=== PATIENT | female | born 1950 | race Caucasian/White ===

== ENCOUNTER → 2016-11-09 | Outpatient (CLI) | payer MEDICARE, BC | LOC: RAD 12:51 | PROVIDERS: ATTEND Internal Medicine | DX: J44.9 Chronic obstructive pulmonary disease, unspecified (principal); R05 Cough | CPT/HCPCS: 71250 ==

== ENCOUNTER 2017-02-01 20:17 | Inpatient (IN) | payer MEDICARE, BC ==
[2017-02-01] MEDS ORDERED: METHYLPREDNISOLONE INJ 125 MG/2 ML SDV IV ONE (20:57)
[2017-02-01] MEDS ORDERED: IPRATROPIUM/ALBUTEROL 0.5-2.5 MG/3 ML AMPUL NEB ONE (20:57)
--- NOTE | 2017-02-01 20:57 | ER Document Report ---
ED General - General Chief Complaint: Breathing Difficulty Stated Complaint: DIFFICULTY BREATHING Time Seen by Provider: 02/01/17 20:42 Notes: Patient is a 66-year-old female with past medical history of COPD with 2 L of nasal cannula oxygen dependence at baseline, hypertension, hyperlipidemia, chronic pain who presents with 2 days of progressively worsening severe Shortness of breath and cough. She was started on levofloxacin yesterday by her primary provider without any improvement in her symptoms. She has also been taking her normal home nebulizers again without any improvement. States she had similar symptoms in the past with prior COPD exacerbations. She denies any associated chest pain, vomiting, fever or altered mental status. She has not noted that anything seems to worsen her symptoms. TRAVEL OUTSIDE OF THE [place] IN LAST 30 DAYS: No - Related Data Allergies/Adverse Reactions: ibuprofen [From Motrin] Allergy (Severe, Verified 05/15/12 11:11) Azotemia, acute renal failure pentazocine lactate [From Talwin] Adverse Reaction (Unknown, Unverified 11:23) Home Medications: Current Home Medications Pregabalin [Lyrica] 50 mg PO BID 02/02/17 [History] Past Medical History - General Information source: Patient - Social History Smoking Status: Former Smoker Frequency of alcohol use: None Drug Abuse: None Lives with: Spouse/Significant other Family History: Reviewed & Not Pertinent Patient has suicidal ideation: No Patient has homicidal ideation: No - Past Medical History Cardiac Medical History: Reports: Hx Hypercholesterolemia, Hx Hypertension Pulmonary Medical History: Reports: Hx COPD, Hx Pneumonia - 11/2009, Hx Sleep Apnea Denies: Hx Tuberculosis Renal/ Medical History: Denies: Hx Peritoneal Dialysis Musculoskeltal Medical History: Reports Hx Fibromyalgia Psychiatric Medical History: Reports: Hx Depression Past Surgical History: Reports: Hx Section, Hx Hysterectomy. Denies: Hx Pacemaker - Immunizations Hx Diphtheria, Pertussis, Tetanus Vaccination: No Hx Pneumococcal Vaccination: 05/17/12 Review of Systems - Review of Systems Notes: Constitutional: Negative for fever. HENT: Negative for sore throat. Eyes: Negative for visual changes. Cardiovascular: Negative for chest pain. Respiratory: Positive for shortness of breath. Gastrointestinal: Negative for abdominal pain, vomiting or diarrhea. Genitourinary: Negative for dysuria. Musculoskeletal: Negative for back pain. Skin: Negative for rash. Neurological: Negative for headaches, weakness or numbness. 10 point ROS negative except as marked above and in HPI. Physical Exam - Vital signs Vitals: Temp Pulse Resp BP Pulse Ox 98.6 F 95 26 H 176/112 H 90 L 02/01/17 20:17 02/01/17 20:17 02/01/17 20:17 02/01/17 20:17 02/01/17 20:17 Interpretation: Hypoxic, Tachypneic Notes: PHYSICAL EXAMINATION: GENERAL: Cachectic, appears to be in moderate respiratory distress. HEAD: Atraumatic, normocephalic. EYES: Pupils equal round and reactive to light, extraocular movements intact, sclera anicteric, conjunctiva are normal. ENT: nares patent, oropharynx clear without exudates. Moderately dry mucous membranes. NECK: Normal range of motion, supple without lymphadenopathy LUNGS: Diffuse rhonchi in all lung [place] with associated respiratory distress with initial respiratory rate at time of my assessment at 32 breaths per minute. HEART: Regular tachycardia without murmurs ABDOMEN: Soft, nontender, normoactive bowel sounds. No guarding, no rebound. No masses appreciated. EXTREMITIES: Normal range of motion, no pitting or edema. No cyanosis. NEUROLOGICAL: No focal neurological deficits. Moves all extremities spontaneously and on command. PSYCH: Normal mood, normal affect. SKIN: Warm, Dry, normal turgor, no rashes or lesions noted. Course - Re-evaluation Re-evalutation: 02/01/17 20:57 Patient presents in moderate respiratory distress with tachypnea into the upper 20s, mild hypoxemia with an initial pulse oximetry of 91%. Patient sounded to have mostly rales on exam with minimal wheezing. Complete sentences. She denies a history of CHF. No chest pain by complaint. At this point she is a somewhat Endo differentiated picture although her clinical presentation appears more consistent with a new onset CHF exacerbation versus possible severe bronchitis in the setting of a COPD exacerbation. Will trial continuous nebulizers, steroids and reassess. The patient is significantly ill at this time and will require reassessment. 2206-chest x-ray demonstrates increased vascular markings markings but no overt pulmonary edema. ProBNP is markedly elevated at 13,000 as well as the troponin which is in an indeterminate range at 0.049. Patient does deny any chest pain. At this point I believe the clinical picture is again more consistent with a CHF picture. This is supported by lack of any improvement on continuous nebulizers. Will proceed with placement of BiPAP and initiate a nitroglycerin drip. Patient will be admitted to the hospital at this time. Will also continue to reassess frequently while she remains here in the emergency department. She remains mildly tachypneic and requires 3L by NC to maintain o2 sat at 92%. 02/01/17 23:02 Patient's work of breathing is now substantially improved on BiPAP. Respiratory rate is now 22 even and unlabored with much improved aeration on lung auscultation. Her blood pressure is trending in the appropriate direction with the systolic not 162. I have discussed this case with the patient's primary care physician Dr. Joiner who will admit her to the hospital. - Vital Signs Vital signs: Temp Pulse Resp BP Pulse Ox 98.6 F 95 24 H 137/81 H 94 02/01/17 20:17 02/01/17 20:17 02/02/17 01:11 02/02/17 01:11 02/02/17 01:11 - Laboratory Result Diagrams: 02/01/17 20:55 02/01/17 20:55 Laboratory results interpreted by me: 02/01/17 02/01/17 02/01/17 20:55 20:55 20:55 WBC 13.5 H RDW 14.2 H Seg Neutrophils % 83.8 H Lymphocytes % 7.2 L Absolute Neutrophils 11.3 H Potassium 3.3 L NT-Pro-B Natriuret Pep 55250 H - Diagnostic Test Radiology reviewed: Image reviewed, Reports reviewed Radiology results interpreted by me: 02/01/17 22:04 Chest x-ray: Increased vascular markings without overt pulmonary edema - EKG Interpretation by Me Additional EKG results interpreted by me: 02/02/17 02:12 Normal sinus rhythm. Rate 89. LVH. No ST elevations or depressions. QTC is 453. Critical Care Note - Critical Care Note Total time excluding time spent on procedures (mins): 40 Comments: Critical care time spent obtaining history from patient or surrogate, discussions with consultants, development of treatment plan with patient or surrogate, evaluation of patient's response to treatment, examination of patient , ordering and performing treatments and interventions, ordering and review of laboratory studies, re-evaluation of patient's condition, ordering and review of radiographic studies and review of old charts Discharge - Discharge Clinical Impression: Respiratory distress, Elevated brain natriuretic peptide (BNP) level, Elevated troponin Condition: Fair Disposition: ADMITTED INPATIENT Admitting Provider: Marisel Unit Admitted: [facility]
[2017-02-01] MEDS ORDERED: NORMAL SALINE 1000 ML 1,000 ML IV ONE (20:58)
[2017-02-01 21:06] LABS: ABSOLUTE BASOPHILS # (AUTO) 0.1 10^3/uL (0.0-0.2); ABSOLUTE EOSINOPHILS # (AUTO) 0.1 10^3/uL (0.0-0.6); ABSOLUTE MONOCYTES (AUTO) 1.1 10^3/uL (0.1-1.4); ABSOLUTE NEUT (AUTO) 11.3 10^3/uL (1.7-8.2); BASOPHILS % (AUTO) 0.4 % (0-2); EOSINOPHILS % (AUTO) 0.4 % (0-6); HEMATOCRIT 40.8 % (36.0-47.0); HEMOGLOBIN 13.7 g/dL (12.0-15.5); HGB HCT DIFFERENCE 0.3; LYMPHOCYTES % (AUTO) 7.2 % (13-45); MEAN CORPUSCULAR HEMOGLOBIN 28.8 pg (27.0-33.4); MEAN CORPUSCULAR HGB CONC 33.7 g/dL (32.0-36.0); MEAN CORPUSCULAR VOLUME 86 fl (80-97); MONOCYTES % (AUTO) 8.2 % (3-13); RED BLOOD COUNT 4.77 10^6/uL (3.72-5.28); RED CELL DISTRIBUTION WIDTH 14.2 % (11.5-14.0); SEGMENTED NEUTROPHILS % (AUTO) 83.8 % (42-78); WHITE BLOOD COUNT 13.5 10^3/uL (4.0-10.5)
[2017-02-01] MEDS: MAGNESIUM SULFATE/D5W 100 ML IV SCH ×2 (21:09→21:44)
--- NOTE | 2017-02-01 21:12 | RADIOLOGY REPORT (SQ) ---
EXAM DESCRIPTION: CHEST SINGLE VIEW COMPLETED DATE/TIME: 02/01/2017 9:01 pm REASON FOR STUDY: sob COMPARISON: Chest x-ray dated 05/15/2012, CT chest dated 11/09/2016 EXAM PARAMETERS: NUMBER OF VIEWS: One view. TECHNIQUE: Single frontal radiographic view of the chest acquired. RADIATION DOSE: NA LIMITATIONS: None. FINDINGS: LUNGS AND PLEURA: Interstitial markings are prominent but unchanged. No consolidation or effusions. MEDIASTINUM AND HILAR STRUCTURES: No masses. Contour normal. HEART AND VASCULAR STRUCTURES: Heart normal in size. Normal vasculature. BONES: No acute findings. HARDWARE: None in the chest. OTHER: No other significant finding. IMPRESSION: Stable chest. No acute findings. TECHNICAL DOCUMENTATION: JOB ID: [id number]
[2017-02-01 21:18] LABS: ANION GAP 17 (5-19); BLOOD UREA NITROGEN 13 mg/dL (7-20); CALCIUM 10.2 mg/dL (8.4-10.2); CARBON DIOXIDE 26 mmol/L (22-30); CHLORIDE 98 mmol/L (98-107); CREATININE RESULT 0.57 mg/dL (0.52-1.25); GLUCOSE 101 mg/dL (75-110); POTASSIUM 3.3 mmol/L (3.6-5.0); SODIUM 141.3 mmol/L (137-145)
[2017-02-01 21:56] LABS: TROPONIN I 0.049 ng/mL
[2017-02-01] MEDS ORDERED: NITROGLYCERIN/D5W 250 ML IV PRN (22:01)
[2017-02-02] MEDS ORDERED: DEXTROSE 50%-WATER 25 GM/50 ML DISP.SYRIN IV PRN ×2 (02:21)
[2017-02-02] MEDS ORDERED: GLUCAGON,HUMAN RECOMB 1 MG INJ SUBCUT PRN (02:21)
[2017-02-02] MEDS ORDERED: DEXTROSE 5%-WATER 1000 ML 1,000 ML IV PRN (02:21)
[2017-02-02] MEDS ORDERED: DEXTROSE 40% GEL 15 GM TUBE PO PRN ×2 (02:21)
[2017-02-02] MEDS ORDERED: HYDROCODONE BIT PO SCH (02:30)
[2017-02-02] MEDS ORDERED: HYDROCHLOROTHIAZIDE PO SCH (02:30)
[2017-02-02] MEDS ORDERED: ACETAMINOPHEN PO SCH (02:30)
[2017-02-02] MEDS ORDERED: OLMESARTAN PO SCH (02:30)
[2017-02-02] MEDS ORDERED: [UNRECOGNIZED DRUG - OTHER] PO SCH (02:30)
[2017-02-02] MEDS ORDERED: [UNRECOGNIZED DRUG - OTHER] PO SCH (02:30)
[2017-02-02 02:52] LABS: MAGNESIUM 1.6 mg/dL (1.6-2.3); PHOSPHORUS 2.7 mg/dL (2.5-4.5)
[2017-02-02] MEDS ORDERED: METHOCARBAMOL 500 MG TABLET PO ONE (03:00)
[2017-02-02] MEDS ORDERED: LEVOFLOXACIN 750 MG TABLET PO ONE (03:00)
[2017-02-02] MEDS ORDERED: PREGABALIN 50 MG CAPSULE PO ONE (03:00)
[2017-02-02 03:05] LABS: PROTHROMBIN TIME 14.3 SEC (11.4-15.4)
[2017-02-02 03:06] LABS: PARTIAL THROMBOPLASTIN TIME 30.4 SEC (23.5-35.8)
[2017-02-02 03:08] LABS: D-DIMER 0.64 ug/mL (0.00-0.50)
[2017-02-02 03:14] LABS: CHOLESTEROL 236.55 mg/dL (0-200); CREATINE KINASE 137 U/L (30-135); Direct HDL 59 mg/dL (>40); TRIGLYCERIDES 98 mg/dL (<150)
[2017-02-02] MEDS ORDERED: LOSARTAN POTASSIUM 50 MG TABLET PO ONE (03:15)
[2017-02-02] MEDS ORDERED: FLUTICASONE/SALMETEROL DISKUS 250-50 MCG/DOSE IH ONE ×3 (03:15→08:57)
[2017-02-02] MEDS ORDERED: HYDROCHLOROTHIAZIDE 25 MG TABLET PO ONE (03:15)
[2017-02-02 03:25] LABS: DIRECT LDL 143 mg/dL (<100)
[2017-02-02 03:27] LABS: CREATINE KINASE MB 7.42 ng/mL (<4.55); TROPONIN I 0.049 ng/mL
[2017-02-02] MEDS: LEVALBUTEROL HCL NEB 1.25 MG/3 ML AMPUL NEB SCH ×8 (03:44→18:17)
[2017-02-02 03:56] LABS: ARTERIAL BLOOD BASE EXCESS 2.5 mmol/L; ARTERIAL BLOOD O2 SATURATION 95.8 % (94-98)
[2017-02-02] MEDS: HYDROCODONE/ACETAMINOPHEN 5-325 MG TABLET PO SCH ×2 (05:20→08:46)
[2017-02-02] MEDS: DEXAMETHASONE SOD PHOSPHATE INJ 4 MG/1 ML VIAL IV SCH ×3 (06:33→22:16)
--- NOTE | 2017-02-02 07:49 | EKG REPORT ---
SEVERITY:- ABNORMAL ECG - SINUS RHYTHM LEFT ATRIAL ABNORMALITY PROLONGED QT INTERVAL DIFFUSE NONSPECIFIC ST-T CHANGES : Confirmed by: Tyosn Ann MD 02-Feb-2017 07:49:30
--- NOTE | 2017-02-02 07:50 | EKG REPORT ---
SEVERITY:- ABNORMAL ECG - SINUS RHYTHM PROBABLE LEFT VENTRICULAR HYPERTROPHY ABNORMAL T, CONSIDER ISCHEMIA, ANTERIOR LEADS : Confirmed by: Tyson Ann MD 02-Feb-2017 07:49:43
[2017-02-02] MEDS ORDERED: METHADONE HCL 10 MG TABLET PO SCH ×2 (08:00→14:00)
[2017-02-02] MEDS: ENOXAPARIN SODIUM INJ 40 MG/0.4 ML DISP.SYRIN SUBCUT SCH (08:47)
[2017-02-02 09:33] LABS: ALANINE AMINOTRANSFERASE 29 U/L (9-52); ALBUMIN 3.6 g/dL (3.5-5.0); ALKALINE PHOSPHATASE 107 U/L (38-126); ANION GAP 11 (5-19); ASPARTATE AMINO TRANSFERASE 22 U/L (14-36); BILIRUBIN,DIRECT 0.5 mg/dL (0.0-0.4); BILIRUBIN,TOTAL 0.9 mg/dL (0.2-1.3); BLOOD UREA NITROGEN 14 mg/dL (7-20); CALCIUM 9.7 mg/dL (8.4-10.2); CARBON DIOXIDE 25 mmol/L (22-30); CHLORIDE 100 mmol/L (98-107); CREATININE RESULT 0.51 mg/dL (0.52-1.25); GLUCOSE 181 mg/dL (75-110); SODIUM 136.4 mmol/L (137-145); TOTAL PROTEIN 6.7 g/dL (6.3-8.2)
[2017-02-02 09:44] LABS: CREATINE KINASE MB 6.63 ng/mL (<4.55); TROPONIN I 0.037 ng/mL
[2017-02-02 09:58] LABS: POTASSIUM 2.7 mmol/L (3.6-5.0)
[2017-02-02] MEDS ORDERED: PREGABALIN 50 MG CAPSULE PO SCH (10:00)
[2017-02-02] MEDS ORDERED: LOSARTAN POTASSIUM 50 MG TABLET PO SCH (10:00)
[2017-02-02] MEDS ORDERED: HYDROCHLOROTHIAZIDE 25 MG TABLET PO SCH (10:00)
[2017-02-02] MEDS ORDERED: METHOCARBAMOL 500 MG TABLET PO SCH (10:00)
[2017-02-02] MEDS: FLUTICASONE/SALMETEROL DISKUS 250-50 MCG/DOSE IH SCH ×2 (11:31→22:15)
[2017-02-02] MEDS ORDERED: ALBUTEROL SULFATE HFA (90 MCG/PUFF) 200 PUFF/8.5 GM MDI IH PRN (12:20)
[2017-02-02] MEDS ORDERED: METHOCARBAMOL 500 MG TABLET PO PRN (12:20)
[2017-02-02] MEDS: NYSTATIN 500000 UNIT/5 ML UDCUP PO SCH ×3 (13:59→22:16)
[2017-02-02] MEDS: POTASSIUM CHLORIDE 10 MEQ TABLET.SA PO SCH ×3 (14:02→22:15)
[2017-02-02] MEDS: HYDROCODONE/ACETAMINOPHEN 5-325 MG TABLET PO PRN (14:03)
[2017-02-02] MEDS: GABAPENTIN 300 MG CAPSULE PO SCH ×2 (14:03→22:14)
[2017-02-02 15:01] LABS: CREATINE KINASE MB 6.82 ng/mL (<4.55); TROPONIN I 0.022 ng/mL
[2017-02-02] MEDS: METHADONE HCL 10 MG TABLET PO SCH ×2 (17:53→23:44)
--- NOTE | 2017-02-02 18:30 | XCELERA REPORT ---
[address] [address] Transthoracic Echocardiogram Report Name: REHAN DANIEL Age: 66 yrs Gender: Female : 1950 Patient Status: Inpatient Patient Location: [id number]\319\[id number]\A Study Date: 02/02/2017 09:31 AM Height: 65 in Weight: 134 lb BSA: 1.7 m2 Procedure: A complete two-dimensional transthoracic echocardiogram was performed (2D, M-mode, spectral and color flow Doppler). The study was technically adequate with some images being suboptimal in quality. Reason For Study: CHF Ordering Physician: OBEY ROYAL Performed By: Nela Go Interpretation Summary The left ventricular ejection fraction is normal. Doppler measurements suggest pseudonormalized left ventricular relaxation, which is associated with grade II/IV or mild to moderate diastolic dysfunction There is borderline concentric left ventricular hypertrophy. The left ventricle is grossly normal size. Wall motion cannot be accurately commented on, but no definite regional wall motion abnormalities noted. The right ventricular systolic function is normal. The left atrial size is normal. The right atrium is normal in size There is no mitral valve stenosis. No aortic regurgitation is present. There is no aortic valve stenosis There is a trace or physiologic amount of tricuspid regurgitation Tricuspid regurgitation jet envelope not well defined to measure RV systolic pressure accurately. The aortic root is not well visualized but is probably normal size. The inferior vena cava appeared normal and decreased > 50% with respiration (RAP 5-10 mmHg) There is no pericardial effusion. MMode/2D Measurements \T\ Calculations RVDd: 2.6 cm LVIDd: 4.5 cm FS: 37.5 % Ao root diam: 2.3 cm IVSd: 0.93 cm LVIDs: 2.8 cm EDV(Teich): 94.3 ml LVPWd: 0.85 cm ESV(Teich): 30.4 ml Ao root area: 4.2 cm2 EF(Teich): 67.7 % ACS: 1.9 cm LA dimension: 3.3 cm Doppler Measurements \T\ Calculations MV E max ag: MV P1/2t max ag: Ao V2 max: LV V1 max P.3 cm/sec 73.2 cm/sec 194.7 cm/sec 8.1 mmHg MV A max ag: MV P1/2t: 41.7 msec Ao max PG: LV V1 max: 94.0 cm/sec MVA(P1/2t): 5.3 cm2 15.2 mmHg 142.0 cm/sec MV E/A: 0.77 MV dec slope: 513.4 cm/sec2 MV dec time: 0.14 sec PA V2 max: PI end-d ag: TR max ag: 95.3 cm/sec 160.2 cm/sec 240.3 cm/sec PA max PG: TR max P.6 mmHg 23.1 mmHg Left Ventricle The left ventricle is grossly normal size. There is borderline concentric left ventricular hypertrophy. The left ventricular ejection fraction is normal. Doppler measurements suggest pseudonormalized left ventricular relaxation, which is associated with grade II/IV or mild to moderate diastolic dysfunction. Wall motion cannot be accurately commented on, but no definite regional wall motion abnormalities noted. Right Ventricle The right ventricle is grossly normal size. There is normal right ventricular wall thickness. The right ventricular systolic function is normal. Atria The right atrium is normal in size. The left atrial size is normal. Interarterial septum not well visualized and not well dopplered. Cannot comment on ASD/PFO presence. Mitral Valve The mitral valve is grossly normal. There is no mitral valve stenosis. There is a trace to mild amount of mitral regurgitation. Aortic Valve The aortic valve is grossly normal. There is no aortic valve stenosis. No aortic regurgitation is present. Tricuspid Valve The tricuspid valve is not well visualized, but is grossly normal. There is no tricuspid stenosis. There is a trace or physiologic amount of tricuspid regurgitation. Tricuspid regurgitation jet envelope not well defined to measure RV systolic pressure accurately. Pulmonic Valve The pulmonic valve is not well visualized. Great Vessels The aortic root is not well visualized but is probably normal size. The inferior vena cava appeared normal and decreased > 50% with respiration (RAP 5-10 mmHg). Effusions There is no pericardial effusion. : OBEY ROYAL > Julianna Barroso
--- NOTE | 2017-02-02 19:37 | PDOC H&P ---
History of Present Illness Admission Date/PCP: 02/02/17 02:21 OBEY ROYAL MD History of Present Illness: REHAN DANIEL is a 66 year old female, she came to the emergency room last night because of respiratory distress, she has a history of chronic obstructive lung disease, she continued to smoke cigarettes despite severe COPD. In the emergency room, she was found to have hypertensive emergency and she was treated with intravenous nitroglycerin drip. There is a concern she may have CHF, the respiratory was supported with noninvasive positive pressure ventilation with BiPAP machine breathing. ABG on FiO2 4 L, pH is 7.48, PCO2 35.3 , PO2 73.4, bicarbonate 25.8 ,chest x-ray did not show any acute pneumonia, 2D echo was done the ejection fraction of the left ventricle is normal Past Medical History Cardiac Medical History: Reports: Hyperlipidema, Hypertension Pulmonary Medical History: Reports: Chronic Obstructive Pulmonary Disease (COPD) , Pneumonia - 11/2009, Sleep Apnea Musculoskeltal Medical History: Reports: Fibromyalgia Psychiatric Medical History: Reports: Depression Past Surgical History Past Surgical History: Reports: Section, Hysterectomy Social History Lives with: Spouse/Significant other Smoking Status: Former Smoker Cigarettes Packs Per Day: 1 Number of Years Smokin Last Time Smoked: 2009 Frequency of Alcohol Use: None Hx Recreational Drug Use: No Drugs: None Hx Prescription Drug Abuse: No Family History Family History: Reviewed & Not Pertinent Parental Family History Reviewed: Yes Children Family History Reviewed: Yes Sibling(s) Family History Reviewed.: Yes Medication/Allergy Home Medications: Albuterol Sulfate [Proair HFA Inhalation Aerosol 8.5 gm MDI] 2 puff IN QID PRN 02/02/17 Atorvastatin Calcium [Lipitor 20 mg Tablet] 20 mg PO QHS 02/02/17 Gabapentin [Neurontin 300 mg Capsule] 300 mg PO Q8 02/02/17 Hydrocodone Bit/Acetaminophen [Hydrocodon-Acetaminophen 5-325] 1 tab PO Q6HP PRN 02/02/17 Methadone HCl [Dolophine 10 mg Tablet] 10 mg PO Q8 02/02/17 Methocarbamol [Robaxin 500 mg Tablet] 500 mg PO Q8HP PRN 02/02/17 Olmesartan Medoxomil [Benicar] 20 mg PO DAILY 02/02/17 Pregabalin [Lyrica 50 mg Capsule] 50 mg PO Q12 02/02/17 Roflumilast [Daliresp 500 mcg Tablet] 500 mcg PO DAILY 02/02/17 Trazodone HCl [Desyrel] 150 mg PO QHS 02/02/17 Allergies/Adverse Reactions: ibuprofen [From Motrin] Allergy (Severe, Verified 05/15/12 11:11) Azotemia, acute renal failure Iodinated Contrast Media - Oral and Allergy (Verified 02/02/17 04:20) Generalized Itching pentazocine lactate [From Talwin] Adverse Reaction (Mild, Verified 02/02/17 04: 20) Nausea Review of Systems Constitutional: ABSENT: chills, fever(s), headache(s), weight gain, weight loss Eyes: ABSENT: visual disturbances Ears: ABSENT: hearing changes Cardiovascular: ABSENT: chest pain, dyspnea on exertion, edema, orthropnea, palpitations Respiratory: PRESENT: cough, dyspnea Gastrointestinal: ABSENT: abdominal pain, constipation, diarrhea, hematemesis, hematochezia, nausea, vomiting Genitourinary: ABSENT: dysuria, hematuria Musculoskeletal: ABSENT: joint swelling Integumentary: ABSENT: rash, wounds Neurological: ABSENT: abnormal gait, abnormal speech, confusion, dizziness, focal weakness, syncope Psychiatric: ABSENT: anxiety, depression, homidical ideation, suicidal ideation Endocrine: ABSENT: cold intolerance, heat intolerance, menstrual abnormalities, polydipsia, polyuria Hematologic/Lymphatic: ABSENT: easy bleeding, easy bruising, lymphadenopathy Physical Exam Vital Signs: Temp Pulse Resp BP Pulse Ox 98.5 F 92 24 H 133/69 H 93 02/02/17 15:50 02/02/17 18:17 02/02/17 18:17 02/02/17 15:50 02/02/17 18:17 Intake & Output 02/01/17 02/02/17 02/03/17 06:59 06:59 06:59 Intake Total 55 496 Output Total 0 Balance 55 496 Weight 61.3 kg General appearance: PRESENT: severe distress Head exam: PRESENT: atraumatic, normocephalic Eye exam: PRESENT: conjunctiva pink, EOMI, PERRLA Ear exam: PRESENT: normal external ear exam Mouth exam: PRESENT: moist, tongue midline Neck exam: PRESENT: full ROM Respiratory exam: PRESENT: wheezes Cardiovascular exam: PRESENT: RRR, +S1, +S2 Pulses: PRESENT: normal dorsalis pedis pul, +2 pedal pulses bilateral Vascular exam: PRESENT: normal capillary refill GI/Abdominal exam: PRESENT: normal bowel sounds, soft Rectal exam: PRESENT: deferred Neurological exam: PRESENT: alert, awake, oriented to person, oriented to place , oriented to time, oriented to situation, CN II-XII grossly intact Psychiatric exam: PRESENT: appropriate affect, normal mood Skin exam: PRESENT: dry, intact, warm Results Laboratory Results: 02/02/17 08:55 02/02/17 02/02/17 02/02/17 02:50 03:40 08:55 Carbonic Acid 1.06 HCO3/H2CO3 Ratio 24:1 ABG pH 7.48 H ABG pCO2 35.3 ABG pO2 73.4 L ABG HCO3 25.8 ABG O2 Saturation 95.8 ABG Base Excess 2.5 FiO2 4L Sodium 136.4 L Potassium 2.7 L* Chloride 100 Carbon Dioxide 25 Anion Gap 11 BUN 14 Creatinine 0.51 L Est GFR ( Amer) > 60 Est GFR (Non-Af Amer) > 60 Glucose 181 H Calcium 9.7 Total Bilirubin 0.9 AST 22 ALT 29 Alkaline Phosphatase 107 Total Protein 6.7 Albumin 3.6 Triglycerides 98 Cholesterol 236.55 H LDL Cholesterol Direct 143 H VLDL Cholesterol 20.0 HDL Cholesterol 59 02/02/17 02/02/17 02/02/17 02:50 02:50 08:55 Creatine Kinase 137 H 115 CK-MB (CK-2) 7.42 H Troponin I 0.049 02/02/17 02/02/17 02/02/17 08:55 13:59 13:59 Creatine Kinase 112 CK-MB (CK-2) 6.63 H 6.82 H Troponin I 0.037 0.022 Impressions: Chest X-Ray 02/01/17 20:42 IMPRESSION: Stable chest. No acute findings. Assessment & Plan - Diagnosis (1) Acute hypoxemic respiratory failure Is this a current diagnosis for this admission?: YesPlan: She will continue BiPAP machine to support respiration (2) Chronic obstructive pulmonary disease with (acute) exacerbation Is this a current diagnosis for this admission?: YesPlan: She will be treated with intravenous Decadron, she cannot tolerate intravenous Solu-Medrol, the last time she had the she was psychotic on it. She also will be treated with bronchodilators on p.o. antibiotic. (3) Hypertensive emergency Is this a current diagnosis for this admission?: YesPlan: The blood pressure is better controlled now compared to when she was admitted
[2017-02-02] MEDS ORDERED: (PENDING PHARMACY ID) (Trazodone Hcl [Desyrel] 150 MG) PO SCH (22:00)
[2017-02-02] MEDS: ATORVASTATIN CALCIUM 20 MG TABLET PO SCH (22:14)
[2017-02-02] MEDS: TRAZODONE HCL 50 MG TABLET PO SCH (22:15)
[2017-02-02] MEDS: PREGABALIN 50 MG CAPSULE PO SCH (22:15)
[2017-02-02] MEDS: LEVOFLOXACIN 750 MG TABLET PO SCH (22:16)
[2017-02-03 05:00] LABS: HEMATOCRIT 37.4 % (36.0-47.0); HEMOGLOBIN 12.2 g/dL (12.0-15.5); HGB HCT DIFFERENCE -0.8; MEAN CORPUSCULAR HEMOGLOBIN 28.4 pg (27.0-33.4); MEAN CORPUSCULAR HGB CONC 32.7 g/dL (32.0-36.0); MEAN CORPUSCULAR VOLUME 87 fl (80-97); RED CELL DISTRIBUTION WIDTH 14.7 % (11.5-14.0); WHITE BLOOD COUNT 19.2 10^3/uL (4.0-10.5)
[2017-02-03 05:31] LABS: ANION GAP 6 (5-19); BLOOD UREA NITROGEN 24 mg/dL (7-20); CALCIUM 10.1 mg/dL (8.4-10.2); CARBON DIOXIDE 30 mmol/L (22-30); CHLORIDE 104 mmol/L (98-107); CREATININE RESULT 0.78 mg/dL (0.52-1.25); GLUCOSE 117 mg/dL (75-110); SODIUM 140.4 mmol/L (137-145)
[2017-02-03] MEDS: GABAPENTIN 300 MG CAPSULE PO SCH ×3 (05:50→21:21)
[2017-02-03] MEDS: DEXAMETHASONE SOD PHOSPHATE INJ 4 MG/1 ML VIAL IV SCH ×3 (05:50→21:20)
[2017-02-03] MEDS: METHADONE HCL 10 MG TABLET PO SCH ×3 (07:58→23:17)
[2017-02-03] MEDS: ENOXAPARIN SODIUM INJ 40 MG/0.4 ML DISP.SYRIN SUBCUT SCH (07:59)
--- NOTE | 2017-02-03 08:20 | EKG REPORT ---
SEVERITY:- ABNORMAL ECG - SINUS RHYTHM WITH PAC PROBABLE LEFT VENTRICULAR HYPERTROPHY NONSPECIFIC ST-T CHANGES ANTERIOR LEADS : Confirmed by: Tyson Ann MD 03-Feb-2017 08:20:13
[2017-02-03] MEDS: NYSTATIN 500000 UNIT/5 ML UDCUP PO SCH ×4 (09:17→21:22)
[2017-02-03] MEDS: LOSARTAN POTASSIUM 50 MG TABLET PO SCH (09:17)
[2017-02-03] MEDS: FLUTICASONE/SALMETEROL DISKUS 250-50 MCG/DOSE IH SCH ×2 (09:17→21:21)
[2017-02-03] MEDS: ROFLUMILAST 500 MCG TABLET PO SCH (09:18)
[2017-02-03] MEDS: PREGABALIN 50 MG CAPSULE PO SCH ×2 (09:18→21:21)
[2017-02-03] MEDS ORDERED: ROFLUMILAST PO SCH (10:00)
[2017-02-03] MEDS ORDERED: (PENDING PHARMACY ID) (Olmesartan Medoxomil [Benicar] 20 MG) PO SCH (10:00)
[2017-02-03 12:10] LABS: AMORPHOUS SEDIMENT,URINE TRACE /HPF; APPEARANCE,URINE TURBID; BILIRUBIN,URINE NEGATIVE (NEGATIVE); GLUCOSE, URINE NEGATIVE (NEGATIVE); KETONES,URINE NEGATIVE (NEGATIVE); LEUKOCYTE ESTERASE,URINE NEGATIVE (NEGATIVE); NITRITE,URINE NEGATIVE (NEGATIVE); PROTEIN,URINE 30 mg/dL (NEGATIVE); URINE SPECIFIC GRAVITY 1.026; UROBILINOGEN,URINE NEGATIVE mg/dL (<2.0)
[2017-02-03] MEDS: HYDROCODONE/ACETAMINOPHEN 5-325 MG TABLET PO PRN ×2 (12:13→19:56)
[2017-02-03] MEDS: LEVALBUTEROL HCL NEB 1.25 MG/3 ML AMPUL NEB PRN ×2 (12:35→20:40)
--- NOTE | 2017-02-03 12:43 | PDOC PROGRESS REPORT ---
Subjective Progress Note for:: 02/03/17 Subjective:: Patient was seen by the bedside, she was admitted yesterday due to acute hypoxemic respiratory failure from COPD exacerbation. She on intravenous Decadron, bronchodilators and also antibiotic. She has not required BiPAP machine the last couple of hours, she is on oxygen nasal cannula. Physical Exam Vital Signs: Temp Pulse Resp BP Pulse Ox 98.3 F 82 19 130/53 H 92 02/03/17 11:43 02/03/17 11:43 02/03/17 11:43 02/03/17 11:43 02/03/17 11:43 Intake & Output 02/02/17 02/03/17 02/04/17 06:59 06:59 06:59 Intake Total 55 1180 Output Total 0 700 Balance 55 480 Weight 61.3 kg 61.1 kg General appearance: PRESENT: no acute distress Eye exam: PRESENT: PERRLA Respiratory exam: PRESENT: wheezes Cardiovascular exam: PRESENT: +S1, +S2 GI/Abdominal exam: PRESENT: soft Neurological exam: PRESENT: alert, CN II-XII grossly intact Results Laboratory Results: 02/03/17 04:26 02/03/17 04:26 02/03/17 02/03/17 02/03/17 04:26 04:26 04:26 WBC 19.2 H RBC 4.30 Hgb 12.2 Hct 37.4 MCV 87 MCH 28.4 MCHC 32.7 RDW 14.7 H Plt Count 258 Sodium 140.4 Potassium 5.0 D Chloride 104 Carbon Dioxide 30 Anion Gap 6 BUN 24 H Creatinine 0.78 Est GFR ( Amer) > 60 Est GFR (Non-Af Amer) > 60 Glucose 117 H Calcium 10.1 TSH 0.45 L Urine Color Urine Appearance Urine pH Ur Specific [place] Urine Protein Urine Glucose (UA) Urine Ketones Urine Blood Urine Nitrite Ur Leukocyte Esterase Urine WBC (Auto) Urine RBC (Auto) 02/03/17 09:20 WBC RBC Hgb Hct MCV MCH MCHC RDW Plt Count Sodium Potassium Chloride Carbon Dioxide Anion Gap BUN Creatinine Est GFR ( Amer) Est GFR (Non-Af Amer) Glucose Calcium TSH Urine Color YELLOW Urine Appearance TURBID Urine pH 5.0 Ur Specific [place] 1.026 Urine Protein 30 H Urine Glucose (UA) NEGATIVE Urine Ketones NEGATIVE Urine Blood SMALL H Urine Nitrite NEGATIVE Ur Leukocyte Esterase NEGATIVE Urine WBC (Auto) 1 Urine RBC (Auto) 1 02/02/17 02/02/17 02/02/17 02:50 02:50 08:55 Creatine Kinase 137 H 115 CK-MB (CK-2) 7.42 H Troponin I 0.049 02/02/17 02/02/17 02/02/17 08:55 13:59 13:59 Creatine Kinase 112 CK-MB (CK-2) 6.63 H 6.82 H Troponin I 0.037 0.022 Impressions: Chest X-Ray 02/01/17 20:42 IMPRESSION: Stable chest. No acute findings. Assessment & Plan - Diagnosis (1) Acute hypoxemic respiratory failure Is this a current diagnosis for this admission?: Yes (2) Chronic obstructive pulmonary disease with (acute) exacerbation Is this a current diagnosis for this admission?: YesPlan: Continue IV Decadron, bronchodilators and p.o. antibiotic. (3) Hypertensive emergency Is this a current diagnosis for this admission?: Yes (4) Hypokalemia Is this a current diagnosis for this admission?: YesPlan: Potassium replaced
[2017-02-03] MEDS: ATORVASTATIN CALCIUM 20 MG TABLET PO SCH (21:21)
[2017-02-03] MEDS: TRAZODONE HCL 50 MG TABLET PO SCH (21:21)
[2017-02-03] MEDS: LEVOFLOXACIN 750 MG TABLET PO SCH (21:29)
[2017-02-04] MEDS: DEXAMETHASONE SOD PHOSPHATE INJ 4 MG/1 ML VIAL IV SCH ×3 (06:29→22:24)
[2017-02-04] MEDS: GABAPENTIN 300 MG CAPSULE PO SCH ×3 (06:29→22:26)
[2017-02-04] MEDS: METHADONE HCL 10 MG TABLET PO SCH ×3 (07:49→23:55)
[2017-02-04] MEDS: ENOXAPARIN SODIUM INJ 40 MG/0.4 ML DISP.SYRIN SUBCUT SCH (07:49)
[2017-02-04] MEDS: LEVALBUTEROL HCL NEB 1.25 MG/3 ML AMPUL NEB PRN (08:14)
[2017-02-04] MEDS: FLUTICASONE/SALMETEROL DISKUS 250-50 MCG/DOSE IH SCH ×2 (08:56→22:37)
[2017-02-04] MEDS: LOSARTAN POTASSIUM 50 MG TABLET PO SCH (08:57)
[2017-02-04] MEDS: NYSTATIN 500000 UNIT/5 ML UDCUP PO SCH ×4 (08:57→22:26)
[2017-02-04] MEDS: PREGABALIN 50 MG CAPSULE PO SCH ×2 (08:57→22:24)
[2017-02-04] MEDS: ROFLUMILAST 500 MCG TABLET PO SCH (08:57)
--- NOTE | 2017-02-04 12:13 | RADIOLOGY REPORT (SQ) ---
EXAM DESCRIPTION: CT CHEST WITHOUT COMPLETED DATE/TIME: 02/04/2017 11:55 am REASON FOR STUDY: copd COMPARISON: 11/09/2016 TECHNIQUE: CT scan performed of the chest without intravenous contrast. Images reviewed with lung, soft tissue and bone windows. Reconstructed coronal and sagittal MPR images reviewed. All images st ored on PACS. All CT scanners at this facility use dose modulation, iterative reconstruction, and/or weight based d osing when appropriate to reduce radiation dose to as low as reasonably achievable (ALARA). [facility]: Dose Right [facility]: CareDose [facility]: Dose Right [facility]: Teradose 4D [facility]: Mirego RADIATION DOSE: 5.23 mGy. LIMITATIONS: No technical limitations. FINDINGS: LUNGS AND PLEURA: Diffuse ground-glass attenuation with upper lobe predominance. Interlob ular septal thickening. No effusions. HILAR AND MEDIASTINAL STRUCTURES: Small mediastinal nodes less than 1 cm short axis which are stable. HEART AND VASCULAR STRUCTURES: No aneurysm. No pericardial effusion. UPPER ABDOMEN: No significant findings. Limited exam. THYROID AND OTHER SOFT TISSUES: No masses. No adenopathy. BONES: No significant finding. HARDWARE: None in the chest. OTHER: No other significant findings. IMPRESSION: Diffuse ground-glass attenuation which is nonspecific but most likely due to edema or at ypical pneumonia TECHNICAL DOCUMENTATION: JOB ID: [id number] Quality ID # [id number]: Final reports with documentation of one or more dose reduction techniques (e.g., Au tomated exposure control, adjustment of the mA and/or kV according to patient size, use of iterative reconstruction technique) 2010 [employer]- All Rights Reserved
[2017-02-04] MEDS ORDERED: FUROSEMIDE INJ/PF 40 MG/4 ML SDV IV ONE (12:37)
[2017-02-04] MEDS: HYDROCODONE/ACETAMINOPHEN 5-325 MG TABLET PO PRN ×2 (13:11→22:24)
[2017-02-04 13:58] LABS: ABSOLUTE MONOCYTES (AUTO) 0.8 10^3/uL (0.1-1.4); ABSOLUTE NEUT (AUTO) 14.3 10^3/uL (1.7-8.2); BASOPHILS % (AUTO) 0.3 % (0-2); EOSINOPHILS % (AUTO) 0.1 % (0-6); HEMATOCRIT 38.9 % (36.0-47.0); HEMOGLOBIN 12.7 g/dL (12.0-15.5); HGB HCT DIFFERENCE -0.8; LYMPHOCYTES % (AUTO) 6.5 % (13-45); MEAN CORPUSCULAR HEMOGLOBIN 28.7 pg (27.0-33.4); MEAN CORPUSCULAR HGB CONC 32.8 g/dL (32.0-36.0); MEAN CORPUSCULAR VOLUME 88 fl (80-97); MONOCYTES % (AUTO) 5.2 % (3-13); RED BLOOD COUNT 4.44 10^6/uL (3.72-5.28); SEGMENTED NEUTROPHILS % (AUTO) 87.9 % (42-78); WHITE BLOOD COUNT 16.3 10^3/uL (4.0-10.5)
[2017-02-04 14:15] LABS: ALANINE AMINOTRANSFERASE 30 U/L (9-52); ALBUMIN 3.6 g/dL (3.5-5.0); ALKALINE PHOSPHATASE 100 U/L (38-126); ANION GAP 11 (5-19); ASPARTATE AMINO TRANSFERASE 20 U/L (14-36); BILIRUBIN,DIRECT 0.5 mg/dL (0.0-0.4); BILIRUBIN,TOTAL 0.7 mg/dL (0.2-1.3); BLOOD UREA NITROGEN 25 mg/dL (7-20); CALCIUM 10.2 mg/dL (8.4-10.2); CARBON DIOXIDE 28 mmol/L (22-30); CHLORIDE 102 mmol/L (98-107); CREATININE RESULT 0.68 mg/dL (0.52-1.25); GLUCOSE 129 mg/dL (75-110); POTASSIUM 4.2 mmol/L (3.6-5.0); SODIUM 140.6 mmol/L (137-145); TOTAL PROTEIN 6.6 g/dL (6.3-8.2)
--- NOTE | 2017-02-04 14:17 | PDOC PROGRESS REPORT ---
Subjective Progress Note for:: 02/04/17 Subjective:: Patient was seen by the bedside, CT chest was done, it shows some fluid in the lung Physical Exam Vital Signs: Temp Pulse Resp BP Pulse Ox 98.2 F 83 19 131/46 H 94 02/04/17 11:41 02/04/17 11:41 02/04/17 11:41 02/04/17 11:41 02/04/17 11:41 Intake & Output 02/03/17 02/04/17 02/05/17 06:59 06:59 06:59 Intake Total 1180 911 237 Output Total 700 150 200 Balance 480 761 37 Weight 61.1 kg 62.1 kg General appearance: PRESENT: no acute distress Eye exam: PRESENT: PERRLA Respiratory exam: PRESENT: rhonchi Cardiovascular exam: PRESENT: +S1, +S2 GI/Abdominal exam: PRESENT: soft Neurological exam: PRESENT: alert Results Laboratory Results: 02/04/17 13:44 02/04/17 13:44 WBC 16.3 H RBC 4.44 Hgb 12.7 Hct 38.9 MCV 88 MCH 28.7 MCHC 32.8 RDW 15.0 H Plt Count 256 Seg Neutrophils % 87.9 H Lymphocytes % 6.5 L Monocytes % 5.2 Eosinophils % 0.1 Basophils % 0.3 Absolute Neutrophils 14.3 H Absolute Lymphocytes 1.0 Absolute Monocytes 0.8 Absolute Eosinophils 0.0 Absolute Basophils 0.0 02/02/17 02/02/17 02/02/17 02:50 02:50 08:55 Creatine Kinase 137 H 115 CK-MB (CK-2) 7.42 H Troponin I 0.049 02/02/17 02/02/17 02/02/17 08:55 13:59 13:59 Creatine Kinase 112 CK-MB (CK-2) 6.63 H 6.82 H Troponin I 0.037 0.022 Impressions: Chest X-Ray 02/01/17 20:42 IMPRESSION: Stable chest. No acute findings. Chest CT 02/04/17 00:00 IMPRESSION: Diffuse ground-glass attenuation which is nonspecific but most likely due to edema or atypical pneumonia Assessment & Plan - Diagnosis (1) Acute hypoxemic respiratory failure Is this a current diagnosis for this admission?: Yes (2) Chronic obstructive pulmonary disease with (acute) exacerbation Is this a current diagnosis for this admission?: Yes (3) Hypertensive emergency Is this a current diagnosis for this admission?: Yes (4) Hypokalemia Is this a current diagnosis for this admission?: Yes
[2017-02-04] MEDS: TRAZODONE HCL 50 MG TABLET PO SCH (22:25)
[2017-02-04] MEDS: LEVOFLOXACIN 750 MG TABLET PO SCH (22:26)
[2017-02-04] MEDS: ATORVASTATIN CALCIUM 20 MG TABLET PO SCH (22:26)
[2017-02-05] MEDS: DEXAMETHASONE SOD PHOSPHATE INJ 4 MG/1 ML VIAL IV SCH ×3 (06:15→21:46)
[2017-02-05] MEDS: GABAPENTIN 300 MG CAPSULE PO SCH ×3 (06:15→21:45)
[2017-02-05] MEDS: METHADONE HCL 10 MG TABLET PO SCH ×2 (08:49→16:29)
[2017-02-05] MEDS: ENOXAPARIN SODIUM INJ 40 MG/0.4 ML DISP.SYRIN SUBCUT SCH (08:49)
[2017-02-05] MEDS: NYSTATIN 500000 UNIT/5 ML UDCUP PO SCH ×4 (09:18→21:46)
[2017-02-05] MEDS: PREGABALIN 50 MG CAPSULE PO SCH ×2 (09:18→21:45)
[2017-02-05] MEDS: ROFLUMILAST 500 MCG TABLET PO SCH (09:18)
[2017-02-05] MEDS: LOSARTAN POTASSIUM 50 MG TABLET PO SCH (09:18)
[2017-02-05] MEDS: FLUTICASONE/SALMETEROL DISKUS 250-50 MCG/DOSE IH SCH ×2 (09:18→21:46)
[2017-02-05] MEDS: LEVALBUTEROL HCL NEB 1.25 MG/3 ML AMPUL NEB PRN ×2 (10:15→15:50)
--- NOTE | 2017-02-05 12:43 | RADIOLOGY REPORT (SQ) ---
EXAM DESCRIPTION: CHEST PA/LAT COMPLETED DATE/TIME: 02/05/2017 12:29 pm REASON FOR STUDY: pneumonia COMPARISON: CT dated 02/04/2017. Chest x-ray dated 02/01/2017. EXAM PARAMETERS: NUMBER OF VIEWS: two views TECHNIQUE: Digital Frontal and Lateral radiographic views of the chest acquired. RADIATION DOSE: NA LIMITATIONS: none FINDINGS: LUNGS AND PLEURA: Prominence ischial densities and faint airspace disease, similar to the previous study. MEDIASTINUM AND HILAR STRUCTURES: No masses or contour abnormalities. HEART AND VASCULAR STRUCTURES: Heart normal size. No evidence for failure. BONES: No acute findings. HARDWARE: Cardiac recorder. OTHER: No other significant finding. IMPRESSION: STABLE APPEARANCE OF THE CHEST. TECHNICAL DOCUMENTATION: JOB ID: [id number] [employer]- All Rights Reserved
[2017-02-05 13:09] LABS: ABSOLUTE BASOPHILS # (AUTO) 0.1 10^3/uL (0.0-0.2); ABSOLUTE LYMPHOCYTES (AUTO) 1.3 10^3/uL (0.5-4.7); ABSOLUTE MONOCYTES (AUTO) 1.3 10^3/uL (0.1-1.4); ABSOLUTE NEUT (AUTO) 15.8 10^3/uL (1.7-8.2); BASOPHILS % (AUTO) 0.3 % (0-2); EOSINOPHILS % (AUTO) 0.1 % (0-6); HEMATOCRIT 40.5 % (36.0-47.0); HEMOGLOBIN 13.4 g/dL (12.0-15.5); HGB HCT DIFFERENCE -0.3; LYMPHOCYTES % (AUTO) 7.2 % (13-45); MEAN CORPUSCULAR HEMOGLOBIN 28.9 pg (27.0-33.4); MEAN CORPUSCULAR HGB CONC 33.2 g/dL (32.0-36.0); MEAN CORPUSCULAR VOLUME 87 fl (80-97); MONOCYTES % (AUTO) 6.9 % (3-13); RED BLOOD COUNT 4.65 10^6/uL (3.72-5.28); RED CELL DISTRIBUTION WIDTH 14.2 % (11.5-14.0); SEGMENTED NEUTROPHILS % (AUTO) 85.5 % (42-78); WHITE BLOOD COUNT 18.5 10^3/uL (4.0-10.5)
--- NOTE | 2017-02-05 13:20 | PDOC PROGRESS REPORT ---
Subjective Progress Note for:: 02/05/17 Subjective:: She was seen by the bedside, she is very upset today, she is expected to be discharged home today, she complains of cough with sputum production. She had a CT chest done November 09, 2016, it showed scattered ground glass densities throughout both lungs more prominent on the right than on the left. The CT chest that was done on February 04, 2017 showed diffuse groundglass attenuation with upper lobe predominant. This is similar to the previous scan that was done from November 09, 2016. Yesterday because of concern that she may have edema in the long she was given a dose of furosemide 80 mg IV and she diuresed quite well. Physical Exam Vital Signs: Temp Pulse Resp BP Pulse Ox 98.1 F 89 19 144/76 H 91 L 02/05/17 12:06 02/05/17 12:06 02/05/17 12:06 02/05/17 12:06 02/05/17 12:06 Intake & Output 02/04/17 02/05/17 02/06/17 06:59 06:59 06:59 Intake Total 911 941 355 Output Total 150 1200 600 Balance 761 259 -245 Weight 62.1 kg 61.3 kg General appearance: PRESENT: no acute distress Eye exam: PRESENT: PERRLA Respiratory exam: PRESENT: crackles Cardiovascular exam: PRESENT: +S1, +S2 GI/Abdominal exam: PRESENT: soft Neurological exam: PRESENT: alert, CN II-XII grossly intact Results Laboratory Results: 02/05/17 13:02 02/04/17 02/04/17 02/05/17 13:44 13:44 13:02 WBC 16.3 H 18.5 H RBC 4.44 4.65 Hgb 12.7 13.4 Hct 38.9 40.5 MCV 88 87 MCH 28.7 28.9 MCHC 32.8 33.2 RDW 15.0 H 14.2 H Plt Count 256 280 Seg Neutrophils % 87.9 H 85.5 H Lymphocytes % 6.5 L 7.2 L Monocytes % 5.2 6.9 Eosinophils % 0.1 0.1 Basophils % 0.3 0.3 Absolute Neutrophils 14.3 H 15.8 H Absolute Lymphocytes 1.0 1.3 Absolute Monocytes 0.8 1.3 Absolute Eosinophils 0.0 0.0 Absolute Basophils 0.0 0.1 Sodium 140.6 Potassium 4.2 Chloride 102 Carbon Dioxide 28 Anion Gap 11 BUN 25 H Creatinine 0.68 Est GFR ( Amer) > 60 Est GFR (Non-Af Amer) > 60 Glucose 129 H Calcium 10.2 Total Bilirubin 0.7 AST 20 ALT 30 Alkaline Phosphatase 100 Total Protein 6.6 Albumin 3.6 02/02/17 02/02/17 02/02/17 02:50 02:50 08:55 Creatine Kinase 137 H 115 CK-MB (CK-2) 7.42 H Troponin I 0.049 02/02/17 02/02/17 02/02/17 08:55 13:59 13:59 Creatine Kinase 112 CK-MB (CK-2) 6.63 H 6.82 H Troponin I 0.037 0.022 Impressions: Chest CT 02/04/17 00:00 IMPRESSION: Diffuse ground-glass attenuation which is nonspecific but most likely due to edema or atypical pneumonia Chest X-Ray 02/05/17 00:00 IMPRESSION: STABLE APPEARANCE OF THE CHEST. Assessment & Plan - Diagnosis (1) Acute hypoxemic respiratory failure Is this a current diagnosis for this admission?: Yes (2) Chronic obstructive pulmonary disease with (acute) exacerbation Is this a current diagnosis for this admission?: Yes (3) Hypertensive emergency Is this a current diagnosis for this admission?: Yes (4) Hypokalemia Is this a current diagnosis for this admission?: Yes (5) Chronic interstitial lung disease Is this a current diagnosis for this admission?: YesPlan: She probably have chronic interstitial lung disease
[2017-02-05 13:29] LABS: ALANINE AMINOTRANSFERASE 28 U/L (9-52); ALBUMIN 3.8 g/dL (3.5-5.0); ALKALINE PHOSPHATASE 108 U/L (38-126); ANION GAP 10 (5-19); ASPARTATE AMINO TRANSFERASE 17 U/L (14-36); BILIRUBIN,DIRECT 0.5 mg/dL (0.0-0.4); BILIRUBIN,TOTAL 0.7 mg/dL (0.2-1.3); BLOOD UREA NITROGEN 25 mg/dL (7-20); CALCIUM 10.1 mg/dL (8.4-10.2); CARBON DIOXIDE 33 mmol/L (22-30); CHLORIDE 96 mmol/L (98-107); CREATININE RESULT 0.64 mg/dL (0.52-1.25); GLUCOSE 132 mg/dL (75-110); POTASSIUM 4.1 mmol/L (3.6-5.0); TOTAL PROTEIN 6.8 g/dL (6.3-8.2)
--- NOTE | 2017-02-05 14:09 | PDOC DISCHARGE SUMMARY ---
General - Admit/Disc Date/PCP Admission Date/Primary Care Provider: 02/02/17 02:21 OBEY ROYAL MD Discharge Date: 02/05/17 - Discharge Diagnosis (1) Acute hypoxemic respiratory failure Is this a current diagnosis for this admission?: Yes (2) Chronic obstructive pulmonary disease with (acute) exacerbation Is this a current diagnosis for this admission?: Yes (3) Hypertensive emergency Is this a current diagnosis for this admission?: Yes (4) Hypokalemia Is this a current diagnosis for this admission?: Yes (5) Chronic interstitial lung disease Is this a current diagnosis for this admission?: Yes - Additional Information Discharge Diet: Regular Discharge Activity: Activity As Tolerated Home Medications: Albuterol Sulfate [Proair HFA Inhalation Aerosol 8.5 gm MDI] 2 puff IN QID PRN 02/02/17 Atorvastatin Calcium [Lipitor 20 mg Tablet] 20 mg PO QHS 02/02/17 Gabapentin [Neurontin 300 mg Capsule] 300 mg PO Q8 02/02/17 Hydrocodone Bit/Acetaminophen [Hydrocodon-Acetaminophen 5-325] 1 tab PO Q6HP PRN 02/02/17 Methadone HCl [Dolophine 10 mg Tablet] 10 mg PO Q8 02/02/17 Methocarbamol [Robaxin 500 mg Tablet] 500 mg PO Q8HP PRN 02/02/17 Olmesartan Medoxomil [Benicar] 20 mg PO DAILY 02/02/17 Pregabalin [Lyrica 50 mg Capsule] 50 mg PO Q12 02/02/17 Roflumilast [Daliresp 500 mcg Tablet] 500 mcg PO DAILY 02/02/17 Trazodone HCl [Desyrel] 150 mg PO QHS 02/02/17 Albuterol Sulfate [Ventolin 0.083% Neb 2.5 mg/3 ml Ampul] 1 vial NEB Q4 #120 vial 02/05/17 Dexamethasone [Dexpak] 1.5 mg PO DAILY #13 tab.ds.pk 02/05/17 Fluticasone/Salmeterol [Advair 250-50 Diskus 14 Dose/Diskus] 1 inh IH Q12 #0 inhaler 02/05/17 Levofloxacin [Levaquin 750 mg Tablet] 750 mg PO QHS #10 tablet 02/05/17 History of Present Illness History of Present Illness: REHAN DANIEL is a 66 year old female, she came to the emergency room last night because of respiratory distress, she has a history of chronic obstructive lung disease, she continued to smoke cigarettes despite severe COPD. In the emergency room, she was found to have hypertensive emergency and she was treated with intravenous nitroglycerin drip. There is a concern she may have CHF, the respiratory was supported with noninvasive positive pressure ventilation with BiPAP machine breathing. ABG on FiO2 4 L, pH is 7.48, PCO2 35.3 , PO2 73.4, bicarbonate 25.8 ,chest x-ray did not show any acute pneumonia, 2D echo was done the ejection fraction of the left ventricle is normal Hospital Course Hospital Course: Patient was admitted because of acute hypoxemic respiratory failure due to combination of COPD and interstitial lung disease. She had acute COPD exacerbation, she was treated with IV Decadron, IV antibiotic and bronchodilators. Intravenous Solu-Medrol was not use because she cannot tolerate Solu-Medrol, she developed psychoses on Solu-Medrol. A 2D echo was done he showed a normal ejection fraction of left ventricle. The tricuspid valve was not well visualized, the tricuspid regurgitation jet envelope multiple defiant to measure RV systolic pressure adequately. CT chest was done without contrast on 02/04/2017. It showed diffuse ground glass attenuation with upper lobe predominance, interlobular septal thickening, the finding is similar to the findings from CT chest that was done November 09, 2016 this suggest that she probably have interstitial lung disease. She probably will need a lung biopsy probably open lung biopsy to be preferred. The findings was discussed with the patient and her spouse. She was referred to pulmonary back in November 2016 this year when she has CT chest of the lung does suggest diffuse groundglass opacities despite weeks of p.o. antibiotic. She was advised and encouraged to follow with the lung specialist as soon as possible. She also had hypertensive emergency that was treated and also hypokalemia that was replaced Physical Exam Vital Signs: Temp Pulse Resp BP Pulse Ox 98.1 F 96 19 144/76 H 91 L 02/05/17 12:06 02/05/17 13:47 02/05/17 12:06 02/05/17 12:06 02/05/17 12:06 Intake & Output 02/04/17 02/05/17 02/06/17 06:59 06:59 06:59 Intake Total 911 941 355 Output Total 150 1200 600 Balance 662 -489 -010 Weight 62.1 kg 61.3 kg General appearance: PRESENT: no acute distress Eye exam: PRESENT: PERRLA Respiratory exam: PRESENT: crackles Cardiovascular exam: PRESENT: +S1, +S2 GI/Abdominal exam: PRESENT: soft Neurological exam: PRESENT: alert, CN II-XII grossly intact Results Laboratory Results: 02/05/17 13:02 02/05/17 13:02 02/04/17 02/04/17 02/05/17 13:44 13:44 13:02 WBC 16.3 H 18.5 H RBC 4.44 4.65 Hgb 12.7 13.4 Hct 38.9 40.5 MCV 88 87 MCH 28.7 28.9 MCHC 32.8 33.2 RDW 15.0 H 14.2 H Plt Count 256 280 Seg Neutrophils % 87.9 H 85.5 H Lymphocytes % 6.5 L 7.2 L Monocytes % 5.2 6.9 Eosinophils % 0.1 0.1 Basophils % 0.3 0.3 Absolute Neutrophils 14.3 H 15.8 H Absolute Lymphocytes 1.0 1.3 Absolute Monocytes 0.8 1.3 Absolute Eosinophils 0.0 0.0 Absolute Basophils 0.0 0.1 Sodium 140.6 Potassium 4.2 Chloride 102 Carbon Dioxide 28 Anion Gap 11 BUN 25 H Creatinine 0.68 Est GFR ( Amer) > 60 Est GFR (Non-Af Amer) > 60 Glucose 129 H Calcium 10.2 Total Bilirubin 0.7 AST 20 ALT 30 Alkaline Phosphatase 100 Total Protein 6.6 Albumin 3.6 02/05/17 13:02 WBC RBC Hgb Hct MCV MCH MCHC RDW Plt Count Seg Neutrophils % Lymphocytes % Monocytes % Eosinophils % Basophils % Absolute Neutrophils Absolute Lymphocytes Absolute Monocytes Absolute Eosinophils Absolute Basophils Sodium 139.0 Potassium 4.1 Chloride 96 L Carbon Dioxide 33 H Anion Gap 10 BUN 25 H Creatinine 0.64 Est GFR ( Amer) > 60 Est GFR (Non-Af Amer) > 60 Glucose 132 H Calcium 10.1 Total Bilirubin 0.7 AST 17 ALT 28 Alkaline Phosphatase 108 Total Protein 6.8 Albumin 3.8 02/02/17 02/02/17 02/02/17 02:50 02:50 08:55 Creatine Kinase 137 H 115 CK-MB (CK-2) 7.42 H Troponin I 0.049 02/02/17 02/02/17 02/02/17 08:55 13:59 13:59 Creatine Kinase 112 CK-MB (CK-2) 6.63 H 6.82 H Troponin I 0.037 0.022 Impressions: Chest CT 02/04/17 00:00 IMPRESSION: Diffuse ground-glass attenuation which is nonspecific but most likely due to edema or atypical pneumonia Chest X-Ray 02/05/17 00:00 IMPRESSION: STABLE APPEARANCE OF THE CHEST.
[2017-02-05] MEDS: LEVOFLOXACIN 750 MG TABLET PO SCH (21:45)
[2017-02-05] MEDS: TRAZODONE HCL 50 MG TABLET PO SCH (21:45)
[2017-02-05] MEDS: ATORVASTATIN CALCIUM 20 MG TABLET PO SCH (21:46)
[2017-02-05] MEDS: HYDROCODONE/ACETAMINOPHEN 5-325 MG TABLET PO PRN (21:51)
[2017-02-06] MEDS: METHADONE HCL 10 MG TABLET PO SCH ×2 (00:02→09:43)
[2017-02-06] MEDS: DEXAMETHASONE SOD PHOSPHATE INJ 4 MG/1 ML VIAL IV SCH (05:52)
[2017-02-06] MEDS: GABAPENTIN 300 MG CAPSULE PO SCH (05:52)
[2017-02-06] MEDS: HYDROCODONE/ACETAMINOPHEN 5-325 MG TABLET PO PRN (05:54)
[2017-02-06] MEDS: PREGABALIN 50 MG CAPSULE PO SCH (09:43)
[2017-02-06] MEDS: LOSARTAN POTASSIUM 50 MG TABLET PO SCH (09:43)
[2017-02-06] MEDS: ROFLUMILAST 500 MCG TABLET PO SCH (09:43)
[2017-02-06] MEDS: FLUTICASONE/SALMETEROL DISKUS 250-50 MCG/DOSE IH SCH (09:45)
[2017-02-06] MEDS: NYSTATIN 500000 UNIT/5 ML UDCUP PO SCH (09:45)
[2017-02-06] MEDS: ENOXAPARIN SODIUM INJ 40 MG/0.4 ML DISP.SYRIN SUBCUT SCH (09:49)
[2017-02-06] MEDS: LEVALBUTEROL HCL NEB 1.25 MG/3 ML AMPUL NEB PRN (10:19)
[2017-02-06 12:10] VITALS: BP 138/72
== END 2017-02-06 13:57 | disposition home or self-care (01) | DRG 190 ==
LOC: ER 20:17 → UNDOADMIN 23:12 → EH 23:12 → 3W 02-02 03:17
PROVIDERS: ADMIT Internal Medicine; ATTEND Internal Medicine
PROC: 5A09457 Assistance with Respiratory Ventilation, 24-96 Consecutive Hours, Continuous Positive Airway Pressure (ICD-10-PCS; principal; 2017-02-02)
DX: J44.1 Chronic obstructive pulmonary disease with (acute) exacerbation (principal); J96.21 Acute and chronic respiratory failure with hypoxia; J84.9 Interstitial pulmonary disease, unspecified; I16.1 Hypertensive emergency; E78.5 Hyperlipidemia, unspecified; G89.29 Other chronic pain; E78.00 Pure hypercholesterolemia, unspecified; F32.9 Major depressive disorder, single episode, unspecified; M79.7 Fibromyalgia; Z99.81 Dependence on supplemental oxygen; Z90.710 Acquired absence of both cervix and uterus; Z87.891 Personal history of nicotine dependence; E87.6 Hypokalemia; Z79.899 Other long term (current) drug therapy
CPT/HCPCS: 36415; 36600; 71010; 71020; 71250; 80048; 80053; 80061; 81001; 82550; 82553; 82803; 83036; 83735; 83880; 84100; 84443; 84484; 85025; 85027; 85379; 85610; 85730; 87070; 87205; 93005; 93010; 93306; 94640; 94660; 96365; 96367; 96375; 99291; J1100; J1650; J1940; J2930; J3475; J3490; J7030; J7060; J7620

== ENCOUNTER 2017-03-20 09:26 | Emergency (ER) | payer MEDICARE, BC ==
[2017-03-20] MEDS ORDERED: NORMAL SALINE 1000 ML 1,000 ML IV ONE (09:45)
--- NOTE | 2017-03-20 09:45 | ER Document Report ---
ED Medical Screen (RME) - General Stated Complaint: POSSIBLE ALLERGIC REACTION Time Seen by Provider: 03/20/17 09:39 Mode of Arrival: Medic Notes: 66 yo female immediately developed c/o itching, turned red as a beet, hives, epigastric pain, chest pain, could not see, passed out, stopped breathing, at [facility] within a minute after steroid shot into left knee at 8:15. When woke up vomited up mucous. HR 58, 102/57, 98% ox. HX copd, chronic back problems, fibromyalgia, htn., rheumatoid arthritis. EMS gave benadryl 50mg, 0.25 mg IM epi,, stated hives were present. Lungs clear, oropharynx normal, bright red skin but no hives now. 40mg Kenalog was given left intraarticular, 3ml lidocaine with it. TRAVEL OUTSIDE OF THE [place] IN LAST 30 DAYS: No - Related Data Allergies/Adverse Reactions: ibuprofen [From Motrin] Allergy (Severe, Verified 03/20/17 09:43) Azotemia, acute renal failure Iodinated Contrast- Oral and IV Dye [Iodinated Contrast Media - Oral and] Allergy (Verified 03/20/17 09:43) Generalized Itching triamcinolone [From Kenalog] Allergy (Verified 03/20/17 09:43) pentazocine lactate [From Talwin] Adverse Reaction (Mild, Verified 03/20/17 09: 43) Nausea Past Medical History - Past Medical History Cardiac Medical History: Reports: Hx Hypercholesterolemia, Hx Hypertension Pulmonary Medical History: Reports: Hx COPD, Hx Pneumonia - 11/2009, Hx Sleep Apnea Denies: Hx Tuberculosis Renal/ Medical History: Denies: Hx Peritoneal Dialysis Musculoskeltal Medical History: Reports Hx Fibromyalgia Psychiatric Medical History: Reports: Hx Depression Past Surgical History: Reports: Hx Section, Hx Hysterectomy. Denies: Hx Pacemaker - Immunizations Hx Diphtheria, Pertussis, Tetanus Vaccination: No Physical Exam - Vital signs Vitals: Temp Pulse Resp BP Pulse Ox 97.6 F 56 L 13 102/57 L 98 03/20/17 09:39 03/20/17 09:39 03/20/17 09:39 03/20/17 09:39 03/20/17 09:39 Course - Vital Signs Vital signs: Temp Pulse Resp BP Pulse Ox 97.6 F 56 L 13 102/57 L 98 03/20/17 09:39 03/20/17 09:39 03/20/17 09:39 03/20/17 09:39 03/20/17 09:39
[2017-03-20] MEDS ORDERED: FAMOTIDINE INJ/PF 20 MG/2 ML SDV IV ONE (09:50)
--- NOTE | 2017-03-20 10:48 | ER Document Report ---
ED Allergic Reaction - General Chief Complaint: Allergic Reaction Stated Complaint: POSSIBLE ALLERGIC REACTION Time Seen by Provider: 03/20/17 09:39 Mode of Arrival: Medic Information source: Patient Notes: 66 yo female immediately developed itching, turned red as a beet, hives, epigastric pain, NO chest pain (as previously noted on RME note), could not see , passed out, stopped breathing, at [facility] within a minute after steroid shot injected into left knee at 8:15. When woke up vomited up mucous. HR 58, 102/57, 98% ox. HX copd, chronic back problems, fibromyalgia, htn., rheumatoid arthritis. EMS gave benadryl 50mg, 0.25 mg IM epi,, stated hives were present. 40mg Kenalog with 3 ml lidocainre was given left intraarticular. Pt states that it was a new type of steroid injected. No hx of problems with other types injection or oral prednisone. EPI was given at 9:01 so will monitor her until 1 pm. TRAVEL OUTSIDE OF THE [place] IN LAST 30 DAYS: No - Related Data Allergies/Adverse Reactions: ibuprofen [From Motrin] Allergy (Severe, Verified 03/20/17 09:43) Azotemia, acute renal failure Iodinated Contrast- Oral and IV Dye [Iodinated Contrast Media - Oral and] Allergy (Verified 03/20/17 09:43) Generalized Itching triamcinolone [From Kenalog] Allergy (Verified 03/20/17 09:43) pentazocine lactate [From Talwin] Adverse Reaction (Mild, Verified 03/20/17 09: 43) Nausea Past Medical History - General Information source: Patient - Social History Smoking Status: Former Smoker Frequency of alcohol use: None Drug Abuse: None Lives with: Spouse/Significant other Family History: Reviewed & Not Pertinent - Past Medical History Cardiac Medical History: Reports: Hx Hypercholesterolemia, Hx Hypertension Pulmonary Medical History: Reports: Hx COPD, Hx Pneumonia - 11/2009, Hx Sleep Apnea Denies: Hx Tuberculosis Renal/ Medical History: Denies: Hx Peritoneal Dialysis Musculoskeltal Medical History: Reports Hx Fibromyalgia Psychiatric Medical History: Reports: Hx Depression Past Surgical History: Reports: Hx Appendectomy, Hx Section, Hx Hysterectomy, Hx Orthopedic Surgery - carpel tunnel surgery - Immunizations Hx Diphtheria, Pertussis, Tetanus Vaccination: No Hx Pneumococcal Vaccination: 09/06/12 Review of Systems - Review of Systems Constitutional: No symptoms reported EENT: See HPI Cardiovascular: No symptoms reported Respiratory: No symptoms reported Gastrointestinal: See HPI Genitourinary: No symptoms reported Female Genitourinary: No symptoms reported Musculoskeletal: No symptoms reported Skin: See HPI Hematologic/Lymphatic: No symptoms reported Neurological/Psychological: No symptoms reported Physical Exam - Vital signs Vitals: Temp Pulse Resp BP Pulse Ox 97.6 F 56 L 13 102/57 L 98 03/20/17 09:39 03/20/17 09:39 03/20/17 09:39 03/20/17 09:39 03/20/17 09:39 Interpretation: Bradycardic - General General appearance: Appears well, Other - sleepy from benadryl In distress: None - HEENT Head: Normocephalic, Atraumatic Eyes: Normal Conjunctiva: Normal Pupils: PERRL Nasal: Normal Mouth/Lips: Normal Mucous membranes: Normal Pharynx: Normal Neck: Supple. No: Lymphadenopathy - Respiratory Respiratory status: No respiratory distress Chest status: Nontender Breath sounds: Normal Chest palpation: Normal - Cardiovascular Rhythm: Regular Heart sounds: Normal auscultation Murmur: No - Abdominal Inspection: Normal Distension: No distension Bowel sounds: Normal Tenderness: Nontender. No: Tender Organomegaly: No organomegaly - Back Back: Normal, Nontender - Extremities General upper extremity: Normal inspection, Nontender, Normal color, Normal ROM , Normal temperature General lower extremity: Normal inspection, Nontender, Normal color, Normal ROM , Normal temperature, Normal weight bearing. No: Jocelyn's sign - Neurological Neuro grossly intact: Yes Cognition: Normal Orientation: AAOx4 Sara Coma Scale Eye Opening: Spontaneous Sara Coma Scale Verbal: Oriented Oxford Coma Scale Motor: Obeys Commands Oxford Coma Scale Total: 15 Speech: Normal Motor strength normal: LUE, RUE, LLE, RLE Sensory: Normal - Psychological Associated symptoms: Normal affect, Normal mood - Skin Skin Temperature: Warm Skin Moisture: Dry Skin Color: Normal Skin irregularity: Rash - less red trunk, hands, legs, arms. no more hives. Location of irregularity: Generalized Character of irregularity: Macular - pink not red now Irregularity with: negative: Swelling Course - Re-evaluation Re-evalutation: 03/20/17 11:09 No itching skin less pink. no pain, no shortness of breath. no swelling noted. HR 57, pulse ox 98 % (oxygen dependent 2lpm NC). Consult dr. Peña, pt will need to be monitored for 4 hours after the EPI was given. Also, pt does not have any rash reaction to oral prednisone in past. No hx of lidocaine reaction. Previous right knee steroid injection without reaction by the same orthopedic group, inluding the spray anesthetic. No new foods. Orthopedics told her that it was a NEW kind of steroid used. 03/20/17 13:16 Patient has done well there is no erythema to her skin vital signs are stable. She understands the instructions about EpiPen, Benadryl, Pepcid. She also knows that she can get this type of steroid injection again and she will discuss this with the orthopedic practice that she use. - Vital Signs Vital signs: Temp Pulse Resp BP Pulse Ox 97.6 F 56 L 11 L 108/70 100 03/20/17 09:39 03/20/17 09:39 03/20/17 13:01 03/20/17 13:01 03/20/17 13:01 Discharge - Discharge Clinical Impression: Anaphylactic reaction Qualifiers: Encounter type: initial encounter Qualified Code(s): T78.2XXA - Anaphylactic shock, unspecified, initial encounter Condition: Stable Disposition: HOME, SELF-CARE Instructions: Anaphylaxis Kit ([facility]), Epinephrine, Use of Diphenhydramine, Acid- Suppressing Medication ([facility]) Additional Instructions: continue over the counte benadryl 25-50mg every 4 hours for 3 days continue over the counter pepcid 20mg twice a day for 3 days prednisone for 3 days epi pen kit for use if this occurs again notify the orthopedic group that you can not take the kenalog/lidocaine injection again due to allergy see dr royal tomorrow Please complete the patient satisfaction survey if you get one, and return it.. If you do not receive a survey, then you can go to the [facility] website, [email or web address] and place your comments about your very good care. Thank you very much. It was a pleasure being your medical provider today. Prescriptions: Epinephrine [Epipen 2-Joshua] 0.3 mg IM ONCE PRN #1 ml PRN Reason: Prednisone [Deltasone 20 mg Tablet] 40 mg PO DAILY #6 tablet Referrals: OBEY ROYAL MD [Primary Care Provider] - Follow up tomorrow
[2017-03-20] MEDS ORDERED: PREDNISONE 20 MG TABLET PO ONE (12:12)
[2017-03-20 13:11] VITALS: BP 108/70
[2017-03-20] MEDS ORDERED: DIPHENHYDRAMINE HCL 25 MG CAPSULE PO ONE (13:18)
== END 2017-03-20 13:31 | disposition home or self-care (01) ==
LOC: ER 09:26
DX: T78.2XXA Anaphylactic shock, unspecified, initial encounter (principal); Z79.899 Other long term (current) drug therapy; Z87.891 Personal history of nicotine dependence
CPT/HCPCS: 99283; 96361; 96374; A9270 ×2; J7030; S0028; J7512

== ENCOUNTER 2017-03-22 21:47 | Emergency (ER) | payer MEDICARE, OTHER, BC ==
[2017-03-23 00:30] LABS: ANION GAP 10 (5-19); BLOOD UREA NITROGEN 13 mg/dL (7-20); CALCIUM 9.9 mg/dL (8.4-10.2); CARBON DIOXIDE 31 mmol/L (22-30); CHLORIDE 102 mmol/L (98-107); CREATININE RESULT 0.56 mg/dL (0.52-1.25); GLUCOSE 123 mg/dL (75-110); POTASSIUM 3.8 mmol/L (3.6-5.0); SODIUM 142.5 mmol/L (137-145)
--- NOTE | 2017-03-23 00:54 | ER Document Report ---
ED Blood Pressure Problem - General Information source: Patient TRAVEL OUTSIDE OF THE [place] IN LAST 30 DAYS: No - HPI Patient complains to provider of: High blood pressure Associated symptoms: None <LUIS MELLO - Last Filed: 03/23/17 02:30> <AVELINO ASTORGA - Last Filed: 03/23/17 05:18> - General Chief Complaint: High Blood Pressure Stated Complaint: HIGH BLOOD PRESSURE Time Seen by Provider: 03/22/17 23:42 - Related Data Allergies/Adverse Reactions: ibuprofen [From Motrin] Allergy (Severe, Verified 03/20/17 09:43) Azotemia, acute renal failure Iodinated Contrast- Oral and IV Dye [Iodinated Contrast Media - Oral and] Allergy (Verified 03/20/17 09:43) Generalized Itching triamcinolone [From Kenalog] Allergy (Verified 03/20/17 09:43) pentazocine lactate [From Talwin] Adverse Reaction (Mild, Verified 03/20/17 09: 43) Nausea Past Medical History - General Information source: Patient - Social History Smoking Status: Unknown if Ever Smoked Family History: Reviewed & Not Pertinent Patient has suicidal ideation: No Patient has homicidal ideation: No - Past Medical History Cardiac Medical History: Reports: Hx Hypercholesterolemia, Hx Hypertension Pulmonary Medical History: Reports: Hx COPD, Hx Pneumonia - 11/2009, Hx Sleep Apnea Denies: Hx Tuberculosis Renal/ Medical History: Denies: Hx Peritoneal Dialysis Musculoskeltal Medical History: Reports Hx Fibromyalgia Psychiatric Medical History: Reports: Hx Depression Past Surgical History: Reports: Hx Appendectomy, Hx Section, Hx Hysterectomy, Hx Orthopedic Surgery - carpel tunnel surgery. Denies: Hx Pacemaker - Immunizations Hx Diphtheria, Pertussis, Tetanus Vaccination: No Hx Pneumococcal Vaccination: 05/17/12 <LUIS MELLO - Last Filed: 03/23/17 02:30> Review of Systems - Review of Systems Constitutional: No symptoms reported EENT: No symptoms reported. denies: Blurred vision, Double vision Cardiovascular: No symptoms reported. denies: Chest pain Respiratory: No symptoms reported Gastrointestinal: No symptoms reported Genitourinary: No symptoms reported Female Genitourinary: No symptoms reported Musculoskeletal: No symptoms reported Skin: No symptoms reported Hematologic/Lymphatic: No symptoms reported Neurological/Psychological: No symptoms reported. denies: Headaches, Speech impairment <LUIS MELLO - Last Filed: 03/23/17 02:30> Physical Exam - General General appearance: Appears well, Alert In distress: None - HEENT Head: Normocephalic, Atraumatic Eyes: Normal Extraocular movements intact: Yes Pupils: PERRL - Respiratory Respiratory status: No respiratory distress Chest status: Nontender Breath sounds: Normal Chest palpation: Normal - Cardiovascular Rhythm: Regular Heart sounds: Normal auscultation Murmur: No - Abdominal Inspection: Normal Distension: No distension Tenderness: Nontender - Back Back: Normal, Nontender - Extremities General upper extremity: Normal inspection, Normal ROM General lower extremity: Normal inspection, Normal ROM - Neurological Neuro grossly intact: Yes Cognition: Normal Orientation: AAOx4 Sara Coma Scale Eye Opening: Spontaneous Sara Coma Scale Verbal: Oriented Sara Coma Scale Motor: Obeys Commands Sara Coma Scale Total: 15 Speech: Normal Motor strength normal: LUE, RUE, LLE, RLE Sensory: Normal - Psychological Associated symptoms: Normal affect, Normal mood - Skin Skin Temperature: Warm Skin Moisture: Dry Skin Color: Normal <RIAZLUIS - Last Filed: 03/23/17 02:30> Course - Laboratory Result Diagrams: 03/23/17 00:10 <RIAZLUIS - Last Filed: 03/23/17 02:30> - Laboratory Result Diagrams: 03/23/17 00:10 <AVELINO ASTORGA - Last Filed: 03/23/17 05:18> - Re-evaluation Re-evalutation: 03/23/17 01:25 Patient presents emergency department via EMS from the sleep lab with elevated blood pressure. Physician from the sleep lab called him and spoke with Dr. deni Ngo stating that he cannot do a sleep study on the patient has a blood pressure is elevated. Patient is completely asymptomatic has no headache blurred vision double vision neck pain chest pain shortness of breath nausea vomiting abdominal pain diarrhea neurological symptoms has no history of renal failure or chest pain. On examination blood pressure is elevated she remains asymptomatic with no complaints normal physical examination including normal neurological examination EKG shows sinus with no acute ST segment depressions kidney function is normal. Long discussion with family at the bedside of the emergency treatment of asymptomatic blood pressure. She said she just saw her doctor yesterday and her blood pressure was normal I have significant concerns about treating asymptomatic blood pressures emergently and significant concerns without knowing the history of the blood pressure elevation. Patient has no signs of endorgan damage including renal failure. She has no strokelike symptoms. Therefore it is actually deleterious for A. fib clinical guidelines for the management of asymptomatic blood pressure in the emergency department to provide blood pressure medication here. I recommend she follow-up with her primary care physician yesterday. She mentions she was on 3 blood pressure medications was taken off of them and is on only Benicar. Need to see trends to see whether or not a blood pressure is running high on a regular basis at certain times of the day and whether or not she would need additional blood pressure medication. They verbalized understanding of this and discussed reasons for ED return (AVELINO ASTORGA) - Vital Signs Vital signs: Temp Pulse Resp BP Pulse Ox 98.0 F 70 12 159/87 H 97 03/23/17 01:30 03/22/17 21:57 03/23/17 01:30 03/23/17 01:30 03/23/17 01:30 - Laboratory Laboratory results interpreted by me: 03/23/17 00:10 Carbon Dioxide 31 H Glucose 123 H - EKG Interpretation by Me Additional EKG results interpreted by me: 03/23/17 01:29 EKG interpreted by myself shows sinus rhythm at 56 bpm LVH no acute ST segment elevation or depression (AVELINO ASTORGA) Discharge <LUIS MELLO - Last Filed: 03/23/17 02:30> <AVELINO ASTORGA - Last Filed: 03/23/17 05:18> - Discharge Clinical Impression: Asymptomatic hypertension Condition: Stable Disposition: HOME, SELF-CARE Forms: Elevated Blood Pressure Referrals: OBEY ROYAL MD [Primary Care Provider] - Follow up in 3-5 days (1-2 days into the emergency department sooner for increasing worsening or new symptoms) Scribe Attestation: 03/23/17 01:28 I personally performed the services described in the documentation reviewed the documentation recorded by my scribe in my presence and it accurately and completely records my words and actions (AVELINO ASTORGA) Scribe Documentation - Scribe Written by Pierre:: pierre Alexander, 03/23/2017, [id number] acting as scribe for :: Dawson <LUIS MELLO - Last Filed: 03/23/17 02:30>
[2017-03-23 01:50] VITALS: BP 159/87
--- NOTE | 2017-03-23 08:14 | EKG REPORT ---
SEVERITY:- ABNORMAL ECG - SINUS RHYTHM SHORT ND INTERVAL, ACCELERATED AV CONDUCTION LEFT VENTRICULAR HYPERTROPHY : Confirmed by: Tyson Ann MD 23-Mar-2017 08:13:58
== END 2017-03-23 01:45 | disposition home or self-care (01) ==
LOC: ER 21:47
DX: I10 Essential (primary) hypertension (principal); Z79.899 Other long term (current) drug therapy; J44.9 Chronic obstructive pulmonary disease, unspecified; Z88.6 Allergy status to analgesic agent; Z91.041 Radiographic dye allergy status; Z88.8 Allergy status to other drugs, medicaments and biological substances
CPT/HCPCS: 36415; 80048; 93005; 93010; 99284

== ENCOUNTER → 2018-05-09 | Outpatient (CLI) | payer MEDICARE, BC, OTHER ==
--- NOTE | 2018-05-09 16:33 | XCELERA REPORT ---
[address] [address] Upper Extremity Venous Evaluation Name: REHAN DANIEL Age: 67 yrs Gender: Female : 1950 Patient Status: Outpatient Patient Location: Study Date: 05/09/2018 12:03 PM Procedure: Unilateral duplex scan of the left upper extremity veins was performed, including responses to compression and other maneuvers. Reason For Study: LUE SWELLING Ordering Physician: OBEY ROYAL Performed By: Nela Go Left Sided Venous Evaluation Normal vessel filling wall to wall, compression and augmentation as well as Colour flow from the Jugular down to the forearm veins. Interpretation Summary No duplex evidence of DVT or obstruction in the left upper extremity. : OBEY ROYAL > Delon Vila
== END ==
LOC: SP 11:40
PROVIDERS: ATTEND Internal Medicine
DX: R22.32 Localized swelling, mass and lump, left upper limb (principal)
CPT/HCPCS: 93971

== ENCOUNTER → 2018-08-29 | Outpatient (CLI) | payer MEDICARE, BC, OTHER ==
--- NOTE | 2018-08-29 11:52 | RADIOLOGY REPORT (SQ) ---
EXAM DESCRIPTION: ANKLE RIGHT AP/LATERAL COMPLETED DATE/TIME: 08/29/2018 11:40 am REASON FOR STUDY: PAIN IN KNEE M25.561 PAIN IN RIGHT KNEE M25.571 PAIN IN RIGHT ANKLE AND JOINTS O F RIGHT FOOT COMPARISON: None. NUMBER OF VIEWS: Three views. TECHNIQUE: AP, lateral, and oblique radiographic images acquired of the right ankle. LIMITATIONS: None. FINDINGS: MINERALIZATION: Normal. BONES: No acute fracture or dislocation. Talar dome is intact. Moderate midfoot degenerative change with osteophytosis. JOINTS: No effusions. SOFT TISSUES: No soft tissue swelling. No foreign body. OTHER: No other significant finding. IMPRESSION: No evidence of acute bony abnormality. Moderate midfoot degenerative change. TECHNICAL DOCUMENTATION: JOB ID: [id number] [employer]- All Rights Reserved Reading location - IP/workstation name: [email or web address]
--- NOTE | 2018-08-29 11:54 | RADIOLOGY REPORT (SQ) ---
EXAM DESCRIPTION: KNEE RIGHT 2 VIEWS COMPLETED DATE/TIME: 08/29/2018 11:40 am REASON FOR STUDY: PAIN IN ANKLE AND FOOT M25.561 PAIN IN RIGHT KNEE M25.571 PAIN IN RIGHT ANKLE AN D JOINTS OF RIGHT FOOT COMPARISON: 03/22/2011 NUMBER OF VIEWS: Two views. TECHNIQUE: AP and lateral radiographic images acquired of the right knee. LIMITATIONS: None. FINDINGS: MINERALIZATION: Normal. BONES: No acute fracture or dislocation. There is been progress degenerative change with increased m edial joint space loss, 3 compartment osteophytosis and subchondral sclerosis. JOINT: Small joint effusion. SOFT TISSUES: No soft tissue swelling. No radio-opaque foreign body. OTHER: No other significant finding. IMPRESSION: Small joint effusion without acute bony abnormality. Progressive moderate 3 compartment osteoarthritis, greatest medially. TECHNICAL DOCUMENTATION: JOB ID: [id number] [employer]- All Rights Reserved Reading location - IP/workstation name: [email or web address]
== END ==
LOC: RAD 10:49
PROVIDERS: ATTEND Internal Medicine
DX: M25.561 Pain in right knee (principal); M25.571 Pain in right ankle and joints of right foot

== ENCOUNTER → 2019-01-23 | Outpatient (CLI) | payer MEDICARE, BC, OTHER ==
--- NOTE | 2019-01-23 14:35 | WOMENS IMAGING REPORT ---
EXAM DESCRIPTION: 3D DX MAMMO BILAT; U/S BREAST UNILAT LIMITED COMPLETED DATE/TIME: 01/23/2019 10:39 am; 01/23/2019 12:33 pm REASON FOR STUDY: NONSPECIFIC LYMPHADENITIS,UNSPECIFIED NODULE TOWARD ARM PIT;I88.9; RT AXILLARY LUM PS I88.9; LT AXILLARY LUMPS I8809 I88.9 NONSPECIFIC LYMPHADENITIS, UNSPECIFIED COMPARISON: 2009, 2014. TECHNIQUE: Standard craniocaudal and mediolateral oblique views of each breast recorded using digita l acquisition and breast tomosynthesis. Bilateral true lateral views. Bilateral breast ultrasound targeted to the regions of clinical concern. LIMITATIONS: None. FINDINGS: RIGHT BREAST MASSES: No suspicious masses. CALCIFICATIONS: No new or suspicious calcifications. ARCHITECTURAL DISTORTION: None. DEVELOPING DENSITY: None. ASYMMETRY: None noted. OTHER: No other significant findings. LEFT BREAST MASSES: No suspicious masses. CALCIFICATIONS: No new or suspicious calcifications. ARCHITECTURAL DISTORTION: None. DEVELOPING DENSITY: None. ASYMMETRY: None noted. OTHER: No other significant finding. Read with the assistance of CAD: .[facility] Enhanced Environmental Operator Version 9.2 Ultrasound right breast: Normal axillary nodes noted without suspicious features. Ultrasound left breast: Normal axillary nodes noted without suspicious features. IMPRESSION: No worrisome findings. Clinical followup is still necessary. ASSESSMENT: BIRADS 2: BENIGN FINDINGS BREAST DENSITY: b. There are scattered areas of fibroglandular density. BIRAD: 2 Benign findings. RECOMMENDATION: RECOMMENDED FOLLOW UP: Clinical followup. Continued yearly mammography. SPECIFIC INTERVENTION/IMAGING/CONSULTATION RECOMMENDED:No additional intervention/ imaging/consultati on needed at this time. COMMUNICATION:The negative/benign results were communicated to the patient. COMMENT: The patient has been notified of the results by letter per MQSA requirements. Additional no tification policies are in place for contacting patient with suspicious or incomplete findings. Quality ID #225: The [employer] recommends an annual screening mammogram for women aged 40 years or over. This facility utilizes a reminder system to ensure that all patients receive reminder letters, and/or direct phone calls for appointments. This includes reminders for routine scr eening mammograms, diagnostic mammograms, or other Breast Imaging Interventions when appropriate. Th is patient will be placed in the appropriate reminder system. TECHNICAL DOCUMENTATION: FINDING NUMBER: (1) ASSESSMENT: (1) JOB ID: [id number]- All Rights Reserved Reading location - IP/workstation name: [email or web address]
--- NOTE | 2019-01-23 14:35 | WOMENS IMAGING REPORT ---
EXAM DESCRIPTION: 3D DX MAMMO BILAT; U/S BREAST UNILAT LIMITED COMPLETED DATE/TIME: 01/23/2019 10:39 am; 01/23/2019 12:33 pm REASON FOR STUDY: NONSPECIFIC LYMPHADENITIS,UNSPECIFIED NODULE TOWARD ARM PIT;I88.9; RT AXILLARY LUM PS I88.9; LT AXILLARY LUMPS I8809 I88.9 NONSPECIFIC LYMPHADENITIS, UNSPECIFIED COMPARISON: 2009, 2014. TECHNIQUE: Standard craniocaudal and mediolateral oblique views of each breast recorded using digita l acquisition and breast tomosynthesis. Bilateral true lateral views. Bilateral breast ultrasound targeted to the regions of clinical concern. LIMITATIONS: None. FINDINGS: RIGHT BREAST MASSES: No suspicious masses. CALCIFICATIONS: No new or suspicious calcifications. ARCHITECTURAL DISTORTION: None. DEVELOPING DENSITY: None. ASYMMETRY: None noted. OTHER: No other significant findings. LEFT BREAST MASSES: No suspicious masses. CALCIFICATIONS: No new or suspicious calcifications. ARCHITECTURAL DISTORTION: None. DEVELOPING DENSITY: None. ASYMMETRY: None noted. OTHER: No other significant finding. Read with the assistance of CAD: .[facility] - [employer] Version 9.2 Ultrasound right breast: Normal axillary nodes noted without suspicious features. Ultrasound left breast: Normal axillary nodes noted without suspicious features. IMPRESSION: No worrisome findings. Clinical followup is still necessary. ASSESSMENT: BIRADS 2: BENIGN FINDINGS BREAST DENSITY: b. There are scattered areas of fibroglandular density. BIRAD: 2 Benign findings. RECOMMENDATION: RECOMMENDED FOLLOW UP: Clinical followup. Continued yearly mammography. SPECIFIC INTERVENTION/IMAGING/CONSULTATION RECOMMENDED:No additional intervention/ imaging/consultati on needed at this time. COMMUNICATION:The negative/benign results were communicated to the patient. COMMENT: The patient has been notified of the results by letter per MQSA requirements. Additional no tification policies are in place for contacting patient with suspicious or incomplete findings. Quality ID #225: The [employer] recommends an annual screening mammogram for women aged 40 years or over. This facility utilizes a reminder system to ensure that all patients receive reminder letters, and/or direct phone calls for appointments. This includes reminders for routine scr eening mammograms, diagnostic mammograms, or other Breast Imaging Interventions when appropriate. Th is patient will be placed in the appropriate reminder system. TECHNICAL DOCUMENTATION: FINDING NUMBER: (1) ASSESSMENT: (1) JOB ID: [id number]- All Rights Reserved Reading location - IP/workstation name: [email or web address]
--- NOTE | 2019-01-23 14:35 | WOMENS IMAGING REPORT ---
EXAM DESCRIPTION: 3D DX MAMMO BILAT; U/S BREAST UNILAT LIMITED COMPLETED DATE/TIME: 01/23/2019 10:39 am; 01/23/2019 12:33 pm REASON FOR STUDY: NONSPECIFIC LYMPHADENITIS,UNSPECIFIED NODULE TOWARD ARM PIT;I88.9; RT AXILLARY LUM PS I88.9; LT AXILLARY LUMPS I8809 I88.9 NONSPECIFIC LYMPHADENITIS, UNSPECIFIED COMPARISON: 2009, 2014. TECHNIQUE: Standard craniocaudal and mediolateral oblique views of each breast recorded using digita l acquisition and breast tomosynthesis. Bilateral true lateral views. Bilateral breast ultrasound targeted to the regions of clinical concern. LIMITATIONS: None. FINDINGS: RIGHT BREAST MASSES: No suspicious masses. CALCIFICATIONS: No new or suspicious calcifications. ARCHITECTURAL DISTORTION: None. DEVELOPING DENSITY: None. ASYMMETRY: None noted. OTHER: No other significant findings. LEFT BREAST MASSES: No suspicious masses. CALCIFICATIONS: No new or suspicious calcifications. ARCHITECTURAL DISTORTION: None. DEVELOPING DENSITY: None. ASYMMETRY: None noted. OTHER: No other significant finding. Read with the assistance of CAD: .[facility] - [employer] Radar Technician Version 9.2 Ultrasound right breast: Normal axillary nodes noted without suspicious features. Ultrasound left breast: Normal axillary nodes noted without suspicious features. IMPRESSION: No worrisome findings. Clinical followup is still necessary. ASSESSMENT: BIRADS 2: BENIGN FINDINGS BREAST DENSITY: b. There are scattered areas of fibroglandular density. BIRAD: 2 Benign findings. RECOMMENDATION: RECOMMENDED FOLLOW UP: Clinical followup. Continued yearly mammography. SPECIFIC INTERVENTION/IMAGING/CONSULTATION RECOMMENDED:No additional intervention/ imaging/consultati on needed at this time. COMMUNICATION:The negative/benign results were communicated to the patient. COMMENT: The patient has been notified of the results by letter per MQSA requirements. Additional no tification policies are in place for contacting patient with suspicious or incomplete findings. Quality ID #225: The [employer] recommends an annual screening mammogram for women aged 40 years or over. This facility utilizes a reminder system to ensure that all patients receive reminder letters, and/or direct phone calls for appointments. This includes reminders for routine scr eening mammograms, diagnostic mammograms, or other Breast Imaging Interventions when appropriate. Th is patient will be placed in the appropriate reminder system. TECHNICAL DOCUMENTATION: FINDING NUMBER: (1) ASSESSMENT: (1) JOB ID: [id number]- All Rights Reserved Reading location - IP/workstation name: [email or web address]
== END ==
LOC: WI 10:19
PROVIDERS: ATTEND Internal Medicine
DX: I88.9 Nonspecific lymphadenitis, unspecified (principal)
CPT/HCPCS: 76642; 77066; G0279; 77062

== ENCOUNTER → 2019-07-29 | Outpatient (CLI) | payer MEDICARE, BC, OTHER ==
--- NOTE | 2019-07-29 14:27 | RADIOLOGY REPORT (SQ) ---
EXAM DESCRIPTION: CT CHEST WITHOUT COMPLETED DATE/TIME: 07/29/2019 1:31 pm REASON FOR STUDY: R91.1 SOLITARY PULMONARY NODULE R91.1 SOLITARY PULMONARY NODULE COMPARISON: 07/13/2017 TECHNIQUE: CT scan performed of the chest without intravenous contrast. Images reviewed with lung, soft tissue and bone windows. Reconstructed coronal and sagittal MPR images reviewed. All images st ored on PACS. All CT scanners at this facility use dose modulation, iterative reconstruction, and/or weight based d osing when appropriate to reduce radiation dose to as low as reasonably achievable (ALARA). [facility]: Dose Right [facility]: CareDose [facility]: Dose Right [facility]: Teradose 4D [facility]: [employer] RADIATION DOSE: CT Rad equipment meets quality standard of care and radiation dose reduction techniq ues were employed. CTDIvol: 9.6 mGy. DLP: 419 mGy-cm. mGy. LIMITATIONS: No technical limitations. FINDINGS: LUNGS AND PLEURA: Minimal lower lobe bronchiectasis, right more than left. Mild chronic i nterstitial changes. No pulmonary mass or infiltrate. HILAR AND MEDIASTINAL STRUCTURES: No identified masses or abnormal nodes. No obvious aneurysm. HEART AND VASCULAR STRUCTURES: No aneurysm. No pericardial effusion. UPPER ABDOMEN: No significant findings. Limited exam. THYROID AND OTHER SOFT TISSUES: No masses. No adenopathy. BONES: No significant finding. HARDWARE: None in the chest. OTHER: No other significant findings. IMPRESSION: Mild chronic interstitial changes with no acute finding in the thorax. TECHNICAL DOCUMENTATION: JOB ID: [id number] Quality ID # [id number]: Final reports with documentation of one or more dose reduction techniques (e.g., Au tomated exposure control, adjustment of the mA and/or kV according to patient size, use of iterative reconstruction technique) 2010 [employer]- All Rights Reserved Reading location - IP/workstation name: [email or web address]
== END ==
LOC: RAD 13:13
PROVIDERS: ATTEND Internal Medicine Critical Care Medicine
DX: R91.1 Solitary pulmonary nodule (principal); J44.9 Chronic obstructive pulmonary disease, unspecified; J84.9 Interstitial pulmonary disease, unspecified
CPT/HCPCS: 71250

== ENCOUNTER → 2020-03-10 | Outpatient (CLI) | payer MEDICARE, BC, OTHER ==
--- NOTE | 2020-03-10 12:22 | WOMENS IMAGING REPORT ---
EXAM DESCRIPTION: 3D SCREENING MAMMO BILAT IMAGES COMPLETED DATE/TIME: 03/10/2020 11:02 am REASON FOR STUDY: Z12.31 ENCOUNTER FOR SCREENING MAMMOGRAM FOR MALIGNANT NEOPLASM OF BREAST Z12.31 ENCNTR SCREEN MAMMOGRAM FOR MALIGNANT NEOPLASM OF LIGIA COMPARISON: 2014, 2018 EXAM PARAMETERS: Standard craniocaudal and mediolateral oblique views of each breast recorded using digital acquisition and breast tomosynthesis. Read with the assistance of CAD. .[facility] - [employer] Principal Consulting Engineer Version 9.2 LIMITATIONS: None. FINDINGS: RIGHT BREAST MASSES: No suspicious masses. CALCIFICATIONS: No new or suspicious calcifications. ARCHITECTURAL DISTORTION: None. ASYMMETRY: None noted. OTHER: No other significant findings. LEFT BREAST MASSES: No suspicious masses. CALCIFICATIONS: No new or suspicious calcifications. ARCHITECTURAL DISTORTION: None. ASYMMETRY: Focal asymmetry upper outer quadrant about 4.5 cm deep to the nipple. OTHER: No other significant findings. IMPRESSION: Focal asymmetry left breast. 0 Incomplete: Needs Additional Imaging Evaluation and/or prior Mammograms for Comparison. BREAST DENSITY: b. There are scattered areas of fibroglandular density. BIRAD: ASSESSMENT: 0 Incomplete: Needs Additional Imaging Evaluation and/or prior Mammograms for C omparison. RECOMMENDATION: RECOMMENDED FOLLOW-UP: Cone compression views and potential ultrasound left breast. The patient will be contacted for additional imaging. COMMENT: The patient has been notified of the results by letter per MQSA requirements. Additional no tification policies are in place for contacting patient with suspicious or incomplete findings. Quality ID #225: The [employer] recommends an annual screening mammogram for women aged 40 years or over. This facility utilizes a reminder system to ensure that all patients receive reminder letters, and/or direct phone calls for appointments. This includes reminders for routine scr eening mammograms, diagnostic mammograms, or other Breast Imaging Interventions when appropriate. Th is patient will be placed in the appropriate reminder system. TECHNICAL DOCUMENTATION: FINDING NUMBER: (1) ASSESSMENT: (1) JOB ID: [id number] 2010 [employer]- All Rights Reserved Reading location - IP/workstation name: [email or web address]
== END ==
LOC: WI 10:28
PROVIDERS: ATTEND Internal Medicine
DX: Z12.31 Encounter for screening mammogram for malignant neoplasm of breast (principal); N64.89 Other specified disorders of breast
CPT/HCPCS: 77063; 77067

== ENCOUNTER → 2020-03-20 | Outpatient (CLI) | payer MEDICARE, BC, OTHER ==
--- NOTE | 2020-03-20 13:15 | WOMENS IMAGING REPORT ---
EXAM DESCRIPTION: LEFT DIAGNOSTIC MAMMO W/CAD; U/S BREAST UNILAT LIMITED IMAGES COMPLETED DATE/TIME: 03/20/2020 10:05 am; 03/20/2020 10:36 am REASON FOR STUDY: N63.21 UNSPECIFIED LUMP IN THE LEFT BREAST, UPPER OUTER QUADRANT; N63.[address] N63.21 UNSPECIFIED LUMP IN THE LEFT BREAST, UPPER OUTER QUAD COMPARISON: [facility] going back to 2009. Most recent mammography screening 03/10/2020. EXAM PARAMETERS: Spot CC and MLO. Non spot compressed true lateral. Targeted breast ultrasound LIMITATIONS: None. FINDINGS: BREAST LATERALITY: Left MASSES: No suspicious masses. CALCIFICATIONS: No new or suspicious calcifications. ARCHITECTURAL DISTORTION: None. ASYMMETRY: None noted. OTHER: No other significant findings. Ultrasound: Scanning of the upper outer quadrant reveals no mass or tissue distortion. IMPRESSION: Negative diagnostic imaging left breast. No worrisome findings. BREAST DENSITY: b. There are scattered areas of fibroglandular density. BIRAD: ASSESSMENT: 1 Negative. RECOMMENDATION: RECOMMENDED FOLLOW UP: Birads 1 or 2: The patient should resume routine screening . SPECIFIC INTERVENTION/IMAGING/CONSULTATION RECOMMENDED:No additional intervention/ imaging/consultati on needed at this time. COMMUNICATION:No significant abnormalities to discuss with the patient today. COMMENT: The patient has been notified of the results by letter per MQSA requirements. Additional no tification policies are in place for contacting patient with suspicious or incomplete findings. Quality ID #[id number]: The [employer] recommends an annual screening mammogram for women aged 40 years or over. This facility utilizes a reminder system to ensure that all patients receive reminder letters, and/or direct phone calls for appointments. This includes reminders for routine scr eening mammograms, diagnostic mammograms, or other Breast Imaging Interventions when appropriate. Th is patient will be placed in the appropriate reminder system. TECHNICAL DOCUMENTATION: FINDING NUMBER: (1) ASSESSMENT: (1) JOB ID: [id number] 2010 [employer]- All Rights Reserved Reading location - IP/workstation name: [email or web address]
== END ==
LOC: WI 09:35
PROVIDERS: ATTEND Internal Medicine
DX: N63.21 Unspecified lump in the left breast, upper outer quadrant (principal)
CPT/HCPCS: 76642; 77065

== ENCOUNTER 2020-09-14 13:00 | Inpatient (IN) | payer MEDICARE, BC, OTHER ==
[2020-09-14 13:36] LABS: ABSOLUTE MONOCYTES (AUTO) 0.8 10^3/uL (0.1-1.4); ABSOLUTE NEUT (AUTO) 4.5 10^3/uL (1.7-8.2); BASOPHILS % (AUTO) 0.3 % (0-2); HEMATOCRIT 38.1 % (36.0-47.0); LYMPHOCYTES % (AUTO) 15.6 % (13-45); MEAN CORPUSCULAR HEMOGLOBIN 30.2 pg (27.0-33.4); MEAN CORPUSCULAR VOLUME 89 fl (80-97); MONOCYTES % (AUTO) 12.6 % (3-13); PLATELET COUNT 187 10^3/uL (150-450); RED BLOOD COUNT 4.29 10^6/uL (3.72-5.28); RED CELL DISTRIBUTION WIDTH 13.8 % (11.5-14.0); SEGMENTED NEUTROPHILS % (AUTO) 71.5 % (42-78); TOTAL CELLS COUNTED % (AUTO) 100 %; WHITE BLOOD COUNT 6.3 10^3/uL (4.0-10.5)
[2020-09-14 13:56] LABS: APPEARANCE,URINE CLOUDY; BILIRUBIN,URINE SMALL (NEGATIVE); COLOR,URINE AMBER; GLUCOSE, URINE NEGATIVE (NEGATIVE); KETONES,URINE TRACE mg/dL (NEGATIVE); LEUKOCYTE ESTERASE,URINE SMALL (NEGATIVE); NITRITE,URINE NEGATIVE (NEGATIVE); PROTEIN,URINE 100 mg/dL (NEGATIVE); URINE SPECIFIC GRAVITY 1.023
--- NOTE | 2020-09-14 13:56 | ER Document Report ---
ED General - General Stated Complaint: WEAKNESS Time Seen by Provider: 09/14/20 13:38 Primary Care Provider: OBEY ROYAL MD [Primary Care Provider] - Follow up as needed TRAVEL OUTSIDE OF THE [place] IN LAST 30 DAYS: No - HPI Notes: Patient is a 69-year-old female with a history of interstitial lung disease who presents to the emergency department for evaluation of shortness of breath and altered mental status. History is obtained entirely from EMS as patient is a poor historian. The patient was at home with her who was found to be Covid +2 days ago. Friends came to visit and found she was confused, called EMS. She was markedly hypoxic upon their arrival. She was brought in here to the emergency department, despite being on 6 L per nasal cannula, her oxygen was still in the 80s. BiPAP was placed. The patient complains of some hip pain. She states she just feels weak. She has had a cough. She states she has had vomiting and diarrhea, but really cannot quantitate it for me in any way shape or form. - Related Data Allergies/Adverse Reactions: ibuprofen [From Motrin] Allergy (Severe, Verified 03/20/17 09:43) Azotemia, acute renal failure Iodinated Contrast Media [Iodinated Contrast Media - Oral and] Allergy (Verified 03/20/17 09:43) Generalized Itching triamcinolone [From Kenalog] Allergy (Verified 03/20/17 09:43) pentazocine lactate [From Talwin] Adverse Reaction (Mild, Verified 03/20/17 09:43) Nausea Past Medical History - General Information source: Patient, Emergency Med Personnel, [facility] Records - Social History Smoking Status: Current Every Day Smoker Family History: Reviewed & Not Pertinent - Past Medical History Cardiac Medical History: Reports: Hx Hypercholesterolemia, Hx Hypertension Pulmonary Medical History: Reports: Hx COPD, Hx Pneumonia - 11/2009, Hx Sleep Apnea, Other - Interstitial lung disease Denies: Hx Tuberculosis Renal/ Medical History: Denies: Hx Peritoneal Dialysis Musculoskeletal Medical History: Reports Hx Fibromyalgia Psychiatric Medical History: Reports: Hx Depression Past Surgical History: Reports: Hx Appendectomy, Hx Section, Hx Hysterectomy, Hx Orthopedic Surgery - carpel tunnel surgery. Denies: Hx Pacemaker - Immunizations Hx Diphtheria, Pertussis, Tetanus Vaccination: No Hx Pneumococcal Vaccination: 05/17/12 Review of Systems - Review of Systems Constitutional: See HPI EENT: No symptoms reported Cardiovascular: No symptoms reported Respiratory: See HPI Gastrointestinal: See HPI Genitourinary: No symptoms reported Musculoskeletal: See HPI Skin: No symptoms reported Neurological/Psychological: See HPI Physical Exam - Vital signs Vitals: Pulse Ox 86 L 09/14/20 13:04 - Notes Notes: This is a 69-year-old female who appears older than her stated age, in a mild amount of distress. She is mildly tachypneic but is on the BiPAP. Vital signs reviewed, please refer to chart. Head is normocephalic, atraumatic. Pupils equal round, reactive to light. Neck is supple without meningismus. Heart is regular rate and rhythm. Lungs reveal scattered rhonchi and occasional expiratory wheezes. Abdomen is soft, nontender, normoactive bowel sounds throughout. Extremities without cyanosis, clubbing. Posterior calves are nontender. Peripheral pulses are equal. Skin is warm and dry. Patient is awake, alert, oriented to person and place but disoriented to time. No gross facial asymmetry. She moves all 4 extremities spontaneously. Course - Re-evaluation Re-evalutation: 09/14/20 13:55 Patient presents to the emergency department for evaluation. EMS performed testing and she was found to be Covid positive. She was brought in and remained hypoxic despite nasal cannula oxygen. She was placed on a BiPAP. Laboratory investigations and imaging have been ordered. Currently her systolic blood pressure is 102. Her heart rate is in the 80s. She is oxygenating well on the BiPAP at 50% FiO2. She does have ischemic EKG changes anterolaterally, new from prior studies. This is likely just secondary to hypoxia, but troponin has been ordered. Further chest have been ordered, we will continue to monitor. 09/14/20 15:19 Patient remained stable. I was notified that the patient's troponin was elevated. She denies any pain at this time. She states her breathing is improved significantly. Rectal aspirin was ordered as I did not want to give her anything p.o. given her respiratory status. She does have an abnormal EKG, but in light of her Covid positivity and severe hypoxemia, I suspect that is the reason for this elevated troponin. Currently on 50% FiO2 on the BiPAP the patient's oxygen saturation is normal, blood pressures normal. I will contact Dr. Royal for admission. 09/14/20 15:[address] Royal. He is concerned that this patient is too sick for the regular floor, he asked that I speak to the document control clerk regarding ICU admission. 09/14/20 17:[address] Vizcaino, on-call ICU physician. Will come down and evaluate the patient, asked that she be placed on heparin. Orders placed. She will likely be an ICU hold here in the emergency department. - Vital Signs Vital signs: Temp Pulse Resp BP Pulse Ox 97.7 F 16 100/79 98 09/14/20 16:15 09/14/20 17:02 09/14/20 17:02 09/14/20 17:02 - Laboratory Results Result Diagrams: 09/14/20 13:15 09/14/20 13:15 Laboratory Results Interpreted: 09/14/20 09/14/20 09/14/20 13:15 13:15 13:31 ABG pO2 ABG HCO3 ABG Total CO2 ABG O2 Saturation BUN 41 H Creatinine 2.43 H Est GFR ( Amer) 24 L Est GFR (MDRD) Non-Af 20 L Glucose 127 H Direct Bilirubin 0.5 H AST 68 H CK-MB (CK-2) 7.78 H Urine Protein 100 H Urine Ketones TRACE H Urine Blood SMALL H Urine Bilirubin SMALL H Urine Urobilinogen 4.0 H Ur Leukocyte Esterase SMALL H 09/14/20 14:30 ABG pO2 52.0 L ABG HCO3 27.1 H ABG Total CO2 28.3 H ABG O2 Saturation 88.2 L BUN Creatinine Est GFR ( Amer) Est GFR (MDRD) Non-Af Glucose Direct Bilirubin AST CK-MB (CK-2) Urine Protein Urine Ketones Urine Blood Urine Bilirubin Urine Urobilinogen Ur Leukocyte Esterase Critical Laboratory Results Reviewed: Yes Attending or Supervising Physician who Reviewed Labs: NABEEL MENCHACA - Radiology Results Radiology Results Interpreted: 09/14/20 15:20 Chest X-Ray 09/14/20 13:09 IMPRESSION: Patchy bilateral airspace disease most likely representing viral pneumonitis. Critical Radiology Results Reviewed: No Critical Results - EKG Interpretation by Me Additional EKG results interpreted by me: 09/14/20 13:56 Sinus mechanism with a rate of 86 bpm. Normal axis and intervals. ST and T wave changes anterolaterally concerning for ischemia. No elevation concerning for infarction. These are changes from prior study. Discharge - Discharge Clinical Impression: Pneumonia due to COVID-19 virus, Acute hypoxemic respiratory failure, Acute nehemiah al failure, NSTEMI (non-ST elevated myocardial infarction), Abnormal EKG Condition: Stable Disposition: ADMITTED INPATIENT Admitting Provider: Carrillo (Clinical Law Professor) Unit Admitted: ICU Referrals: OBEY ROYAL MD [Primary Care Provider] - Follow up as needed
[2020-09-14 13:59] LABS: ALKALINE PHOSPHATASE 86 U/L (38-126); ANION GAP 11 (5-19); ASPARTATE AMINO TRANSFERASE 68 U/L (14-36); BILIRUBIN,DIRECT 0.5 mg/dL (0.0-0.4); BILIRUBIN,TOTAL 0.8 mg/dL (0.2-1.3); BLOOD UREA NITROGEN 41 mg/dL (7-20); CALCIUM 9.7 mg/dL (8.4-10.2); CARBON DIOXIDE 29 mmol/L (22-30); CHLORIDE 101 mmol/L (98-107); GLUCOSE 127 mg/dL (75-110); POTASSIUM 3.6 mmol/L (3.6-5.0); TOTAL PROTEIN 6.8 g/dL (6.3-8.2)
[2020-09-14 14:07] LABS: CREATINE KINASE MB 7.78 ng/mL (<4.55)
--- NOTE | 2020-09-14 14:11 | RADIOLOGY REPORT (SQ) ---
EXAM DESCRIPTION: CHEST SINGLE VIEW IMAGES COMPLETED DATE/TIME: 09/14/2020 2:04 pm REASON FOR STUDY: + COVID, altered, low O2 sat COMPARISON: 02/05/2017 EXAM PARAMETERS: NUMBER OF VIEWS: One view. TECHNIQUE: Single frontal radiographic view of the chest acquired. RADIATION DOSE: NA LIMITATIONS: None. FINDINGS: LUNGS AND PLEURA: Patchy bilateral airspace disease consistent with either edema or multif ocal pneumonia. No effusions. MEDIASTINUM AND HILAR STRUCTURES: Mild cardiomegaly. HEART AND VASCULAR STRUCTURES: Heart normal in size. Normal vasculature. BONES: No acute findings. HARDWARE: Loop recorder remains in place. OTHER: No other significant finding. IMPRESSION: Patchy bilateral airspace disease most likely representing viral pneumonitis. TECHNICAL DOCUMENTATION: JOB ID: [id number] 2010 [employer]- All Rights Reserved Reading location - IP/workstation name: [email or web address]
[2020-09-14 14:13] LABS: TROPONIN I 7.09 ng/mL
[2020-09-14] MEDS ORDERED: ASPIRIN 300 MG SUPP, RECTAL PR ONE (14:20)
[2020-09-14] MEDS ORDERED: NORMAL SALINE 500 ML IV ONE (14:21)
--- NOTE | 2020-09-14 14:49 | EKG REPORT ---
SEVERITY:- ABNORMAL ECG - SINUS RHYTHM REPOL ABNRM SUGGESTS ISCHEMIA, ANT-LAT LEADS APCs : Confirmed by: Julianna Barroso 14-Sep-2020 14:48:26
[2020-09-14 14:55] LABS: ARTERIAL BLOOD BASE EXCESS 2.8 mmol/L; ARTERIAL BLOOD H2CO3 1.21 mmol/L (1.05-1.35); ARTERIAL BLOOD HCO3 27.1 mmol/L (20-24); ARTERIAL BLOOD O2 SATURATION 88.2 % (94-98); ARTERIAL BLOOD PCO2 40.3 mmHg (35-45); ARTERIAL BLOOD PH 7.45 (7.35-7.45); ARTERIAL BLOOD TOTAL CO2 28.3 mmol/L (21-25)
[2020-09-14 14:58] LABS: ARTERIAL BLOOD FIO2 60%
[2020-09-14] MEDS ORDERED: DEXAMETHASONE SOD PHOSPHATE INJ 4 MG/1 ML VIAL IV ONE (16:56)
[2020-09-14] MEDS ORDERED: HEPARIN SOD (PORCINE) 1,000 UNIT/ML 10 ML VIAL IV ONE (17:33)
[2020-09-14] MEDS ORDERED: HEPARIN SODIUM,PORCINE/D5W 25,000 UNIT/250 ML RTUINJ IV ONE (17:38)
[2020-09-14] MEDS ORDERED: HEPARIN SODIUM,PORCINE/D5W 25,000 UNIT/250 ML RTUINJ IV PRN (17:42)
[2020-09-14] MEDS: HEPARIN SODIUM,PORCINE/D5W 25,000 UNIT/250 ML RTUINJ IV PRN (17:50)
[2020-09-14] MEDS ORDERED: GLUCAGON,HUMAN RECOMB 1 MG INJ SUBCUT PRN (19:16)
[2020-09-14] MEDS ORDERED: DEXTROSE 50%-WATER 25 GM/50 ML DISP.SYRIN IV PRN ×2 (19:16)
[2020-09-14] MEDS ORDERED: DEXTROSE 40% GEL 15 GM TUBE PO PRN ×2 (19:16)
[2020-09-14 20:32] LABS: ABSOLUTE LYMPHOCYTES (AUTO) 0.7 10^3/uL (0.5-4.7); ABSOLUTE MONOCYTES (AUTO) 0.4 10^3/uL (0.1-1.4); ABSOLUTE NEUT (AUTO) 5.3 10^3/uL (1.7-8.2); BASOPHILS % (AUTO) 0.2 % (0-2); EOSINOPHILS % (AUTO) 0.1 % (0-6); HEMATOCRIT 35.2 % (36.0-47.0); HEMOGLOBIN 12.1 g/dL (12.0-15.5); MEAN CORPUSCULAR HEMOGLOBIN 30.8 pg (27.0-33.4); MEAN CORPUSCULAR HGB CONC 34.5 g/dL (32.0-36.0); MEAN CORPUSCULAR VOLUME 89 fl (80-97); MONOCYTES % (AUTO) 6.4 % (3-13); PLATELET COUNT 172 10^3/uL (150-450); RED BLOOD COUNT 3.95 10^6/uL (3.72-5.28); RED CELL DISTRIBUTION WIDTH 13.5 % (11.5-14.0); SEGMENTED NEUTROPHILS % (AUTO) 82.3 % (42-78); TOTAL CELLS COUNTED % (AUTO) 100 %; WHITE BLOOD COUNT 6.4 10^3/uL (4.0-10.5)
[2020-09-14] MEDS ORDERED: HEPARIN SOD (PORCINE) 1,000 UNIT/ML 10 ML VIAL IV PRN (20:34)
[2020-09-14 20:41] LABS: INTERNATIONAL RATION (INR) 1.17; PROTHROMBIN TIME 15.1 SEC (11.4-15.4)
[2020-09-14 21:03] LABS: APPEARANCE,URINE CLOUDY; BILIRUBIN,URINE NEGATIVE (NEGATIVE); COLOR,URINE AMBER; GLUCOSE, URINE NEGATIVE (NEGATIVE); KETONES,URINE TRACE mg/dL (NEGATIVE); LEUKOCYTE ESTERASE,URINE SMALL (NEGATIVE); NITRITE,URINE NEGATIVE (NEGATIVE); PROTEIN,URINE 100 mg/dL (NEGATIVE); URINE SPECIFIC GRAVITY 1.023
[2020-09-14 21:15] LABS: PARTIAL THROMBOPLASTIN TIME 189.6 SEC (23.5-35.8)
[2020-09-14] MEDS ORDERED: FUROSEMIDE INJ/PF 40 MG/4 ML SDV IV ONE (22:00)
[2020-09-14] MEDS: FAMOTIDINE INJ/PF 20 MG/2 ML SDV IV SCH (22:10)
--- NOTE | 2020-09-14 22:15 | CRITICAL CARE ADMISSION REPORT ---
HPI Date:: 09/14/20 Time:: 19:00 Reason for ICU Reason:: Acute hypoxic respiratory failure, Covid Admission Date/Time & PCP: Admission Date/Time: 09/14/20 17:41 Primary Care Provider: OBEY ROYAL MD HPI: Ms. Usha Nunn is a 69-year-old female, very poor historian does have a known history of interstitial lung disease. Presented to the emergency department via EMS with shortness of breath and altered mental status. Her is inpatient here at [facility] with Covid pneumonia. Fri ends went to check on her today and found she was confused, called EMS. Upon EMS arrival she was profoundly hypoxic. Rapid Covid test by EMS was positive. Upon arrival to the ED she was on 6 L nasal cannula and her O2 saturations were in the 80s. BiPAP was placed, which was then changed to CPAP 8 she has maintained O2 saturations in the mid to high 90s. She is noted to have a new PILAR with a creatinine of 2.43 baseline creatinine 0.6-0.8. Troponin is elevated at 7.09 proBNP 16,400. Chest x-ray consistent with pulmonary edema. Her only complaint to me at this time is generalized weakness. She is admitted to the ICU for further management. - Diagnosis/Plan (1) Acute hypoxemic respiratory failure Is this a current diagnosis for this admission?: Yes Plan: Currently doing well on CPAP of 8, O2 saturations in the mid to high 90s. (2) Pneumonia due to COVID-19 virus Is this a current diagnosis for this admission?: Yes Plan: Start remdesivir 100 mg IV now followed by 100 mg daily for 4 days Dexamethasone 6 mg daily Azithromycin 250 mg daily (3) PILAR (acute kidney injury) Is this a current diagnosis for this admission?: Yes Plan: BUN 41 creatinine 2.43 baseline creatinine 0.6-0.8 proBNP 16,400 Creased urine output Given her new NSTEMI this may be cardiorenal will give 1 dose of Lasix (4) NSTEMI (non-ST elevated myocardial infarction) Is this a current diagnosis for this admission?: Yes Plan: Continue heparin drip Echo in a.m. Troponin trending down 7.09 down to 6.9 we will continue to trend Past Medical History Cardiac Medical History: Reports: Hyperlipidema, Hypertension Pulmonary Medical History: Reports: Chronic Obstructive Pulmonary Disease (COPD), Pneumonia - 11/2009, Sleep Apnea, Other - Interstitial lung disease Denies: Tuberculosis Musculoskeltal Medical History: Reports: Fibromyalgia Psychiatric Medical History: Reports: Depression Past Surgical History Past Surgical History: Reports: Appendectomy, Section, Hysterectomy, Orthopedic Surgery - carpel tunnel surgery Denies: Pacemaker Social/Family History - Social History Smoking Status: Current Every Day Smoker Frequency of Alcohol Use: None Hx Recreational Drug Use: No Drugs: None Hx Prescription Drug Abuse: No - Medication/Allergies Home Medications: Trazodone HCl [Desyrel] 150 mg PO QHS 02/02/17 Hydrocodone/Acetaminophen [[place] 5-325 mg Tablet] 1 tab PO Q6HP PRN 09/14/20 Levetiracetam [Keppra] 1,000 mg PO BID 09/14/20 Losartan/Hydrochlorothiazide [Hyzaar 100-12.5 Tablet] 1 each PO DAILY 09/14/20 Montelukast Sodium [Singulair 10 mg Tablet] 10 mg PO QHS 09/14/20 Omeprazole 20 mg PO DAILY 09/14/20 Pregabalin [Lyrica 75 mg Capsule] 75 mg PO Q12 09/14/20 Allergies/Adverse Reactions: ibuprofen [From Motrin] Allergy (Severe, Verified 03/20/17 09:43) Azotemia, acute renal failure Iodinated Contrast Media [Iodinated Contrast Media - Oral and] Allergy (Verified 03/20/17 09:43) Generalized Itching triamcinolone [From Kenalog] Allergy (Verified 03/20/17 09:43) pentazocine lactate [From Talwin] Adverse Reaction (Mild, Verified 03/20/17 09:43) Nausea Review of Systems ROS unobtainable: Due to mental status Physical Exam Vital Signs: Temp Pulse Resp BP Pulse Ox 97.7 F 20 123/80 98 09/14/20 16:15 09/14/20 19:15 09/14/20 21:12 09/14/20 21:22 Intake & Output 09/13/20 09/14/20 09/15/20 06:59 06:59 06:59 Intake Total 500 Balance 500 Weight 65.771 kg Weight/Height Weight 65.771 kg Height 5 ft 2 in General appearance: PRESENT: mild distress Head exam: PRESENT: atraumatic, normocephalic Eye exam: PRESENT: PERRLA Mouth exam: PRESENT: moist, neck supple Neck exam: PRESENT: full ROM Respiratory exam: PRESENT: accessory muscle use, crackles Cardiovascular exam: PRESENT: RRR, +S1, +S2 Pulses: PRESENT: normal radial pulses GI/Abdominal exam: PRESENT: normal bowel sounds Extremities exam: PRESENT: +1 edema Neurological exam: PRESENT: altered Laboratory/Radiographs Laboratory Results: 09/14/20 20:20 09/14/20 13:15 09/14/20 09/14/20 09/14/20 13:15 13:15 13:31 WBC 6.3 RBC 4.29 Hgb 13.0 Hct 38.1 MCV 89 MCH 30.2 MCHC 34.0 RDW 13.8 Plt Count 187 Seg Neutrophils % 71.5 Carbonic Acid HCO3/H2CO3 Ratio ABG pH ABG pCO2 ABG pO2 ABG HCO3 ABG O2 Saturation ABG Base Excess FiO2 Sodium 140.7 Potassium 3.6 Chloride 101 Carbon Dioxide 29 Anion Gap 11 BUN 41 H Creatinine 2.43 H Est GFR ( Amer) 24 L Glucose 127 H Calcium 9.7 Total Bilirubin 0.8 AST 68 H Alkaline Phosphatase 86 Total Protein 6.8 Albumin 4.0 Urine Color VAL Urine Appearance CLOUDY Urine pH 5.0 Ur Specific Carmen 1.023 Urine Protein 100 H Urine Glucose (UA) NEGATIVE Urine Ketones TRACE H Urine Blood SMALL H Urine Nitrite NEGATIVE Ur Leukocyte Esterase SMALL H Urine WBC (Auto) 10 Urine RBC (Auto) 1 09/14/20 09/14/20 09/14/20 14:30 20:11 20:20 WBC 6.4 RBC 3.95 Hgb 12.1 Hct 35.2 L MCV 89 MCH 30.8 MCHC 34.5 RDW 13.5 Plt Count 172 Seg Neutrophils % 82.3 H Carbonic Acid 1.21 HCO3/H2CO3 Ratio 22:1 ABG pH 7.45 ABG pCO2 40.3 ABG pO2 52.0 L ABG HCO3 27.1 H ABG O2 Saturation 88.2 L ABG Base Excess 2.8 FiO2 60% Sodium Potassium Chloride Carbon Dioxide Anion Gap BUN Creatinine Est GFR ( Amer) Glucose Calcium Total Bilirubin AST Alkaline Phosphatase Total Protein Albumin Urine Color VAL Urine Appearance CLOUDY Urine pH 5.0 Ur Specific Carmen 1.023 Urine Protein 100 H Urine Glucose (UA) NEGATIVE Urine Ketones TRACE H Urine Blood MODERATE H Urine Nitrite NEGATIVE Ur Leukocyte Esterase SMALL H Urine WBC (Auto) 6 Urine RBC (Auto) 2 09/14/20 09/14/20 09/14/20 13:15 13:15 20:11 CK-MB (CK-2) 7.78 H Troponin I 7.090 6.940 NT-Pro-B Natriuret Pep 96235 H Impressions: Chest X-Ray 09/14/20 13:09 IMPRESSION: Patchy bilateral airspace disease most likely representing viral pneumonitis. All labs, radiographs, diagnostic studies and EKGs were personally reviewed: Yes In addition, reports of radiographic and diagnostic studies were read: Yes Critical Time Critical Time (minutes): 75 -: The care of a critically ill patient is dynamic. This note represents a static moment in the admission process. Orders and treatments may be given simultaneously and urgently, and time is not call center representative of the treatment process. This patient requires Critical Care secondary to life threatening organ or limb dysfunction. Without Critical Care services, the patient is at risk for increased mortality and morbidity.
[2020-09-14 22:31] LABS: ARTERIAL BLOOD BASE EXCESS 1.5 mmol/L; ARTERIAL BLOOD H2CO3 1.23 mmol/L (1.05-1.35); ARTERIAL BLOOD O2 SATURATION 98.7 % (94-98); ARTERIAL BLOOD PCO2 40.8 mmHg (35-45); ARTERIAL BLOOD PH 7.42 (7.35-7.45); ARTERIAL BLOOD TOTAL CO2 27.3 mmol/L (21-25)
[2020-09-14 22:32] LABS: ARTERIAL BLOOD FIO2 100%
[2020-09-14] MEDS ORDERED: REMDESIVIR 200 MG in NORMAL SALINE 250 ML IV ONE (23:00)
[2020-09-14] MEDS: LEVALBUTEROL HCL NEB 0.63 MG/3 ML AMPUL NEB SCH (23:45)
[2020-09-15] MEDS: HEPARIN SODIUM,PORCINE/D5W 25,000 UNIT/250 ML RTUINJ IV PRN (01:37)
[2020-09-15] MEDS: LEVALBUTEROL HCL NEB 0.63 MG/3 ML AMPUL NEB SCH ×5 (03:45→21:41)
[2020-09-15 06:00] LABS: ARTERIAL BLOOD BASE EXCESS 1.6 mmol/L; ARTERIAL BLOOD H2CO3 1.18 mmol/L (1.05-1.35); ARTERIAL BLOOD HCO3 25.8 mmol/L (20-24); ARTERIAL BLOOD O2 SATURATION 96.3 % (94-98); ARTERIAL BLOOD PCO2 39.3 mmHg (35-45); ARTERIAL BLOOD PH 7.44 (7.35-7.45); ARTERIAL BLOOD PO2 81.1 mmHg (80-100)
[2020-09-15 06:04] LABS: ARTERIAL BLOOD FIO2 75%
[2020-09-15 06:25] LABS: ABSOLUTE LYMPHOCYTES (AUTO) 0.6 10^3/uL (0.5-4.7); ABSOLUTE MONOCYTES (AUTO) 0.5 10^3/uL (0.1-1.4); ABSOLUTE NEUT (AUTO) 5.9 10^3/uL (1.7-8.2); BASOPHILS % (AUTO) 0.2 % (0-2); HEMATOCRIT 35.6 % (36.0-47.0); HEMOGLOBIN 12.3 g/dL (12.0-15.5); MEAN CORPUSCULAR HEMOGLOBIN 30.5 pg (27.0-33.4); MEAN CORPUSCULAR HGB CONC 34.7 g/dL (32.0-36.0); MEAN CORPUSCULAR VOLUME 88 fl (80-97); MONOCYTES % (AUTO) 7.8 % (3-13); PLATELET COUNT 175 10^3/uL (150-450); RED BLOOD COUNT 4.05 10^6/uL (3.72-5.28); RED CELL DISTRIBUTION WIDTH 13.4 % (11.5-14.0); TOTAL CELLS COUNTED % (AUTO) 100 %
[2020-09-15 07:20] LABS: INTERNATIONAL RATION (INR) 1.14; PARTIAL THROMBOPLASTIN TIME 74.4 SEC (23.5-35.8); PROTHROMBIN TIME 14.8 SEC (11.4-15.4)
[2020-09-15 07:21] LABS: ALBUMIN 3.7 g/dL (3.5-5.0); ALKALINE PHOSPHATASE 84 U/L (38-126); ANION GAP 8 (5-19); ASPARTATE AMINO TRANSFERASE 96 U/L (14-36); BILIRUBIN,DIRECT 0.4 mg/dL (0.0-0.4); BILIRUBIN,TOTAL 0.6 mg/dL (0.2-1.3); BLOOD UREA NITROGEN 43 mg/dL (7-20); CALCIUM 9.2 mg/dL (8.4-10.2); CARBON DIOXIDE 31 mmol/L (22-30); CHLORIDE 103 mmol/L (98-107); GLUCOSE 159 mg/dL (75-110); PHOSPHORUS 3.4 mg/dL (2.5-4.5); POTASSIUM 3.5 mmol/L (3.6-5.0); TOTAL PROTEIN 7.2 g/dL (6.3-8.2)
--- NOTE | 2020-09-15 08:19 | RADIOLOGY REPORT (SQ) ---
EXAM DESCRIPTION: CHEST SINGLE VIEW IMAGES COMPLETED DATE/TIME: 09/15/2020 7:32 am REASON FOR STUDY: hypoxia COMPARISON: 09/14/2020. EXAM PARAMETERS: NUMBER OF VIEWS: One view. TECHNIQUE: Single frontal radiographic view of the chest acquired. RADIATION DOSE: NA LIMITATIONS: None. FINDINGS: LUNGS AND PLEURA: Diffuse bilateral airspace disease, unchanged. MEDIASTINUM AND HILAR STRUCTURES: No masses. Contour normal. HEART AND VASCULAR STRUCTURES: Heart upper limits of normal in size. Normal vasculature. BONES: No acute findings. Degenerative changes in the spine and shoulders. HARDWARE: Cardiac recorder. OTHER: No other significant finding. IMPRESSION: NO SIGNIFICANT INTERVAL CHANGE. TECHNICAL DOCUMENTATION: JOB ID: [id number] 2010 [employer]- All Rights Reserved Reading location - IP/workstation name: [email or web address]
[2020-09-15] MEDS ORDERED: POTASSIUM CHLORIDE 20 MEQ PACKET PO ONE (09:00)
[2020-09-15] MEDS ORDERED: DEXAMETHASONE SOD PHOS INJ 10 MG/1 ML VIAL IV SCH (10:00)
--- NOTE | 2020-09-15 10:28 | EKG REPORT ---
SEVERITY:- ABNORMAL ECG - PROBABLE SINUS RHYTHM WITH APCS. CANNOT RULE OUT ATRIAL FIBRILLATION DUE TO ARTIFACTS. RECOMMEND RE PEAT EKG. REPOL ABNRM SUGGESTS ISCHEMIA, LATERAL LEADS MINIMAL ST ELEVATION, INFERIOR LEADS BORDERLINE PROLONGED QT INTERVAL : Confirmed by: Julianna Barroso 15-Sep-2020 10:27:56
[2020-09-15] MEDS: FAMOTIDINE INJ/PF 20 MG/2 ML SDV IV SCH ×2 (10:33→21:30)
[2020-09-15] MEDS: ASCORBIC ACID 500 MG TABLET PO SCH ×3 (10:34→18:31)
[2020-09-15] MEDS: AZITHROMYCIN 250 MG TABLET PO SCH (10:34)
[2020-09-15] MEDS: CHOLECALCIFEROL (D3) 1,000 UNIT (25 MCG) TABLET PO SCH (10:34)
--- NOTE | 2020-09-15 12:13 | PDOC CRITICAL CARE PROG REPORT ---
General Date:: 09/15/20 ICU Day:: 2 Hospital Day:: 2 Resuscitation Status: Full Code Events in the past 12 to 24 Hours:: This 69-year-old female smoker presented to [facility] emergency department on 09/14/2020 with complaints of increased dyspnea. She reports a history of interstitial lung disease but denies COPD or emphysema. In the emergency department, she was found to be hypoxic and was placed on supplemental oxygen. Due to failure to improve oxygenation, she was placed on BiPAP support with an FiO2 of 100%. This was titrated at the bedside to CPAP 8. Her primary care physician (Dr. Joiner) requested ICU admission for acute hypoxemic respiratory failure. In the emergency department, her troponin was elevated (7.09) and proBNP 16,400. Chest x-ray was consistent with pulmonary edema. 09/15: She remains in the emergency department (lack of available beds). She is stable on CPAP 6, FiO2 100%. In fact, the nurse called earlier this morning to report that the patient was wandering around in the hallway. Denies chest pain. She states that her shortness of breath is improved with noninvasive positive pressure ventilatory support. Minimal cough. No sputum production. 2D echo pending. Patient discussed with Dr. Joiner. Review of systems relevant to events:: Respiratory: dyspnea, hypoxia Reason for ICU Addmission:: Acute hypoxic respiratory failure, Covid - Medications: Medications reviewed and adjusted accordingly: Yes Physical Exam Vital Signs: Temp Pulse Resp BP Pulse Ox 99.7 F 81 26 H 150/98 H 94 09/15/20 11:30 09/15/20 08:40 09/15/20 08:40 09/15/20 11:00 09/15/20 11:30 Intake & Output 09/14/20 09/15/20 09/16/20 06:59 06:59 06:59 Intake Total 804 Output Total 710 Balance 94 Weight 65.771 kg Weight/Height Weight 65.771 kg Height 1.57 m General appearance: PRESENT: no acute distress, well-developed, well-nourished Head exam: PRESENT: atraumatic Eye exam: PRESENT: conjunctiva pink, EOMI, PERRLA. ABSENT: scleral icterus Neck exam: ABSENT: carotid bruit, JVD, lymphadenopathy, thyromegaly Respiratory exam: PRESENT: crackles, rales, rhonchi. ABSENT: wheezes Cardiovascular exam: PRESENT: RRR. ABSENT: diastolic murmur, rubs, systolic murmur Pulses: PRESENT: normal dorsalis pedis pul GI/Abdominal exam: PRESENT: normal bowel sounds, soft. ABSENT: distended, guarding, mass, organolmegaly, rebound, tenderness Extremities exam: PRESENT: full ROM. ABSENT: calf tenderness, clubbing, pedal edema Musculoskeletal exam: PRESENT: normal inspection. ABSENT: deformity Neurological exam: PRESENT: alert, awake, oriented to person, oriented to place, oriented to time, oriented to situation, CN II-XII grossly intact. ABSENT: motor sensory deficit Psychiatric exam: ABSENT: agitated, anxious Skin exam: PRESENT: dry, intact, warm. ABSENT: cyanosis, rash Laboratory/Radiographs Laboratory Results: 09/15/20 05:41 09/15/20 06:00 09/14/20 09/14/20 09/14/20 13:15 13:15 13:31 WBC 6.3 RBC 4.29 Hgb 13.0 Hct 38.1 MCV 89 MCH 30.2 MCHC 34.0 RDW 13.8 Plt Count 187 Seg Neutrophils % 71.5 Carbonic Acid HCO3/H2CO3 Ratio ABG pH ABG pCO2 ABG pO2 ABG HCO3 ABG O2 Saturation ABG Base Excess FiO2 Sodium 140.7 Potassium 3.6 Chloride 101 Carbon Dioxide 29 Anion Gap 11 BUN 41 H Creatinine 2.43 H Est GFR ( Amer) 24 L Glucose 127 H Calcium 9.7 Phosphorus Magnesium Total Bilirubin 0.8 AST 68 H Alkaline Phosphatase 86 C-Reactive Protein Total Protein 6.8 Albumin 4.0 Urine Color VAL Urine Appearance CLOUDY Urine pH 5.0 Ur Specific [place] 1.023 Urine Protein 100 H Urine Glucose (UA) NEGATIVE Urine Ketones TRACE H Urine Blood SMALL H Urine Nitrite NEGATIVE Ur Leukocyte Esterase SMALL H Urine WBC (Auto) 10 Urine RBC (Auto) 1 09/14/20 09/14/20 09/14/20 14:30 20:11 20:20 WBC 6.4 RBC 3.95 Hgb 12.1 Hct 35.2 L MCV 89 MCH 30.8 MCHC 34.5 RDW 13.5 Plt Count 172 Seg Neutrophils % 82.3 H Carbonic Acid 1.21 HCO3/H2CO3 Ratio 22:1 ABG pH 7.45 ABG pCO2 40.3 ABG pO2 52.0 L ABG HCO3 27.1 H ABG O2 Saturation 88.2 L ABG Base Excess 2.8 FiO2 60% Sodium Potassium Chloride Carbon Dioxide Anion Gap BUN Creatinine Est GFR ( Amer) Glucose Calcium Phosphorus Magnesium Total Bilirubin AST Alkaline Phosphatase C-Reactive Protein Total Protein Albumin Urine Color VAL Urine Appearance CLOUDY Urine pH 5.0 Ur Specific [place] 1.023 Urine Protein 100 H Urine Glucose (UA) NEGATIVE Urine Ketones TRACE H Urine Blood MODERATE H Urine Nitrite NEGATIVE Ur Leukocyte Esterase SMALL H Urine WBC (Auto) 6 Urine RBC (Auto) 2 09/14/20 09/15/20 09/15/20 21:30 05:40 05:41 WBC 7.0 RBC 4.05 Hgb 12.3 Hct 35.6 L MCV 88 MCH 30.5 MCHC 34.7 RDW 13.4 Plt Count 175 Seg Neutrophils % 84.0 H Carbonic Acid 1.23 1.18 HCO3/H2CO3 Ratio 21:1 21:1 ABG pH 7.42 7.44 ABG pCO2 40.8 39.3 ABG pO2 130.0 H 81.1 ABG HCO3 26.0 H 25.8 H ABG O2 Saturation 98.7 H 96.3 ABG Base Excess 1.5 1.6 FiO2 100% 75% Sodium Potassium Chloride Carbon Dioxide Anion Gap BUN Creatinine Est GFR ( Amer) Glucose Calcium Phosphorus Magnesium Total Bilirubin AST Alkaline Phosphatase C-Reactive Protein Total Protein Albumin Urine Color Urine Appearance Urine pH Ur Specific [place] Urine Protein Urine Glucose (UA) Urine Ketones Urine Blood Urine Nitrite Ur Leukocyte Esterase Urine WBC (Auto) Urine RBC (Auto) 09/15/20 09/15/20 06:00 08:59 WBC RBC Hgb Hct MCV MCH MCHC RDW Plt Count Seg Neutrophils % Carbonic Acid HCO3/H2CO3 Ratio ABG pH ABG pCO2 ABG pO2 ABG HCO3 ABG O2 Saturation ABG Base Excess FiO2 Sodium 141.9 Potassium 3.5 L Chloride 103 Carbon Dioxide 31 H Anion Gap 8 BUN 43 H Creatinine 1.48 H Est GFR ( Amer) 42 L Glucose 159 H Calcium 9.2 Phosphorus 3.4 Magnesium 1.7 Total Bilirubin 0.6 AST 96 H Alkaline Phosphatase 84 C-Reactive Protein 231.4 H Total Protein 7.2 Albumin 3.7 Urine Color Urine Appearance Urine pH Ur Specific [place] Urine Protein Urine Glucose (UA) Urine Ketones Urine Blood Urine Nitrite Ur Leukocyte Esterase Urine WBC (Auto) Urine RBC (Auto) 09/14/20 09/14/20 09/14/20 13:15 13:15 20:11 CK-MB (CK-2) 7.78 H Troponin I 7.090 6.940 NT-Pro-B Natriuret Pep 88545 H 09/15/20 09/15/20 02:02 05:47 CK-MB (CK-2) Troponin I 7.440 6.180 NT-Pro-B Natriuret Pep Impressions: Chest X-Ray 09/15/20 06:00 IMPRESSION: NO SIGNIFICANT INTERVAL CHANGE. All labs, radiographs, diagnostic studies and EKGs were personally reviewed: Yes In addition, reports of radiographic and diagnostic studies were read: Yes Assessment and Plan - Diagnosis (1) Acute hypoxemic respiratory failure Is this a current diagnosis for this admission?: Yes Plan: * Wean CPAP as tolerated. This patient will likely tolerate high flow nasal cannula. (2) Pneumonia due to COVID-19 virus Is this a current diagnosis for this admission?: Yes Plan: * On remdesivir/azithromycin. * Increase Decadron to 6 mg IV every 12 hours. * Continue vitamin C, vitamin D3, zinc sulfate. * Start budesonide. (3) NSTEMI (non-ST elevated myocardial infarction) Is this a current diagnosis for this admission?: Yes Plan: * On heparin infusion. * Start aspirin 81 mg p.o. daily. * Awaiting 2D echocardiographic interrogation. (4) Elevated brain natriuretic peptide (BNP) level Is this a current diagnosis for this admission?: Yes (5) PILAR (acute kidney injury) Is this a current diagnosis for this admission?: Yes Plan: * Creatinine 2.43> 1.48, improving. (6) Chronic interstitial lung disease Is this a current diagnosis for this admission?: Yes Plan Summary: Okay to transfer to [facility]. Dr. Joiner is agreed to take over management of this patient. Is aware that the patient is currently still in the emergency department. Critical Time Critical Time (minutes): 45 Level of Care: ICU -: 1. The care of a critical patient is a dynamic process. 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 The timeframe for treatments given in order is not necessarily the actual time these treatments may have been done. 2. This patient requires critical care secondary to ongoing requirements for therapy not offered or safe outside the critical care environment. Transfer to a lower level of care will result in altered life or limb morbidity and mortality. 3. Multidisciplinary rounds completed. 4. ABCDE bundle addressed.
[2020-09-15] MEDS: BUDESONIDE NEB 0.25 MG/2 ML AMPUL NEB SCH ×2 (12:38→21:41)
[2020-09-15] MEDS: ASPIRIN 81 MG TABLET, CHEWABLE PO SCH (12:50)
[2020-09-15] MEDS: HYDROCODONE/ACETAMINOPHEN 5-325 MG TABLET PO PRN ×2 (12:50→18:51)
[2020-09-15] MEDS: DEXAMETHASONE SOD PHOS INJ 10 MG/1 ML VIAL IV SCH (12:55)
[2020-09-15] MEDS: LEVETIRACETAM 500 MG TABLET PO SCH ×2 (13:55→21:30)
[2020-09-15] MEDS: TRAZODONE HCL 50 MG TABLET PO SCH (21:30)
[2020-09-15] MEDS: REMDESIVIR 100 MG in NORMAL SALINE 250 ML IV SCH (22:11)
[2020-09-16] MEDS: DEXAMETHASONE SOD PHOS INJ 10 MG/1 ML VIAL IV SCH ×2 (00:11→13:04)
[2020-09-16] MEDS: LEVALBUTEROL HCL NEB 0.63 MG/3 ML AMPUL NEB SCH ×7 (00:21→23:51)
--- NOTE | 2020-09-16 00:42 | EKG REPORT ---
SEVERITY:- ABNORMAL ECG - SINUS RHYTHM PROBABLE LEFT ATRIAL ABNORMALITY LVH WITH SECONDARY REPOLARIZATION ABNORMALITY APC : Confirmed by: Julianna Barroso 16-Sep-2020 00:41:16
[2020-09-16 07:04] LABS: INTERNATIONAL RATION (INR) 1.12; PROTHROMBIN TIME 14.6 SEC (11.4-15.4)
[2020-09-16 07:06] LABS: ABSOLUTE LYMPHOCYTES (AUTO) 0.4 10^3/uL (0.5-4.7); ABSOLUTE MONOCYTES (AUTO) 0.4 10^3/uL (0.1-1.4); BASOPHILS % (AUTO) 0.2 % (0-2); HEMATOCRIT 34.6 % (36.0-47.0); HEMOGLOBIN 11.8 g/dL (12.0-15.5); LYMPHOCYTES % (AUTO) 5.3 % (13-45); MEAN CORPUSCULAR HEMOGLOBIN 30.3 pg (27.0-33.4); MEAN CORPUSCULAR HGB CONC 34.3 g/dL (32.0-36.0); MEAN CORPUSCULAR VOLUME 88 fl (80-97); MONOCYTES % (AUTO) 5.7 % (3-13); PARTIAL THROMBOPLASTIN TIME 67.9 SEC (23.5-35.8); PLATELET COUNT 184 10^3/uL (150-450); RED BLOOD COUNT 3.91 10^6/uL (3.72-5.28); RED CELL DISTRIBUTION WIDTH 13.9 % (11.5-14.0); SEGMENTED NEUTROPHILS % (AUTO) 88.8 % (42-78); TOTAL CELLS COUNTED % (AUTO) 100 %; WHITE BLOOD COUNT 6.7 10^3/uL (4.0-10.5)
[2020-09-16 07:35] LABS: ALBUMIN 3.3 g/dL (3.5-5.0); ALKALINE PHOSPHATASE 84 U/L (38-126); ANION GAP 5 (5-19); ASPARTATE AMINO TRANSFERASE 62 U/L (14-36); BILIRUBIN,DIRECT 0.4 mg/dL (0.0-0.4); BILIRUBIN,TOTAL 0.6 mg/dL (0.2-1.3); BLOOD UREA NITROGEN 49 mg/dL (7-20); CALCIUM 9.1 mg/dL (8.4-10.2); CARBON DIOXIDE 31 mmol/L (22-30); CHLORIDE 106 mmol/L (98-107); GLUCOSE 151 mg/dL (75-110); PHOSPHORUS 2.6 mg/dL (2.5-4.5); TOTAL PROTEIN 6.1 g/dL (6.3-8.2)
[2020-09-16] MEDS: BUDESONIDE NEB 0.25 MG/2 ML AMPUL NEB SCH ×2 (07:53→20:27)
[2020-09-16] MEDS: HEPARIN SODIUM,PORCINE/D5W 25,000 UNIT/250 ML RTUINJ IV PRN (08:17)
[2020-09-16] MEDS: ASCORBIC ACID 500 MG TABLET PO SCH ×3 (09:42→18:09)
[2020-09-16] MEDS: FAMOTIDINE INJ/PF 20 MG/2 ML SDV IV SCH ×2 (09:43→23:19)
[2020-09-16] MEDS: ASPIRIN 81 MG TABLET, CHEWABLE PO SCH (09:43)
[2020-09-16] MEDS: LEVETIRACETAM 500 MG TABLET PO SCH ×2 (09:43→23:19)
[2020-09-16] MEDS: AZITHROMYCIN 250 MG TABLET PO SCH (09:43)
[2020-09-16] MEDS: CHOLECALCIFEROL (D3) 1,000 UNIT (25 MCG) TABLET PO SCH ×2 (09:43→12:26)
--- NOTE | 2020-09-16 10:07 | RADIOLOGY REPORT (SQ) ---
EXAM DESCRIPTION: CHEST SINGLE VIEW IMAGES COMPLETED DATE/TIME: 09/16/2020 9:51 am REASON FOR STUDY: hypoxia COMPARISON: 09/15/2020 EXAM PARAMETERS: NUMBER OF VIEWS: One view. TECHNIQUE: Single frontal radiographic view of the chest acquired. RADIATION DOSE: NA LIMITATIONS: None. FINDINGS: LUNGS AND PLEURA: Stable, persistent appearance of diffuse airspace opacities. No large p leural effusion. No pneumothorax. MEDIASTINUM AND HILAR STRUCTURES: No masses. Contour normal. HEART AND VASCULAR STRUCTURES: Mild cardiomegaly without central vascular congestion. BONES: No acute findings. HARDWARE: Cardiac loop recorder. Left axillary surgical clips. OTHER: No other significant finding. IMPRESSION: Stable radiographic appearance of the chest demonstrating diffuse airspace opacities. TECHNICAL DOCUMENTATION: JOB ID: [id number] [employer]- All Rights Reserved Reading location - IP/workstation name: [email or web address]
[2020-09-16] MEDS ORDERED: SODIUM BICARBONATE 8.4% INJ 50 MEQ/50 ML DISP.SYRIN ONE ×2 (10:10→19:22)
[2020-09-16] MEDS ORDERED: EPINEPHRINE INJ 1 MG/10 ML DISP.SYRIN ONE (10:10)
[2020-09-16] MEDS ORDERED: CALCIUM GLUCONATE 1000 MG/10 ML INJ IV ONE (10:10)
--- NOTE | 2020-09-16 11:34 | XCELERA REPORT ---
[address] [address] Transthoracic Echocardiogram Report Name: REHAN DANIEL Age: 69 yrs Gender: Female : 1950 Patient Status: Inpatient Patient Location: [facility]^A Study Date: 09/15/2020 11:15 AM Height: 62 in Weight: 145 lb BSA: 1.7 m2 Procedure: A two-dimensional transthoracic echocardiogram with color flow and Doppler was performed. The study was technically difficult with many images being suboptimal in quality. Reason For Study: NSTEMI History: NSTEMI. Ordering Physician: ILEANA MEEHAN Performed By: Nela Go Interpretation Summary LV EF is 65% Most likely no focal or regional wall motion abnormality. There is no thrombus. No ASD,VSD or PFO seen. The right ventricle is grossly normal size. The right ventricle is not well visualized secondary to technical limitations The right atrium is normal. The left atrial size is normal. There is no evidence of mitral valve prolapse. There is no vegetation seen on the mitral valve. There is no mitral valve stenosis. There is no mitral regurgitation noted. There is no aortic valvular vegetation. There is no aortic valve stenosis No aortic regurgitation is present. There is no tricuspid stenosis. There is a trace amount of tricuspid regurgitation Tricuspid regurgitation jet envelope not well defined to measure RV systolic pressure accurately. There is no pulmonic valvular stenosis. There is a trace amount of pulmonic regurgitation The aortic root is normal size. The inferior vena cava appeared normal and decreased > 50% with respiration (RAP 5-10 mmHg) There is no pericardial effusion. MMode/2D Measurements & Calculations RVDd: 3.1 cm LVIDd: 4.4 cm FS: 43.2 % Ao root diam: 2.6 cm IVSd: 0.89 cm LVIDs: 2.5 cm EDV(Teich): 88.0 ml Ao root area: 5.4 cm2 LVPWd: 0.86 cm ESV(Teich): 22.4 ml LA dimension: 3.1 cm EF(Teich): 74.5 % Doppler Measurements & Calculations MV E max ag: MV P1/2t max ag: Ao V2 max: LV V1 max P.9 cm/sec 69.4 cm/sec 122.3 cm/sec 5.1 mmHg MV A max ag: MV P1/2t: 50.1 msec Ao max P.0 mmHg LV V1 max: 84.8 cm/sec MVA(P1/2t): 4.4 cm2 113.4 cm/sec MV E/A: 0.80 MV dec slope: 406.1 cm/sec2 MV dec time: 0.16 sec PA V2 max: PI end-d ag: MV P1/2t-pr_phl: 81.9 cm/sec 164.2 cm/sec 50.1 msec PA max P.7 mmHg Left Ventricle The left ventricle is normal in size. There is normal left ventricular wall thickness. LV EF is 65%. Left ventricular systolic function is normal. Doppler measurements suggest impaired left ventricular relaxation, which is associated with grade I/IV or mild diastolic dysfunction. Most likely no focal or regional wall motion abnormality. There is no thrombus. No ASD,VSD or PFO seen. Right Ventricle The right ventricle is grossly normal size. The right ventricle is not well visualized secondary to technical limitations. Atria The right atrium is normal. The left atrial size is normal. Mitral Valve There is no evidence of mitral valve prolapse. There is no vegetation seen on the mitral valve. There is no mitral valve stenosis. There is no mitral regurgitation noted. Aortic Valve There is no aortic valvular vegetation. There is no aortic valve stenosis. No aortic regurgitation is present. Tricuspid Valve There is no tricuspid stenosis. There is a trace amount of tricuspid regurgitation. Tricuspid regurgitation jet envelope not well defined to measure RV systolic pressure accurately. Pulmonic Valve There is no pulmonic valvular stenosis. There is a trace amount of pulmonic regurgitation. Great Vessels The aortic root is normal size. The inferior vena cava appeared normal and decreased > 50% with respiration (RAP 5-10 mmHg). Effusions There is no pericardial effusion. : ILEANA MEEHAN Lakshmi
[2020-09-16 13:04] LABS: APPEARANCE,URINE CLOUDY; BILIRUBIN,URINE NEGATIVE (NEGATIVE); COLOR,URINE YELLOW; GLUCOSE, URINE NEGATIVE (NEGATIVE); KETONES,URINE NEGATIVE (NEGATIVE); LEUKOCYTE ESTERASE,URINE LARGE (NEGATIVE); NITRITE,URINE POSITIVE (NEGATIVE); PROTEIN,URINE 100 mg/dL (NEGATIVE); URINE SPECIFIC GRAVITY 1.025; UROBILINOGEN,URINE NEGATIVE mg/dL (<2.0)
--- NOTE | 2020-09-16 16:23 | PDOC PROGRESS REPORT ---
Subjective Date:: 09/16/20 Subjective:: Patient was admitted when she presented with acute shortness of breath. She has a history of COPD, presently on CPAP, she had elevated troponin VII on admission, Transthoracic echocardiogram revealed ejection fraction 65% of left ventricle Reason For Visit: PNEUOMONIA DUE TO COVID19, ACUTE RENAL FAILURE, Physical Exam Vital Signs: Temp Pulse Resp BP Pulse Ox 97.6 F 80 27 H 103/64 96 09/16/20 11:40 09/16/20 14:00 09/16/20 11:48 09/16/20 11:40 09/16/20 11:48 Intake & Output 09/15/20 09/16/20 09/17/20 06:59 06:59 06:59 Intake Total 804 182 Output Total 710 500 Balance 94 -500 182 Weight 65.771 kg 65.7 kg General appearance: PRESENT: other - Patient on BiPAP Respiratory exam: PRESENT: rhonchi Cardiovascular exam: PRESENT: +S1, +S2 GI/Abdominal exam: PRESENT: soft Neurological exam: PRESENT: alert Results Laboratory Results: 09/16/20 06:16 09/16/20 06:16 09/16/20 09/16/20 09/16/20 06:16 06:16 11:30 WBC 6.7 RBC 3.91 Hgb 11.8 L Hct 34.6 L MCV 88 MCH 30.3 MCHC 34.3 RDW 13.9 Plt Count 184 Seg Neutrophils % 88.8 H Sodium 142.3 Potassium 4.0 Chloride 106 Carbon Dioxide 31 H Anion Gap 5 BUN 49 H Creatinine 0.85 Est GFR ( Amer) > 60 Glucose 151 H Calcium 9.1 Phosphorus 2.6 Magnesium 1.8 Total Bilirubin 0.6 AST 62 H Alkaline Phosphatase 84 Total Protein 6.1 L Albumin 3.3 L Urine Color YELLOW Urine Appearance CLOUDY Urine pH 5.0 Ur Specific [place] 1.025 Urine Protein 100 H Urine Glucose (UA) NEGATIVE Urine Ketones NEGATIVE Urine Blood MODERATE H Urine Nitrite POSITIVE H Ur Leukocyte Esterase LARGE H Urine WBC (Auto) >182 Urine RBC (Auto) 9 09/14/20 09/14/20 09/14/20 13:15 13:15 20:11 CK-MB (CK-2) 7.78 H Troponin I 7.090 6.940 NT-Pro-B Natriuret Pep 52505 H 09/15/20 09/15/20 02:02 05:47 CK-MB (CK-2) Troponin I 7.440 6.180 NT-Pro-B Natriuret Pep Impressions: Chest X-Ray 09/16/20 06:00 IMPRESSION: Stable radiographic appearance of the chest demonstrating diffuse airspace opacities. Assessment & Plan - Diagnosis (1) Acute hypoxemic respiratory failure Is this a current diagnosis for this admission?: Yes Plan: Patient presently on NIPPV (2) NSTEMI (non-ST elevated myocardial infarction) Is this a current diagnosis for this admission?: Yes Plan: The transthoracic echo was normal, patient presently on IV heparin, consult cardiology (3) COVID-19 Is this a current diagnosis for this admission?: Yes (4) Pneumonia Qualifiers: Pneumonia type: due to unspecified organism Laterality: bilateral Lung location: unspecified part of lung Qualified Code(s): J18.9 - Pneumonia, unspecified organism Is this a current diagnosis for this admission?: Yes (5) COPD (chronic obstructive pulmonary disease) Qualifiers: COPD type: unspecified COPD Qualified Code(s): J44.9 - Chronic obstructive pulmonary disease, unspecified Is this a current diagnosis for this admission?: Yes (6) PILAR (acute kidney injury) Is this a current diagnosis for this admission?: Yes Plan: Continue fluid therapy - Time Time Spent with patient: 35 or more minutes Level of Care: IMCU Medications reviewed and adjusted accordingly: Yes Anticipated discharge: Home Anticipated DC Timeframe: Other
[2020-09-16] MEDS ORDERED: LORAZEPAM INJ 2 MG/1 ML VIAL ONE ×2 (18:20→18:23)
[2020-09-16] MEDS ORDERED: LORAZEPAM INJ 2 MG/1 ML VIAL IV ONE (19:00)
[2020-09-16] MEDS ORDERED: MAGNESIUM SULFATE/D5W 2 GM/200 ML RTUPB IV ONE (19:19)
[2020-09-16] MEDS ORDERED: RINGERS SOLUTION,LACTATED 1,000 ML IV ONE (20:00)
[2020-09-16] MEDS ORDERED: MIDAZOLAM 2 MG/2 ML INJ IV ONE ×3 (20:00→22:26)
[2020-09-16] MEDS ORDERED: NOREPINEPHRINE BITARTRATE INJ/PF 4 MG/4 ML SDV IV ONE (20:02)
[2020-09-16] MEDS ORDERED: MIDAZOLAM 2 MG/2 ML INJ ONE ×3 (20:02→22:26)
[2020-09-16 20:07] LABS: ARTERIAL BLOOD H2CO3 1.16 mmol/L (1.05-1.35); ARTERIAL BLOOD O2 SATURATION 96.9 % (94-98); ARTERIAL BLOOD PCO2 38.7 mmHg (35-45); ARTERIAL BLOOD PH 7.29 (7.35-7.45); ARTERIAL BLOOD PO2 99.5 mmHg (80-100); ARTERIAL BLOOD TOTAL CO2 19.2 mmol/L (21-25)
[2020-09-16 20:08] LABS: ARTERIAL BLOOD FIO2 100%
[2020-09-16] MEDS: DEXTROSE 5%-WATER 250 ML with NOREPINEPHRINE BITARTRATE 4 MG IV PRN ×4 (20:09→23:52)
[2020-09-16] MEDS ORDERED: PROPOFOL 1,000 MG/100 ML INFUS..BTL IV PRN (20:34)
[2020-09-16] MEDS ORDERED: PROPOFOL 1,000 MG/100 ML INFUS..BTL IV ONE (20:34)
--- NOTE | 2020-09-16 20:38 | Progress Note ---
Provider Note Provider Note: Responded to CODE BLUE and came immediately to bedside. Per nursing, patient received a single dose of Ativan earlier this afternoon but has not been given any narcotics or other sedatives since then. Patient has reportedly been extremely agitated all day and has been placed in restraints. Patient found to be in PEA with CPR in progress. Throughout the CODE BLUE patient was given 5 doses of epinephrine, multiple doses of bicarb, 2 g of IV magnesium, 1 g of IV calcium. Rhythm alternated between PEA and asystole on the monitor. After approximately 25 minutes of CPR and pharmacologic interventions, patient achieved ROSC with a palpable pulse and heart rhythm on monitor. No shocks were indicated or given. Critical care staff present during CODE BLUE as well and assisted with intubation. General appearance: PRESENT: Acutely ill-appearing elderly white female, unresponsive Head exam: PRESENT: atraumatic, normocephalic Eye exam: PRESENT: conjunctiva pink. ABSENT: scleral icterus Mouth exam: PRESENT: moist Respiratory exam: PRESENT: Diffuse rhonchi Cardiovascular exam: PRESENT: RRR. ABSENT: diastolic murmur, rubs, systolic murmur GI/Abdominal exam: PRESENT: normal bowel sounds, soft Neurological exam: PRESENT: Not alert, unresponsive Psychiatric exam: PRESENT: Unresponsive Skin exam: PRESENT: dry, intact, cool Assessment/plan: -Transfer to ICU Attending physician notified of CODE BLUE by nursing staff, recommend he follow-up with patient's family. Of note, patient's is confused and in restraints also admitted to the third floor here. Goals of care discussion recommended with family as patient is still unstable and has a high likelihood of not surviving this admission. Critical care team to take over role Get repeat labs Continuous telemetry Consider repeat echocardiogram Critical care time: 40 minutes
--- NOTE | 2020-09-16 21:04 | RADIOLOGY REPORT (SQ) ---
EXAM DESCRIPTION: Site: CHEST SINGLE VIEW RP: XR CHEST 1 VIEW CLINICAL HISTORY: 69 years Female; ETT placement FINDINGS: AP chest at 2005. Since this morning at 0938, endotracheal tube has been placed, tip within 1 cm of the mateusz. Enteric tube extends into the stomach. Bilateral infiltrates are similar. No pneumothorax or significant pleural effusion. No mediastinal shift. Cardiac loop recorder is again noted. IMPRESSION: 1. Intubated, with endotracheal tube tip within 1 cm of the mateusz. 2. Persistent pulmonary infiltrates 3. Enteric tube extends into the stomach
[2020-09-16] MEDS ORDERED: VASOPRESSIN INJ 20 UNIT/1 ML VIAL ONE (21:26)
[2020-09-16 21:57] LABS: HEMATOCRIT 29.6 % (36.0-47.0); MEAN CORPUSCULAR HEMOGLOBIN 29.9 pg (27.0-33.4); MEAN CORPUSCULAR HGB CONC 32.6 g/dL (32.0-36.0); PLATELET COUNT 243 10^3/uL (150-450); RED BLOOD COUNT 3.23 10^6/uL (3.72-5.28); RED CELL DISTRIBUTION WIDTH 14.1 % (11.5-14.0)
[2020-09-16 22:10] LABS: HEMOGLOBIN 9.7 g/dL (12.0-15.5); MEAN CORPUSCULAR VOLUME 92 fl (80-97); WHITE BLOOD COUNT 26.5 10^3/uL (4.0-10.5)
[2020-09-16 22:12] LABS: ABSOLUTE LYMPHOCYTES# (MANUAL) 2.1 10^3/uL (0.5-4.7); ABSOLUTE MONOCYTES # (MANUAL) 0.3 10^3/uL (0.1-1.4); BAND NEUTROPHILS % (MANUAL) 3 % (3-5); BASOPHILS % (MANUAL) 0 % (0-2); EOSINOPHILS % (MANUAL) 0 % (0-6); LYMPHOCYTES % (MANUAL) 8 % (13-45); MONOCYTES % (MANUAL) 1 % (3-13); NUCLEATED RED BLOOD CELLS 4 /100 WBC (0); SEGMENTED NEUTROPHILS % (MAN) 88 % (42-78); TOTAL CELLS COUNTED 100
[2020-09-16 22:13] LABS: ANISOCYTOSIS SLIGHT; PLATELET COMMENT ADEQUATE
[2020-09-16] MEDS ORDERED: MIDAZOLAM HCL 50 MG/100 ML RTUINJ ONE (22:29)
[2020-09-16] MEDS: MIDAZOLAM HCL 50 MG/100 ML RTUINJ IV PRN (22:45)
[2020-09-16] MEDS ORDERED: DEXTROSE 5%-WATER 250 ML with VASOPRESSIN 100 UNIT IV PRN ×2 (23:00)
[2020-09-16] MEDS: TRAZODONE HCL 50 MG TABLET PO SCH (23:19)
--- NOTE | 2020-09-16 23:30 | EKG REPORT ---
SEVERITY:- ABNORMAL ECG - SINUS TACHYCARDIA REPOL ABNRM SUGGESTS ISCHEMIA, DIFFUSE LEADS : Confirmed by: Julianna Barroso 16-Sep-2020 23:30:14
[2020-09-16 23:38] LABS: HEMATOCRIT 22.5 % (36.0-47.0); MEAN CORPUSCULAR HEMOGLOBIN 30.7 pg (27.0-33.4); MEAN CORPUSCULAR HGB CONC 33.7 g/dL (32.0-36.0); MEAN CORPUSCULAR VOLUME 91 fl (80-97); PLATELET COUNT 199 10^3/uL (150-450); RED BLOOD COUNT 2.47 10^6/uL (3.72-5.28); RED CELL DISTRIBUTION WIDTH 13.7 % (11.5-14.0); WHITE BLOOD COUNT 20.4 10^3/uL (4.0-10.5)
[2020-09-16] MEDS: REMDESIVIR 100 MG in NORMAL SALINE 250 ML IV SCH (23:39)
[2020-09-16 23:43] LABS: ARTERIAL BLOOD HCO3 15.9 mmol/L (20-24); ARTERIAL BLOOD O2 SATURATION 98.5 % (94-98); ARTERIAL BLOOD PCO2 26.5 mmHg (35-45); ARTERIAL BLOOD PO2 121.7 mmHg (80-100); ARTERIAL BLOOD TOTAL CO2 16.7 mmol/L (21-25)
[2020-09-16 23:44] LABS: ARTERIAL BLOOD FIO2 100%
[2020-09-16 23:45] LABS: HEMOGLOBIN 7.6 g/dL (12.0-15.5)
--- NOTE | 2020-09-16 23:50 | RADIOLOGY REPORT (SQ) ---
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 Comparison: Chest radiograph from 09/16/2020 Findings: The cardiomediastinal silhouette is enlarged. No pneumothorax is seen. There are diffuse bilateral interstitial airspace opacities present. No discrete pleural effusion is apparent. A left internal jugular central line catheter tip projects at the SVC/right atrial junction. There is an event monitor seen over the left chest wall. An endotracheal tube tip projects at the level the mateusz. A right internal jugular central line catheter tip projects at the SVC/right atrial junction. The nasogastric tube traverses below the left hemidiaphragm. The tip is not seen on this examination. Impression: There are diffuse bilateral airspace opacities present. These may reflect edema and/or infection.
[2020-09-16 23:53] LABS: ALKALINE PHOSPHATASE 97 U/L (38-126); ANION GAP 15 (5-19); BILIRUBIN,DIRECT 0.7 mg/dL (0.0-0.4); BLOOD UREA NITROGEN 40 mg/dL (7-20); CALCIUM 8.5 mg/dL (8.4-10.2); CHLORIDE 103 mmol/L (98-107); GLUCOSE 223 mg/dL (75-110); PHOSPHORUS 3.8 mg/dL (2.5-4.5); POTASSIUM 3.4 mmol/L (3.6-5.0); TOTAL PROTEIN 3.8 g/dL (6.3-8.2)
[2020-09-17 00:03] LABS: ABSOLUTE MONOCYTES # (MANUAL) 0.4 10^3/uL (0.1-1.4); BAND NEUTROPHILS % (MANUAL) 2 % (3-5); BASOPHILS % (MANUAL) 0 % (0-2); EOSINOPHILS % (MANUAL) 0 % (0-6); LYMPHOCYTES % (MANUAL) 10 % (13-45); MONOCYTES % (MANUAL) 2 % (3-13); NUCLEATED RED BLOOD CELLS 7 /100 WBC (0); SEGMENTED NEUTROPHILS % (MAN) 85 % (42-78); TOTAL CELLS COUNTED 100
[2020-09-17 00:04] LABS: PLATELET CLUMPS PRESENT; PLATELET COMMENT ADEQUATE
[2020-09-17 00:11] LABS: MYELOCYTES % (MANUAL) 1 % (0)
[2020-09-17 00:18] LABS: CARBON DIOXIDE 20 mmol/L (22-30)
[2020-09-17] MEDS ORDERED: RINGERS SOLUTION,LACTATED 1,000 ML IV ONE (00:22)
[2020-09-17] MEDS: ALBUMIN HUMAN 12.5 GM/50 ML RTUINJ IV SCH ×2 (00:24→01:24)
[2020-09-17] MEDS ORDERED: DEXTROSE 5%-WATER 250 ML with VASOPRESSIN 100 UNIT IV PRN ×2 (00:28)
[2020-09-17] MEDS: POTASSI CL 20 MEQ/50 ML RIDER 20 MEQ/50 ML RTUPB IV SCH ×2 (00:30→02:30)
[2020-09-17] MEDS: RINGERS SOLUTION,LACTATED 1,000 ML IV PRN ×3 (01:45→21:21)
[2020-09-17] MEDS: MIDAZOLAM HCL 50 MG/100 ML RTUINJ IV PRN ×4 (02:00→19:05)
[2020-09-17] MEDS: LEVALBUTEROL HCL NEB 0.63 MG/3 ML AMPUL NEB SCH ×5 (04:19→21:00)
[2020-09-17] MEDS: DEXTROSE 5%-WATER 250 ML with NOREPINEPHRINE BITARTRATE 4 MG IV PRN ×2 (05:44)
[2020-09-17 06:02] LABS: HEMATOCRIT 19.2 % (36.0-47.0); MEAN CORPUSCULAR HEMOGLOBIN 30.2 pg (27.0-33.4); MEAN CORPUSCULAR HGB CONC 34.1 g/dL (32.0-36.0); MEAN CORPUSCULAR VOLUME 89 fl (80-97); RED BLOOD COUNT 2.17 10^6/uL (3.72-5.28); WHITE BLOOD COUNT 17.4 10^3/uL (4.0-10.5)
[2020-09-17 06:07] LABS: ARTERIAL BLOOD BASE EXCESS -1.2 mmol/L; ARTERIAL BLOOD H2CO3 0.98 mmol/L (1.05-1.35); ARTERIAL BLOOD HCO3 22.4 mmol/L (20-24); ARTERIAL BLOOD PCO2 32.7 mmHg (35-45); ARTERIAL BLOOD PH 7.45 (7.35-7.45); ARTERIAL BLOOD PO2 56.3 mmHg (80-100); ARTERIAL BLOOD TOTAL CO2 23.4 mmol/L (21-25)
[2020-09-17 06:08] LABS: ARTERIAL BLOOD FIO2 70%
[2020-09-17 06:24] LABS: ALBUMIN 2.3 g/dL (3.5-5.0); ALKALINE PHOSPHATASE 88 U/L (38-126); ANION GAP 10 (5-19); BILIRUBIN,DIRECT 0.8 mg/dL (0.0-0.4); BILIRUBIN,TOTAL 1.4 mg/dL (0.2-1.3); BLOOD UREA NITROGEN 42 mg/dL (7-20); C-REACTIVE PROTEIN 69.6 mg/L (<10.0); CALCIUM 8.4 mg/dL (8.4-10.2); CARBON DIOXIDE 24 mmol/L (22-30); CHLORIDE 105 mmol/L (98-107); GLUCOSE 220 mg/dL (75-110); PHOSPHORUS 2.5 mg/dL (2.5-4.5); POTASSIUM 3.9 mmol/L (3.6-5.0); TOTAL PROTEIN 4.1 g/dL (6.3-8.2)
--- NOTE | 2020-09-17 06:38 | CRITICAL CARE ADMISSION REPORT ---
HPI Date:: 09/16/20 Time:: 20:00 Reason for ICU Reason:: s/p cardiac arrest Admission Date/Time & PCP: Admission Date/Time: 09/14/20 17:41 Primary Care Provider: OBEY ROYAL MD HPI: Ms. Usha Nunn is a 69-year-old female, very poor historian does have a known history of interstitial lung disease. Presented to the emergency department via EMS with shortness of breath and altered mental status. Her hu sband is inpatient here at [facility] with Covid pneumonia. Friends went to check on her today and found she was confused, called EMS. Upon EMS arrival she was profoundly hypoxic. Rapid Covid test by EMS was positive. Upon arrival to the ED she was on 6 L nasal cannula and her O2 saturations were in the 80s. BiPAP was placed, which was then changed to CPAP 8 she has maintained O2 saturations in the mid to high 90s. She is noted to have a new PILAR with a creatinine of 2.43 baseline creatinine 0.6-0.8. Troponin is elevated at 7.09 proBNP 16,400. Chest x-ray consistent with pulmonary edema. Her only complaint to me at this time is generalized weakness. Admitted to the ICU for further management. She did well and was transferred to the floor the following day. Gaby steen called at 1910, she was in asystole CPR in progress when I arrived. Intubated by me with a 7.5 ETT 23 at the [facility]. 5 epi 1 bicarb 2 grams magnesium and 1 gm calcium gluconate given and achieved ROSC Transferred to the ICU for further management Past Medical History Cardiac Medical History: Reports: Hyperlipidema, Hypertension Pulmonary Medical History: Reports: Chronic Obstructive Pulmonary Disease (COPD), Pneumonia - 11/2009, Sleep Apnea, Other - Interstitial lung disease Denies: Tuberculosis Musculoskeltal Medical History: Reports: Fibromyalgia Psychiatric Medical History: Reports: Depression Past Surgical History Past Surgical History: Reports: Appendectomy, Section, Hysterectomy, Orthopedic Surgery - carpel tunnel surgery Denies: Pacemaker Social/Family History - Social History Smoking Status: Current Every Day Smoker Frequency of Alcohol Use: None Hx Recreational Drug Use: No Drugs: None Hx Prescription Drug Abuse: No - Medication/Allergies Home Medications: Trazodone HCl [Desyrel] 150 mg PO QHS 02/02/17 Hydrocodone/Acetaminophen [Redkey 5-325 mg Tablet] 1 tab PO Q6HP PRN 09/14/20 Levetiracetam [Keppra] 1,000 mg PO BID 09/14/20 Losartan/Hydrochlorothiazide [Hyzaar 100-12.5 Tablet] 1 each PO DAILY 09/14/20 Montelukast Sodium [Singulair 10 mg Tablet] 10 mg PO QHS 09/14/20 Omeprazole 20 mg PO DAILY 09/14/20 Pregabalin [Lyrica 75 mg Capsule] 75 mg PO Q12 09/14/20 Allergies/Adverse Reactions: ibuprofen [From Motrin] Allergy (Severe, Verified 03/20/17 09:43) Azotemia, acute renal failure Iodinated Contrast Media [Iodinated Contrast Media - Oral and] Allergy (Verified 03/20/17 09:43) Generalized Itching triamcinolone [From Kenalog] Allergy (Verified 03/20/17 09:43) pentazocine lactate [From Talwin] Adverse Reaction (Mild, Verified 03/20/17 09:43) Nausea Review of Systems ROS unobtainable: Due to endotracheal tube Physical Exam Vital Signs: Temp Pulse Resp BP Pulse Ox 97.6 F 85 24 H 88/70 L 94 09/16/20 22:00 09/17/20 04:19 09/17/20 05:00 09/16/20 22:51 09/17/20 05:00 Intake & Output 09/15/20 09/16/20 09/17/20 06:59 06:59 06:59 Intake Total 353 071 6343 Output Total 710 500 37 Balance 94 -250 990 Weight 65.771 kg 65.7 kg Weight/Height Weight 65.7 kg Height 5 ft 2 in General appearance: PRESENT: severe distress Head exam: PRESENT: atraumatic Mouth exam: PRESENT: dry mucosa Neck exam: PRESENT: full ROM - BVM Cardiovascular exam: PRESENT: other - NSR post ROSC Laboratory/Radiographs Laboratory Results: 09/16/20 09/16/20 09/16/20 06:16 06:16 11:30 WBC 6.7 RBC 3.91 Hgb 11.8 L Hct 34.6 L MCV 88 MCH 30.3 MCHC 34.3 RDW 13.9 Plt Count 184 Seg Neutrophils % 88.8 H Carbonic Acid HCO3/H2CO3 Ratio ABG pH ABG pCO2 ABG pO2 ABG HCO3 ABG O2 Saturation ABG Base Excess FiO2 Sodium 142.3 Potassium 4.0 Chloride 106 Carbon Dioxide 31 H Anion Gap 5 BUN 49 H Creatinine 0.85 Est GFR ( Amer) > 60 Glucose 151 H Lactic Acid Calcium 9.1 Phosphorus 2.6 Magnesium 1.8 Total Bilirubin 0.6 AST 62 H Alkaline Phosphatase 84 Total Protein 6.1 L Albumin 3.3 L Urine Color YELLOW Urine Appearance CLOUDY Urine pH 5.0 Ur Specific [place] 1.025 Urine Protein 100 H Urine Glucose (UA) NEGATIVE Urine Ketones NEGATIVE Urine Blood MODERATE H Urine Nitrite POSITIVE H Ur Leukocyte Esterase LARGE H Urine WBC (Auto) >182 Urine RBC (Auto) 9 09/16/20 09/16/20 09/16/20 19:50 19:59 21:41 WBC Cancelled 26.5 H D RBC Cancelled 3.23 L Hgb Cancelled 9.7 L D Hct Cancelled 29.6 L MCV Cancelled 92 D MCH Cancelled 29.9 MCHC Cancelled 32.6 RDW Cancelled 14.1 H Plt Count Cancelled 243 Seg Neutrophils % Cancelled Not Reportable Carbonic Acid 1.16 HCO3/H2CO3 Ratio 15:1 ABG pH 7.29 L ABG pCO2 38.7 ABG pO2 99.5 ABG HCO3 18.0 L ABG O2 Saturation 96.9 ABG Base Excess -8.0 FiO2 100% Sodium Potassium Chloride Carbon Dioxide Anion Gap BUN Creatinine Est GFR ( Amer) Glucose Lactic Acid Calcium Phosphorus Magnesium Total Bilirubin AST Alkaline Phosphatase Total Protein Albumin Urine Color Urine Appearance Urine pH Ur Specific [place] Urine Protein Urine Glucose (UA) Urine Ketones Urine Blood Urine Nitrite Ur Leukocyte Esterase Urine WBC (Auto) Urine RBC (Auto) 09/16/20 09/16/20 09/16/20 23:20 23:20 23:20 WBC 20.4 H RBC 2.47 L Hgb 7.6 L D Hct 22.5 L MCV 91 MCH 30.7 MCHC 33.7 RDW 13.7 Plt Count 199 Seg Neutrophils % Not Reportable Carbonic Acid HCO3/H2CO3 Ratio ABG pH ABG pCO2 ABG pO2 ABG HCO3 ABG O2 Saturation ABG Base Excess FiO2 Sodium 137.8 Potassium 3.4 L Chloride 103 Carbon Dioxide 20 L D Anion Gap 15 BUN 40 H Creatinine 1.18 Est GFR ( Amer) 55 L Glucose 223 H Lactic Acid 14.2 H Calcium 8.5 Phosphorus 3.8 Magnesium 2.4 H Total Bilirubin 1.0 AST Not Reportable Alkaline Phosphatase 97 Total Protein 3.8 L Albumin 2.0 L Urine Color Urine Appearance Urine pH Ur Specific [place] Urine Protein Urine Glucose (UA) Urine Ketones Urine Blood Urine Nitrite Ur Leukocyte Esterase Urine WBC (Auto) Urine RBC (Auto) 09/16/20 09/17/20 09/17/20 23:20 05:20 05:20 WBC RBC Hgb Hct MCV MCH MCHC RDW Plt Count Seg Neutrophils % Carbonic Acid 0.80 L 0.98 L HCO3/H2CO3 Ratio 19:1 22:1 ABG pH 7.40 7.45 ABG pCO2 26.5 L 32.7 L ABG pO2 121.7 H 56.3 L ABG HCO3 15.9 L 22.4 ABG O2 Saturation 98.5 H 91.0 L ABG Base Excess -8.0 -1.2 FiO2 100% 70% Sodium Potassium Chloride Carbon Dioxide Anion Gap BUN Creatinine Est GFR ( Amer) Glucose Lactic Acid 8.3 H Calcium Phosphorus Magnesium Total Bilirubin AST Alkaline Phosphatase Total Protein Albumin Urine Color Urine Appearance Urine pH Ur Specific [place] Urine Protein Urine Glucose (UA) Urine Ketones Urine Blood Urine Nitrite Ur Leukocyte Esterase Urine WBC (Auto) Urine RBC (Auto) 09/14/20 09/14/20 09/14/20 13:15 13:15 20:11 CK-MB (CK-2) 7.78 H Troponin I 7.090 6.940 NT-Pro-B Natriuret Pep 53849 H 09/15/20 09/15/20 02:02 05:47 CK-MB (CK-2) Troponin I 7.440 6.180 NT-Pro-B Natriuret Pep All labs, radiographs, diagnostic studies and EKGs were personally reviewed: Yes In addition, reports of radiographic and diagnostic studies were read: Yes Critical Time Critical Time (minutes): 85 -: The care of a critically ill patient is dynamic. This note represents a static moment in the admission process. Orders and treatments may be given simultaneously and urgently, and time is not merchandising representative of the treatment process. This patient requires Critical Care secondary to life threatening organ or limb dysfunction. Without Critical Care services, the patient is at risk for increased mortality and morbidity.
[2020-09-17 06:51] LABS: ASPARTATE AMINO TRANSFERASE 2790 U/L (14-36)
[2020-09-17 07:09] LABS: HEMOGLOBIN 6.5 g/dL (12.0-15.5)
[2020-09-17 07:12] LABS: ABSOLUTE LYMPHOCYTES# (MANUAL) 2.1 10^3/uL (0.5-4.7); ABSOLUTE MONOCYTES # (MANUAL) 0.9 10^3/uL (0.1-1.4); BASOPHILS % (MANUAL) 0 % (0-2); EOSINOPHILS % (MANUAL) 0 % (0-6); LYMPHOCYTES % (MANUAL) 12 % (13-45); MONOCYTES % (MANUAL) 5 % (3-13); NUCLEATED RED BLOOD CELLS 3 /100 WBC (0); SEGMENTED NEUTROPHILS % (MAN) 83 % (42-78); TOTAL CELLS COUNTED 100
[2020-09-17 07:12] LABS: PARTIAL THROMBOPLASTIN TIME 86.1 SEC (23.5-35.8)
--- NOTE | 2020-09-17 07:15 | Operative Report ---
Bedside Procedure - History of Present Illness Indication for Procedure: cardiac arrest Date: 09/16/20 Provider: ILEANA MEEHAN - Intubation Orotracheal Airway evaluation: Normal anatomy Mallampati Classification: Class 1 Intubation method: Orotracheal Blade type: Jamar Blade size: 4 ETT size: 7.5 ETT secured at: Gums ETT secured at (cm): 23 Post Intubation Xray: Yes Intubation Complications: No complications
[2020-09-17 07:16] LABS: ANISOCYTOSIS SLIGHT; PLATELET CLUMPS PRESENT; PLATELET COMMENT ADEQUATE
[2020-09-17 07:17] LABS: PLATELET COUNT 127 10^3/uL (150-450)
--- NOTE | 2020-09-17 07:17 | Operative Report ---
Bedside Procedure - History of Present Illness Indication for Procedure: venous access Date: 09/16/20 Provider: ILEANA MEEHAN - Central Line Left Internal jugular Consent obtained: Yes - Emergent Central line pre-insertion: Sterile PPE donned, Chloraprep applied, Sterile drapes applied Central line lumen type: Triple Anesthetic type: 1% Lidocaine mL's of anesthesia: 3 Ultrasound guided: Yes Line secured with sutures: Yes Central line post-insertion: Blood return from lumens, Biopatch applied, Sutured, Sterile dressing applied, Position confirmed w/ CXR Complications: No
--- NOTE | 2020-09-17 07:22 | Operative Report ---
Bedside Procedure - History of Present Illness Indication for Procedure: hemodynamic monitoring Date: 09/16/20 Provider: ILEANA MEEHAN - Additional Procedures Arterial Line Time performed: 20:40 Notes: Operation/Procedure: right femoral line placement Consent for operation or procedure: Emergent need due to patient condition - need for invasive monitoring per protocol Anesthesia: 1 cc of?% Lidocaine Indications: Hemodynamic monitoring After properly positioning the patient's groin in the standard fashion, the site was prepped and draped in a sterile fashion. Lidocaine was administered subcutaneously as a local infiltration and given time to take effect. Next, the femoral artery was entered, noting bright red, pulsatile flow. A guidewire was easily inserted, the needle removed, and the catheter was then placed using the Seldinger technique. The guidewire was removed, with good flow present. The catheter was then connected to the transducer with a good waveform noted. The catheter was secured with suture and an occlusive dressing was placed after properly cleaning and prepping the site. Complications: The patient tolerated the procedure well and no complications were noted. Estimated Blood Loss: minimal Plan: Arterial line to remain in place for hemodynamic monitoring.
[2020-09-17 08:10] LABS: INTERNATIONAL RATION (INR) 2.44
[2020-09-17] MEDS: BUDESONIDE NEB 0.25 MG/2 ML AMPUL NEB SCH ×2 (08:27→21:00)
[2020-09-17 08:42] LABS: PROTHROMBIN TIME 26.5 SEC (11.4-15.4)
[2020-09-17 08:43] LABS: D-DIMER > 20.00 ug/mL (0.00-0.50)
--- NOTE | 2020-09-17 09:04 | RADIOLOGY REPORT (SQ) ---
EXAM DESCRIPTION: CHEST SINGLE VIEW IMAGES COMPLETED DATE/TIME: 09/17/2020 6:31 am REASON FOR STUDY: hypoxia COMPARISON: Previous day NUMBER OF VIEWS: One view. TECHNIQUE: Single frontal radiographic image of the chest acquired. LIMITATIONS: None. FINDINGS: LUNGS AND PLEURA: Diffuse airspace disease without significant change. No pneumothorax. MEDIASTINUM AND HEART: Stable heart size and mediastinal structures. SUPPORT DEVICES: Appropriate location without change. BONY STRUCTURES: No acute findings. HARDWARE: None. OTHER: No other significant finding. IMPRESSION: STABLE APPEARANCE OF THE CHEST. SUPPORT DEVICES UNCHANGED. Reading location - IP/workstation name: [email or web address]
[2020-09-17] MEDS: FAMOTIDINE INJ/PF 20 MG/2 ML SDV IV SCH ×2 (09:48→21:11)
[2020-09-17] MEDS: DEXAMETHASONE SOD PHOS INJ 10 MG/1 ML VIAL IV SCH (09:48)
[2020-09-17] MEDS: LEVETIRACETAM 500 MG TABLET PO SCH ×2 (09:48→21:12)
[2020-09-17] MEDS: CHOLECALCIFEROL (D3) 1,000 UNIT (25 MCG) TABLET PO SCH (09:48)
[2020-09-17] MEDS: ASPIRIN 81 MG TABLET, CHEWABLE PO SCH (09:48)
[2020-09-17] MEDS: AZITHROMYCIN 250 MG TABLET PO SCH (09:48)
[2020-09-17] MEDS: ASCORBIC ACID 500 MG TABLET PO SCH ×3 (09:48→18:06)
[2020-09-17] MEDS ORDERED: FUROSEMIDE INJ/PF 20 MG/2 ML SDV IV PRN ×2 (14:26→14:27)
[2020-09-17] MEDS ORDERED: NORMAL SALINE 250 ML IV PRN ×2 (14:26)
[2020-09-17] MEDS: NORMAL SALINE 250 ML with ARGATROBAN 250 MG IV PRN ×2 (15:00)
--- NOTE | 2020-09-17 19:50 | PDOC CONSULTATION ---
Consultation-Blank Consultation: CARDIOLOGY CONSULTATION by Dr. Jacqueline Roberson on 09/17/2020. Patient seen at 2:30 PM. 60 minutes spent as patient more than 50% time spent in direct patient care. CONSULT REQUESTING PHYSICIAN: Dr. Joiner. REASON FOR CONSULTATION: Patient admitted with Covid related pneumonia and hypoxemia and subsequently s/p successful resuscitation after cardiopulmonary arrest with elevated troponin I and EKG changes.. HISTORY OF PRESENT ILLNESS: Past Medical History Cardiac Medical History: Reports: Hyperlipidema, Hypertension Pulmonary Medical History: Reports: Chronic Obstructive Pulmonary Disease (COPD), Pneumonia - 11/2009, Sleep Apnea, Other - Interstitial lung disease Denies: Tuberculosis Musculoskeltal Medical History: Reports: Fibromyalgia Psychiatric Medical History: Reports: Depression Past Surgical History Past Surgical History: Reports: Appendectomy, Section, Hysterectomy, Orthopedic Surgery - carpel tunnel surgery Denies: Pacemaker Social/Family History - Social History Smoking Status: Current Every Day Smoker Frequency of Alcohol Use: None Hx Recreational Drug Use: No Drugs: None Hx Prescription Drug Abuse: No - Medication/Allergies Home Medications: Trazodone HCl [Desyrel] 150 mg PO QHS 02/02/17 Hydrocodone/Acetaminophen [[place] 5-325 mg Tablet] 1 tab PO Q6HP PRN 09/14/20 Levetiracetam [Keppra] 1,000 mg PO BID 09/14/20 Losartan/Hydrochlorothiazide [Hyzaar 100-12.5 Tablet] 1 each PO DAILY 09/14/20 Montelukast Sodium [Singulair 10 mg Tablet] 10 mg PO QHS 09/14/20 Omeprazole 20 mg PO DAILY 09/14/20 Pregabalin [Lyrica 75 mg Capsule] 75 mg PO Q12 09/14/20 Allergies/Adverse Reactions: ibuprofen [From Motrin] Allergy (Severe, Verified 03/20/17 09:43) Azotemia, acute renal failure Iodinated Contrast Media [Iodinated Contrast Media - Oral and] Allergy (Verified 03/20/17 09:43) Generalized Itching triamcinolone [From Kenalog] Allergy (Verified 03/20/17 09:43) pentazocine lactate [From Talwin] Adverse Reaction (Mild, Verified 03/20/17 09:43) Nausea Current Medications Generic Name Dose Route Start Last Admin Trade Name Freq PRN Reason Stop Dose Admin Hydrocodone Bitart/Acetaminophen 1 tab 09/15/20 12:30 09/15/20 18:51 Hydrocodone/Acetaminophen 5-325 Mg Tablet PO 09/22/20 12:29 1 tab Q6HP PRN Administration FOR PAIN Ascorbic Acid 1,000 mg 09/15/20 10:00 09/17/20 18:06 Ascorbic Acid 500 Mg Tablet PO 10/15/20 09:59 1,000 mg TID ANKITA Administration Aspirin 81 mg 09/15/20 12:15 09/17/20 09:48 Aspirin 81 Mg Tablet, Chewable PO 10/15/20 12:14 81 mg DAILY ANKITA Administration Azithromycin 250 mg 09/15/20 10:00 09/17/20 09:48 Azithromycin 250 Mg Tablet PO 09/22/20 09:59 250 mg DAILY ANKITA Administration Budesonide 0.25 mg 09/15/20 12:15 09/17/20 08:27 Budesonide Neb 0.25 Mg/2 Ml Ampul NEB 10/15/20 12:14 0.25 mg RTQ12 ANKITA Administration Cholecalciferol 5,000 unit 09/15/20 10:00 09/17/20 09:48 Cholecalciferol (D3) 1,000 Unit (25 Mcg) Tablet PO 10/15/20 09:59 5,000 unit DAILY ANKITA Administration Dexamethasone Sodium Phosphate 6 mg 09/17/20 10:00 09/17/20 09:48 Dexamethasone Sod Phos Inj 10 Mg/1 Ml Vial IV 10/17/20 09:59 6 mg DAILY ANKITA Administration Dextrose 12.5 gm 09/14/20 19:16 Dextrose 50%-Water 25 Gm/50 Ml Disp.Syrin IV 10/14/20 19:15 PRN PRN FOR BG 50-69 IN ALERT PATIENT Protocol Dextrose 25 gm 09/14/20 19:16 Dextrose 50%-Water 25 Gm/50 Ml Disp.Syrin IV 10/14/20 19:15 PRN PRN See Label Comments Protocol Famotidine 20 mg 09/14/20 22:00 09/17/20 09:48 Famotidine Inj/Pf 20 Mg/2 Ml Sdv IV 10/14/20 21:59 20 mg Q12 ANKITA Administration Furosemide 40 mg 09/17/20 14:27 Furosemide Inj/Pf 20 Mg/2 Ml Sdv IV 09/18/20 14:25 .AFTER FIRST UNIT PRN THIS MED IS NOT "PRN" Glucagon 1 mg 09/14/20 19:16 Glucagon,Human Recomb 1 Mg Inj SUBCUT 10/14/20 19:15 PRN PRN Evaluate for BG < 70 Protocol Glucose 15 gm 09/14/20 19:16 Dextrose 40% Gel 15 Gm Tube PO 10/14/20 19:15 PRN PRN For BG 50-69 in Alert Patient Protocol Glucose 30 gm 09/14/20 19:16 Dextrose 40% Gel 15 Gm Tube PO 10/14/20 19:15 PRN PRN FOR BG < 50 IN ALERT PATIENT Protocol Remdesivir 100 mg/ Sodium 250 mls @ 250 mls/hr 09/15/20 22:00 09/17/20 00:39 Chloride IV 09/18/20 22:59 Infused QHS ANKITA Infusion Norepinephrine Bitartrate 4 mg 250 mls @ 0 mls/hr 09/16/20 20:36 09/17/20 13:00 / Dextrose IV 10/16/20 20:35 0 mcg/min CONTINUOUS PRN 0 mls/hr THIS MED IS NOT "PRN" Titration Protocol Titrate Midazolam HCl 50 mg in 100 mls @ 0 mls/hr 09/17/20 00:19 09/17/20 17:46 Versed Rtu 50 Mg/100 Ml Premix Bag IV 09/24/20 00:18 9 mg/hr CONTINUOUS PRN 18 mls/hr THIS MED IS NOT "PRN" Titration Protocol Titrate Vasopressin 100 unit/ Dextrose 250 mls @ 0 mls/hr 09/17/20 00:28 09/16/20 22:43 IV 10/17/20 00:27 0 unit/min CONTINUOUS PRN 0 mls/hr THIS MED IS NOT "PRN" Titration Protocol Titrate Lactated Ringer's 1,000 mls @ 100 mls/hr 09/17/20 01:45 09/17/20 09:30 Lactated Ringers 1000 Ml Iv Soln IV 10/17/20 01:44 100 mls/hr CONTINUOUS PRN Administration THIS MED IS NOT "PRN" Argatroban 250 mg/ Sodium 250 mls @ 4.6 mls/hr 09/17/20 09:40 09/17/20 15:00 Chloride IV 10/17/20 09:39 4.6 mls/hr CONTINUOUS PRN 4.6 mls/hr THIS MED IS NOT "PRN" Administration Protocol Per Protocol Sodium Chloride 250 mls @ 30 mls/hr 09/17/20 14:26 Nacl 0.9% 250 Ml Iv Soln IV 09/18/20 14:25 .DURING TRANSFUSION PRN THIS MED IS NOT "PRN" Sodium Chloride 250 mls @ 0 mls/hr 09/17/20 14:26 Nacl 0.9% 250 Ml Iv Soln IV 09/18/20 14:25 CONTINUOUS PRN AFTER EACH UNIT As Directed Levalbuterol HCl 0.63 mg 09/15/20 00:00 09/17/20 16:43 Levalbuterol Hcl Neb 0.63 Mg/3 Ml Ampul NEB 10/15/20 00:00 0.63 mg RTQ4 ANKITA Administration Levetiracetam 500 mg 09/15/20 13:00 09/17/20 09:48 Levetiracetam 500 Mg Tablet PO 10/15/20 12:59 500 mg Q12 ANKITA Administration Sodium Chloride 2.5 ml 09/14/20 22:00 09/17/20 13:25 Normal Saline Flush 2.5 Ml Disp.Syrin IV 10/14/20 21:59 Not Given Q8 ANKITA Trazodone HCl 150 mg 09/15/20 22:00 09/16/20 23:19 Trazodone Hcl 50 Mg Tablet PO 10/15/20 21:59 150 mg QHS ANKITA Administration Discontinued Medications Generic Name Dose Route Start Last Admin Trade Name Freq PRN Reason Stop Dose Admin Aspirin 300 mg 09/14/20 14:20 09/14/20 15:15 Aspirin 300 Mg Supp, Rectal [place] 09/14/20 14:21 300 mg NOW ONE Administration Calcium Gluconate 1,000 mg 09/16/20 10:10 Calcium Gluconate 1000 Mg/10 Ml Inj IV 09/16/20 10:11 .STK-MED ONE Dexamethasone Sodium Phosphate 6 mg 09/14/20 16:56 09/14/20 17:30 Dexamethasone Sod Phosphate Inj 4 Mg/1 Ml Vial IV 09/14/20 16:57 6 mg NOW ONE Administration Dexamethasone Sodium Phosphate 6 mg 09/15/20 10:00 09/15/20 10:33 Dexamethasone Sod Phos Inj 10 Mg/1 Ml Vial IV 10/15/20 09:59 6 mg DAILY ANKITA Administration Dexamethasone Sodium Phosphate 6 mg 09/15/20 12:15 09/16/20 13:04 Dexamethasone Sod Phos Inj 10 Mg/1 Ml Vial IV 10/15/20 12:14 6 mg Q12H ANKITA Administration Epinephrine HCl 6 mg 09/16/20 10:10 Epinephrine Inj 1 Mg/10 Ml Disp.Syrin .ROUTE 09/16/20 10:11 .STK-MED ONE Furosemide 40 mg 09/14/20 22:00 09/14/20 22:10 Furosemide Inj/Pf 40 Mg/4 Ml Sdv IV 09/14/20 22:01 40 mg NOW ONE Administration Furosemide 20 mg 09/17/20 14:26 Furosemide Inj/Pf 20 Mg/2 Ml Sdv IV 09/18/20 14:25 .AFTER FIRST UNIT PRN THIS MED IS NOT "PRN" Heparin Sodium (Porcine) 3,900 unit 09/14/20 17:33 09/14/20 17:47 Heparin Sod (Porcine) 1,000 Unit/Ml 10 Ml Vial 60 unit/kg (3900 unit) 09/14/20 17:34 3,900 units IV Administration NOW ONE Heparin Sodium (Porcine) 0 - 12,000 unit 09/14/20 20:34 Heparin Sod (Porcine) 1,000 Unit/Ml 10 Ml Vial IV 10/14/20 20:33 .BOLUS PER PROTOCOL PRN RESPOND TO aPTT VALUE Protocol Sodium Chloride 500 mls @ 0 mls/hr 09/14/20 14:21 09/14/20 17:15 Nacl 0.9% 500 Ml Iv Soln IV 09/14/20 14:22 Infused NOW ONE Infusion Wide Open Heparin Sodium/Dextrose 25,000 unit in 250 mls @ 0 mls/hr 09/14/20 17:33 09/17/20 09:47 Heparin Rtu 25,000 Unit/250 Ml D5w Premix IV 10/14/20 17:32 0 unit/kg/hr CONTINUOUS PRN 0 mls/hr THIS MED IS NOT "PRN" Titration Protocol Titrate Heparin Sodium/Dextrose Confirm 09/14/20 17:38 09/14/20 17:48 Heparin Rtu 25,000 Unit/250 Ml D5w Premix Administered 09/14/20 17:39 Not Given Dose 25,000 unit in 250 mls @ ud IV .STK-MED ONE Heparin Sodium/Dextrose 25,000 unit in 250 mls @ 0 mls/hr 09/14/20 17:42 Heparin Rtu 25,000 Unit/250 Ml D5w Premix IV 10/14/20 17:41 CONTINUOUS PRN THIS MED IS NOT "PRN" Protocol Titrate Remdesivir 200 mg/ Sodium 250 mls @ 250 mls/hr 09/14/20 23:00 09/14/20 23:54 Chloride IV 09/14/20 23:59 Infused NOW ONE Infusion Magnesium Sulfate/Dextrose Confirm 09/16/20 19:19 09/16/20 23:17 Magnesium Sulfate Rtu-D5w 1 Gm/100 Ml Premix Administered 09/16/20 19:20 Not Given Dose 2 gm in 200 mls @ ud IV .STK-MED ONE Propofol Confirm 09/16/20 20:34 09/16/20 21:18 Diprivan Rtu 1000 Mg/100 Ml Inf.Bottle Administered 09/16/20 20:35 10 mcg/kg/min Dose 3.94 mls/hr 1,000 mg in 100 mls @ ud Administration IV .STK-MED ONE Propofol 1,000 mg in 100 mls @ 1.971 mls/hr 09/16/20 20:34 09/16/20 23:00 Diprivan Rtu 1000 Mg/100 Ml Inf.Bottle IV 10/16/20 20:33 0 mcg/kg/min CONTINUOUS PRN 0 mls/hr THIS MED IS NOT "PRN" Titration Protocol 5 MCG/KG/MIN Lactated Ringer's 1,000 mls @ 0 mls/hr 09/16/20 20:00 09/16/20 19:55 Lactated Ringers 1000 Ml Iv Soln IV 09/16/20 20:01 999 mls/hr BOLUS ONE Administration Wide Open Midazolam HCl Confirm 09/16/20 22:29 09/16/20 23:44 Versed Rtu 50 Mg/100 Ml Premix Bag Administered 09/16/20 22:30 Not Given Dose 50 mg in 100 mls @ ud .ROUTE .STK-MED ONE Vasopressin 100 unit/ Dextrose 250 mls @ 0 mls/hr 09/16/20 23:00 IV 10/16/20 22:59 CONTINUOUS PRN THIS MED IS NOT "PRN" Titrate Lactated Ringer's 1,000 mls @ 0 mls/hr 09/17/20 00:22 09/17/20 00:00 Lactated Ringers 1000 Ml Iv Soln IV 09/17/20 00:23 999 mls/hr BOLUS ONE Administration Wide Open Albumin Human 12.5 gm in 50 mls @ 50 mls/hr 09/17/20 00:24 09/17/20 01:24 Albuminar-25 Rtu Inj 12.5 Gm/50 Ml Premix IV 09/17/20 02:23 50 mls/hr Q1H ANKITA 50 mls/hr Administration Potassium Chloride/Water 20 meq in 50 mls @ 25 mls/hr 09/17/20 00:30 09/17/20 02:30 Potassium Chloride [place] 20 Meq/50 Ml IV 09/17/20 04:29 25 mls/hr Q2H ANKITA 25 mls/hr Administration Lorazepam Confirm 09/16/20 18:20 09/16/20 18:49 Lorazepam Inj 2 Mg/1 Ml Vial Administered 09/16/20 18:21 Not Given Dose 2 mg .ROUTE .STK-MED ONE Lorazepam 1 mg 09/16/20 19:00 09/16/20 18:47 Lorazepam Inj 2 Mg/1 Ml Vial IV 09/16/20 19:01 1 mg NOW ONE Administration Lorazepam Confirm 09/16/20 18:23 09/16/20 18:49 Lorazepam Inj 2 Mg/1 Ml Vial Administered 09/16/20 18:24 Not Given Dose 2 mg .ROUTE .STK-MED ONE Midazolam HCl Confirm 09/16/20 20:02 09/16/20 23:41 Midazolam 2 Mg/2 Ml Inj Administered 09/16/20 20:03 Not Given Dose 2 mg .ROUTE .STK-MED ONE Midazolam HCl 2 mg 09/16/20 20:00 09/16/20 20:10 Midazolam 2 Mg/2 Ml Inj IV 09/16/20 20:01 2 mg NOW ONE Administration Midazolam HCl Confirm 09/16/20 21:48 09/16/20 23:43 Midazolam 2 Mg/2 Ml Inj Administered 09/16/20 21:49 Not Given Dose 2 mg .ROUTE .STK-MED ONE Midazolam HCl Confirm 09/16/20 22:26 09/16/20 23:43 Midazolam 2 Mg/2 Ml Inj Administered 09/16/20 22:27 Not Given Dose 2 mg .ROUTE .STK-MED ONE Midazolam HCl 4 mg 09/16/20 22:26 09/16/20 22:30 Midazolam 2 Mg/2 Ml Inj IV 09/16/20 22:27 4 mg NOW ONE Administration Midazolam HCl 4 mg 09/16/20 21:48 09/16/20 21:50 Midazolam 2 Mg/2 Ml Inj IV 09/16/20 21:49 4 mg NOW ONE Administration Norepinephrine Bitartrate Confirm 09/16/20 20:02 09/16/20 23:41 Norepinephrine Bitartrate Inj/Pf 4 Mg/4 Ml Sdv Administered 09/16/20 20:03 Not Given Dose 4 mg IV .STK-MED ONE Potassium Chloride 40 meq 09/15/20 09:00 09/15/20 10:33 Potassium Chloride 20 Meq Packet PO 09/15/20 09:01 40 meq NOW ONE Administration Sodium Bicarbonate Confirm 09/16/20 19:22 09/16/20 23:17 Sodium Bicarbonate 8.4% Inj 50 Meq/50 Ml Disp.Syrin Administered 09/16/20 19:23 Not Given Dose 50 meq .ROUTE .STK-MED ONE Sodium Bicarbonate 50 meq 09/16/20 10:10 Sodium Bicarbonate 8.4% Inj 50 Meq/50 Ml Disp.Syrin .ROUTE 09/16/20 10:11 .STK-MED ONE Vasopressin Confirm 09/16/20 21:26 09/16/20 23:43 Vasopressin Inj 20 Unit/1 Ml Vial Administered 09/16/20 21:27 Not Given Dose 20 unit .ROUTE .STK-MED ONE RESUSCITATION STATUS: The patient is a full code. Her is her surrogate healthcare decision maker. Review of Systems ROS unobtainable: The patient is intubated and sedated. PHYSICAL EXAMINATION: The patient mild to moderately obese. Is intubated and sedated. Selected Entries 09/17/20 14:00 Core 97.9 F Temperature Heart Rate ( 88 Monitors) Respiratory 19 Rate Positive End 5 Expiratory Pressure Blood Pressure 121/57 L [Femoral Artery ] Blood Pressure 78 Mean [Femoral Artery] Blood Pressure Supine Position [ Femoral Artery] O2 Sat by Pulse 91 L Oximetry Oxygen Delivery Mechanical Method ( Ventilator includes room air) HEAD: Is atraumatic normocephalic. EYES: Pupils are equal round regular reactive to light. ENT is negative. NECK:. Carotids are equal there is no bruits. Neck is supple. There is no JVD there is no lymphadenopathy. There is no goiter. There is no accessory muscle respiration use. Trachea is central. LUNGS: There is diminished air entry prolonged expiration with scattered rhonchi and few dry crackles bilaterally. There is no rales of CHF. HEART: S1-S2 is heard. S1 is of normal intensity. There is no S3 gallop. There is an S4 gallop. There is systolic murmur left sternal border and the apex without radiation. There is no rub. ABDOMEN: Is soft. There is no hepatosplenomegaly. Bowel sounds are heard. EXTREMITIES: Femorals are deep. There is no femoral bruits. There is no pedal edema. There is no cyanosis or clubbing. There is no DVT or cellulitis. 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 Labs- Entire Visit 09/14/20 09/14/20 09/14/20 13:15 13:15 13:15 WBC 6.3 RBC 4.29 Hgb 13.0 Hct 38.1 MCV 89 MCH 30.2 MCHC 34.0 RDW 13.8 Plt Count 187 Lymph % (Auto) 15.6 [place] % (Auto) 12.6 Eos % (Auto) 0.0 Baso % (Auto) 0.3 Absolute Neuts (auto) 4.5 Absolute Lymphs (auto) 1.0 Absolute Monos (auto) 0.8 Absolute Eos (auto) 0.0 Absolute Basos (auto) 0.0 Total Counted Seg Neutrophils % 71.5 Seg Neuts % (Manual) Band Neutrophils % Lymphocytes % (Manual) Monocytes % (Manual) Eosinophils % (Manual) Basophils % (Manual) Myelocytes % Abs Neuts (Manual) Abs Lymphs (Manual) Abs Monocytes (Manual) Absolute Eos (Manual) Abs Basophils (Manual) Nucleated RBCs Toxic Vacuolation Platelet Estimate Clumped Platelets Platelet Comment Polychromasia Anisocytosis PT INR INR (Anticoag Therapy) APTT D-Dimer Carbonic Acid HCO3/H2CO3 Ratio ABG pH ABG pCO2 ABG pO2 ABG HCO3 ABG Total CO2 ABG O2 Saturation ABG Base Excess FiO2 Sodium 140.7 Potassium 3.6 Chloride 101 Carbon Dioxide 29 Anion Gap 11 BUN 41 H Creatinine 2.43 H Est GFR ( Amer) 24 L Est GFR (MDRD) Non-Af 20 L Glucose 127 H POC Glucose Lactic Acid Calcium 9.7 Phosphorus Magnesium Total Bilirubin 0.8 Direct Bilirubin 0.5 H Neonat Total Bilirubin Not Reportable Neonat Direct Bilirubin Not Reportable Neonat Indirect Bili Not Reportable AST 68 H ALT 16 Alkaline Phosphatase 86 CK-MB (CK-2) 7.78 H Troponin I 7.090 C-Reactive Protein NT-Pro-B Natriuret Pep Total Protein 6.8 Albumin 4.0 Urine Color Urine Appearance Urine pH Ur Specific [place] Urine Protein Urine Glucose (UA) Urine Ketones Urine Blood Urine Nitrite Urine Bilirubin Urine Urobilinogen Ur Leukocyte Esterase Urine WBC (Auto) Urine RBC (Auto) U Hyaline Cast (Auto) Urine Bacteria (Auto) Urine WBC Clumps Squamous Epi Cells Auto Granular Casts (Auto) Urine Mucus (Auto) Urine Ascorbic Acid Slides for Path Review Blood Type Blood Type Confirm Antibody Screen Crossmatch 09/14/20 09/14/20 09/14/20 13:15 13:31 14:30 WBC RBC Hgb Hct MCV MCH MCHC RDW Plt Count Lymph % (Auto) [place] % (Auto) Eos % (Auto) Baso % (Auto) Absolute Neuts (auto) Absolute Lymphs (auto) Absolute Monos (auto) Absolute Eos (auto) Absolute Basos (auto) Total Counted Seg Neutrophils % Seg Neuts % (Manual) Band Neutrophils % Lymphocytes % (Manual) Monocytes % (Manual) Eosinophils % (Manual) Basophils % (Manual) Myelocytes % Abs Neuts (Manual) Abs Lymphs (Manual) Abs Monocytes (Manual) Absolute Eos (Manual) Abs Basophils (Manual) Nucleated RBCs Toxic Vacuolation Platelet Estimate Clumped Platelets Platelet Comment Polychromasia Anisocytosis PT INR INR (Anticoag Therapy) APTT D-Dimer Carbonic Acid 1.21 HCO3/H2CO3 Ratio 22:1 ABG pH 7.45 ABG pCO2 40.3 ABG pO2 52.0 L ABG HCO3 27.1 H ABG Total CO2 28.3 H ABG O2 Saturation 88.2 L ABG Base Excess 2.8 FiO2 60% Sodium Potassium Chloride Carbon Dioxide Anion Gap BUN Creatinine Est GFR ( Amer) Est GFR (MDRD) Non-Af Glucose POC Glucose Lactic Acid Calcium Phosphorus Magnesium Total Bilirubin Direct Bilirubin Neonat Total Bilirubin Neonat Direct Bilirubin Neonat Indirect Bili AST ALT Alkaline Phosphatase CK-MB (CK-2) Troponin I C-Reactive Protein NT-Pro-B Natriuret Pep 05059 H Total Protein Albumin Urine Color VAL Urine Appearance CLOUDY Urine pH 5.0 Ur Specific [place] 1.023 Urine Protein 100 H Urine Glucose (UA) NEGATIVE Urine Ketones TRACE H Urine Blood SMALL H Urine Nitrite NEGATIVE Urine Bilirubin SMALL H Urine Urobilinogen 4.0 H Ur Leukocyte Esterase SMALL H Urine WBC (Auto) 10 Urine RBC (Auto) 1 U Hyaline Cast (Auto) 52 Urine Bacteria (Auto) 3+ Urine WBC Clumps Squamous Epi Cells Auto 3 Granular Casts (Auto) 1 Urine Mucus (Auto) OCC Urine Ascorbic Acid NEGATIVE Slides for Path Review Blood Type Blood Type Confirm Antibody Screen Crossmatch 09/14/20 09/14/20 09/14/20 20:11 20:11 20:20 WBC 6.4 RBC 3.95 Hgb 12.1 Hct 35.2 L MCV 89 MCH 30.8 MCHC 34.5 RDW 13.5 Plt Count 172 Lymph % (Auto) 11.0 L [place] % (Auto) 6.4 Eos % (Auto) 0.1 Baso % (Auto) 0.2 Absolute Neuts (auto) 5.3 Absolute Lymphs (auto) 0.7 Absolute Monos (auto) 0.4 Absolute Eos (auto) 0.0 Absolute Basos (auto) 0.0 Total Counted Seg Neutrophils % 82.3 H Seg Neuts % (Manual) Band Neutrophils % Lymphocytes % (Manual) Monocytes % (Manual) Eosinophils % (Manual) Basophils % (Manual) Myelocytes % Abs Neuts (Manual) Abs Lymphs (Manual) Abs Monocytes (Manual) Absolute Eos (Manual) Abs Basophils (Manual) Nucleated RBCs Toxic Vacuolation Platelet Estimate Clumped Platelets Platelet Comment Polychromasia Anisocytosis PT INR INR (Anticoag Therapy) APTT D-Dimer Carbonic Acid HCO3/H2CO3 Ratio ABG pH ABG pCO2 ABG pO2 ABG HCO3 ABG Total CO2 ABG O2 Saturation ABG Base Excess FiO2 Sodium Potassium Chloride Carbon Dioxide Anion Gap BUN Creatinine Est GFR ( Amer) Est GFR (MDRD) Non-Af Glucose POC Glucose Lactic Acid Calcium Phosphorus Magnesium Total Bilirubin Direct Bilirubin Neonat Total Bilirubin Neonat Direct Bilirubin Neonat Indirect Bili AST ALT Alkaline Phosphatase CK-MB (CK-2) Troponin I 6.940 C-Reactive Protein NT-Pro-B Natriuret Pep Total Protein Albumin Urine Color VAL Urine Appearance CLOUDY Urine pH 5.0 Ur Specific [place] 1.023 Urine Protein 100 H Urine Glucose (UA) NEGATIVE Urine Ketones TRACE H Urine Blood MODERATE H Urine Nitrite NEGATIVE Urine Bilirubin NEGATIVE Urine Urobilinogen 2.0 H Ur Leukocyte Esterase SMALL H Urine WBC (Auto) 6 Urine RBC (Auto) 2 U Hyaline Cast (Auto) 23 Urine Bacteria (Auto) 3+ Urine WBC Clumps Squamous Epi Cells Auto 2 Granular Casts (Auto) Urine Mucus (Auto) OCC Urine Ascorbic Acid NEGATIVE Slides for Path Review Blood Type Blood Type Confirm Antibody Screen Crossmatch 09/14/20 09/14/20 09/14/20 20:20 21:30 23:22 WBC RBC Hgb Hct MCV MCH MCHC RDW Plt Count Lymph % (Auto) [place] % (Auto) Eos % (Auto) Baso % (Auto) Absolute Neuts (auto) Absolute Lymphs (auto) Absolute Monos (auto) Absolute Eos (auto) Absolute Basos (auto) Total Counted Seg Neutrophils % Seg Neuts % (Manual) Band Neutrophils % Lymphocytes % (Manual) Monocytes % (Manual) Eosinophils % (Manual) Basophils % (Manual) Myelocytes % Abs Neuts (Manual) Abs Lymphs (Manual) Abs Monocytes (Manual) Absolute Eos (Manual) Abs Basophils (Manual) Nucleated RBCs Toxic Vacuolation Platelet Estimate Clumped Platelets Platelet Comment Polychromasia Anisocytosis PT 15.1 INR 1.17 INR (Anticoag Therapy) APTT 189.6 H* 148.9 H* D-Dimer Carbonic Acid 1.23 HCO3/H2CO3 Ratio 21:1 ABG pH 7.42 ABG pCO2 40.8 ABG pO2 130.0 H ABG HCO3 26.0 H ABG Total CO2 27.3 H ABG O2 Saturation 98.7 H ABG Base Excess 1.5 FiO2 100% Sodium Potassium Chloride Carbon Dioxide Anion Gap BUN Creatinine Est GFR ( Amer) Est GFR (MDRD) Non-Af Glucose POC Glucose Lactic Acid Calcium Phosphorus Magnesium Total Bilirubin Direct Bilirubin Neonat Total Bilirubin Neonat Direct Bilirubin Neonat Indirect Bili AST ALT Alkaline Phosphatase CK-MB (CK-2) Troponin I C-Reactive Protein NT-Pro-B Natriuret Pep Total Protein Albumin Urine Color Urine Appearance Urine pH Ur Specific [place] Urine Protein Urine Glucose (UA) Urine Ketones Urine Blood Urine Nitrite Urine Bilirubin Urine Urobilinogen Ur Leukocyte Esterase Urine WBC (Auto) Urine RBC (Auto) U Hyaline Cast (Auto) Urine Bacteria (Auto) Urine WBC Clumps Squamous Epi Cells Auto Granular Casts (Auto) Urine Mucus (Auto) Urine Ascorbic Acid Slides for Path Review Blood Type Blood Type Confirm Antibody Screen Crossmatch 09/15/20 09/15/20 09/15/20 02:02 03:38 05:40 WBC RBC Hgb Hct MCV MCH MCHC RDW Plt Count Lymph % (Auto) [place] % (Auto) Eos % (Auto) Baso % (Auto) Absolute Neuts (auto) Absolute Lymphs (auto) Absolute Monos (auto) Absolute Eos (auto) Absolute Basos (auto) Total Counted Seg Neutrophils % Seg Neuts % (Manual) Band Neutrophils % Lymphocytes % (Manual) Monocytes % (Manual) Eosinophils % (Manual) Basophils % (Manual) Myelocytes % Abs Neuts (Manual) Abs Lymphs (Manual) Abs Monocytes (Manual) Absolute Eos (Manual) Abs Basophils (Manual) Nucleated RBCs Toxic Vacuolation Platelet Estimate Clumped Platelets Platelet Comment Polychromasia Anisocytosis PT INR INR (Anticoag Therapy) APTT D-Dimer Carbonic Acid 1.18 HCO3/H2CO3 Ratio 21:1 ABG pH 7.44 ABG pCO2 39.3 ABG pO2 81.1 ABG HCO3 25.8 H ABG Total CO2 27.0 H ABG O2 Saturation 96.3 ABG Base Excess 1.6 FiO2 75% Sodium Potassium Chloride Carbon Dioxide Anion Gap BUN Creatinine Est GFR ( Amer) Est GFR (MDRD) Non-Af Glucose POC Glucose 174 H Lactic Acid Calcium Phosphorus Magnesium Total Bilirubin Direct Bilirubin Neonat Total Bilirubin Neonat Direct Bilirubin Neonat Indirect Bili AST ALT Alkaline Phosphatase CK-MB (CK-2) Troponin I 7.440 C-Reactive Protein NT-Pro-B Natriuret Pep Total Protein Albumin Urine Color Urine Appearance Urine pH Ur Specific [place] Urine Protein Urine Glucose (UA) Urine Ketones Urine Blood Urine Nitrite Urine Bilirubin Urine Urobilinogen Ur Leukocyte Esterase Urine WBC (Auto) Urine RBC (Auto) U Hyaline Cast (Auto) Urine Bacteria (Auto) Urine WBC Clumps Squamous Epi Cells Auto Granular Casts (Auto) Urine Mucus (Auto) Urine Ascorbic Acid Slides for Path Review Blood Type Blood Type Confirm Antibody Screen Crossmatch 09/15/20 09/15/2021 05:41 05:47 05:47 WBC 7.0 RBC 4.05 Hgb 12.3 Hct 35.6 L MCV 88 MCH 30.5 MCHC 34.7 RDW 13.4 Plt Count 175 Lymph % (Auto) 8.0 L [place] % (Auto) 7.8 Eos % (Auto) 0.0 Baso % (Auto) 0.2 Absolute Neuts (auto) 5.9 Absolute Lymphs (auto) 0.6 Absolute Monos (auto) 0.5 Absolute Eos (auto) 0.0 Absolute Basos (auto) 0.0 Total Counted Seg Neutrophils % 84.0 H Seg Neuts % (Manual) Band Neutrophils % Lymphocytes % (Manual) Monocytes % (Manual) Eosinophils % (Manual) Basophils % (Manual) Myelocytes % Abs Neuts (Manual) Abs Lymphs (Manual) Abs Monocytes (Manual) Absolute Eos (Manual) Abs Basophils (Manual) Nucleated RBCs Toxic Vacuolation Platelet Estimate Clumped Platelets Platelet Comment Polychromasia Anisocytosis PT 14.8 INR 1.14 INR (Anticoag Therapy) APTT 74.4 H D-Dimer Carbonic Acid HCO3/H2CO3 Ratio ABG pH ABG pCO2 ABG pO2 ABG HCO3 ABG Total CO2 ABG O2 Saturation ABG Base Excess FiO2 Sodium Potassium Chloride Carbon Dioxide Anion Gap BUN Creatinine Est GFR ( Amer) Est GFR (MDRD) Non-Af Glucose POC Glucose Lactic Acid Calcium Phosphorus Magnesium Total Bilirubin Direct Bilirubin Neonat Total Bilirubin Neonat Direct Bilirubin Neonat Indirect Bili AST ALT Alkaline Phosphatase CK-MB (CK-2) Troponin I 6.180 C-Reactive Protein NT-Pro-B Natriuret Pep Total Protein Albumin Urine Color Urine Appearance Urine pH Ur Specific [place] Urine Protein Urine Glucose (UA) Urine Ketones Urine Blood Urine Nitrite Urine Bilirubin Urine Urobilinogen Ur Leukocyte Esterase Urine WBC (Auto) Urine RBC (Auto) U Hyaline Cast (Auto) Urine Bacteria (Auto) Urine WBC Clumps Squamous Epi Cells Auto Granular Casts (Auto) Urine Mucus (Auto) Urine Ascorbic Acid Slides for Path Review Blood Type Blood Type Confirm Antibody Screen Crossmatch 09/15/20 09/15/20 09/15/20 06:00 08:59 08:59 WBC RBC Hgb Hct MCV MCH MCHC RDW Plt Count Lymph % (Auto) [place] % (Auto) Eos % (Auto) Baso % (Auto) Absolute Neuts (auto) Absolute Lymphs (auto) Absolute Monos (auto) Absolute Eos (auto) Absolute Basos (auto) Total Counted Seg Neutrophils % Seg Neuts % (Manual) Band Neutrophils % Lymphocytes % (Manual) Monocytes % (Manual) Eosinophils % (Manual) Basophils % (Manual) Myelocytes % Abs Neuts (Manual) Abs Lymphs (Manual) Abs Monocytes (Manual) Absolute Eos (Manual) Abs Basophils (Manual) Nucleated RBCs Toxic Vacuolation Platelet Estimate Clumped Platelets Platelet Comment Polychromasia Anisocytosis PT INR INR (Anticoag Therapy) APTT D-Dimer 1.86 H Carbonic Acid HCO3/H2CO3 Ratio ABG pH ABG pCO2 ABG pO2 ABG HCO3 ABG Total CO2 ABG O2 Saturation ABG Base Excess FiO2 Sodium 141.9 Potassium 3.5 L Chloride 103 Carbon Dioxide 31 H Anion Gap 8 BUN 43 H Creatinine 1.48 H Est GFR ( Amer) 42 L Est GFR (MDRD) Non-Af 35 L Glucose 159 H POC Glucose Lactic Acid Calcium 9.2 Phosphorus 3.4 Magnesium 1.7 Total Bilirubin 0.6 Direct Bilirubin 0.4 Neonat Total Bilirubin Not Reportable Neonat Direct Bilirubin Not Reportable Neonat Indirect Bili Not Reportable AST 96 H ALT 19 Alkaline Phosphatase 84 CK-MB (CK-2) Troponin I C-Reactive Protein 231.4 H NT-Pro-B Natriuret Pep Total Protein 7.2 Albumin 3.7 Urine Color Urine Appearance Urine pH Ur Specific [place] Urine Protein Urine Glucose (UA) Urine Ketones Urine Blood Urine Nitrite Urine Bilirubin Urine Urobilinogen Ur Leukocyte Esterase Urine WBC (Auto) Urine RBC (Auto) U Hyaline Cast (Auto) Urine Bacteria (Auto) Urine WBC Clumps Squamous Epi Cells Auto Granular Casts (Auto) Urine Mucus (Auto) Urine Ascorbic Acid Slides for Path Review Blood Type Blood Type Confirm Antibody Screen Crossmatch 09/16/20 09/16/20 09/16/20 06:16 06:16 06:16 WBC 6.7 RBC 3.91 Hgb 11.8 L Hct 34.6 L MCV 88 MCH 30.3 MCHC 34.3 RDW 13.9 Plt Count 184 Lymph % (Auto) 5.3 L [place] % (Auto) 5.7 Eos % (Auto) 0.0 Baso % (Auto) 0.2 Absolute Neuts (auto) 6.0 Absolute Lymphs (auto) 0.4 L Absolute Monos (auto) 0.4 Absolute Eos (auto) 0.0 Absolute Basos (auto) 0.0 Total Counted Seg Neutrophils % 88.8 H Seg Neuts % (Manual) Band Neutrophils % Lymphocytes % (Manual) Monocytes % (Manual) Eosinophils % (Manual) Basophils % (Manual) Myelocytes % Abs Neuts (Manual) Abs Lymphs (Manual) Abs Monocytes (Manual) Absolute Eos (Manual) Abs Basophils (Manual) Nucleated RBCs Toxic Vacuolation Platelet Estimate Clumped Platelets Platelet Comment Polychromasia Anisocytosis PT 14.6 INR 1.12 INR (Anticoag Therapy) APTT 67.9 H D-Dimer Carbonic Acid HCO3/H2CO3 Ratio ABG pH ABG pCO2 ABG pO2 ABG HCO3 ABG Total CO2 ABG O2 Saturation ABG Base Excess FiO2 Sodium 142.3 Potassium 4.0 Chloride 106 Carbon Dioxide 31 H Anion Gap 5 BUN 49 H Creatinine 0.85 Est GFR ( Amer) > 60 Est GFR (MDRD) Non-Af > 60 Glucose 151 H POC Glucose Lactic Acid Calcium 9.1 Phosphorus 2.6 Magnesium 1.8 Total Bilirubin 0.6 Direct Bilirubin 0.4 Neonat Total Bilirubin Not Reportable Neonat Direct Bilirubin Not Reportable Neonat Indirect Bili Not Reportable AST 62 H ALT 20 Alkaline Phosphatase 84 CK-MB (CK-2) Troponin I C-Reactive Protein NT-Pro-B Natriuret Pep Total Protein 6.1 L Albumin 3.3 L Urine Color Urine Appearance Urine pH Ur Specific [place] Urine Protein Urine Glucose (UA) Urine Ketones Urine Blood Urine Nitrite Urine Bilirubin Urine Urobilinogen Ur Leukocyte Esterase Urine WBC (Auto) Urine RBC (Auto) U Hyaline Cast (Auto) Urine Bacteria (Auto) Urine WBC Clumps Squamous Epi Cells Auto Granular Casts (Auto) Urine Mucus (Auto) Urine Ascorbic Acid Slides for Path Review Blood Type Blood Type Confirm Antibody Screen Crossmatch 09/16/20 09/16/20 09/16/20 11:30 19:50 19:59 WBC Cancelled RBC Cancelled Hgb Cancelled Hct Cancelled MCV Cancelled MCH Cancelled MCHC Cancelled RDW Cancelled Plt Count Cancelled Lymph % (Auto) Cancelled [place] % (Auto) Cancelled Eos % (Auto) Cancelled Baso % (Auto) Cancelled Absolute Neuts (auto) Cancelled Absolute Lymphs (auto) Cancelled Absolute Monos (auto) Cancelled Absolute Eos (auto) Cancelled Absolute Basos (auto) Cancelled Total Counted Seg Neutrophils % Cancelled Seg Neuts % (Manual) Band Neutrophils % Lymphocytes % (Manual) Monocytes % (Manual) Eosinophils % (Manual) Basophils % (Manual) Myelocytes % Abs Neuts (Manual) Abs Lymphs (Manual) Abs Monocytes (Manual) Absolute Eos (Manual) Abs Basophils (Manual) Nucleated RBCs Toxic Vacuolation Platelet Estimate Cancelled Clumped Platelets Platelet Comment Polychromasia Anisocytosis PT INR INR (Anticoag Therapy) APTT D-Dimer Carbonic Acid 1.16 HCO3/H2CO3 Ratio 15:1 ABG pH 7.29 L ABG pCO2 38.7 ABG pO2 99.5 ABG HCO3 18.0 L ABG Total CO2 19.2 L ABG O2 Saturation 96.9 ABG Base Excess -8.0 FiO2 100% Sodium Potassium Chloride Carbon Dioxide Anion Gap BUN Creatinine Est GFR ( Amer) Est GFR (MDRD) Non-Af Glucose POC Glucose Lactic Acid Calcium Phosphorus Magnesium Total Bilirubin Direct Bilirubin Neonat Total Bilirubin Neonat Direct Bilirubin Neonat Indirect Bili AST ALT Alkaline Phosphatase CK-MB (CK-2) Troponin I C-Reactive Protein NT-Pro-B Natriuret Pep Total Protein Albumin Urine Color YELLOW Urine Appearance CLOUDY Urine pH 5.0 Ur Specific [place] 1.025 Urine Protein 100 H Urine Glucose (UA) NEGATIVE Urine Ketones NEGATIVE Urine Blood MODERATE H Urine Nitrite POSITIVE H Urine Bilirubin NEGATIVE Urine Urobilinogen NEGATIVE Ur Leukocyte Esterase LARGE H Urine WBC (Auto) >182 Urine RBC (Auto) 9 U Hyaline Cast (Auto) 10 Urine Bacteria (Auto) 3+ Urine WBC Clumps MOD Squamous Epi Cells Auto 2 Granular Casts (Auto) Urine Mucus (Auto) FEW Urine Ascorbic Acid NEGATIVE Slides for Path Review Cancelled Blood Type Blood Type Confirm Antibody Screen Crossmatch 09/16/20 09/16/20 09/16/20 21:41 23:20 23:20 WBC 26.5 H D RBC 3.23 L Hgb 9.7 L D Hct 29.6 L MCV 92 D MCH 29.9 MCHC 32.6 RDW 14.1 H Plt Count 243 Lymph % (Auto) Not Reportable [place] % (Auto) Not Reportable Eos % (Auto) Not Reportable Baso % (Auto) Not Reportable Absolute Neuts (auto) Not Reportable Absolute Lymphs (auto) Not Reportable Absolute Monos (auto) Not Reportable Absolute Eos (auto) Not Reportable Absolute Basos (auto) Not Reportable Total Counted 100 Seg Neutrophils % Not Reportable Seg Neuts % (Manual) 88 H Band Neutrophils % 3 Lymphocytes % (Manual) 8 L Monocytes % (Manual) 1 L Eosinophils % (Manual) 0 Basophils % (Manual) 0 Myelocytes % Abs Neuts (Manual) 24.1 H Abs Lymphs (Manual) 2.1 Abs Monocytes (Manual) 0.3 Absolute Eos (Manual) 0.0 Abs Basophils (Manual) 0.0 Nucleated RBCs 4 Toxic Vacuolation Platelet Estimate Clumped Platelets Platelet Comment ADEQUATE Polychromasia Anisocytosis SLIGHT PT INR INR (Anticoag Therapy) APTT 59.9 H D-Dimer Carbonic Acid HCO3/H2CO3 Ratio ABG pH ABG pCO2 ABG pO2 ABG HCO3 ABG Total CO2 ABG O2 Saturation ABG Base Excess FiO2 Sodium 137.8 Potassium 3.4 L Chloride 103 Carbon Dioxide 20 L D Anion Gap 15 BUN 40 H Creatinine 1.18 Est GFR ( Amer) 55 L Est GFR (MDRD) Non-Af 45 L Glucose 223 H POC Glucose Lactic Acid Calcium 8.5 Phosphorus 3.8 Magnesium 2.4 H Total Bilirubin 1.0 Direct Bilirubin 0.7 H Neonat Total Bilirubin Not Reportable Neonat Direct Bilirubin Not Reportable Neonat Indirect Bili Not Reportable AST Not Reportable ALT Not Reportable Alkaline Phosphatase 97 CK-MB (CK-2) Troponin I C-Reactive Protein NT-Pro-B Natriuret Pep Total Protein 3.8 L Albumin 2.0 L Urine Color Urine Appearance Urine pH Ur Specific [place] Urine Protein Urine Glucose (UA) Urine Ketones Urine Blood Urine Nitrite Urine Bilirubin Urine Urobilinogen Ur Leukocyte Esterase Urine WBC (Auto) Urine RBC (Auto) U Hyaline Cast (Auto) Urine Bacteria (Auto) Urine WBC Clumps Squamous Epi Cells Auto Granular Casts (Auto) Urine Mucus (Auto) Urine Ascorbic Acid Slides for Path Review Blood Type Blood Type Confirm Antibody Screen Crossmatch 09/16/20 09/16/20 09/16/20 23:20 23:20 23:20 WBC 20.4 H RBC 2.47 L Hgb 7.6 L D Hct 22.5 L MCV 91 MCH 30.7 MCHC 33.7 RDW 13.7 Plt Count 199 Lymph % (Auto) Not Reportable [place] % (Auto) Not Reportable Eos % (Auto) Not Reportable Baso % (Auto) Not Reportable Absolute Neuts (auto) Not Reportable Absolute Lymphs (auto) Not Reportable Absolute Monos (auto) Not Reportable Absolute Eos (auto) Not Reportable Absolute Basos (auto) Not Reportable Total Counted 100 Seg Neutrophils % Not Reportable Seg Neuts % (Manual) 85 H Band Neutrophils % 2 L Lymphocytes % (Manual) 10 L Monocytes % (Manual) 2 L Eosinophils % (Manual) 0 Basophils % (Manual) 0 Myelocytes % 1 H Abs Neuts (Manual) 18.0 H Abs Lymphs (Manual) 2.0 Abs Monocytes (Manual) 0.4 Absolute Eos (Manual) 0.0 Abs Basophils (Manual) 0.0 Nucleated RBCs 7 Toxic Vacuolation Platelet Estimate Clumped Platelets PRESENT Platelet Comment ADEQUATE Polychromasia Anisocytosis PT INR INR (Anticoag Therapy) APTT D-Dimer Carbonic Acid 0.80 L HCO3/H2CO3 Ratio 19:1 ABG pH 7.40 ABG pCO2 26.5 L ABG pO2 121.7 H ABG HCO3 15.9 L ABG Total CO2 16.7 L ABG O2 Saturation 98.5 H ABG Base Excess -8.0 FiO2 100% Sodium Potassium Chloride Carbon Dioxide Anion Gap BUN Creatinine Est GFR ( Amer) Est GFR (MDRD) Non-Af Glucose POC Glucose Lactic Acid 14.2 H Calcium Phosphorus Magnesium Total Bilirubin Direct Bilirubin Neonat Total Bilirubin Neonat Direct Bilirubin Neonat Indirect Bili AST ALT Alkaline Phosphatase CK-MB (CK-2) Troponin I C-Reactive Protein NT-Pro-B Natriuret Pep Total Protein Albumin Urine Color Urine Appearance Urine pH Ur Specific [place] Urine Protein Urine Glucose (UA) Urine Ketones Urine Blood Urine Nitrite Urine Bilirubin Urine Urobilinogen Ur Leukocyte Esterase Urine WBC (Auto) Urine RBC (Auto) U Hyaline Cast (Auto) Urine Bacteria (Auto) Urine WBC Clumps Squamous Epi Cells Auto Granular Casts (Auto) Urine Mucus (Auto) Urine Ascorbic Acid Slides for Path Review Blood Type Blood Type Confirm Antibody Screen Crossmatch 09/17/20 09/17/20 09/17/20 05:20 05:20 05:20 WBC 17.4 H RBC 2.17 L Hgb 6.5 L Hct 19.2 L MCV 89 MCH 30.2 MCHC 34.1 RDW 14.0 Plt Count 127 L Lymph % (Auto) Not Reportable [place] % (Auto) Not Reportable Eos % (Auto) Not Reportable Baso % (Auto) Not Reportable Absolute Neuts (auto) Not Reportable Absolute Lymphs (auto) Not Reportable Absolute Monos (auto) Not Reportable Absolute Eos (auto) Not Reportable Absolute Basos (auto) Not Reportable Total Counted 100 Seg Neutrophils % Not Reportable Seg Neuts % (Manual) 83 H Band Neutrophils % Lymphocytes % (Manual) 12 L Monocytes % (Manual) 5 Eosinophils % (Manual) 0 Basophils % (Manual) 0 Myelocytes % Abs Neuts (Manual) 14.4 H Abs Lymphs (Manual) 2.1 Abs Monocytes (Manual) 0.9 Absolute Eos (Manual) 0.0 Abs Basophils (Manual) 0.0 Nucleated RBCs 3 Toxic Vacuolation Platelet Estimate Clumped Platelets PRESENT Platelet Comment ADEQUATE Polychromasia Anisocytosis SLIGHT PT Cancelled INR Cancelled INR (Anticoag Therapy) Cancelled APTT Cancelled D-Dimer Cancelled Carbonic Acid HCO3/H2CO3 Ratio ABG pH ABG pCO2 ABG pO2 ABG HCO3 ABG Total CO2 ABG O2 Saturation ABG Base Excess FiO2 Sodium 139.2 Potassium 3.9 Chloride 105 Carbon Dioxide 24 Anion Gap 10 BUN 42 H Creatinine 1.40 H Est GFR ( Amer) 45 L Est GFR (MDRD) Non-Af 37 L Glucose 220 H POC Glucose Lactic Acid Calcium 8.4 Phosphorus 2.5 Magnesium 2.1 Total Bilirubin 1.4 H Direct Bilirubin 0.8 H Neonat Total Bilirubin Not Reportable Neonat Direct Bilirubin Not Reportable Neonat Indirect Bili Not Reportable AST 2790 H ALT 893 H Alkaline Phosphatase 88 CK-MB (CK-2) Troponin I C-Reactive Protein 69.6 H NT-Pro-B Natriuret Pep Total Protein 4.1 L Albumin 2.3 L Urine Color Urine Appearance Urine pH Ur Specific [place] Urine Protein Urine Glucose (UA) Urine Ketones Urine Blood Urine Nitrite Urine Bilirubin Urine Urobilinogen Ur Leukocyte Esterase Urine WBC (Auto) Urine RBC (Auto) U Hyaline Cast (Auto) Urine Bacteria (Auto) Urine WBC Clumps Squamous Epi Cells Auto Granular Casts (Auto) Urine Mucus (Auto) Urine Ascorbic Acid Slides for Path Review Blood Type Blood Type Confirm Antibody Screen Crossmatch 09/17/20 09/17/20 09/17/20 05:20 05:20 06:40 WBC RBC Hgb Hct MCV MCH MCHC RDW Plt Count Lymph % (Auto) [place] % (Auto) Eos % (Auto) Baso % (Auto) Absolute Neuts (auto) Absolute Lymphs (auto) Absolute Monos (auto) Absolute Eos (auto) Absolute Basos (auto) Total Counted Seg Neutrophils % Seg Neuts % (Manual) Band Neutrophils % Lymphocytes % (Manual) Monocytes % (Manual) Eosinophils % (Manual) Basophils % (Manual) Myelocytes % Abs Neuts (Manual) Abs Lymphs (Manual) Abs Monocytes (Manual) Absolute Eos (Manual) Abs Basophils (Manual) Nucleated RBCs Toxic Vacuolation Platelet Estimate Clumped Platelets Platelet Comment Polychromasia Anisocytosis PT 26.5 H D INR 2.44 INR (Anticoag Therapy) APTT 86.1 H D-Dimer > 20.00 H* Carbonic Acid 0.98 L HCO3/H2CO3 Ratio 22:1 ABG pH 7.45 ABG pCO2 32.7 L ABG pO2 56.3 L ABG HCO3 22.4 ABG Total CO2 23.4 ABG O2 Saturation 91.0 L ABG Base Excess -1.2 FiO2 70% Sodium Potassium Chloride Carbon Dioxide Anion Gap BUN Creatinine Est GFR ( Amer) Est GFR (MDRD) Non-Af Glucose POC Glucose Lactic Acid 8.3 H Calcium Phosphorus Magnesium Total Bilirubin Direct Bilirubin Neonat Total Bilirubin Neonat Direct Bilirubin Neonat Indirect Bili AST ALT Alkaline Phosphatase CK-MB (CK-2) Troponin I C-Reactive Protein NT-Pro-B Natriuret Pep Total Protein Albumin Urine Color Urine Appearance Urine pH Ur Specific [place] Urine Protein Urine Glucose (UA) Urine Ketones Urine Blood Urine Nitrite Urine Bilirubin Urine Urobilinogen Ur Leukocyte Esterase Urine WBC (Auto) Urine RBC (Auto) U Hyaline Cast (Auto) Urine Bacteria (Auto) Urine WBC Clumps Squamous Epi Cells Auto Granular Casts (Auto) Urine Mucus (Auto) Urine Ascorbic Acid Slides for Path Review Blood Type Blood Type Confirm Antibody Screen Crossmatch 09/17/20 09/17/20 09/17/20 09:56 13:11 14:47 WBC RBC Hgb Hct MCV MCH MCHC RDW Plt Count Lymph % (Auto) [place] % (Auto) Eos % (Auto) Baso % (Auto) Absolute Neuts (auto) Absolute Lymphs (auto) Absolute Monos (auto) Absolute Eos (auto) Absolute Basos (auto) Total Counted Seg Neutrophils % Seg Neuts % (Manual) Band Neutrophils % Lymphocytes % (Manual) Monocytes % (Manual) Eosinophils % (Manual) Basophils % (Manual) Myelocytes % Abs Neuts (Manual) Abs Lymphs (Manual) Abs Monocytes (Manual) Absolute Eos (Manual) Abs Basophils (Manual) Nucleated RBCs Toxic Vacuolation Platelet Estimate Clumped Platelets Platelet Comment Polychromasia Anisocytosis PT INR INR (Anticoag Therapy) APTT 113.1 H D-Dimer Carbonic Acid HCO3/H2CO3 Ratio ABG pH ABG pCO2 ABG pO2 ABG HCO3 ABG Total CO2 ABG O2 Saturation ABG Base Excess FiO2 Sodium Potassium Chloride Carbon Dioxide Anion Gap BUN Creatinine Est GFR ( Amer) Est GFR (MDRD) Non-Af Glucose POC Glucose Lactic Acid Calcium Phosphorus Magnesium Total Bilirubin Direct Bilirubin Neonat Total Bilirubin Neonat Direct Bilirubin Neonat Indirect Bili AST ALT Alkaline Phosphatase CK-MB (CK-2) Troponin I 4.440 C-Reactive Protein NT-Pro-B Natriuret Pep Total Protein Albumin Urine Color Urine Appearance Urine pH Ur Specific [place] Urine Protein Urine Glucose (UA) Urine Ketones Urine Blood Urine Nitrite Urine Bilirubin Urine Urobilinogen Ur Leukocyte Esterase Urine WBC (Auto) Urine RBC (Auto) U Hyaline Cast (Auto) Urine Bacteria (Auto) Urine WBC Clumps Squamous Epi Cells Auto Granular Casts (Auto) Urine Mucus (Auto) Urine Ascorbic Acid Slides for Path Review Blood Type O POSITIVE Blood Type Confirm Antibody Screen NEGATIVE Crossmatch See Detail 09/17/20 09/17/20 09/17/20 14:54 16:36 20:45 WBC RBC Hgb Hct MCV MCH MCHC RDW Plt Count Lymph % (Auto) [place] % (Auto) Eos % (Auto) Baso % (Auto) Absolute Neuts (auto) Absolute Lymphs (auto) Absolute Monos (auto) Absolute Eos (auto) Absolute Basos (auto) Total Counted Seg Neutrophils % Seg Neuts % (Manual) Band Neutrophils % Lymphocytes % (Manual) Monocytes % (Manual) Eosinophils % (Manual) Basophils % (Manual) Myelocytes % Abs Neuts (Manual) Abs Lymphs (Manual) Abs Monocytes (Manual) Absolute Eos (Manual) Abs Basophils (Manual) Nucleated RBCs Toxic Vacuolation Platelet Estimate Clumped Platelets Platelet Comment Polychromasia Anisocytosis PT INR INR (Anticoag Therapy) APTT 59.6 H 124.8 H D D-Dimer Carbonic Acid HCO3/H2CO3 Ratio ABG pH ABG pCO2 ABG pO2 ABG HCO3 ABG Total CO2 ABG O2 Saturation ABG Base Excess FiO2 Sodium Potassium Chloride Carbon Dioxide Anion Gap BUN Creatinine Est GFR ( Amer) Est GFR (MDRD) Non-Af Glucose POC Glucose Lactic Acid Calcium Phosphorus Magnesium Total Bilirubin Direct Bilirubin Neonat Total Bilirubin Neonat Direct Bilirubin Neonat Indirect Bili AST ALT Alkaline Phosphatase CK-MB (CK-2) Troponin I C-Reactive Protein NT-Pro-B Natriuret Pep Total Protein Albumin Urine Color Urine Appearance Urine pH Ur Specific [place] Urine Protein Urine Glucose (UA) Urine Ketones Urine Blood Urine Nitrite Urine Bilirubin Urine Urobilinogen Ur Leukocyte Esterase Urine WBC (Auto) Urine RBC (Auto) U Hyaline Cast (Auto) Urine Bacteria (Auto) Urine WBC Clumps Squamous Epi Cells Auto Granular Casts (Auto) Urine Mucus (Auto) Urine Ascorbic Acid Slides for Path Review Blood Type Blood Type Confirm O POSITIVE Antibody Screen Crossmatch Chest X-Ray 09/14/20 13:09 IMPRESSION: Patchy bilateral airspace disease most likely representing viral pneumonitis. Chest X-Ray 09/15/20 06:00 IMPRESSION: NO SIGNIFICANT INTERVAL CHANGE. Chest X-Ray 09/16/20 00:00 IMPRESSION: 1. Intubated, with endotracheal tube tip within 1 cm of the mateusz. 2. Persistent pulmonary infiltrates 3. Enteric tube extends into the stomach Chest X-Ray 09/16/20 06:00 IMPRESSION: Stable radiographic appearance of the chest demonstrating diffuse airspace opacities. Chest X-Ray 09/17/20 06:00 IMPRESSION: STABLE APPEARANCE OF THE CHEST. SUPPORT DEVICES UNCHANGED. EKG on 09/14/2020: Shows sinus rhythm. ST-T changes deep in the anterolateral leads consistent with ischemia. The patient is EKG on 09/15/2020 shows sinus rhythm LVH with strain pattern. The patient is EKG on 09/16/2020 shows heart artifact but essentially about the same. The patient EKG on 09/17/2020 shows T inversion in the inferior leads especially leads III and aVF consistent with ischemia. This is a new finding. ECHOCARDIOGRAM: Not a very good study but shows no definite wall motion abnormality and normal ejection fraction. There is trace leg tricuspid regurgitation. Unable to assess RVSP due to insufficient TR jet. IMPRESSION/RECOMMENDATION: 1. S/p cardiopulmonary arrest: With spontaneous return of circulation after CPR. Most likely this is a respiratory scarring causing cardiac arrest. Patient s/p intubation. 2. Covid related pneumonia. 3. Non-ST elevation NE: Especially with the new EKG inversion in the inferior leads. The troponin is trending down. I agree with the echo got about. Later once the blood pressure is stable we will start the patient on beta-trae and aspirin and nitrates. Will follow serial EKGs and troponin levels. 4. Hypotension: Seems to have resolved patient off Levophed at present. 5. Acute on chronic kidney disease: Avoid nephrotoxic drugs. Note that the patient's renal function was normal in 2016. Her GFR is reduced to 22 mL/min in September 2020. At present the patient's GFR is consistent with stage IV chronic kidney disease. 6. History of hypertension: At present blood pressure stable off pressors note patient was hypotensive most likely secondary to sepsis and respiratory problems. 7. History of COPD: At present no evidence of acute exacerbation although the patient has pneumonia. 8. Anemia: S/p transfusion: Would recommend GI work-up later: Continue prolonged proton pump inhibitors. 9. History of sleep apnea: 10. History of interstitial fibrosis:? Etiology Medications reviewed. Medication management and medical regimen discussed with layup worker. Medical decision making is of high complexity. 60 minutes spent as patient more than 50% time spent in direct patient care. Will follow. All labs and imaging and EKGs and echocardiogram have been reviewed by me.
[2020-09-17] MEDS: TRAZODONE HCL 50 MG TABLET PO SCH (21:12)
[2020-09-17] MEDS: REMDESIVIR 100 MG in NORMAL SALINE 250 ML IV SCH (23:06)
--- NOTE | 2020-09-17 23:37 | EKG REPORT ---
SEVERITY:- ABNORMAL ECG - SINUS RHYTHM VENTRICULAR BIGEMINY ABNORMAL T, CONSIDER ISCHEMIA, DIFFUSE LEADS : Confirmed by: Julianna Barroso 17-Sep-2020 23:37:12
[2020-09-18] MEDS: LEVALBUTEROL HCL NEB 0.63 MG/3 ML AMPUL NEB SCH ×6 (00:40→20:50)
[2020-09-18] MEDS: MIDAZOLAM HCL 50 MG/100 ML RTUINJ IV PRN ×2 (01:00→21:29)
[2020-09-18] MEDS ORDERED: LEVOFLOXACIN 500 MG/D5W RTU 500 MG/100 ML RTUPB IV ONE (01:00)
[2020-09-18 01:15] LABS: HEMATOCRIT 29.2 % (36.0-47.0); MEAN CORPUSCULAR HEMOGLOBIN 30.1 pg (27.0-33.4); MEAN CORPUSCULAR HGB CONC 34.4 g/dL (32.0-36.0); MEAN CORPUSCULAR VOLUME 87 fl (80-97); RED BLOOD COUNT 3.34 10^6/uL (3.72-5.28); WHITE BLOOD COUNT 14.5 10^3/uL (4.0-10.5)
[2020-09-18 01:40] LABS: PLATELET COUNT 62 10^3/uL (150-450)
[2020-09-18 03:58] LABS: HEMATOCRIT 28.9 % (36.0-47.0); MEAN CORPUSCULAR HEMOGLOBIN 30.1 pg (27.0-33.4); MEAN CORPUSCULAR HGB CONC 34.6 g/dL (32.0-36.0); MEAN CORPUSCULAR VOLUME 87 fl (80-97); RED BLOOD COUNT 3.32 10^6/uL (3.72-5.28); RED CELL DISTRIBUTION WIDTH 15.8 % (11.5-14.0); WHITE BLOOD COUNT 14.9 10^3/uL (4.0-10.5)
[2020-09-18 04:00] LABS: ARTERIAL BLOOD BASE EXCESS 0.1 mmol/L; ARTERIAL BLOOD FIO2 65%; ARTERIAL BLOOD H2CO3 0.89 mmol/L (1.05-1.35); ARTERIAL BLOOD HCO3 22.5 mmol/L (20-24); ARTERIAL BLOOD O2 SATURATION 89.9 % (94-98); ARTERIAL BLOOD PCO2 29.5 mmHg (35-45); ARTERIAL BLOOD PO2 51.3 mmHg (80-100); ARTERIAL BLOOD TOTAL CO2 23.4 mmol/L (21-25)
[2020-09-18 04:02] LABS: PLATELET COUNT 57 10^3/uL (150-450)
[2020-09-18 04:15] LABS: ABSOLUTE LYMPHOCYTES# (MANUAL) 1.2 10^3/uL (0.5-4.7); ABSOLUTE MONOCYTES # (MANUAL) 0.7 10^3/uL (0.1-1.4); BAND NEUTROPHILS % (MANUAL) 2 % (3-5); BASOPHILS % (MANUAL) 0 % (0-2); EOSINOPHILS % (MANUAL) 0 % (0-6); LYMPHOCYTES % (MANUAL) 8 % (13-45); MONOCYTES % (MANUAL) 5 % (3-13); SEGMENTED NEUTROPHILS % (MAN) 85 % (42-78); TOTAL CELLS COUNTED 100
[2020-09-18 04:16] LABS: TOXIC VACUOLATION PRESENT
[2020-09-18 04:17] LABS: ANISOCYTOSIS 1+; PLATELET COMMENT DECREASED; POLYCHROMASIA SLIGHT
[2020-09-18 04:45] LABS: ANION GAP 6 (5-19); BLOOD UREA NITROGEN 53 mg/dL (7-20); CALCIUM 8.1 mg/dL (8.4-10.2); CARBON DIOXIDE 26 mmol/L (22-30); CHLORIDE 107 mmol/L (98-107); GLUCOSE 161 mg/dL (75-110); POTASSIUM 3.7 mmol/L (3.6-5.0)
[2020-09-18] MEDS: RINGERS SOLUTION,LACTATED 1,000 ML IV PRN ×2 (05:22→21:26)
[2020-09-18] MEDS: BUDESONIDE NEB 0.25 MG/2 ML AMPUL NEB SCH ×2 (08:27→20:50)
[2020-09-18] MEDS: ASPIRIN 81 MG TABLET, CHEWABLE PO SCH (11:14)
[2020-09-18] MEDS: ASCORBIC ACID 500 MG TABLET PO SCH ×2 (11:15→17:35)
[2020-09-18] MEDS: FAMOTIDINE INJ/PF 20 MG/2 ML SDV IV SCH ×2 (11:15→21:25)
[2020-09-18] MEDS: AZITHROMYCIN 250 MG TABLET PO SCH (11:15)
[2020-09-18] MEDS: LEVETIRACETAM 500 MG TABLET PO SCH ×2 (11:15→21:40)
[2020-09-18] MEDS: DEXAMETHASONE SOD PHOS INJ 10 MG/1 ML VIAL IV SCH (11:17)
[2020-09-18 12:31] LABS: PATH REVIEW PATHOLOGIST REVIEWED
--- NOTE | 2020-09-18 13:25 | PDOC CRITICAL CARE PROG REPORT ---
General Date:: 09/18/20 ICU Day:: 2 Ventilator Day:: 2 Hospital Day:: 4 Resuscitation Status: Full Code Events in the past 12 to 24 Hours:: This 69-year-old female smoker presented to [facility] e mergency department on 09/14/2020 with complaints of increased dyspnea. She reports a history of interstitial lung disease but denies COPD or emphysema. In the emergency department, she was found to be hypoxic and was placed on supplemental oxygen. Due to failure to improve oxygenation, she was placed on BiPAP support with an FiO2 of 100%. This was titrated at the bedside to CPAP 8. Her primary care physician (Dr. Joiner) requested ICU admission for acute hypoxemic respiratory failure. In the emergency department, her troponin was elevated (7.09) and proBNP 16,400. Chest x-ray was consistent with pulmonary edema. 09/15: She remains in the emergency department (lack of available beds). She is stable on CPAP 6, FiO2 100%. In fact, the nurse called earlier this morning to report that the patient was wandering around in the hallway. Denies chest pain. She states that her shortness of breath is improved with noninvasive positive pressure ventilatory support. Minimal cough. No sputum production. 2D echo pending. Patient discussed with Dr. Joiner. 09/18: Transferred to the ICU and reintubated. Currently stable Review of systems relevant to events:: Pulmonary. Reason for ICU Addmission:: s/p cardiac arrest. Intubated. - Medications: Medications reviewed and adjusted accordingly: Yes Vasopressors:: Levophed Sedation:: Versed. Physical Exam Vital Signs: Temp Pulse Resp BP Pulse Ox 99.3 F 87 25 H 140/72 H 93 09/18/20 10:00 09/18/20 12:43 09/18/20 12:43 09/18/20 10:00 09/18/20 12:43 Intake & Output 09/17/20 09/18/20 09/19/20 06:59 06:59 06:59 Intake Total 1027 4262 Output Total 47 119 25 Balance 980 4143 -25 Weight 72.5 kg 81 kg Weight/Height Weight 81 kg Height 5 ft 2 in General appearance: PRESENT: no acute distress Head exam: PRESENT: atraumatic, normocephalic Eye exam: PRESENT: PERRLA Ear exam: PRESENT: normal external ear exam Mouth exam: PRESENT: moist, tongue midline Respiratory exam: PRESENT: clear to auscultation yung. ABSENT: rales, rhonchi, wheezes Cardiovascular exam: PRESENT: RRR. ABSENT: diastolic murmur, rubs, systolic murmur GI/Abdominal exam: PRESENT: normal bowel sounds, soft. ABSENT: distended, guarding, mass, organolmegaly, rebound, tenderness Rectal exam: PRESENT: deferred Gentrourinary exam: PRESENT: indwelling catheter Extremities exam: PRESENT: full ROM. ABSENT: calf tenderness, clubbing, pedal edema Musculoskeletal exam: PRESENT: normal inspection Neurological exam: PRESENT: other - Sedated and non-purposeful. Skin exam: PRESENT: dry, intact, warm. ABSENT: cyanosis, rash Tubes/Lines: PRESENT: Endotracheal Tube, Central Line, Nasogastic Tube Laboratory/Radiographs Laboratory Results: 09/18/20 03:36 09/18/20 03:36 09/16/20 09/17/20 09/17/20 23:20 14:47 23:05 WBC RBC Hgb 7.6 L D Hct MCV MCH MCHC RDW Plt Count Seg Neutrophils % Carbonic Acid HCO3/H2CO3 Ratio ABG pH ABG pCO2 ABG pO2 ABG HCO3 ABG O2 Saturation ABG Base Excess FiO2 Sodium Potassium Chloride Carbon Dioxide Anion Gap BUN Creatinine Est GFR ( Amer) Glucose Lactic Acid 2.6 H Calcium Magnesium Blood Type O POSITIVE Antibody Screen NEGATIVE 09/18/20 09/18/20 09/18/20 00:56 03:36 03:36 WBC 14.5 H 14.9 H RBC 3.34 L 3.32 L Hgb 10.0 L D 10.0 L Hct 29.2 L 28.9 L MCV 87 87 MCH 30.1 30.1 MCHC 34.4 34.6 RDW 16.0 H 15.8 H Plt Count 62 L 57 L Seg Neutrophils % Not Reportable Carbonic Acid HCO3/H2CO3 Ratio ABG pH ABG pCO2 ABG pO2 ABG HCO3 ABG O2 Saturation ABG Base Excess FiO2 Sodium 139.0 Potassium 3.7 Chloride 107 Carbon Dioxide 26 Anion Gap 6 BUN 53 H Creatinine 2.22 H Est GFR ( Amer) 26 L Glucose 161 H Lactic Acid Calcium 8.1 L Magnesium Blood Type Antibody Screen 09/18/20 09/18/20 03:36 03:36 WBC RBC Hgb Hct MCV MCH MCHC RDW Plt Count Seg Neutrophils % Carbonic Acid 0.89 L HCO3/H2CO3 Ratio 25:1 ABG pH 7.50 H ABG pCO2 29.5 L ABG pO2 51.3 L ABG HCO3 22.5 ABG O2 Saturation 89.9 L ABG Base Excess 0.1 FiO2 65% Sodium Potassium Chloride Carbon Dioxide Anion Gap BUN Creatinine Est GFR ( Amer) Glucose Lactic Acid Calcium Magnesium 2.0 Blood Type Antibody Screen 09/14/20 09/14/20 09/14/20 13:15 13:15 20:11 CK-MB (CK-2) 7.78 H Troponin I 7.090 6.940 NT-Pro-B Natriuret Pep 81311 H 09/15/20 09/15/20 09/17/20 02:02 05:47 09:56 CK-MB (CK-2) Troponin I 7.440 6.180 4.440 NT-Pro-B Natriuret Pep Impressions: Chest X-Ray 09/17/20 06:00 IMPRESSION: STABLE APPEARANCE OF THE CHEST. SUPPORT DEVICES UNCHANGED. All labs, radiographs, diagnostic studies and EKGs were personally reviewed: Yes In addition, reports of radiographic and diagnostic studies were read: Yes Assessment and Plan - Diagnosis (1) COVID-19 Is this a current diagnosis for this admission?: Yes Plan: This is likely the cause of her respiratory difficulties and arrest. Likley a respiratory arrest. Intubated for now. (2) Interstitial lung disease Is this a current diagnosis for this admission?: Yes Plan: This is no doubt making her Covid appear worse. This and her age makes her mortality fairly high. (3) PILAR (acute kidney injury) Is this a current diagnosis for this admission?: Yes Plan: Her GFR is 22 and Cr 2.22. Also indicating a degree of ARF as well . Recheck labs in AM. (4) Abnormal EKG Is this a current diagnosis for this admission?: Yes Plan: Her latest is C/W a NSTEMI in III and aVF. Medical treatment for now. Plan Summary: Right now allow her heart, kidneys to recover before attempting weaning. Also wean down versed to assess neuro function. Critical Time Critical Time (minutes): 35 Level of Care: ICU Anticipated discharge: SNF Anticipated DC Timeframe: Other -: 1. The care of a critical patient is a dynamic process. This note is a customer sales representative synopsis but static in nature. The timeframe for treatments given in order is not necessarily the actual time these treatments may have been done. 2. This patient requires critical care secondary to ongoing requirements for therapy not offered or safe outside the critical care environment. Transfer to a lower level of care will result in altered life or limb morbidity and mortality. 3. Multidisciplinary rounds completed. 4. ABCDE bundle addressed.
[2020-09-18] MEDS: CHOLECALCIFEROL (D3) 1,000 UNIT (25 MCG) TABLET PO SCH (17:35)
[2020-09-18] MEDS: METOPROLOL TARTRATE 25 MG TABLET NG SCH ×2 (17:38→21:24)
--- NOTE | 2020-09-18 20:42 | Progress Note ---
Provider Note Provider Note: CARDIOLOGY PROGRESS NOTE by Dr. Jacqueline Roberson on 09/18/2020. SUBJECTIVE . The patient is intubated and sedated. There is no arrhythmias seen. The patient is off all pressors and her blood pressure is stable in fact is very good. PHYSICAL EXAMINATION: The patient is intubated and sedated and appears to be in no acute distress. Selected Entries 09/18/20 14:00 Temperature 99.0 F Temperature Core Source Pulse Rate 89 Respiratory 26 H Rate Positive End 8 Expiratory Pressure Blood Pressure 145/75 H [Femoral Artery ] Blood Pressure 98 Mean [Femoral Artery] O2 Sat by Pulse 92 Oximetry Oxygen Delivery Mechanical Method ( Ventilator includes room air) Fraction of 65 Inspired Oxygen (FIO2) HEAD: Is atraumatic normocephalic. EYES: Pupils are equal round regular reactive to light. ENT is negative. NECK:. Carotids are equal there is no bruits. Neck is supple. There is no JVD there is no lymphadenopathy. There is no goiter. There is no accessory muscle respiration use. Trachea is central. LUNGS: There is diminished air entry prolonged expiration with scattered rhonchi and few dry crackles bilaterally. There is no rales of CHF. HEART: S1-S2 is heard. S1 is of normal intensity. There is no S3 gallop. There is an S4 gallop. There is systolic murmur left sternal border and the apex without radiation. There is no rub. ABDOMEN: Is soft. There is no hepatosplenomegaly. Bowel sounds are heard. EXTREMITIES: Femorals are deep. There is no femoral bruits. There is no pedal edema. There is no cyanosis or clubbing. There is no DVT or cellulitis. TELE MARKETING EXECUTIVE and psychiatric not examined due to the patient being intubated and sedated. EKG: Sinus rhythm. T changes inferior leads with T inversion in leads III and aVF. No progression or regression of these changes. Labs- All tests 24 hr 09/16/20 09/17/20 09/17/20 23:20 14:47 20:45 WBC RBC Hgb 7.6 L D Hct MCV MCH MCHC RDW Plt Count Lymph % (Auto) [place] % (Auto) Eos % (Auto) Baso % (Auto) Absolute Neuts (auto) Absolute Lymphs (auto) Absolute Monos (auto) Absolute Eos (auto) Absolute Basos (auto) Total Counted Seg Neutrophils % Seg Neuts % (Manual) Band Neutrophils % Lymphocytes % (Manual) Monocytes % (Manual) Eosinophils % (Manual) Basophils % (Manual) Abs Neuts (Manual) Abs Lymphs (Manual) Abs Monocytes (Manual) Absolute Eos (Manual) Abs Basophils (Manual) Toxic Vacuolation Platelet Comment Polychromasia Anisocytosis APTT 124.8 H D Carbonic Acid HCO3/H2CO3 Ratio ABG pH ABG pCO2 ABG pO2 ABG HCO3 ABG Total CO2 ABG O2 Saturation ABG Base Excess FiO2 Sodium Potassium Chloride Carbon Dioxide Anion Gap BUN Creatinine Est GFR ( Amer) Est GFR (MDRD) Non-Af Glucose Lactic Acid Calcium Magnesium Troponin I Slides for Path Review PATHOLOGIST REVIEWED Crossmatch See Detail 09/17/20 09/18/20 09/18/20 23:05 00:56 00:56 WBC 14.5 H RBC 3.34 L Hgb 10.0 L D Hct 29.2 L MCV 87 MCH 30.1 MCHC 34.4 RDW 16.0 H Plt Count 62 L Lymph % (Auto) [place] % (Auto) Eos % (Auto) Baso % (Auto) Absolute Neuts (auto) Absolute Lymphs (auto) Absolute Monos (auto) Absolute Eos (auto) Absolute Basos (auto) Total Counted Seg Neutrophils % Seg Neuts % (Manual) Band Neutrophils % Lymphocytes % (Manual) Monocytes % (Manual) Eosinophils % (Manual) Basophils % (Manual) Abs Neuts (Manual) Abs Lymphs (Manual) Abs Monocytes (Manual) Absolute Eos (Manual) Abs Basophils (Manual) Toxic Vacuolation Platelet Comment Polychromasia Anisocytosis APTT 109.9 H Carbonic Acid HCO3/H2CO3 Ratio ABG pH ABG pCO2 ABG pO2 ABG HCO3 ABG Total CO2 ABG O2 Saturation ABG Base Excess FiO2 Sodium Potassium Chloride Carbon Dioxide Anion Gap BUN Creatinine Est GFR ( Amer) Est GFR (MDRD) Non-Af Glucose Lactic Acid 2.6 H Calcium Magnesium Troponin I Slides for Path Review Crossmatch 09/18/20 09/18/20 09/18/20 01:45 03:36 03:36 WBC 14.9 H RBC 3.32 L Hgb 10.0 L Hct 28.9 L MCV 87 MCH 30.1 MCHC 34.6 RDW 15.8 H Plt Count 57 L Lymph % (Auto) Not Reportable [place] % (Auto) Not Reportable Eos % (Auto) Not Reportable Baso % (Auto) Not Reportable Absolute Neuts (auto) Not Reportable Absolute Lymphs (auto) Not Reportable Absolute Monos (auto) Not Reportable Absolute Eos (auto) Not Reportable Absolute Basos (auto) Not Reportable Total Counted 100 Seg Neutrophils % Not Reportable Seg Neuts % (Manual) 85 H Band Neutrophils % 2 L Lymphocytes % (Manual) 8 L Monocytes % (Manual) 5 Eosinophils % (Manual) 0 Basophils % (Manual) 0 Abs Neuts (Manual) 13.0 H Abs Lymphs (Manual) 1.2 Abs Monocytes (Manual) 0.7 Absolute Eos (Manual) 0.0 Abs Basophils (Manual) 0.0 Toxic Vacuolation PRESENT Platelet Comment DECREASED Polychromasia SLIGHT Anisocytosis 1+ APTT 114.7 H Carbonic Acid HCO3/H2CO3 Ratio ABG pH ABG pCO2 ABG pO2 ABG HCO3 ABG Total CO2 ABG O2 Saturation ABG Base Excess FiO2 Sodium 139.0 Potassium 3.7 Chloride 107 Carbon Dioxide 26 Anion Gap 6 BUN 53 H Creatinine 2.22 H Est GFR ( Amer) 26 L Est GFR (MDRD) Non-Af 22 L Glucose 161 H Lactic Acid Calcium 8.1 L Magnesium Troponin I Slides for Path Review Crossmatch 09/18/20 09/18/20 09/18/20 03:36 03:36 05:27 WBC RBC Hgb Hct MCV MCH MCHC RDW Plt Count Lymph % (Auto) [place] % (Auto) Eos % (Auto) Baso % (Auto) Absolute Neuts (auto) Absolute Lymphs (auto) Absolute Monos (auto) Absolute Eos (auto) Absolute Basos (auto) Total Counted Seg Neutrophils % Seg Neuts % (Manual) Band Neutrophils % Lymphocytes % (Manual) Monocytes % (Manual) Eosinophils % (Manual) Basophils % (Manual) Abs Neuts (Manual) Abs Lymphs (Manual) Abs Monocytes (Manual) Absolute Eos (Manual) Abs Basophils (Manual) Toxic Vacuolation Platelet Comment Polychromasia Anisocytosis APTT 103.4 H Carbonic Acid 0.89 L HCO3/H2CO3 Ratio 25:1 ABG pH 7.50 H ABG pCO2 29.5 L ABG pO2 51.3 L ABG HCO3 22.5 ABG Total CO2 23.4 ABG O2 Saturation 89.9 L ABG Base Excess 0.1 FiO2 65% Sodium Potassium Chloride Carbon Dioxide Anion Gap BUN Creatinine Est GFR ( Amer) Est GFR (MDRD) Non-Af Glucose Lactic Acid Calcium Magnesium 2.0 Troponin I Slides for Path Review Crossmatch 09/18/20 09/18/20 08:40 13:55 WBC RBC Hgb Hct MCV MCH MCHC RDW Plt Count Lymph % (Auto) [place] % (Auto) Eos % (Auto) Baso % (Auto) Absolute Neuts (auto) Absolute Lymphs (auto) Absolute Monos (auto) Absolute Eos (auto) Absolute Basos (auto) Total Counted Seg Neutrophils % Seg Neuts % (Manual) Band Neutrophils % Lymphocytes % (Manual) Monocytes % (Manual) Eosinophils % (Manual) Basophils % (Manual) Abs Neuts (Manual) Abs Lymphs (Manual) Abs Monocytes (Manual) Absolute Eos (Manual) Abs Basophils (Manual) Toxic Vacuolation Platelet Comment Polychromasia Anisocytosis APTT 103.9 H Carbonic Acid HCO3/H2CO3 Ratio ABG pH ABG pCO2 ABG pO2 ABG HCO3 ABG Total CO2 ABG O2 Saturation ABG Base Excess FiO2 Sodium Potassium Chloride Carbon Dioxide Anion Gap BUN Creatinine Est GFR ( Amer) Est GFR (MDRD) Non-Af Glucose Lactic Acid Calcium Magnesium Troponin I 6.100 Slides for Path Review Crossmatch Chest X-Ray 09/14/20 13:09 IMPRESSION: Patchy bilateral airspace disease most likely representing viral pneumonitis. Chest X-Ray 09/15/20 06:00 IMPRESSION: NO SIGNIFICANT INTERVAL CHANGE. Chest X-Ray 09/16/20 00:00 IMPRESSION: 1. Intubated, with endotracheal tube tip within 1 cm of the mateusz. 2. Persistent pulmonary infiltrates 3. Enteric tube extends into the stomach Chest X-Ray 09/16/20 06:00 IMPRESSION: Stable radiographic appearance of the chest demonstrating diffuse airspace opacities. Chest X-Ray 09/17/20 06:00 IMPRESSION: STABLE APPEARANCE OF THE CHEST. SUPPORT DEVICES UNCHANGED. IMPRESSION/RECOMMENDATION: 1.S/p cardiopulmonary arrest: With spontaneous return of circulation after CPR. Most likely this is a respiratory scarring causing cardiac arrest. Patient s/p intubation. 2. Covid related pneumonia. 3. Non-ST elevation IA: Especially with the new EKG inversion in the inferior leads. The troponin is trending down. I agree with the echo got about. Later once the blood pressure is stable we will start the patient on beta-trae and aspirin and nitrates. Will follow serial EKGs and troponin levels. His troponin is elevated back to 6.10. The EKG shows no progression or regression of the T wave changes in the inferior leads. We will start the patient on small dose of beta-trae and increase as tolerated. Continue argatroban. Continue aspirin. 4. Hypotension: Seems to have resolved patient off Levophed at present. 5. Acute on chronic kidney disease: Avoid nephrotoxic drugs. Note that the patient's renal function was normal in 2016. Her GFR is reduced to 22 mL/min in September 2020. At present the patient's GFR is consistent with stage IV chronic kidney disease. 6. History of hypertension: At present blood pressure stable off pressors note patient was hypotensive most likely secondary to sepsis and respiratory problems. 7. History of COPD: At present no evidence of acute exacerbation although the patient has pneumonia. 8. Anemia: S/p transfusion: Would recommend GI work-up later: Continue pro longed proton pump inhibitors. 9. History of sleep apnea: 10. History of interstitial fibrosis:? Etiology Medications reviewed. Medication management and medical regimen discussed with valve mechanic. Medical decision making is of high complexity. 40 minutes spent as patient more than 50% time spent in direct patient care. Will follow. All labs and imaging and EKGs and echocardiogram have been reviewed by me.
[2020-09-18 21:14] LABS: ARTERIAL BLOOD BASE EXCESS -3.5 mmol/L; ARTERIAL BLOOD H2CO3 0.75 mmol/L (1.05-1.35); ARTERIAL BLOOD HCO3 18.1 mmol/L (20-24); ARTERIAL BLOOD O2 SATURATION 93.4 % (94-98); ARTERIAL BLOOD PCO2 24.8 mmHg (35-45); ARTERIAL BLOOD PH 7.48 (7.35-7.45); ARTERIAL BLOOD PO2 60.8 mmHg (80-100); ARTERIAL BLOOD TOTAL CO2 18.9 mmol/L (21-25)
[2020-09-18 21:15] LABS: ARTERIAL BLOOD FIO2 65%
[2020-09-18] MEDS: NORMAL SALINE 250 ML with ARGATROBAN 250 MG IV PRN ×2 (21:25)
[2020-09-18] MEDS: TRAZODONE HCL 50 MG TABLET PO SCH (21:25)
[2020-09-18] MEDS: LEVOFLOXACIN 500 MG/D5W RTU 500 MG/100 ML RTUPB IV SCH (21:41)
--- NOTE | 2020-09-18 21:49 | EKG REPORT ---
SEVERITY:- ABNORMAL ECG - SINUS RHYTHM VPCs SHORT OK INTERVAL : Confirmed by: Julianna Barroso 18-Sep-2020 21:48:56
--- NOTE | 2020-09-18 21:57 | RADIOLOGY REPORT (SQ) ---
EXAM DESCRIPTION: Site: CHEST SINGLE VIEW RP: XR CHEST 1 VIEW CLINICAL HISTORY: 69 years Female; worsening resp distress FINDINGS: Since yesterday, endotracheal tube remains in place, 1.5 cm above mateusz. Enteric tube tip is in the distal stomach, possibly protruding into the proximal duodenum. Left IJ line tip in the right atrium. Diffuse bilateral interstitial edema is slightly worse. No pneumothorax or significant pleural effusion. IMPRESSION: 1. Increased interstitial edema since yesterday
[2020-09-18] MEDS: REMDESIVIR 100 MG in NORMAL SALINE 250 ML IV SCH (22:58)
[2020-09-19] MEDS: LEVALBUTEROL HCL NEB 0.63 MG/3 ML AMPUL NEB SCH ×6 (00:25→20:16)
[2020-09-19] MEDS ORDERED: FUROSEMIDE INJ/PF 40 MG/4 ML SDV IV ONE ×3 (04:07→14:00)
[2020-09-19 04:10] LABS: PARTIAL THROMBOPLASTIN TIME 110.7 SEC (23.5-35.8)
[2020-09-19 04:12] LABS: HEMATOCRIT 27.2 % (36.0-47.0); HEMOGLOBIN 9.4 g/dL (12.0-15.5); MEAN CORPUSCULAR HEMOGLOBIN 29.8 pg (27.0-33.4); MEAN CORPUSCULAR HGB CONC 34.5 g/dL (32.0-36.0); MEAN CORPUSCULAR VOLUME 86 fl (80-97); RED BLOOD COUNT 3.15 10^6/uL (3.72-5.28); RED CELL DISTRIBUTION WIDTH 15.9 % (11.5-14.0); WHITE BLOOD COUNT 15.1 10^3/uL (4.0-10.5)
[2020-09-19 04:36] LABS: PLATELET COUNT 52 10^3/uL (150-450)
[2020-09-19 04:38] LABS: ABSOLUTE LYMPHOCYTES# (MANUAL) 1.7 10^3/uL (0.5-4.7); ABSOLUTE MONOCYTES # (MANUAL) 0.6 10^3/uL (0.1-1.4); BASOPHILS % (MANUAL) 0 % (0-2); EOSINOPHILS % (MANUAL) 0 % (0-6); LYMPHOCYTES % (MANUAL) 10 % (13-45); MONOCYTES % (MANUAL) 4 % (3-13); SEGMENTED NEUTROPHILS % (MAN) 85 % (42-78); TOTAL CELLS COUNTED 100
[2020-09-19 04:39] LABS: ANISOCYTOSIS 1+; BURR CELLS 1+; OVALOCYTES SLIGHT; POIKILOCYTOSIS 1+; SCHISTOCYTES 1+; TOXIC GRANULATION SLIGHT; TOXIC VACUOLATION PRESENT
[2020-09-19 04:40] LABS: PLATELET COMMENT DECREASED; TEAR DROP CELLS 1+
[2020-09-19 04:57] LABS: D-DIMER > 20.00 ug/mL (0.00-0.50)
[2020-09-19] MEDS: MIDAZOLAM HCL 50 MG/100 ML RTUINJ IV PRN (05:00)
[2020-09-19] MEDS: RINGERS SOLUTION,LACTATED 1,000 ML IV PRN (05:01)
[2020-09-19 05:08] LABS: BLOOD UREA NITROGEN 68 mg/dL (7-20); CALCIUM 7.7 mg/dL (8.4-10.2); GLUCOSE 133 mg/dL (75-110); POTASSIUM 3.9 mmol/L (3.6-5.0)
[2020-09-19 05:11] LABS: ANION GAP 5 (5-19); CARBON DIOXIDE 26 mmol/L (22-30); CHLORIDE 105 mmol/L (98-107)
[2020-09-19 05:22] LABS: C-REACTIVE PROTEIN 214.2 mg/L (<10.0)
[2020-09-19] MEDS ORDERED: DEXMEDETOMIDINE IN 0.9 % NACL 400 MCG/100 ML RTUPB IV PRN (08:14)
[2020-09-19] MEDS: BUDESONIDE NEB 0.25 MG/2 ML AMPUL NEB SCH ×2 (08:29→20:16)
--- NOTE | 2020-09-19 08:30 | PDOC CRITICAL CARE PROG REPORT ---
General Date:: 09/19/20 ICU Day:: 2 Ventilator Day:: 2 Hospital Day:: 5 Resuscitation Status: Full Code Events in the past 12 to 24 Hours:: This 69-year-old female smoker presented to [facility] e mergency department on 09/14/2020 with complaints of increased dyspnea. She reports a history of interstitial lung disease but denies COPD or emphysema. In the emergency department, she was found to be hypoxic and was placed on supplemental oxygen. Due to failure to improve oxygenation, she was placed on BiPAP support with an FiO2 of 100%. This was titrated at the bedside to CPAP 8. Her primary care physician (Dr. Joiner) requested ICU admission for acute hypoxemic respiratory failure. In the emergency department, her troponin was elevated (7.09) and proBNP 16,400. Chest x-ray was consistent with pulmonary edema. 09/15: She remains in the emergency department (lack of available beds). She is stable on CPAP 6, FiO2 100%. In fact, the nurse called earlier this morning to report that the patient was wandering around in the hallway. Denies chest pain. She states that her shortness of breath is improved with noninvasive positive pressure ventilatory support. Minimal cough. No sputum production. 2D echo pending. Patient discussed with Dr. Joiner. 09/18: Transferred to the ICU and reintubated. Currently stable 09/19: Renal function worsening, heading toward HD. Stop versed and assess neuro status. Review of systems relevant to events:: CV, Pulmonary, renal, neurological. Reason for ICU Addmission:: s/p cardiac arrest. Intubated. - Medications: Medications reviewed and adjusted accordingly: Yes Vasopressors:: None Sedation:: Versed stopped. Physical Exam Vital Signs: Temp Pulse Resp BP Pulse Ox 98.8 F 83 32 H 115/65 91 L 09/19/20 05:50 09/19/20 04:20 09/19/20 06:00 09/19/20 00:00 09/19/20 06:00 Intake & Output 09/18/20 09/19/20 09/20/20 06:59 06:59 06:59 Intake Total 4262 2329 Output Total 119 199 Balance 4143 2130 Weight 81 kg 86.4 kg Weight/Height Weight 86.4 kg Height 5 ft 2 in General appearance: PRESENT: no acute distress Head exam: PRESENT: atraumatic, normocephalic Eye exam: PRESENT: conjunctiva pink, EOMI, PERRLA. ABSENT: scleral icterus Ear exam: PRESENT: normal external ear exam Mouth exam: PRESENT: moist, tongue midline Respiratory exam: PRESENT: clear to auscultation yung, wheezes - Slight expiratory wheeze. ABSENT: rales, rhonchi Cardiovascular exam: PRESENT: RRR. ABSENT: diastolic murmur, rubs, systolic murmur GI/Abdominal exam: PRESENT: normal bowel sounds, soft. ABSENT: distended, guarding, mass, organolmegaly, rebound, tenderness Rectal exam: PRESENT: deferred Gentrourinary exam: PRESENT: indwelling catheter Extremities exam: PRESENT: full ROM. ABSENT: calf tenderness, clubbing, pedal edema Musculoskeletal exam: PRESENT: normal inspection Neurological exam: PRESENT: other - Unresponsive due to either sedation or arrest. Skin exam: PRESENT: dry, intact, warm. ABSENT: cyanosis, rash Tubes/Lines: PRESENT: Endotracheal Tube, Central Line, Nasogastic Tube Laboratory/Radiographs Laboratory Results: 09/19/20 03:16 09/19/20 03:16 09/16/20 09/18/20 09/19/20 23:20 20:10 03:16 WBC 15.1 H RBC 3.15 L Hgb 7.6 L D 9.4 L Hct 27.2 L MCV 86 MCH 29.8 MCHC 34.5 RDW 15.9 H Plt Count 52 L Seg Neutrophils % Not Reportable Carbonic Acid 0.75 L HCO3/H2CO3 Ratio 24:1 ABG pH 7.48 H ABG pCO2 24.8 L ABG pO2 60.8 L ABG HCO3 18.1 L ABG O2 Saturation 93.4 L ABG Base Excess -3.5 FiO2 65% Sodium Potassium Chloride Carbon Dioxide Anion Gap BUN Creatinine Est GFR ( Amer) Glucose Calcium C-Reactive Protein 09/19/20 03:16 WBC RBC Hgb Hct MCV MCH MCHC RDW Plt Count Seg Neutrophils % Carbonic Acid HCO3/H2CO3 Ratio ABG pH ABG pCO2 ABG pO2 ABG HCO3 ABG O2 Saturation ABG Base Excess FiO2 Sodium 136.3 L Potassium 3.9 Chloride 105 Carbon Dioxide 26 Anion Gap 5 BUN 68 H Creatinine 3.21 H Est GFR ( Amer) 17 L Glucose 133 H Calcium 7.7 L C-Reactive Protein 214.2 H 09/14/20 09/14/20 09/14/20 13:15 13:15 20:11 CK-MB (CK-2) 7.78 H Troponin I 7.090 6.940 NT-Pro-B Natriuret Pep 58837 H 09/15/20 09/15/20 09/17/20 02:02 05:47 09:56 CK-MB (CK-2) Troponin I 7.440 6.180 4.440 NT-Pro-B Natriuret Pep 09/18/20 09/19/20 13:55 03:16 CK-MB (CK-2) Troponin I 6.100 3.560 NT-Pro-B Natriuret Pep Impressions: Chest X-Ray 09/18/20 00:00 IMPRESSION: 1. Increased interstitial edema since yesterday All labs, radiographs, diagnostic studies and EKGs were personally reviewed: Yes In addition, reports of radiographic and diagnostic studies were read: Yes Assessment and Plan - Diagnosis (1) COVID-19 Is this a current diagnosis for this admission?: Yes Plan: This is likely the reason for her arrest which may have been respiratory. We need to hold sedation and assess neuro function. (2) Interstitial lung disease Is this a current diagnosis for this admission?: Yes Plan: This complicates her respiratory status and may have contributed to her arrest. Depending on severity, the mortality rate for ILD is quite high. (3) PILAR (acute kidney injury) Is this a current diagnosis for this admission?: Yes Plan: Her U/O is trailing off and she has a GFR of 14. Heading toward dialysis. Will limit fluids and try higher dose lasix. (4) Abnormal EKG Is this a current diagnosis for this admission?: Yes Plan Summary: Overall prognosis is not good. Critical Time Critical Time (minutes): 35 Level of Care: ICU Anticipated discharge: Other Anticipated DC Timeframe: Other -: 1. The care of a critical patient is a dynamic process. This note is a pharmacy services representative synopsis but static in nature. The timeframe for treatments given in order is not necessarily the actual time these treatments may have been done. 2. This patient requires critical care secondary to ongoing requirements for therapy not offered or safe outside the critical care environment. Transfer to a lower level of care will result in altered life or limb morbidity and mortality. 3. Multidisciplinary rounds completed. 4. ABCDE bundle addressed.
[2020-09-19] MEDS ORDERED: LEVETIRACETAM 1000 MG PO SCH (10:00)
[2020-09-19] MEDS: ASCORBIC ACID 500 MG TABLET PO SCH ×4 (11:01→17:57)
[2020-09-19] MEDS: CHOLECALCIFEROL (D3) 1,000 UNIT (25 MCG) TABLET PO SCH (11:01)
[2020-09-19] MEDS: ASPIRIN 81 MG TABLET, CHEWABLE PO SCH (11:01)
[2020-09-19] MEDS: METOPROLOL TARTRATE 25 MG TABLET NG SCH ×2 (11:02→21:37)
[2020-09-19] MEDS: LEVETIRACETAM 500 MG TABLET PO SCH ×3 (11:02→21:38)
[2020-09-19] MEDS: FAMOTIDINE INJ/PF 20 MG/2 ML SDV IV SCH ×2 (11:04→21:37)
[2020-09-19] MEDS: DEXAMETHASONE SOD PHOS INJ 10 MG/1 ML VIAL IV SCH (11:04)
[2020-09-19] MEDS: AZITHROMYCIN 250 MG TABLET PO SCH (11:06)
[2020-09-19] MEDS: MONTELUKAST SODIUM 10 MG TABLET PO SCH ×2 (13:21→21:38)
[2020-09-19] MEDS ORDERED: FUROSEMIDE INJ/PF 40 MG/4 ML SDV ONE (13:44)
[2020-09-19] MEDS: LEVOFLOXACIN 500 MG/D5W RTU 500 MG/100 ML RTUPB IV SCH (21:37)
[2020-09-19] MEDS: TRAZODONE HCL 50 MG TABLET PO SCH (21:37)
--- NOTE | 2020-09-19 22:03 | Progress Note ---
Provider Note Provider Note: CARDIOLOGY PROGRESS NOTE by Dr. Jacqueline Roberson on 09/19/2020. SUBJECTIVE . The patient is intubated and sedated. There is no arrhythmias seen. The patient is off all pressors and her blood pressure is stable. The patient is oliguric and retaining fluid. Nephrology is not available on the case. Patient may need dialysis. Most likely nephrology will be consulted on Monday. PHYSICAL EXAMINATION: The patient is intubated and sedated and appears to be in no acute distress. Selected Entries 09/19/20 12:00 Temperature 98.4 F Temperature Core Source Pulse Rate 80 Respiratory 27 H Rate Positive End 8 Expiratory Pressure Blood Pressure 113/63 [Femoral Artery ] Blood Pressure 79 Mean [Femoral Artery] Blood Pressure Supine Position [ Femoral Artery] O2 Sat by Pulse 93 Oximetry Oxygen Delivery Mechanical Method ( Ventilator includes room air) Fraction of 65 Inspired Oxygen (FIO2) HEAD: Is atraumatic normocephalic. EYES: Pupils are equal round regular reactive to light. ENT is negative. NECK:. Carotids are equal there is no bruits. Neck is supple. There is no JVD there is no lymphadenopathy. There is no goiter. There is no accessory muscle respiration use. Trachea is central. LUNGS: There is diminished air entry prolonged expiration with scattered rhonchi and few dry crackles bilaterally. There is no rales of CHF. HEART: S1-S2 is heard. S1 is of normal intensity. There is no S3 gallop. There is an S4 gallop. There is systolic murmur left sternal border and the apex without radiation. There is no rub. ABDOMEN: Is soft. There is no hepatosplenomegaly. Bowel sounds are heard. EXTREMITIES: Femorals are deep. There is no femoral bruits. There is no pedal edema. There is no cyanosis or clubbing. There is no DVT or cellulitis. 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 EKG: Sinus rhythm. T changes inferior leads improved. There is minor nonspecific T changes in the anterior leads. Labs- All tests 24 hr 09/19/20 09/19/20 09/19/20 03:16 03:16 03:16 WBC 15.1 H RBC 3.15 L Hgb 9.4 L Hct 27.2 L MCV 86 MCH 29.8 MCHC 34.5 RDW 15.9 H Plt Count 52 L Lymph % (Auto) Not Reportable [place] % (Auto) Not Reportable Eos % (Auto) Not Reportable Baso % (Auto) Not Reportable Absolute Neuts (auto) Not Reportable Absolute Lymphs (auto) Not Reportable Absolute Monos (auto) Not Reportable Absolute Eos (auto) Not Reportable Absolute Basos (auto) Not Reportable Total Counted 100 Seg Neutrophils % Not Reportable Seg Neuts % (Manual) 85 H Lymphocytes % (Manual) 10 L Atypical Lymphs % 1 Monocytes % (Manual) 4 Eosinophils % (Manual) 0 Basophils % (Manual) 0 Abs Neuts (Manual) 12.8 H Abs Lymphs (Manual) 1.7 Abs Monocytes (Manual) 0.6 Absolute Eos (Manual) 0.0 Abs Basophils (Manual) 0.0 Toxic Granulation SLIGHT Toxic Vacuolation PRESENT Platelet Comment DECREASED Poikilocytosis 1+ Anisocytosis 1+ Tear Drop Cells 1+ Ovalocytes SLIGHT [place] Cells 1+ Schistocytes 1+ APTT D-Dimer Sodium 136.3 L Potassium 3.9 Chloride 105 Carbon Dioxide 26 Anion Gap 5 BUN 68 H Creatinine 3.21 H Est GFR ( Amer) 17 L Est GFR (MDRD) Non-Af 14 L Glucose 133 H POC Glucose Calcium 7.7 L Troponin I 3.560 C-Reactive Protein 214.2 H 09/19/20 09/19/20 09/19/20 03:16 14:15 17:50 WBC RBC Hgb Hct MCV MCH MCHC RDW Plt Count Lymph % (Auto) [place] % (Auto) Eos % (Auto) Baso % (Auto) Absolute Neuts (auto) Absolute Lymphs (auto) Absolute Monos (auto) Absolute Eos (auto) Absolute Basos (auto) Total Counted Seg Neutrophils % Seg Neuts % (Manual) Lymphocytes % (Manual) Atypical Lymphs % Monocytes % (Manual) Eosinophils % (Manual) Basophils % (Manual) Abs Neuts (Manual) Abs Lymphs (Manual) Abs Monocytes (Manual) Absolute Eos (Manual) Abs Basophils (Manual) Toxic Granulation Toxic Vacuolation Platelet Comment Poikilocytosis Anisocytosis Tear Drop Cells Ovalocytes [place] Cells Schistocytes APTT 110.7 H D-Dimer > 20.00 H* Sodium Potassium Chloride Carbon Dioxide Anion Gap BUN Creatinine Est GFR ( Amer) Est GFR (MDRD) Non-Af Glucose POC Glucose 187 H 173 H Calcium Troponin I C-Reactive Protein Chest X-Ray 09/14/20 13:09 IMPRESSION: Patchy bilateral airspace disease most likely representing viral pneumonitis. Chest X-Ray 09/15/20 06:00 IMPRESSION: NO SIGNIFICANT INTERVAL CHANGE. Chest X-Ray 09/16/20 00:00 IMPRESSION: 1. Intubated, with endotracheal tube tip within 1 cm of the mateusz. 2. Persistent pulmonary infiltrates 3. Enteric tube extends into the stomach Chest X-Ray 09/16/20 06:00 IMPRESSION: Stable radiographic appearance of the chest demonstrating diffuse airspace opacities. Chest X-Ray 09/17/20 06:00 IMPRESSION: STABLE APPEARANCE OF THE CHEST. SUPPORT DEVICES UNCHANGED. Chest X-Ray 09/18/20 00:00 IMPRESSION: 1. Increased interstitial edema since yesterday IMPRESSION/RECOMMENDATION: 1.S/p cardiopulmonary arrest: With spontaneous return of circulation after CPR. Most likely this is a respiratory scarring causing cardiac arrest. Patient s/p intubation. 2. Covid related pneumonia. 3. Non-ST elevation [place]: Especially with the new EKG inversion in the inferior leads. The troponin is trending down. I agree with the echo got about. Later once the blood pressure is stable we will start the patient on beta-trae and aspirin and nitrates. Will follow serial EKGs and troponin levels. His troponin is elevated back to 6.10. The EKG shows no progression or regression of the T wave changes in the inferior leads. We will start the patient on small dose of beta-trae and increase as tolerated. Continue argatroban. Continue aspirin. 4. Hypotension: Seems to have resolved patient off Levophed at present. 5. Acute on chronic kidney disease: Avoid nephrotoxic drugs. Note that the patient's renal function was normal in 2016. Her GFR is reduced to 22 mL/min in September 2020. At present may need dialysis since the patient is oliguric. Nephrology is not available over the weekend. 6. History of hypertension: At present blood pressure stable off pressors note patient was hypotensive most likely secondary to sepsis and respiratory problems. 7. History of COPD: At present no evidence of acute exacerbation although the patient has pneumonia. 8. Anemia: S/p transfusion: Would recommend GI work-up later: Continue prolonged proton pump inhibitors. 9. History of sleep apnea: 10. History of interstitial fibrosis:? Etiology Medications reviewed. Medication management and medical regimen discussed with roll slicing machine tender. Medical decision making is of high complexity. 40 minutes spent as patient more than 50% time spent in direct patient care. Will follow. All labs and imaging and EKGs and echocardiogram have been reviewed by me.
--- NOTE | 2020-09-19 22:37 | EKG REPORT ---
SEVERITY:- NORMAL ECG - SINUS RHYTHM : Confirmed by: Julianna Barroso 19-Sep-2020 22:37:26
[2020-09-19] MEDS ORDERED: DEXTROSE 40% GEL 15 GM TUBE PO PRN ×2 (23:37)
[2020-09-19] MEDS ORDERED: GLUCAGON,HUMAN RECOMB 1 MG INJ IM PRN (23:37)
[2020-09-19] MEDS ORDERED: DEXTROSE 50%-WATER 25 GM/50 ML DISP.SYRIN IV PRN ×2 (23:37)
[2020-09-20] MEDS: LEVALBUTEROL HCL NEB 0.63 MG/3 ML AMPUL NEB SCH ×7 (00:09→23:40)
[2020-09-20] MEDS: INSULIN REG, HUMAN 100 UNIT/ML 3 ML VIAL (PYX) SUBCUT SCH ×4 (00:13→17:18)
[2020-09-20] MEDS ORDERED: IPRATROPIUM/ALBUTEROL 0.5-2.5 MG/3 ML AMPUL NEB PRN (00:23)
[2020-09-20 04:45] LABS: HEMATOCRIT 26.6 % (36.0-47.0); HEMOGLOBIN 9.1 g/dL (12.0-15.5); MEAN CORPUSCULAR HEMOGLOBIN 29.8 pg (27.0-33.4); MEAN CORPUSCULAR VOLUME 88 fl (80-97); RED BLOOD COUNT 3.04 10^6/uL (3.72-5.28); RED CELL DISTRIBUTION WIDTH 16.7 % (11.5-14.0); WHITE BLOOD COUNT 19.6 10^3/uL (4.0-10.5)
[2020-09-20 05:16] LABS: CALCIUM 8.1 mg/dL (8.4-10.2); GLUCOSE 137 mg/dL (75-110)
[2020-09-20 05:17] LABS: ALBUMIN 2.2 g/dL (3.5-5.0); ALKALINE PHOSPHATASE 212 U/L (38-126); ASPARTATE AMINO TRANSFERASE 377 U/L (14-36); BILIRUBIN,TOTAL 1.5 mg/dL (0.2-1.3); BLOOD UREA NITROGEN 90 mg/dL (7-20); CARBON DIOXIDE 22 mmol/L (22-30); POTASSIUM 4.1 mmol/L (3.6-5.0)
[2020-09-20 05:18] LABS: ANION GAP 10 (5-19); BILIRUBIN,DIRECT 1.1 mg/dL (0.0-0.4); CHLORIDE 104 mmol/L (98-107); TOTAL PROTEIN 4.5 g/dL (6.3-8.2)
[2020-09-20 05:21] LABS: PLATELET COUNT 63 10^3/uL (150-450)
[2020-09-20 05:32] LABS: ABSOLUTE LYMPHOCYTES# (MANUAL) 0.6 10^3/uL (0.5-4.7); ABSOLUTE MONOCYTES # (MANUAL) 1.2 10^3/uL (0.1-1.4); ANISOCYTOSIS 1+; BAND NEUTROPHILS % (MANUAL) 1 % (3-5); BASOPHILS % (MANUAL) 0 % (0-2); EOSINOPHILS % (MANUAL) 0 % (0-6); LYMPHOCYTES % (MANUAL) 3 % (13-45); MONOCYTES % (MANUAL) 6 % (3-13); NUCLEATED RED BLOOD CELLS 3 /100 WBC (0); SEGMENTED NEUTROPHILS % (MAN) 90 % (42-78); TOTAL CELLS COUNTED 100
[2020-09-20 05:33] LABS: PLATELET COMMENT DECREASED
[2020-09-20 05:38] LABS: POLYCHROMASIA SLIGHT
[2020-09-20 05:40] LABS: BURR CELLS 1+; OVALOCYTES SLIGHT; TEAR DROP CELLS SLIGHT
[2020-09-20] MEDS: NORMAL SALINE 250 ML with ARGATROBAN 250 MG IV PRN ×2 (05:51)
[2020-09-20] MEDS: BUDESONIDE NEB 0.25 MG/2 ML AMPUL NEB SCH ×2 (08:34→20:26)
[2020-09-20] MEDS: CHOLECALCIFEROL (D3) 1,000 UNIT (25 MCG) TABLET PO SCH (10:16)
[2020-09-20] MEDS: ASCORBIC ACID 500 MG TABLET PO SCH ×3 (10:16→17:19)
[2020-09-20] MEDS: METOPROLOL TARTRATE 25 MG TABLET NG SCH ×2 (10:16→22:26)
[2020-09-20] MEDS: ASPIRIN 81 MG TABLET, CHEWABLE PO SCH (10:17)
[2020-09-20] MEDS: DEXAMETHASONE SOD PHOS INJ 10 MG/1 ML VIAL IV SCH (10:17)
[2020-09-20] MEDS: LEVETIRACETAM 500 MG TABLET PO SCH (10:17)
[2020-09-20] MEDS: FAMOTIDINE INJ/PF 20 MG/2 ML SDV IV SCH ×2 (10:17→22:29)
[2020-09-20] MEDS: AZITHROMYCIN 250 MG TABLET PO SCH (10:18)
[2020-09-20] MEDS ORDERED: BISACODYL 10 MG SUPP.RECT PR ONE (11:19)
--- NOTE | 2020-09-20 11:36 | PDOC CRITICAL CARE PROG REPORT ---
General Date:: 09/20/20 ICU Day:: 3 Ventilator Day:: 3 Hospital Day:: 6 Resuscitation Status: Full Code Events in the past 12 to 24 Hours:: This 69-year-old female smoker presented to [facility] e mergency department on 09/14/2020 with complaints of increased dyspnea. She reports a history of interstitial lung disease but denies COPD or emphysema. In the emergency department, she was found to be hypoxic and was placed on supplemental oxygen. Due to failure to improve oxygenation, she was placed on BiPAP support with an FiO2 of 100%. This was titrated at the bedside to CPAP 8. Her primary care physician (Dr. Joiner) requested ICU admission for acute hypoxemic respiratory failure. In the emergency department, her troponin was elevated (7.09) and proBNP 16,400. Chest x-ray was consistent with pulmonary edema. 09/15: She remains in the emergency department (lack of available beds). She is stable on CPAP 6, FiO2 100%. In fact, the nurse called earlier this morning to report that the patient was wandering around in the hallway. Denies chest pain. She states that her shortness of breath is improved with noninvasive positive pressure ventilatory support. Minimal cough. No sputum production. 2D echo pending. Patient discussed with Dr. Joiner. 09/18: Transferred to the ICU and reintubated. Currently stable 09/19: Renal function worsening, heading toward HD. Stop versed and assess neuro status. 09/20: Still not very awake. Renal function worse, LFTs better after arrest. Review of systems relevant to events:: Neurological. Pulmonary, CV, hepatic and renal. Reason for ICU Addmission:: s/p cardiac arrest. Intubated. - Medications: Medications reviewed and adjusted accordingly: Yes Vasopressors:: Levophed Sedation:: None Physical Exam Vital Signs: Temp Pulse Resp BP Pulse Ox 36.9 F L 80 24 H 93/52 L 94 09/20/20 10:00 09/20/20 09:00 09/20/20 11:00 09/20/20 09:00 09/20/20 11:00 Intake & Output 09/19/20 09/20/20 09/21/20 06:59 06:59 06:59 Intake Total 2329 397 Output Total 199 660 70 Balance 2130 -263 -70 Weight 86.4 kg 87.5 kg Weight/Height Weight 87.5 kg Height 5 ft 2 in General appearance: PRESENT: no acute distress Head exam: PRESENT: atraumatic, normocephalic Eye exam: PRESENT: conjunctiva pink, EOMI, PERRLA. ABSENT: scleral icterus Ear exam: PRESENT: normal external ear exam Mouth exam: PRESENT: moist, tongue midline Respiratory exam: PRESENT: clear to auscultation yung. ABSENT: rales, rhonchi, wheezes Cardiovascular exam: PRESENT: RRR. ABSENT: diastolic murmur, rubs, systolic murmur GI/Abdominal exam: PRESENT: normal bowel sounds, soft, other - NG output was green yesterday more feculant today.. ABSENT: distended, guarding, mass, organolmegaly, rebound, tenderness Rectal exam: PRESENT: deferred Gentrourinary exam: PRESENT: indwelling catheter Extremities exam: PRESENT: full ROM. ABSENT: calf tenderness, clubbing, pedal edema Neurological exam: PRESENT: other - Not purposeful after one day of no sedation. Skin exam: PRESENT: dry, intact, warm. ABSENT: cyanosis, rash Tubes/Lines: PRESENT: Endotracheal Tube, Central Line, Nasogastic Tube Laboratory/Radiographs Laboratory Results: 09/20/20 04:22 09/20/20 04:22 09/20/20 09/20/20 04:22 04:22 WBC 19.6 H RBC 3.04 L Hgb 9.1 L Hct 26.6 L MCV 88 MCH 29.8 MCHC 34.0 RDW 16.7 H Plt Count 63 L Seg Neutrophils % Not Reportable Sodium 135.5 L Potassium 4.1 Chloride 104 Carbon Dioxide 22 Anion Gap 10 BUN 90 H Creatinine 4.22 H Est GFR ( Amer) 13 L Glucose 137 H Calcium 8.1 L Total Bilirubin 1.5 H AST 377 H Alkaline Phosphatase 212 H Total Protein 4.5 L Albumin 2.2 L 09/14/20 13:15 Blood Blood Culture - Final NO GROWTH IN 5 DAYS 09/14/20 13:15 Blood Blood Culture - Final NO GROWTH IN 5 DAYS 09/14/20 09/14/20 09/14/20 13:15 13:15 20:11 CK-MB (CK-2) 7.78 H Troponin I 7.090 6.940 NT-Pro-B Natriuret Pep 26948 H 09/15/20 09/15/20 09/17/20 02:02 05:47 09:56 CK-MB (CK-2) Troponin I 7.440 6.180 4.440 NT-Pro-B Natriuret Pep 09/18/20 09/19/20 09/20/20 13:55 03:16 04:22 CK-MB (CK-2) Troponin I 6.100 3.560 1.510 NT-Pro-B Natriuret Pep Impressions: Chest X-Ray 09/18/20 00:00 IMPRESSION: 1. Increased interstitial edema since yesterday All labs, radiographs, diagnostic studies and EKGs were personally reviewed: Yes In addition, reports of radiographic and diagnostic studies were read: Yes Assessment and Plan - Diagnosis (1) COVID-19 Is this a current diagnosis for this admission?: Yes Plan: The origin of her pulmonary difficulty and arrest. Support continues, not extubatable with this mental status. (2) Interstitial lung disease Is this a current diagnosis for this admission?: Yes Plan: This is a major risk factor for mortality depending on severity. Worse with Covid. (3) PILAR (acute kidney injury) Is this a current diagnosis for this admission?: Yes Plan: I have consulted Dr. Kathleen for Monday as I believe she will need dialysis. Give lasix again today. (4) Abnormal EKG Is this a current diagnosis for this admission?: Yes Plan Summary: Try lasix drip. With both hepatic and renal dysfunction, some of her mental status could be from metabolites of Versed. Support breathing with vent. Critical Time Critical Time (minutes): 35 Level of Care: ICU Anticipated discharge: Other Anticipated DC Timeframe: Other -: 1. The care of a critical patient is a dynamic process. This note is a event representative synopsis but static in nature. The timeframe for treatments given in order is not necessarily the actual time these treatments may have been done. 2. This patient requires critical care secondary to ongoing requirements for therapy not offered or safe outside the critical care environment. Transfer to a lower level of care will result in altered life or limb morbidity and mortality. 3. Multidisciplinary rounds completed. 4. ABCDE bundle addressed.
--- NOTE | 2020-09-20 13:53 | RADIOLOGY REPORT (SQ) ---
EXAM DESCRIPTION: KUB/ABDOMEN (SINGLE VIEW) IMAGES COMPLETED DATE/TIME: 09/20/2020 12:20 pm REASON FOR STUDY: Confirmation of NG Tube Placement COMPARISON: None. NUMBER OF VIEWS: One view. TECHNIQUE: Supine radiographic image of the abdomen acquired. LIMITATIONS: None. FINDINGS: BOWEL GAS PATTERN: Nonspecific bowel gas pattern. CALCIFICATIONS: No suspicious calcifications. SOFT TISSUES: No gross mass or suggestion of organomegaly. HARDWARE: Esophagogastric tube tip and side-hole are below the diaphragm likely in the stomach. Cent ral venous catheter tip in the right atrium. BONES: No acute fracture. No worrisome bone lesions. OTHER: No other significant finding. IMPRESSION: Esophagogastric tube tip and side-hole are below the diaphragm likely in the stomach. TECHNICAL DOCUMENTATION: JOB ID: [id number] 2010 [employer]- All Rights Reserved Reading location - IP/workstation name: [email or web address]
--- NOTE | 2020-09-20 14:06 | Progress Note ---
Provider Note Provider Note: CARDIOLOGY PROGRESS NOTE by Dr. Jacqueline Roberson on 09/20/2020. SUBJECTIVE . The patient is intubated and sedated. There is no arrhythmias seen. The patient is off all pressors and her blood pressure is stable. The patient is oliguric and retaining fluid. Nephrology is not available on the case. Patient may need dialysis. Most likely nephrology will be consulted on Monday. Patient had a good response to Lasix 80 mg IV push. Hence we will start the patient on Lasix drip after giving her a bolus dose of 80 mg of Lasix intravenously. This has been discussed with the author agent. PHYSICAL EXAMINATION: The patient is intubated and sedated and appears to be in no acute distress. Selected Entries 09/20/20 09/20/20 09/20/20 09:00 13:00 14:00 Core 98.1 F Temperature Heart Rate ( 69 Monitors) Respiratory 23 H 22 H Rate Positive End 8 Expiratory Pressure Blood Pressure 93/52 L [Femoral Artery ] Blood Pressure 65 Mean [Femoral Artery] Blood Pressure Supine Position [ Femoral Artery] O2 Sat by Pulse 95 94 Oximetry Fraction of 65 Inspired Oxygen (FIO2) Percent of 80 Oxygen HEAD: Is atraumatic normocephalic. EYES: Pupils are equal round regular reactive to light. ENT is negative. NECK:. Carotids are equal there is no bruits. Neck is supple. There is no JVD there is no lymphadenopathy. There is no goiter. There is no accessory muscle respiration use. Trachea is central. LUNGS: There is diminished air entry prolonged expiration with scattered rhonchi and few dry crackles bilaterally. There is no rales of CHF. HEART: S1-S2 is heard. S1 is of normal intensity. There is no S3 gallop. There is an S4 gallop. There is systolic murmur left sternal border and the apex without radiation. There is no rub. ABDOMEN: Is soft. There is no hepatosplenomegaly. Bowel sounds are heard. EXTREMITIES: Femorals are deep. There is no femoral bruits. There is no pedal edema. There is no cyanosis or clubbing. There is no DVT or cellulitis. 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 Labs- All tests 24 hr 01/09/21 01/10/21 01/10/21 23:13 04:22 04:22 WBC RBC Hgb Hct MCV MCH MCHC RDW Plt Count Lymph % (Auto) [place] % (Auto) Eos % (Auto) Baso % (Auto) Absolute Neuts (auto) Absolute Lymphs (auto) Absolute Monos (auto) Absolute Eos (auto) Absolute Basos (auto) Total Counted Seg Neutrophils % Seg Neuts % (Manual) Band Neutrophils % Lymphocytes % (Manual) Monocytes % (Manual) Eosinophils % (Manual) Basophils % (Manual) Abs Neuts (Manual) Abs Lymphs (Manual) Abs Monocytes (Manual) Absolute Eos (Manual) Abs Basophils (Manual) Nucleated RBCs Platelet Comment Polychromasia Anisocytosis Tear Drop Cells Ovalocytes [place] Cells APTT 78.7 H Sodium Potassium Chloride Carbon Dioxide Anion Gap BUN Creatinine Est GFR ( Amer) Est GFR (MDRD) Non-Af Glucose POC Glucose 205 H Calcium Total Bilirubin Direct Bilirubin Neonat Total Bilirubin Neonat Direct Bilirubin Neonat Indirect Bili AST ALT Alkaline Phosphatase Troponin I 1.510 Total Protein Albumin 09/20/20 09/20/20 09/20/20 04:22 04:22 12:21 WBC 19.6 H RBC 3.04 L Hgb 9.1 L Hct 26.6 L MCV 88 MCH 29.8 MCHC 34.0 RDW 16.7 H Plt Count 63 L Lymph % (Auto) Not Reportable [place] % (Auto) Not Reportable Eos % (Auto) Not Reportable Baso % (Auto) Not Reportable Absolute Neuts (auto) Not Reportable Absolute Lymphs (auto) Not Reportable Absolute Monos (auto) Not Reportable Absolute Eos (auto) Not Reportable Absolute Basos (auto) Not Reportable Total Counted 100 Seg Neutrophils % Not Reportable Seg Neuts % (Manual) 90 H Band Neutrophils % 1 L Lymphocytes % (Manual) 3 L Monocytes % (Manual) 6 Eosinophils % (Manual) 0 Basophils % (Manual) 0 Abs Neuts (Manual) 17.8 H Abs Lymphs (Manual) 0.6 Abs Monocytes (Manual) 1.2 Absolute Eos (Manual) 0.0 Abs Basophils (Manual) 0.0 Nucleated RBCs 3 Platelet Comment DECREASED Polychromasia SLIGHT Anisocytosis 1+ Tear Drop Cells SLIGHT Ovalocytes SLIGHT [place] Cells 1+ APTT Sodium 135.5 L Potassium 4.1 Chloride 104 Carbon Dioxide 22 Anion Gap 10 BUN 90 H Creatinine 4.22 H Est GFR ( Amer) 13 L Est GFR (MDRD) Non-Af 10 L Glucose 137 H POC Glucose 169 H Calcium 8.1 L Total Bilirubin 1.5 H Direct Bilirubin 1.1 H Neonat Total Bilirubin Not Reportable Neonat Direct Bilirubin Not Reportable Neonat Indirect Bili Not Reportable AST 377 H ALT 476 H Alkaline Phosphatase 212 H Troponin I Total Protein 4.5 L Albumin 2.2 L 09/20/20 09/20/20 17:02 20:13 WBC RBC Hgb Hct MCV MCH MCHC RDW Plt Count Lymph % (Auto) [place] % (Auto) Eos % (Auto) Baso % (Auto) Absolute Neuts (auto) Absolute Lymphs (auto) Absolute Monos (auto) Absolute Eos (auto) Absolute Basos (auto) Total Counted Seg Neutrophils % Seg Neuts % (Manual) Band Neutrophils % Lymphocytes % (Manual) Monocytes % (Manual) Eosinophils % (Manual) Basophils % (Manual) Abs Neuts (Manual) Abs Lymphs (Manual) Abs Monocytes (Manual) Absolute Eos (Manual) Abs Basophils (Manual) Nucleated RBCs Platelet Comment Polychromasia Anisocytosis Tear Drop Cells Ovalocytes [place] Cells APTT 64.8 H Sodium Potassium Chloride Carbon Dioxide Anion Gap BUN Creatinine Est GFR ( Amer) Est GFR (MDRD) Non-Af Glucose POC Glucose 153 H Calcium Total Bilirubin Direct Bilirubin Neonat Total Bilirubin Neonat Direct Bilirubin Neonat Indirect Bili AST ALT Alkaline Phosphatase Troponin I 1.510 Total Protein Albumin EKG:SINUS RHYTHM [T0DI] . BORDERLINE T ABNORMALITIES, DIFFUSE LEADS Chest X-Ray 09/14/20 13:09 IMPRESSION: Patchy bilateral airspace disease most likely representing viral pneumonitis. Chest X-Ray 09/15/20 06:00 IMPRESSION: NO SIGNIFICANT INTERVAL CHANGE. Chest X-Ray 09/16/20 00:00 IMPRESSION: 1. Intubated, with endotracheal tube tip within 1 cm of the mateusz. 2. Persistent pulmonary infiltrates 3. Enteric tube extends into the stomach Chest X-Ray 09/16/20 06:00 IMPRESSION: Stable radiographic appearance of the chest demonstrating diffuse airspace opacities. Chest X-Ray 09/17/20 06:00 IMPRESSION: STABLE APPEARANCE OF THE CHEST. SUPPORT DEVICES UNCHANGED. Chest X-Ray 09/18/20 00:00 IMPRESSION: 1. Increased interstitial edema since yesterday KUB X-Ray 09/20/20 00:00 IMPRESSION: Esophagogastric tube tip and side-hole are below the diaphragm likely in the stomach. IMPRESSION/RECOMMENDATION: 1.S/p cardiopulmonary arrest: With spontaneous return of circulation after CPR. Most likely this is a respiratory scarring causing cardiac arrest. Patient s/p intubation. 2. Covid related pneumonia. 3. Non-ST elevation [place]: Especially with the new EKG inversion in the inferior leads. The troponin is trending down. I agree with the echo got about. Later once the blood pressure is stable we will start the patient on beta-trae and aspirin and nitrates. Will follow serial EKGs and troponin levels. His troponin is elevated back to 6.10. The EKG shows no progression or regression of the T wave changes in the inferior leads. We will start the patient on small dose of beta-trae and increase as tolerated. Continue argatroban. Continue aspirin. The patient's troponin I level has come down to 1.510. 4. Hypotension: Seems to have resolved patient off Levophed at present. Blood pressure still in the 90s. As of yet pressors have not been started. 5. Acute on chronic kidney disease: Avoid nephrotoxic drugs. Note that the patient's renal function was normal in 2016. Her GFR is reduced to 22 mL/min in September 2020. At present may need dialysis since the patient is oliguric. Nephrology is not available over the weekend. 6. History of hypertension: At present blood pressure stable off pressors note patient was hypotensive most likely secondary to sepsis and respiratory problems. 7. History of COPD: At present no evidence of acute exacerbation although the patient has pneumonia. 8. Anemia: S/p transfusion: Would recommend GI work-up later: Continue prolonged proton pump inhibitors. 9. History of sleep apnea: 10. History of interstitial fibrosis:? Etiology Medications reviewed. Medication management and medical regimen discussed with author agent. Medical decision making is of high complexity. 40 minutes spent as patient more than 50% time spent in direct patient care. Will follow. All labs and imaging and EKGs and echocardiogram have been reviewed by me.
[2020-09-20] MEDS ORDERED: FUROSEMIDE INJ/PF 40 MG/4 ML SDV IV ONE (15:45)
[2020-09-20] MEDS: NORMAL SALINE 250 ML with FUROSEMIDE 250 MG IV PRN ×2 (17:21)
[2020-09-20] MEDS: LEVOFLOXACIN 500 MG/D5W RTU 500 MG/100 ML RTUPB IV SCH (22:26)
[2020-09-20] MEDS: TRAZODONE HCL 50 MG TABLET PO SCH (22:26)
[2020-09-20] MEDS: MONTELUKAST SODIUM 10 MG TABLET PO SCH (22:29)
--- NOTE | 2020-09-20 22:37 | EKG REPORT ---
SEVERITY:- BORDERLINE ECG - SINUS RHYTHM BORDERLINE T ABNORMALITIES, DIFFUSE LEADS : Confirmed by: Julianna Barroso 20-Sep-2020 22:35:39
[2020-09-20] MEDS ORDERED: LEVETIRACETAM ORAL SOLN 500 MG/5 ML UDCUP ONE (23:32)
[2020-09-21] MEDS: LEVETIRACETAM ORAL SOLN 500 MG/5 ML UDCUP NG SCH ×3 (00:56→22:14)
[2020-09-21] MEDS: INSULIN REG, HUMAN 100 UNIT/ML 3 ML VIAL (PYX) SUBCUT SCH ×5 (00:56→23:48)
[2020-09-21] MEDS ORDERED: NOREPINEPHRINE BITARTRATE INJ/PF 4 MG/4 ML SDV IV ONE (01:50)
[2020-09-21] MEDS ORDERED: DEXTROSE 5%-WATER 250 ML with NOREPINEPHRINE BITARTRATE 4 MG IV PRN ×2 (01:56)
[2020-09-21] MEDS: LEVETIRACETAM 500 MG TABLET PO SCH (02:12)
[2020-09-21 04:32] LABS: PARTIAL THROMBOPLASTIN TIME 51.3 SEC (23.5-35.8)
[2020-09-21] MEDS: LEVALBUTEROL HCL NEB 0.63 MG/3 ML AMPUL NEB SCH ×5 (04:34→20:29)
[2020-09-21 04:40] LABS: HEMATOCRIT 25.8 % (36.0-47.0); HEMOGLOBIN 8.7 g/dL (12.0-15.5); MEAN CORPUSCULAR HGB CONC 33.7 g/dL (32.0-36.0); MEAN CORPUSCULAR VOLUME 86 fl (80-97); RED CELL DISTRIBUTION WIDTH 16.3 % (11.5-14.0); WHITE BLOOD COUNT 28.7 10^3/uL (4.0-10.5)
[2020-09-21 04:46] LABS: ANION GAP 6 (5-19); C-REACTIVE PROTEIN 80.2 mg/L (<10.0); CALCIUM 8.2 mg/dL (8.4-10.2); CARBON DIOXIDE 26 mmol/L (22-30); CHLORIDE 101 mmol/L (98-107); GLUCOSE 117 mg/dL (75-110); POTASSIUM 4.7 mmol/L (3.6-5.0)
[2020-09-21 04:49] LABS: BLOOD UREA NITROGEN 111 mg/dL (7-20); D-DIMER 16.17 ug/mL (0.00-0.50)
[2020-09-21 04:55] LABS: PLATELET COUNT 87 10^3/uL (150-450)
[2020-09-21 04:56] LABS: ABSOLUTE LYMPHOCYTES# (MANUAL) 0.9 10^3/uL (0.5-4.7); BASOPHILS % (MANUAL) 0 % (0-2); EOSINOPHILS % (MANUAL) 0 % (0-6); LYMPHOCYTES % (MANUAL) 2 % (13-45); METAMYELOCYTES % (MANUAL) 1 % (0-1); MONOCYTES % (MANUAL) 7 % (3-13); SEGMENTED NEUTROPHILS % (MAN) 89 % (42-78); TOTAL CELLS COUNTED 100
[2020-09-21 04:58] LABS: ANISOCYTOSIS 1+; OVALOCYTES 1+; PLATELET COMMENT DECREASED; POIKILOCYTOSIS 1+; SCHISTOCYTES SLIGHT; TEAR DROP CELLS SLIGHT; TOXIC GRANULATION SLIGHT
[2020-09-21] MEDS: DEXTROSE 5%-WATER 250 ML with NOREPINEPHRINE BITARTRATE 4 MG IV PRN ×2 (07:47)
[2020-09-21] MEDS: BUDESONIDE NEB 0.25 MG/2 ML AMPUL NEB SCH ×2 (08:15→20:29)
[2020-09-21] MEDS ORDERED: DEXAMETHASONE SOD PHOSPHATE INJ 4 MG/1 ML VIAL ONE ×2 (09:33→12:19)
--- NOTE | 2020-09-21 09:42 | PDOC CRITICAL CARE PROG REPORT ---
General Date:: 09/21/20 ICU Day:: 4 Ventilator Day:: 4 Hospital Day:: 7 Resuscitation Status: Full Code Events in the past 12 to 24 Hours:: This 69-year-old female smoker presented to [facility] e mergency department on 09/14/2020 with complaints of increased dyspnea. She reports a history of interstitial lung disease but denies COPD or emphysema. In the emergency department, she was found to be hypoxic and was placed on supplemental oxygen. Due to failure to improve oxygenation, she was placed on BiPAP support with an FiO2 of 100%. This was titrated at the bedside to CPAP 8. Her primary care physician (Dr. Joiner) requested ICU admission for acute hypoxemic respiratory failure. In the emergency department, her troponin was elevated (7.09) and proBNP 16,400. Chest x-ray was consistent with pulmonary edema. 09/15: She remains in the emergency department (lack of available beds). She is stable on CPAP 6, FiO2 100%. In fact, the nurse called earlier this morning to report that the patient was wandering around in the hallway. Denies chest pain. She states that her shortness of breath is improved with noninvasive positive pressure ventilatory support. Minimal cough. No sputum production. 2D echo pending. Patient discussed with Dr. Joiner. 09/18: Transferred to the ICU and reintubated. Currently stable 09/19: Renal function worsening, heading toward HD. Stop versed and assess neuro status. 09/20: Still not very awake. Renal function worse, LFTs better after arrest. 09/21: Still not responsive on no sedation. Renal function worse. Heading toward dialysis. Dr. Kathleen consulted. Review of systems relevant to events:: Neurological, pulmonary, CV, renal. Reason for ICU Addmission:: s/p cardiac arrest. Intubated. - Medications: Medications reviewed and adjusted accordingly: Yes Vasopressors:: Levophed Sedation:: None Physical Exam Vital Signs: Temp Pulse Resp BP Pulse Ox 97.7 F 75 21 H 93/52 L 93 09/21/20 06:00 09/21/20 09:22 09/21/20 09:00 09/20/20 09:00 09/21/20 09:00 Intake & Output 09/20/20 09/21/20 09/22/20 06:59 06:59 06:59 Intake Total 397 130 13 Output Total 660 740 100 Balance -263 -610 -87 Weight 87.5 kg 85.1 kg Weight/Height Weight 85.1 kg Height 5 ft 2 in General appearance: PRESENT: no acute distress Head exam: PRESENT: atraumatic, normocephalic Eye exam: PRESENT: conjunctiva pink, PERRLA. ABSENT: scleral icterus Ear exam: PRESENT: normal external ear exam Mouth exam: PRESENT: moist, tongue midline Respiratory exam: PRESENT: clear to auscultation yung. ABSENT: rales, rhonchi, wheezes Cardiovascular exam: PRESENT: RRR. ABSENT: diastolic murmur, rubs, systolic murmur GI/Abdominal exam: PRESENT: normal bowel sounds, soft. ABSENT: distended, guarding, mass, organolmegaly, rebound, tenderness Rectal exam: PRESENT: deferred Gentrourinary exam: PRESENT: indwelling catheter Extremities exam: PRESENT: full ROM. ABSENT: calf tenderness, clubbing, pedal edema Musculoskeletal exam: PRESENT: normal inspection Neurological exam: PRESENT: other - Not responsive to voice or touch. Minimally to pain. Skin exam: PRESENT: dry, intact, warm. ABSENT: cyanosis, rash Tubes/Lines: PRESENT: Endotracheal Tube, Nasogastic Tube Laboratory/Radiographs Laboratory Results: 09/21/20 04:00 09/21/20 04:00 09/21/20 09/21/20 04:00 04:00 WBC 28.7 H RBC 3.00 L Hgb 8.7 L Hct 25.8 L MCV 86 MCH 29.0 MCHC 33.7 RDW 16.3 H Plt Count 87 L Seg Neutrophils % Not Reportable Sodium 132.9 L Potassium 4.7 Chloride 101 Carbon Dioxide 26 Anion Gap 6 BUN 111 H D Creatinine 5.24 H Est GFR ( Amer) 10 L Glucose 117 H Calcium 8.2 L C-Reactive Protein 80.2 H 09/14/20 09/14/20 09/14/20 13:15 13:15 20:11 CK-MB (CK-2) 7.78 H Troponin I 7.090 6.940 NT-Pro-B Natriuret Pep 10986 H 09/15/20 09/15/20 09/17/20 02:02 05:47 09:56 CK-MB (CK-2) Troponin I 7.440 6.180 4.440 NT-Pro-B Natriuret Pep 09/18/20 09/19/20 09/20/20 13:55 03:16 04:22 CK-MB (CK-2) Troponin I 6.100 3.560 1.510 NT-Pro-B Natriuret Pep Impressions: Chest X-Ray 09/18/20 00:00 IMPRESSION: 1. Increased interstitial edema since yesterday KUB X-Ray 09/20/20 00:00 IMPRESSION: Esophagogastric tube tip and side-hole are below the diaphragm likely in the stomach. EKG: SR, occassional PVCs. All labs, radiographs, diagnostic studies and EKGs were personally reviewed: Yes In addition, reports of radiographic and diagnostic studies were read: Yes Assessment and Plan - Diagnosis (1) COVID-19 Is this a current diagnosis for this admission?: Yes Plan: This is the origin of her illnesses. (2) Interstitial lung disease Is this a current diagnosis for this admission?: Yes Plan: This will heighten her Covid mortality. (3) PILAR (acute kidney injury) Is this a current diagnosis for this admission?: Yes Plan: This is now progressed to ARF. Dr. Kathleen consulted as I believe she is headed for dialysis. Plan Summary: Maintain vent support. May need HD in a short time. Critical Time Critical Time (minutes): 35 Level of Care: ICU Anticipated discharge: Other Anticipated DC Timeframe: Other -: 1. The care of a critical patient is a dynamic process. This note is a repre sentative synopsis but static in nature. The timeframe for treatments given in order is not necessarily the actual time these treatments may have been done. 2. This patient requires critical care secondary to ongoing requirements for therapy not offered or safe outside the critical care environment. Transfer to a lower level of care will result in altered life or limb morbidity and mortality. 3. Multidisciplinary rounds completed. 4. ABCDE bundle addressed.
[2020-09-21] MEDS: CHOLECALCIFEROL (D3) 1,000 UNIT (25 MCG) TABLET PO SCH (10:46)
[2020-09-21] MEDS: ASPIRIN 81 MG TABLET, CHEWABLE PO SCH (10:46)
[2020-09-21] MEDS: ASCORBIC ACID 500 MG TABLET PO SCH ×3 (10:46→17:34)
[2020-09-21] MEDS: AZITHROMYCIN 250 MG TABLET PO SCH (10:46)
[2020-09-21] MEDS: DEXAMETHASONE SOD PHOS INJ 10 MG/1 ML VIAL IV SCH (10:47)
[2020-09-21] MEDS: FAMOTIDINE INJ/PF 20 MG/2 ML SDV IV SCH ×2 (10:47→22:12)
[2020-09-21] MEDS: METOPROLOL TARTRATE 25 MG TABLET NG SCH ×2 (10:48→22:12)
--- NOTE | 2020-09-21 13:39 | PDOC CONSULTATION ---
Consultation Consult Date: 09/21/20 Provider Consulted: Baldemar SORIA Consult reason:: PILAR. History of Present Illness Admission Date/PCP: 09/14/20 17:41 OBEY ROYAL MD History of Present Illness: REHAN DANIEL is a 69 year old female seen in the ICU and is currently intubated and sedated. Therefore chart review was done and discussions done with the treating nurse and jewelry technician. Apparently, known history of interstitial lung disease. Presented to the emergency department via EMS on 09-14-19 , with shortness of breath and altered mental status. Her is inpatient here at [facility] with Covid pneumonia. Friends went to check on her today and found she was confused, called EMS. Upon EMS arrival she was profoundly hypoxic. Rapid Covid test by EMS was positive. Upon arrival to the ED she was on 6 L nasal cannula and her O2 saturations were in the 80s. BiPAP was placed, which was then changed to CPAP . She was initially stabilized and then transferred out of the ICU to the floor. However she decompensated and went into severe respiratory failure on the , intubated and transferred back to the ICU. Admission labs showed a creatinine of 2.43 baseline creatinine 0.6-0.8. Troponin is elevated at 7.09 proBNP 16,400. Chest x-ray consistent with interstitial edema. Initially on admission she was hemodynamically stable but then she became rather unstable around the / and there was begun on pressors. Presently she has been weaned off the pressors and her blood pressures around 90-100 systolic. She was initially oligo-anuric but has picked up urinary output since she was begun on IV Lasix infusion yesterday. Did review her echocardiogram which shows preserved LV function , Apparent diastolic dysfunction, with no evidences of any pulmonary hypertension or valvular heart disease. Past Medical History Cardiac Medical History: Reports: Hyperlipidemia, Hypertension-primary Pulmonary Medical History: Reports: Chronic Obstructive Pulmonary Disease (C OPD), Pneumonia - 11/2009, Sleep Apnea, Other - Interstitial lung disease Denies: Tuberculosis Renal/ Medical History: Denies: Hematuria Musculoskeltal Medical History: Reports: Fibromyalgia Psychiatric Medical History: Reports: Depression Past Surgical History Past Surgical History: Reports: Appendectomy, Section, Hysterectomy, Orthopedic Surgery - carpel tunnel surgery Denies: Pacemaker Social History Smoking Status: Current Every Day Smoker Frequency of Alcohol Use: None Hx Recreational Drug Use: No Drugs: None Hx Prescription Drug Abuse: No - Advance Directive Resuscitation Status: Full Code Family History Parental Family History Reviewed: No - Patient unable to contribute as she is intubated and sedated. Children Family History Reviewed: No Sibling(s) Family History Reviewed.: No Medication/Allergy Home Medications: Trazodone HCl [Desyrel] 150 mg PO QHS 02/02/17 Hydrocodone/Acetaminophen [[place] 5-325 mg Tablet] 1 tab PO Q6HP PRN 09/14/20 Levetiracetam [Keppra] 1,000 mg PO BID 09/14/20 Losartan/Hydrochlorothiazide [Hyzaar 100-12.5 Tablet] 1 each PO DAILY 09/14/20 Montelukast Sodium [Singulair 10 mg Tablet] 10 mg PO QHS 09/14/20 Omeprazole 20 mg PO DAILY 09/14/20 Pregabalin [Lyrica 75 mg Capsule] 75 mg PO Q12 09/14/20 Allergies/Adverse Reactions: ibuprofen [From Motrin] Allergy (Severe, Verified 03/20/17 09:43) Azotemia, acute renal failure Iodinated Contrast Media [Iodinated Contrast Media - Oral and] Allergy (Verified 03/20/17 09:43) Generalized Itching triamcinolone [From Kenalog] Allergy (Verified 03/20/17 09:43) pentazocine lactate [From Talwin] Adverse Reaction (Mild, Verified 03/20/17 09:43) Nausea Review of Systems ROS unobtainable: Due to mental status Physical Exam Vital Signs: Temp Pulse Resp BP Pulse Ox 97.7 F 82 29 H 115/60 92 09/21/20 10:00 09/21/20 10:00 09/21/20 10:00 09/21/20 10:00 09/21/20 10:00 Intake & Output 09/20/20 09/21/20 09/22/20 06:59 06:59 06:59 Intake Total 397 130 13 Output Total 660 740 225 Balance -263 -610 -212 Weight 87.5 kg 85.1 kg Exam: Currently intubated and sedated. Respiratory exam: PRESENT: clear to auscultation yung. ABSENT: crackles Cardiovascular exam: PRESENT: +S1, +S2 GI/Abdominal exam: PRESENT: normal bowel sounds, soft. ABSENT: organomegaly, tenderness Extremities exam: PRESENT: pedal edema Neurological exam: PRESENT: altered Results Laboratory Results: 09/21/20 04:00 09/21/20 04:00 09/21/20 09/21/20 04:00 04:00 WBC 28.7 H RBC 3.00 L Hgb 8.7 L Hct 25.8 L MCV 86 MCH 29.0 MCHC 33.7 RDW 16.3 H Plt Count 87 L Seg Neutrophils % Not Reportable Sodium 132.9 L Potassium 4.7 Chloride 101 Carbon Dioxide 26 Anion Gap 6 BUN 111 H D Creatinine 5.24 H Est GFR ( Amer) 10 L Glucose 117 H Calcium 8.2 L C-Reactive Protein 80.2 H 09/14/20 09/14/20 09/14/20 13:15 13:15 20:11 CK-MB (CK-2) 7.78 H Troponin I 7.090 6.940 NT-Pro-B Natriuret Pep 73653 H 09/15/20 09/15/20 09/17/20 02:02 05:47 09:56 CK-MB (CK-2) Troponin I 7.440 6.180 4.440 NT-Pro-B Natriuret Pep 09/18/20 09/19/20 09/20/20 13:55 03:16 04:22 CK-MB (CK-2) Troponin I 6.100 3.560 1.510 NT-Pro-B Natriuret Pep Impressions: Chest X-Ray 09/18/20 00:00 IMPRESSION: 1. Increased interstitial edema since yesterday KUB X-Ray 09/20/20 00:00 IMPRESSION: Esophagogastric tube tip and side-hole are below the diaphragm likely in the stomach. Assessment & Plan - Diagnosis (1) PILAR (acute kidney injury) Is this a current diagnosis for this admission?: Yes Plan: Came in with abnormal renal functions predominantly PILAR in the setting of Covid pneumonia and sepsis. Currently intubated and sedated. However she seems to be responding to Lasix. Her renal numbers are progressively getting worse. We will continue the same. No acute indications for renal replacements for today. We will watch closely and look for any indications to initiate renal replacements over the next few days. Discussed with jewelry technician. (2) Acute hypoxemic respiratory failure Is this a current diagnosis for this admission?: Yes Plan: In the face of Covid pneumonia. Currently intubated and sedated. (3) COVID-19 Is this a current diagnosis for this admission?: Yes Plan: With Covid pneumonia. Leukocytosis and very high D-dimers. Being managed by i ntensivist. (4) NSTEMI (non-ST elevated myocardial infarction) Is this a current diagnosis for this admission?: Yes Plan: As per cardiology. (5) Pneumonia due to COVID-19 virus Is this a current diagnosis for this admission?: Yes Plan: Being managed by jewelry technician. (6) Chronic obstructive pulmonary disease with (acute) exacerbation Plan: Status quo. On top of that she has Covid pneumonia. (7) Hypotension Plan: Currently weaned off pressors. Monitor. I would keep her systolic at least in the upper 90s or low 100 and if she drops below that would recommend starting her on a low-dose of Levophed.
[2020-09-21] MEDS: NORMAL SALINE 250 ML with FUROSEMIDE 250 MG IV PRN ×2 (17:41)
--- NOTE | 2020-09-21 17:59 | EKG REPORT ---
SEVERITY:- BORDERLINE ECG - SINUS RHYTHM VENTRICULAR PREMATURE COMPLEX BORDERLINE T ABNORMALITIES, DIFFUSE LEADS : Confirmed by: Jacqueline Roberson MD 21-Sep-2020 17:59:29
--- NOTE | 2020-09-21 19:18 | Progress Note ---
Provider Note Provider Note: CARDIOLOGY PROGRESS NOTE by Dr. Jacqueline Roberson on 09/21/2020. SUBJECTIVE . The patient is intubated and sedated. There is no arrhythmias seen. The patient is off all pressors and her blood pressure is stable. Patient had a good response to Lasix 80 mg IV push. Now the patient on Lasix drip after giving her a bolus dose of 80 mg of Lasix intravenously. This has been discussed with the consumer marketing analyst. With the Lasix drip the patient is making a little more urine. Await nephrology consult. PHYSICAL EXAMINATION: The patient is intubated and sedated and appears to be in no acute distress. Selected Entries 09/21/20 10:00 Core 97.9 F Temperature Heart Rate ( 82 Monitors) Respiratory 24 H Rate O2 Sat by Pulse 93 Oximetry Oxygen Delivery Mechanical Method ( Ventilator includes room air) Fraction of 75 Inspired Oxygen (FIO2) HEAD: Is atraumatic normocephalic. EYES: Pupils are equal round regular reactive to light. ENT is negative. NECK:. Carotids are equal there is no bruits. Neck is supple. There is no JVD there is no lymphadenopathy. There is no goiter. There is no accessory muscle respiration use. Trachea is central. LUNGS: There is diminished air entry prolonged expiration with scattered rhonchi and few dry crackles bilaterally. There is no rales of CHF. HEART: S1-S2 is heard. S1 is of normal intensity. There is no S3 gallop. There is an S4 gallop. There is systolic murmur left sternal border and the apex without radiation. There is no rub. ABDOMEN: Is soft. There is no hepatosplenomegaly. Bowel sounds are heard. EXTREMITIES: Femorals are deep. There is no femoral bruits. There is no pedal edema. There is no cyanosis or clubbing. There is no DVT or cellulitis. NURSE ORTHO and psychiatric not examined due to the patient being intubated and sedated. Patient's 24-hour intake is 130 mL. Output is 740 mL. Labs- All tests 24 hr 09/20/20 09/21/20 09/21/20 20:13 00:54 04:00 WBC RBC Hgb Hct MCV MCH MCHC RDW Plt Count Lymph % (Auto) Tate % (Auto) Eos % (Auto) Baso % (Auto) Absolute Neuts (auto) Absolute Lymphs (auto) Absolute Monos (auto) Absolute Eos (auto) Absolute Basos (auto) Total Counted Seg Neutrophils % Seg Neuts % (Manual) Lymphocytes % (Manual) Atypical Lymphs % Monocytes % (Manual) Eosinophils % (Manual) Basophils % (Manual) Metamyelocytes % Abs Neuts (Manual) Abs Lymphs (Manual) Abs Monocytes (Manual) Absolute Eos (Manual) Abs Basophils (Manual) Toxic Granulation Platelet Comment Poikilocytosis Anisocytosis Tear Drop Cells Ovalocytes Schistocytes APTT 64.8 H D-Dimer Sodium 132.9 L Potassium 4.7 Chloride 101 Carbon Dioxide 26 Anion Gap 6 BUN 111 H D Creatinine 5.24 H Est GFR ( Amer) 10 L Est GFR (MDRD) Non-Af 8 L Glucose 117 H POC Glucose 145 H Calcium 8.2 L C-Reactive Protein 80.2 H 09/21/20 09/21/20 09/21/20 04:00 04:00 06:31 WBC 28.7 H RBC 3.00 L Hgb 8.7 L Hct 25.8 L MCV 86 MCH 29.0 MCHC 33.7 RDW 16.3 H Plt Count 87 L Lymph % (Auto) Not Reportable Tate % (Auto) Not Reportable Eos % (Auto) Not Reportable Baso % (Auto) Not Reportable Absolute Neuts (auto) Not Reportable Absolute Lymphs (auto) Not Reportable Absolute Monos (auto) Not Reportable Absolute Eos (auto) Not Reportable Absolute Basos (auto) Not Reportable Total Counted 100 Seg Neutrophils % Not Reportable Seg Neuts % (Manual) 89 H Lymphocytes % (Manual) 2 L Atypical Lymphs % 1 Monocytes % (Manual) 7 Eosinophils % (Manual) 0 Basophils % (Manual) 0 Metamyelocytes % 1 Abs Neuts (Manual) 25.8 H Abs Lymphs (Manual) 0.9 Abs Monocytes (Manual) 2.0 H Absolute Eos (Manual) 0.0 Abs Basophils (Manual) 0.0 Toxic Granulation SLIGHT Platelet Comment DECREASED Poikilocytosis 1+ Anisocytosis 1+ Tear Drop Cells SLIGHT Ovalocytes 1+ Schistocytes SLIGHT APTT 51.3 H D-Dimer 16.17 H Sodium Potassium Chloride Carbon Dioxide Anion Gap BUN Creatinine Est GFR ( Amer) Est GFR (MDRD) Non-Af Glucose POC Glucose 151 H Calcium C-Reactive Protein 09/21/20 09/21/20 12:24 17:27 WBC RBC Hgb Hct MCV MCH MCHC RDW Plt Count Lymph % (Auto) Tate % (Auto) Eos % (Auto) Baso % (Auto) Absolute Neuts (auto) Absolute Lymphs (auto) Absolute Monos (auto) Absolute Eos (auto) Absolute Basos (auto) Total Counted Seg Neutrophils % Seg Neuts % (Manual) Lymphocytes % (Manual) Atypical Lymphs % Monocytes % (Manual) Eosinophils % (Manual) Basophils % (Manual) Metamyelocytes % Abs Neuts (Manual) Abs Lymphs (Manual) Abs Monocytes (Manual) Absolute Eos (Manual) Abs Basophils (Manual) Toxic Granulation Platelet Comment Poikilocytosis Anisocytosis Tear Drop Cells Ovalocytes Schistocytes APTT D-Dimer Sodium Potassium Chloride Carbon Dioxide Anion Gap BUN Creatinine Est GFR ( Amer) Est GFR (MDRD) Non-Af Glucose POC Glucose 135 H 166 H Calcium C-Reactive Protein Chest X-Ray 09/14/20 13:09 IMPRESSION: Patchy bilateral airspace disease most likely representing viral pn eumonitis. Chest X-Ray 09/15/20 06:00 IMPRESSION: NO SIGNIFICANT INTERVAL CHANGE. Chest X-Ray 09/16/20 00:00 IMPRESSION: 1. Intubated, with endotracheal tube tip within 1 cm of the mateusz. 2. Persistent pulmonary infiltrates 3. Enteric tube extends into the stomach Chest X-Ray 09/16/20 06:00 IMPRESSION: Stable radiographic appearance of the chest demonstrating diffuse airspace opacities. Chest X-Ray 09/17/20 06:00 IMPRESSION: STABLE APPEARANCE OF THE CHEST. SUPPORT DEVICES UNCHANGED. Chest X-Ray 09/18/20 00:00 IMPRESSION: 1. Increased interstitial edema since yesterday KUB X-Ray 09/20/20 00:00 IMPRESSION: Esophagogastric tube tip and side-hole are below the diaphragm likely in the stomach. IMPRESSION/RECOMMENDATION: 1.S/p cardiopulmonary arrest: With spontaneous return of circulation after CPR. Most likely this is a respiratory scarring causing cardiac arrest. Patient s/p intubation. 2. Covid related pneumonia. 3. Non-ST elevation HI: Especially with the new EKG inversion in the inferior leads. The troponin is trending down. I agree with the echo got about. Later once the blood pressure is stable we will start the patient on beta-trae and aspirin and nitrates. Will follow serial EKGs and troponin levels. His troponin is elevated back to 6.10. The EKG shows no progression or regression of the T wave changes in the inferior leads. We will start the patient on small dose of beta-trae and increase as tolerated. Continue argatroban. Continue aspirin. The patient's troponin I level has come down to 1.510. We will increase the Lopressor to 25 mg p.o. every 12 hours. 4. Hypotension: Seems to have resolved patient off Levophed at present. Blood pressure still in the 90s. As of yet pressors have not been started. 5. Acute on chronic kidney disease: Avoid nephrotoxic drugs. Note that the patient's renal function was normal in 2016. Her GFR is reduced to 22 mL/min in September 2020. At present may need dialysis since the patient is oliguric. Nephrology is not available over the weekend. 6. History of hypertension: At present blood pressure stable off pressors note patient was hypotensive most likely secondary to sepsis and respiratory problems. 7. History of COPD: At present no evidence of acute exacerbation although the patient has pneumonia. 8. Anemia: S/p transfusion: Would recommend GI work-up later: Continue prolonged proton pump inhibitors. 9. History of sleep apnea: 10. History of interstitial fibrosis:? Etiology Medications reviewed. Medication management and medical regimen discussed with consumer marketing analyst. Medical decision making is of high complexity. 40 minutes spent as patient more than 50% time spent in direct patient care. Will follow. All labs and imaging and EKGs and echocardiogram have been reviewed by me.
[2020-09-21] MEDS: MONTELUKAST SODIUM 10 MG TABLET PO SCH (22:14)
[2020-09-21] MEDS: TRAZODONE HCL 50 MG TABLET PO SCH (22:14)
[2020-09-21] MEDS: LEVOFLOXACIN 500 MG/D5W RTU 500 MG/100 ML RTUPB IV SCH (22:17)
[2020-09-22] MEDS: LEVALBUTEROL HCL NEB 0.63 MG/3 ML AMPUL NEB SCH ×6 (00:22→19:55)
[2020-09-22] MEDS: INSULIN REG, HUMAN 100 UNIT/ML 3 ML VIAL (PYX) SUBCUT SCH ×4 (05:31→23:05)
[2020-09-22 05:44] LABS: ALBUMIN 2.3 g/dL (3.5-5.0); ALKALINE PHOSPHATASE 180 U/L (38-126); ANION GAP 13 (5-19); ASPARTATE AMINO TRANSFERASE 166 U/L (14-36); BILIRUBIN,DIRECT 0.9 mg/dL (0.0-0.4); BILIRUBIN,TOTAL 1.5 mg/dL (0.2-1.3); CALCIUM 8.5 mg/dL (8.4-10.2); CARBON DIOXIDE 22 mmol/L (22-30); CHLORIDE 100 mmol/L (98-107); GLUCOSE 85 mg/dL (75-110); POTASSIUM 4.5 mmol/L (3.6-5.0); TOTAL PROTEIN 4.4 g/dL (6.3-8.2)
[2020-09-22 06:09] LABS: BLOOD UREA NITROGEN 124 mg/dL (7-20)
[2020-09-22] MEDS: BUDESONIDE NEB 0.25 MG/2 ML AMPUL NEB SCH ×2 (08:59→19:55)
[2020-09-22] MEDS: LEVETIRACETAM ORAL SOLN 500 MG/5 ML UDCUP NG SCH ×2 (09:34→23:07)
[2020-09-22] MEDS: ASCORBIC ACID 500 MG TABLET PO SCH ×3 (09:34→18:10)
[2020-09-22] MEDS: CHOLECALCIFEROL (D3) 1,000 UNIT (25 MCG) TABLET PO SCH (09:35)
[2020-09-22] MEDS: METOPROLOL TARTRATE 25 MG TABLET NG SCH ×2 (09:35→22:32)
[2020-09-22] MEDS: FAMOTIDINE INJ/PF 20 MG/2 ML SDV IV SCH ×2 (09:35→22:31)
[2020-09-22] MEDS: ASPIRIN 81 MG TABLET, CHEWABLE PO SCH (09:35)
[2020-09-22] MEDS: DEXAMETHASONE SOD PHOS INJ 10 MG/1 ML VIAL IV SCH (09:35)
--- NOTE | 2020-09-22 13:06 | PDOC CRITICAL CARE PROG REPORT ---
General Date:: 09/22/20 ICU Day:: 5 Ventilator Day:: 5 Hospital Day:: 8 Resuscitation Status: Full Code Events in the past 12 to 24 Hours:: This 69-year-old female smoker presented to [facility] e mergency department on 09/14/2020 with complaints of increased dyspnea. She reports a history of interstitial lung disease but denies COPD or emphysema. In the emergency department, she was found to be hypoxic and was placed on supplemental oxygen. Due to failure to improve oxygenation, she was placed on BiPAP support with an FiO2 of 100%. This was titrated at the bedside to CPAP 8. Her primary care physician (Dr. Joiner) requested ICU admission for acute hypoxemic respiratory failure. In the emergency department, her troponin was elevated (7.09) and proBNP 16,400. Chest x-ray was consistent with pulmonary edema. 09/15: She remains in the emergency department (lack of available beds). She is stable on CPAP 6, FiO2 100%. In fact, the nurse called earlier this morning to report that the patient was wandering around in the hallway. Denies chest pain. She states that her shortness of breath is improved with noninvasive positive pressure ventilatory support. Minimal cough. No sputum production. 2D echo pending. Patient discussed with Dr. Joiner. 09/18: Transferred to the ICU and reintubated. Currently stable 09/19: Renal function worsening, heading toward HD. Stop versed and assess neuro status. 09/20: Still not very awake. Renal function worse, LFTs better after arrest. 09/21: Still not responsive on no sedation. Renal function worse. Heading toward dialysis. Dr. Kathleen consulted. 09/22: Still making urine. Not needing HD now. Still not awake. Cant extubate. Review of systems relevant to events:: Neurological, pulmonary, renal. Reason for ICU Addmission:: s/p cardiac arrest. Intubated. - Medications: Medications reviewed and adjusted accordingly: Yes Vasopressors:: Levophed. Sedation:: None Physical Exam Vital Signs: Temp Pulse Resp BP Pulse Ox 97.7 F 90 26 H 115/60 90 L 09/22/20 10:00 09/22/20 12:39 09/22/20 12:39 09/21/20 10:00 09/22/20 12:39 Intake & Output 09/21/20 09/22/20 09/23/20 06:59 06:59 06:59 Intake Total 130 873 438 Output Total 740 2035 725 Balance -470 -999 -766 Weight 85.1 kg 85.8 kg Weight/Height Weight 85.8 kg Height 5 ft 2 in General appearance: PRESENT: no acute distress Head exam: PRESENT: atraumatic, normocephalic Eye exam: PRESENT: conjunctiva pink, EOMI, PERRLA. ABSENT: scleral icterus Ear exam: PRESENT: normal external ear exam Mouth exam: PRESENT: moist, tongue midline Respiratory exam: PRESENT: clear to auscultation yung, decreased breath sounds. ABSENT: rales, rhonchi, wheezes Cardiovascular exam: PRESENT: RRR. ABSENT: diastolic murmur, rubs, systolic murmur GI/Abdominal exam: PRESENT: normal bowel sounds, soft. ABSENT: distended, guarding, mass, organolmegaly, rebound, tenderness Rectal exam: PRESENT: deferred Gentrourinary exam: PRESENT: indwelling catheter Extremities exam: PRESENT: full ROM. ABSENT: calf tenderness, clubbing, pedal edema Musculoskeletal exam: PRESENT: normal inspection Neurological exam: PRESENT: other - Moves all extremities but not purposeful. Does not follow commands. Skin exam: PRESENT: dry, intact, warm. ABSENT: cyanosis, rash Tubes/Lines: PRESENT: Endotracheal Tube, Nasogastic Tube Laboratory/Radiographs Laboratory Results: 09/21/20 04:00 09/22/20 04:45 09/22/20 04:45 Sodium 135.1 L Potassium 4.5 Chloride 100 Carbon Dioxide 22 Anion Gap 13 BUN 124 H Creatinine 5.39 H Est GFR ( Amer) 9 L Glucose 85 Calcium 8.5 Total Bilirubin 1.5 H AST 166 H Alkaline Phosphatase 180 H Total Protein 4.4 L Albumin 2.3 L 09/14/20 09/14/20 09/14/20 13:15 13:15 20:11 CK-MB (CK-2) 7.78 H Troponin I 7.090 6.940 NT-Pro-B Natriuret Pep 54437 H 09/15/20 09/15/20 09/17/20 02:02 05:47 09:56 CK-MB (CK-2) Troponin I 7.440 6.180 4.440 NT-Pro-B Natriuret Pep 09/18/20 09/19/20 09/20/20 13:55 03:16 04:22 CK-MB (CK-2) Troponin I 6.100 3.560 1.510 NT-Pro-B Natriuret Pep Impressions: Chest X-Ray 09/18/20 00:00 IMPRESSION: 1. Increased interstitial edema since yesterday KUB X-Ray 09/20/20 00:00 IMPRESSION: Esophagogastric tube tip and side-hole are below the diaphragm likely in the stomach. All labs, radiographs, diagnostic studies and EKGs were personally reviewed: Yes In addition, reports of radiographic and diagnostic studies were read: Yes Assessment and Plan - Diagnosis (1) COVID-19 Is this a current diagnosis for this admission?: Yes Plan: The cause of her hypoxia and arrest. (2) Interstitial lung disease Is this a current diagnosis for this admission?: Yes Plan: Worsening her lung issues mae doubt. (3) PILAR (acute kidney injury) Is this a current diagnosis for this admission?: Yes Plan: She is not in need of HD at this point. (4) Cardiac arrest Is this a current diagnosis for this admission?: Yes Plan: This is likely the cause of her mental status. She has not recovered well as yet and it is doubtful she will. Not able to cooperate with coughing and deep breathing to extubate. Plan Summary: Support as we can. Case management searching for surrogate decision maker as is also hospitalized at this time. Critical Time Critical Time (minutes): 35 Level of Care: ICU Anticipated discharge: SNF Anticipated DC Timeframe: Other -: 1. The care of a critical patient is a dynamic process. This note is a technical sales representatives synopsis but static in nature. The timeframe for treatments given in order is not necessarily the actual time these treatments may have been done. 2. This patient requires critical care secondary to ongoing requirements for therapy not offered or safe outside the critical care environment. Transfer to a lower level of care will result in altered life or limb morbidity and mortality. 3. Multidisciplinary rounds completed. 4. ABCDE bundle addressed.
[2020-09-22 14:52] LABS: ARTERIAL BLOOD BASE EXCESS -2.8 mmol/L; ARTERIAL BLOOD H2CO3 1.03 mmol/L (1.05-1.35); ARTERIAL BLOOD HCO3 21.4 mmol/L (20-24); ARTERIAL BLOOD O2 SATURATION 88.9 % (94-98); ARTERIAL BLOOD PCO2 34.3 mmHg (35-45); ARTERIAL BLOOD PH 7.41 (7.35-7.45); ARTERIAL BLOOD PO2 54.3 mmHg (80-100); ARTERIAL BLOOD TOTAL CO2 22.4 mmol/L (21-25)
[2020-09-22 14:54] LABS: ARTERIAL BLOOD FIO2 75%
--- NOTE | 2020-09-22 21:46 | Progress Note ---
Provider Note Provider Note: CARDIOLOGY PROGRESS NOTE by Dr. Jacqueline Roberson on 09/22/2020. SUBJECTIVE . The patient is intubated and sedated. There is no arrhythmias seen. The patient is off all pressors and her blood pressure is stable. The patient is putting out more amount of urine on the Lasix drip. PHYSICAL EXAMINATION: The patient is intubated and sedated and appears to be in no acute distress. Selected Entries 09/22/20 09/22/20 09/22/20 15:00 16:00 16:42 Core 98.6 F Temperature Heart Rate ( 84 Monitors) Respiratory 27 H Rate O2 Sat by Pulse 89 L 94 Oximetry Fraction of 75 Inspired Oxygen (FIO2) Arterial Blood 138 Pressure- Systolic Aterial Blood 69 Pressure- Diastolic Arterial Blood 94 Pressure- Mean 09/22/20 17:00 Core Temperature Heart Rate ( Monitors) Respiratory 35 H Rate O2 Sat by Pulse Oximetry Fraction of Inspired Oxygen (FIO2) Arterial Blood 120 Pressure- Systolic Aterial Blood 62 Pressure- Diastolic Arterial Blood 83 Pressure- Mean HEAD: Is atraumatic normocephalic. EYES: Pupils are equal round regular reactive to light. ENT is negative. NECK:. Carotids are equal there is no bruits. Neck is supple. There is no JVD there is no lymphadenopathy. There is no goiter. There is no accessory muscle respiration use. Trachea is central. LUNGS: There is diminished air entry prolonged expiration with scattered rhonchi and few dry crackles bilaterally. There is no rales of CHF. HEART: S1-S2 is heard. S1 is of normal intensity. There is no S3 gallop. There is an S4 gallop. There is systolic murmur left sternal border and the apex without radiation. There is no rub. ABDOMEN: Is soft. There is no hepatosplenomegaly. Bowel sounds are heard. EXTREMITIES: Femorals are deep. There is no femoral bruits. There is no pedal edema. There is no cyanosis or clubbing. There is no DVT or cellulitis. AGRICULTURAL PRODUCTION ENGINEER and psychiatric not examined due to the patient being intubated and sedated. Patient's 24-hour intake is 873 mL. Output is 1865 mL Labs- All tests 24 hr 09/21/20 09/22/20 09/22/20 23:45 04:45 04:45 APTT 54.7 H Carbonic Acid HCO3/H2CO3 Ratio ABG pH ABG pCO2 ABG pO2 ABG HCO3 ABG Total CO2 ABG O2 Saturation ABG Base Excess FiO2 Sodium 135.1 L Potassium 4.5 Chloride 100 Carbon Dioxide 22 Anion Gap 13 BUN 124 H Creatinine 5.39 H Est GFR ( Amer) 9 L Est GFR (MDRD) Non-Af 8 L Glucose 85 POC Glucose 168 H Calcium 8.5 Total Bilirubin 1.5 H Direct Bilirubin 0.9 H Neonat Total Bilirubin Not Reportable Neonat Direct Bilirubin Not Reportable Neonat Indirect Bili Not Reportable AST 166 H ALT 296 H Alkaline Phosphatase 180 H Total Protein 4.4 L Albumin 2.3 L 09/22/20 09/22/20 09/22/20 05:23 12:38 14:28 APTT Carbonic Acid 1.03 L HCO3/H2CO3 Ratio 20:1 ABG pH 7.41 ABG pCO2 34.3 L ABG pO2 54.3 L ABG HCO3 21.4 ABG Total CO2 22.4 ABG O2 Saturation 88.9 L ABG Base Excess -2.8 FiO2 75% Sodium Potassium Chloride Carbon Dioxide Anion Gap BUN Creatinine Est GFR ( Amer) Est GFR (MDRD) Non-Af Glucose POC Glucose 121 H 134 H Calcium Total Bilirubin Direct Bilirubin Neonat Total Bilirubin Neonat Direct Bilirubin Neonat Indirect Bili AST ALT Alkaline Phosphatase Total Protein Albumin 09/22/20 09/22/20 18:06 23:04 APTT Carbonic Acid HCO3/H2CO3 Ratio ABG pH ABG pCO2 ABG pO2 ABG HCO3 ABG Total CO2 ABG O2 Saturation ABG Base Excess FiO2 Sodium Potassium Chloride Carbon Dioxide Anion Gap BUN Creatinine Est GFR ( Amer) Est GFR (MDRD) Non-Af Glucose POC Glucose 163 H 133 H Calcium Total Bilirubin Direct Bilirubin Neonat Total Bilirubin Neonat Direct Bilirubin Neonat Indirect Bili AST ALT Alkaline Phosphatase Total Protein Albumin Chest X-Ray 09/14/20 13:09 IMPRESSION: Patchy bilateral airspace disease most likely representing viral pneumonitis. Chest X-Ray 09/15/20 06:00 IMPRESSION: NO SIGNIFICANT INTERVAL CHANGE. Chest X-Ray 09/16/20 00:00 IMPRESSION: 1. Intubated, with endotracheal tube tip within 1 cm of the mateusz. 2. Persistent pulmonary infiltrates 3. Enteric tube extends into the stomach Chest X-Ray 09/16/20 06:00 IMPRESSION: Stable radiographic appearance of the chest demonstrating diffuse airspace opacities. Chest X-Ray 09/17/20 06:00 IMPRESSION: STABLE APPEARANCE OF THE CHEST. SUPPORT DEVICES UNCHANGED. Chest X-Ray 09/18/20 00:00 IMPRESSION: 1. Increased interstitial edema since yesterday KUB X-Ray 09/20/20 00:00 IMPRESSION: Esophagogastric tube tip and side-hole are below the diaphragm likely in the stomach. IMPRESSION/RECOMMENDATION: 1.S/p cardiopulmonary arrest: With spontaneous return of circulation after CPR. Most likely this is a respiratory scarring causing cardiac arrest. Patient s/p intubation. 2. Covid related pneumonia. 3. Non-ST elevation [place]: Especially with the new EKG inversion in the inferior leads. The troponin is trending down. I agree with the echo got about. Later once the blood pressure is stable we will start the patient on beta-trae and aspirin and nitrates. Will follow serial EKGs and troponin levels. His troponin is elevated back to 6.10. The EKG shows no progression or regression of the T wave changes in the inferior leads. We will start the patient on small dose of beta-trae and increase as tolerated. Continue argatroban. Continue aspirin. The patient's troponin I level has come down to 1.510. We will increase the Lopressor to 25 mg p.o. every 12 hours. 4. Hypotension: Seems to have resolved patient off Levophed at present. Blood pressure still in the 90s. As of yet pressors have not been started. 5. Acute on chronic kidney disease: Avoid nephrotoxic drugs. Note that the patient's renal function was normal in 2016. Her GFR is reduced to 22 mL/min in September 2020. At present may need dialysis since the patient is oliguric. Nephrology is not available over the weekend. 6. History of hypertension: At present blood pressure stable off pressors note patient was hypotensive most likely secondary to sepsis and respiratory problems. 7. History of COPD: At present no evidence of acute exacerbation although the patient has pneumonia. 8. Anemia: S/p transfusion: Would recommend GI work-up later: Continue prolonged proton pump inhibitors. 9. History of sleep apnea: 10. History of interstitial fibrosis:? Etiology Medications reviewed. Medication management and medical regimen discussed with entry level project engineer. Medical decision making is of high complexity. 40 minutes spent as patient more than 50% time spent in direct patient care. Will follow. All labs and imaging and EKGs and echocardiogram have been reviewed by me.
[2020-09-22] MEDS ORDERED: LEVETIRACETAM ORAL SOLN 500 MG/5 ML UDCUP ONE ×2 (21:53→22:55)
[2020-09-22] MEDS: MONTELUKAST SODIUM 10 MG TABLET PO SCH (22:32)
[2020-09-22] MEDS: TRAZODONE HCL 50 MG TABLET PO SCH (22:32)
[2020-09-22] MEDS: NORMAL SALINE 250 ML with FUROSEMIDE 250 MG IV PRN ×2 (23:06)
[2020-09-23] MEDS: LEVALBUTEROL HCL NEB 0.63 MG/3 ML AMPUL NEB SCH ×6 (00:27→21:11)
[2020-09-23 05:58] LABS: HEMATOCRIT 22.2 % (36.0-47.0); MEAN CORPUSCULAR HEMOGLOBIN 29.3 pg (27.0-33.4); MEAN CORPUSCULAR HGB CONC 34.2 g/dL (32.0-36.0); MEAN CORPUSCULAR VOLUME 86 fl (80-97); RED BLOOD COUNT 2.59 10^6/uL (3.72-5.28); RED CELL DISTRIBUTION WIDTH 16.5 % (11.5-14.0); WHITE BLOOD COUNT 22.2 10^3/uL (4.0-10.5)
[2020-09-23 06:00] LABS: PLATELET COUNT 95 10^3/uL (150-450)
[2020-09-23 06:01] LABS: ANION GAP 9 (5-19); CARBON DIOXIDE 26 mmol/L (22-30); CHLORIDE 97 mmol/L (98-107); GLUCOSE 93 mg/dL (75-110); POTASSIUM 4.3 mmol/L (3.6-5.0)
[2020-09-23 06:12] LABS: BLOOD UREA NITROGEN 136 mg/dL (7-20)
[2020-09-23] MEDS: INSULIN REG, HUMAN 100 UNIT/ML 3 ML VIAL (PYX) SUBCUT SCH ×3 (06:14→17:01)
[2020-09-23 06:26] LABS: ABSOLUTE MONOCYTES # (MANUAL) 0.2 10^3/uL (0.1-1.4); BAND NEUTROPHILS % (MANUAL) 4 % (3-5); BASOPHILS % (MANUAL) 0 % (0-2); EOSINOPHILS % (MANUAL) 0 % (0-6); LYMPHOCYTES % (MANUAL) 9 % (13-45); METAMYELOCYTES % (MANUAL) 1 % (0-1); MONOCYTES % (MANUAL) 1 % (3-13); NUCLEATED RED BLOOD CELLS 2 /100 WBC (0); SEGMENTED NEUTROPHILS % (MAN) 85 % (42-78); TOTAL CELLS COUNTED 100
[2020-09-23 06:30] LABS: ANISOCYTOSIS 1+; PLATELET COMMENT DECREASED; POIKILOCYTOSIS SLIGHT; POLYCHROMASIA SLIGHT; SCHISTOCYTES SLIGHT
[2020-09-23 06:32] LABS: HEMOGLOBIN 7.6 g/dL (12.0-15.5)
[2020-09-23] MEDS ORDERED: NORMAL SALINE 250 ML with FUROSEMIDE 250 MG IV PRN ×2 (08:20)
[2020-09-23] MEDS: BUDESONIDE NEB 0.25 MG/2 ML AMPUL NEB SCH ×2 (08:48→21:11)
--- NOTE | 2020-09-23 09:23 | RADIOLOGY REPORT (SQ) ---
EXAM DESCRIPTION: CHEST SINGLE VIEW IMAGES COMPLETED DATE/TIME: 09/23/2020 6:39 am REASON FOR STUDY: congestion COMPARISON: 09/18/2020 NUMBER OF VIEWS: One view. TECHNIQUE: Single frontal radiographic image of the chest acquired. LIMITATIONS: None. FINDINGS: LUNGS AND PLEURA: Bilateral airspace disease with slight improved aeration in the lung bas es. No pneumothorax. MEDIASTINUM AND HEART: Stable heart size and mediastinal structures. SUPPORT DEVICES: Appropriate location without change. BONY STRUCTURES: No acute findings. HARDWARE: None. OTHER: No other significant finding. IMPRESSION: Slight improvement. No pneumothorax. Reading location - IP/workstation name: [email or web address]
[2020-09-23] MEDS: ASCORBIC ACID 500 MG TABLET PO SCH ×3 (09:38→17:01)
[2020-09-23] MEDS: ASPIRIN 81 MG TABLET, CHEWABLE PO SCH (09:38)
[2020-09-23] MEDS: CHOLECALCIFEROL (D3) 1,000 UNIT (25 MCG) TABLET PO SCH (09:39)
[2020-09-23] MEDS: METOPROLOL TARTRATE 25 MG TABLET NG SCH ×2 (09:39→21:46)
[2020-09-23] MEDS: FAMOTIDINE INJ/PF 20 MG/2 ML SDV IV SCH ×2 (09:39→21:45)
[2020-09-23] MEDS: DEXAMETHASONE SOD PHOS INJ 10 MG/1 ML VIAL IV SCH (09:39)
[2020-09-23] MEDS: LEVETIRACETAM ORAL SOLN 500 MG/5 ML UDCUP NG SCH ×2 (09:40→21:46)
--- NOTE | 2020-09-23 10:53 | Progress Note ---
Provider Note Provider Note: CARDIOLOGY PROGRESS NOTE by Dr. Jacqueline Roberson on 09/23/2020. SUBJECTIVE . The patient is intubated and sedated. There is no arrhythmias seen. The patient is off all pressors and her blood pressure is stable. The patient is putting out more amount of urine on the Lasix drip. PHYSICAL EXAMINATION: The patient is intubated and sedated and appears to be in no acute distress. Selected Entries 09/23/20 09/23/20 09/23/20 06:00 08:00 08:48 Pulse Rate 100 112 H Respiratory 29 H 39 H Rate Positive End 5 Expiratory Pressure Blood Pressure 114/51 L [Femoral Artery ] Blood Pressure 72 Mean [Femoral Artery] Blood Pressure Supine Position [ Femoral Artery] O2 Sat by Pulse 91 L 89 L Oximetry Oxygen Delivery Mechanical Method ( Ventilator includes room air) Fraction of 75 100 Inspired Oxygen (FIO2) HEAD: Is atraumatic normocephalic. EYES: Pupils are equal round regular reactive to light. ENT is negative. NECK:. Carotids are equal there is no bruits. Neck is supple. There is no JVD there is no lymphadenopathy. There is no goiter. There is no accessory muscle respiration use. Trachea is central. LUNGS: There is diminished air entry prolonged expiration with scattered rhonchi and few dry crackles bilaterally. There is no rales of CHF. HEART: S1-S2 is heard. S1 is of normal intensity. There is no S3 gallop. There is an S4 gallop. There is systolic murmur left sternal border and the apex without radiation. There is no rub. ABDOMEN: Is soft. There is no hepatosplenomegaly. Bowel sounds are heard. EXTREMITIES: Femorals are deep. There is no femoral bruits. There is no pedal edema. There is no cyanosis or clubbing. There is no DVT or cellulitis. BAGGAGE PORTER HEAD and psychiatric not examined due to the patient being intubated and sedated. Patient's 24-hour intake is 1014 mL. Output is 2635 mL. Labs- All tests 24 hr 09/22/20 09/22/20 09/22/20 12:38 14:28 18:06 WBC RBC Hgb Hct MCV MCH MCHC RDW Plt Count Lymph % (Auto) [place] % (Auto) Eos % (Auto) Baso % (Auto) Absolute Neuts (auto) Absolute Lymphs (auto) Absolute Monos (auto) Absolute Eos (auto) Absolute Basos (auto) Total Counted Seg Neutrophils % Seg Neuts % (Manual) Band Neutrophils % Lymphocytes % (Manual) Monocytes % (Manual) Eosinophils % (Manual) Basophils % (Manual) Metamyelocytes % Abs Neuts (Manual) Abs Lymphs (Manual) Abs Monocytes (Manual) Absolute Eos (Manual) Abs Basophils (Manual) Nucleated RBCs Platelet Comment Polychromasia Poikilocytosis Anisocytosis Schistocytes APTT Carbonic Acid 1.03 L HCO3/H2CO3 Ratio 20:1 ABG pH 7.41 ABG pCO2 34.3 L ABG pO2 54.3 L ABG HCO3 21.4 ABG Total CO2 22.4 ABG O2 Saturation 88.9 L ABG Base Excess -2.8 FiO2 75% Sodium Potassium Chloride Carbon Dioxide Anion Gap BUN Creatinine Est GFR ( Amer) Est GFR (MDRD) Non-Af Glucose POC Glucose 134 H 163 H Calcium 09/22/20 09/23/20 09/23/20 23:04 04:46 04:46 WBC 22.2 H RBC 2.59 L Hgb 7.6 L Hct 22.2 L MCV 86 MCH 29.3 MCHC 34.2 RDW 16.5 H Plt Count 95 L Lymph % (Auto) Not Reportable [place] % (Auto) Not Reportable Eos % (Auto) Not Reportable Baso % (Auto) Not Reportable Absolute Neuts (auto) Not Reportable Absolute Lymphs (auto) Not Reportable Absolute Monos (auto) Not Reportable Absolute Eos (auto) Not Reportable Absolute Basos (auto) Not Reportable Total Counted 100 Seg Neutrophils % Not Reportable Seg Neuts % (Manual) 85 H Band Neutrophils % 4 Lymphocytes % (Manual) 9 L Monocytes % (Manual) 1 L Eosinophils % (Manual) 0 Basophils % (Manual) 0 Metamyelocytes % 1 Abs Neuts (Manual) 20.0 H Abs Lymphs (Manual) 2.0 Abs Monocytes (Manual) 0.2 Absolute Eos (Manual) 0.0 Abs Basophils (Manual) 0.0 Nucleated RBCs 2 Platelet Comment DECREASED Polychromasia SLIGHT Poikilocytosis SLIGHT Anisocytosis 1+ Schistocytes SLIGHT APTT Carbonic Acid HCO3/H2CO3 Ratio ABG pH ABG pCO2 ABG pO2 ABG HCO3 ABG Total CO2 ABG O2 Saturation ABG Base Excess FiO2 Sodium 132.2 L Potassium 4.3 Chloride 97 L Carbon Dioxide 26 Anion Gap 9 BUN 136 H Creatinine 5.80 H Est GFR ( Amer) 9 L Est GFR (MDRD) Non-Af 7 L Glucose 93 POC Glucose 133 H Calcium 9.0 09/23/20 04:46 WBC RBC Hgb Hct MCV MCH MCHC RDW Plt Count Lymph % (Auto) [place] % (Auto) Eos % (Auto) Baso % (Auto) Absolute Neuts (auto) Absolute Lymphs (auto) Absolute Monos (auto) Absolute Eos (auto) Absolute Basos (auto) Total Counted Seg Neutrophils % Seg Neuts % (Manual) Band Neutrophils % Lymphocytes % (Manual) Monocytes % (Manual) Eosinophils % (Manual) Basophils % (Manual) Metamyelocytes % Abs Neuts (Manual) Abs Lymphs (Manual) Abs Monocytes (Manual) Absolute Eos (Manual) Abs Basophils (Manual) Nucleated RBCs Platelet Comment Polychromasia Poikilocytosis Anisocytosis Schistocytes APTT 50.8 H Carbonic Acid HCO3/H2CO3 Ratio ABG pH ABG pCO2 ABG pO2 ABG HCO3 ABG Total CO2 ABG O2 Saturation ABG Base Excess FiO2 Sodium Potassium Chloride Carbon Dioxide Anion Gap BUN Creatinine Est GFR ( Amer) Est GFR (MDRD) Non-Af Glucose POC Glucose Calcium Chest X-Ray 09/14/20 13:09 IMPRESSION: Patchy bilateral airspace disease most likely representing viral pneumonitis. Chest X-Ray 09/15/20 06:00 IMPRESSION: NO SIGNIFICANT INTERVAL CHANGE. Chest X-Ray 09/16/20 00:00 IMPRESSION: 1. Intubated, with endotracheal tube tip within 1 cm of the mateusz. 2. Persistent pulmonary infiltrates 3. Enteric tube extends into the stomach Chest X-Ray 09/16/20 06:00 IMPRESSION: Stable radiographic appearance of the chest demonstrating diffuse airspace opacities. Chest X-Ray 09/17/20 06:00 IMPRESSION: STABLE APPEARANCE OF THE CHEST. SUPPORT DEVICES UNCHANGED. Chest X-Ray 09/18/20 00:00 IMPRESSION: 1. Increased interstitial edema since yesterday KUB X-Ray 09/20/20 00:00 IMPRESSION: Esophagogastric tube tip and side-hole are below the diaphragm likely in the stomach. Chest X-Ray 09/23/20 04:00 IMPRESSION: Slight improvement. No pneumothorax. IMPRESSION/RECOMMENDATION: 1.S/p cardiopulmonary arrest: With spontaneous return of circulation after CPR. Most likely this is a respiratory scarring causing cardiac arrest. Patient s/p intubation. 2. Covid related pneumonia. 3. Non-ST elevation [place]: Especially with the new EKG inversion in the inferior leads. The troponin is trending down. I agree with the echo got about. Later once the blood pressure is stable we will start the patient on beta-trae and aspirin and nitrates. Will follow serial EKGs and troponin levels. His troponin is elevated back to 6.10. The EKG shows no progression or regression of the T wave changes in the inferior leads. We will start the patient on small dose of beta-trae and increase as tolerated. Continue argatroban. Continue aspirin. The patient's troponin I level has come down to 1.510. She is tolerating the Lopressor to 25 mg NG tube. every 12 hours. 4. Hypotension: Seems to have resolved patient off Levophed at present. Blood pressure still in the 90s. As of yet pressors have not been started. 5. Acute on chronic kidney disease: Avoid nephrotoxic drugs. Note that the patient's renal function was normal in 2016. Her GFR is reduced to 22 mL/min in September 2020. At present may need dialysis since the patient is oliguric. Nephrology consult appreciated. Note that the patient's urine output is good but the patient's renal parameters i.e. BUN/creatinine are worsening. 6. History of hypertension: At present blood pressure stable off pressors note patient was hypotensive most likely secondary to sepsis and respiratory problems. 7. History of COPD: At present no evidence of acute exacerbation although the patient has pneumonia. 8. Anemia: S/p transfusion: Would recommend GI work-up later: Continue prolonged proton pump inhibitors. Again the patient's hemoglobin is dropped to 7.6. This may partly be due to hemodilution. But will check stool occult blood. 9. History of sleep apnea: 10. History of interstitial fibrosis:? Etiolo Medications reviewed. Medication management and medical regimen discussed with emergency department manager. Medical decision making is of high complexity. 40 minutes spent as patient more than 50% time spent in direct patient care. Will follow. All labs and imaging and EKGs and echocardiogram have been reviewed by me.
--- NOTE | 2020-09-23 11:56 | PDOC PROGRESS REPORT ---
Subjective Date:: 09/23/20 Reason For Visit: Patient seen in the ICU today. She remains intubated and sedated. She is a ctually doing well and is off all pressors and hemodynamically stable. She is making good amount of urine output even though her renal numbers are rather worse from yesterday. Discussions were done with the treating nurse as well as the radio station operator Physical Exam Vital Signs: Temp Pulse Resp BP Pulse Ox 98.8 F 114 H 39 H 129/61 H 85 L 09/23/20 04:00 09/23/20 10:00 09/23/20 10:00 09/23/20 10:00 09/23/20 10:00 Intake & Output 09/22/20 09/23/20 09/24/20 06:59 06:59 06:59 Intake Total 873 1014 103 Output Total 1865 2635 190 Balance -992 -1621 -87 Weight 85.8 kg 87 kg Exam: Remains intubated and sedated. Respiratory exam: PRESENT: clear to auscultation yung. ABSENT: crackles Cardiovascular exam: PRESENT: +S1, +S2 GI/Abdominal exam: PRESENT: normal bowel sounds, soft. ABSENT: organomegaly, tenderness Extremities exam: PRESENT: pedal edema Results Laboratory Results: 09/23/20 04:46 09/23/20 04:46 09/22/20 09/23/20 09/23/20 14:28 04:46 04:46 WBC 22.2 H RBC 2.59 L Hgb 7.6 L Hct 22.2 L MCV 86 MCH 29.3 MCHC 34.2 RDW 16.5 H Plt Count 95 L Seg Neutrophils % Not Reportable Carbonic Acid 1.03 L HCO3/H2CO3 Ratio 20:1 ABG pH 7.41 ABG pCO2 34.3 L ABG pO2 54.3 L ABG HCO3 21.4 ABG O2 Saturation 88.9 L ABG Base Excess -2.8 FiO2 75% Sodium 132.2 L Potassium 4.3 Chloride 97 L Carbon Dioxide 26 Anion Gap 9 BUN 136 H Creatinine 5.80 H Est GFR ( Amer) 9 L Glucose 93 Calcium 9.0 09/14/20 09/14/20 09/14/20 13:15 13:15 20:11 CK-MB (CK-2) 7.78 H Troponin I 7.090 6.940 NT-Pro-B Natriuret Pep 11545 H 09/15/20 09/15/20 09/17/20 02:02 05:47 09:56 CK-MB (CK-2) Troponin I 7.440 6.180 4.440 NT-Pro-B Natriuret Pep 09/18/20 09/19/20 09/20/20 13:55 03:16 04:22 CK-MB (CK-2) Troponin I 6.100 3.560 1.510 NT-Pro-B Natriuret Pep Impressions: KUB X-Ray 09/20/20 00:00 IMPRESSION: Esophagogastric tube tip and side-hole are below the diaphragm likely in the stomach. Chest X-Ray 09/23/20 04:00 IMPRESSION: Slight improvement. No pneumothorax. Assessment & Plan - Diagnosis (1) PILAR (acute kidney injury) Is this a current diagnosis for this admission?: Yes Plan: Came in with abnormal renal functions predominantly PILAR in the setting of Covid pneumonia and sepsis. Currently intubated and sedated. However she seems to be responding to Lasix. Her renal numbers are progressively getting worse. We will continue the same. No acute indications for renal replacements for today. We will watch closely and look for any indications to initiate renal replacements over the next few days. Discussed with radio station operator. (2) Acute hypoxemic respiratory failure Is this a current diagnosis for this admission?: Yes Plan: In the face of Covid pneumonia. Currently intubated and sedated. (3) COVID-19 Is this a current diagnosis for this admission?: Yes Plan: With Covid pneumonia. Leukocytosis and very high D-dimers. Being managed by radio station operator. (4) NSTEMI (non-ST elevated myocardial infarction) Is this a current diagnosis for this admission?: Yes Plan: As per cardiology. (5) Pneumonia due to COVID-19 virus Is this a current diagnosis for this admission?: Yes Plan: Being managed by radio station operator. (6) Chronic obstructive pulmonary disease with (acute) exacerbation Plan: Status quo. On top of that she has Covid pneumonia. (7) Hypotension Plan: Currently weaned off pressors. Monitor. I would keep her systolic at least in the upper 90s or low 100 and if she drops below that would recommend starting her on a low-dose of Levophed.
--- NOTE | 2020-09-23 12:18 | PDOC CRITICAL CARE PROG REPORT ---
General Date:: 09/23/20 ICU Day:: 6 Ventilator Day:: 6 Hospital Day:: 9 Resuscitation Status: Full Code Events in the past 12 to 24 Hours:: This 69-year-old female smoker [facility] with complaints of increased dyspnea. She reports a history of interstitial lung disease but denies COPD or emphysema. In the emergency department, she was found to be hypoxic and was placed on supplemental oxygen. Due to failure to improve oxygenation, she was placed on BiPAP support with an FiO2 of 100%. This was titrated at the bedside to CPAP 8. Her primary care physician (Dr. Joiner) requested ICU admission for acute hypoxemic respiratory failure. In the emergency department, her troponin was elevated (7.09) and proBNP 16,400. Chest x-ray was consistent with pulmonary edema. 09/15: She remains in the emergency department (lack of available beds). She is stable on CPAP 6, FiO2 100%. In fact, the nurse called earlier this morning to report that the patient was wandering around in the hallway. Denies chest pain. She states that her shortness of breath is improved with noninvasive positive pressure ventilatory support. Minimal cough. No sputum production. 2D echo pending. Patient discussed with Dr. Joiner. 09/18: Transferred to the ICU and reintubated. Currently stable 09/19: Renal function worsening, heading toward HD. Stop versed and assess neuro status. 09/20: Still not very awake. Renal function worse, LFTs better after arrest. 09/21: Still not responsive on no sedation. Renal function worse. Heading toward dialysis. Dr. Kathleen consulted. 09/22: Still making urine. Not needing HD now. Still not awake. Cant extubate. 09/23: Making more urine. No HD today. Covid ARDS by the numbers. Not responsive. Review of systems relevant to events:: Neurological, renal, pulmonary. Reason for ICU Addmission:: s/p cardiac arrest. Intubated. - Medications: Medications reviewed and adjusted accordingly: Yes Vasopressors:: None Sedation:: None Physical Exam Vital Signs: Temp Pulse Resp BP Pulse Ox 98.8 F 114 H 39 H 129/61 H 85 L 09/23/20 04:00 09/23/20 10:00 09/23/20 10:00 09/23/20 10:00 09/23/20 10:00 Intake & Output 09/22/20 09/23/20 09/24/20 06:59 06:59 06:59 Intake Total 873 1014 103 Output Total 1865 2635 190 Balance -992 -1621 -87 Weight 85.8 kg 87 kg Weight/Height Weight 87 kg Height 5 ft 2 in General appearance: PRESENT: no acute distress Head exam: PRESENT: atraumatic, normocephalic Eye exam: PRESENT: conjunctiva pink, EOMI, PERRLA. ABSENT: scleral icterus Ear exam: PRESENT: normal external ear exam Mouth exam: PRESENT: moist, tongue midline Respiratory exam: PRESENT: clear to auscultation yung, decreased breath sounds. ABSENT: rales, rhonchi, wheezes Cardiovascular exam: PRESENT: RRR, tachycardia. ABSENT: diastolic murmur, rubs, systolic murmur GI/Abdominal exam: PRESENT: normal bowel sounds, soft. ABSENT: distended, guarding, mass, organolmegaly, rebound, tenderness Rectal exam: PRESENT: deferred Gentrourinary exam: PRESENT: indwelling catheter Extremities exam: PRESENT: full ROM. ABSENT: calf tenderness, clubbing, pedal edema Musculoskeletal exam: PRESENT: normal inspection Neurological exam: PRESENT: other - She was said to have awakened some by nightime staff. Neither I nor the day nurse have gotten her to do more than move some to pain and touch. No overall change. Skin exam: PRESENT: dry, intact, warm. ABSENT: cyanosis, rash Tubes/Lines: PRESENT: Endotracheal Tube, Central Line, Nasogastic Tube Laboratory/Radiographs Laboratory Results: 09/23/20 04:46 09/23/20 04:46 09/22/20 09/23/20 09/23/20 14:28 04:46 04:46 WBC 22.2 H RBC 2.59 L Hgb 7.6 L Hct 22.2 L MCV 86 MCH 29.3 MCHC 34.2 RDW 16.5 H Plt Count 95 L Seg Neutrophils % Not Reportable Carbonic Acid 1.03 L HCO3/H2CO3 Ratio 20:1 ABG pH 7.41 ABG pCO2 34.3 L ABG pO2 54.3 L ABG HCO3 21.4 ABG O2 Saturation 88.9 L ABG Base Excess -2.8 FiO2 75% Sodium 132.2 L Potassium 4.3 Chloride 97 L Carbon Dioxide 26 Anion Gap 9 BUN 136 H Creatinine 5.80 H Est GFR ( Amer) 9 L Glucose 93 Calcium 9.0 09/14/20 09/14/20 09/14/20 13:15 13:15 20:11 CK-MB (CK-2) 7.78 H Troponin I 7.090 6.940 NT-Pro-B Natriuret Pep 86264 H 09/15/20 09/15/20 09/17/20 02:02 05:47 09:56 CK-MB (CK-2) Troponin I 7.440 6.180 4.440 NT-Pro-B Natriuret Pep 09/18/20 09/19/20 09/20/20 13:55 03:16 04:22 CK-MB (CK-2) Troponin I 6.100 3.560 1.510 NT-Pro-B Natriuret Pep Impressions: KUB X-Ray 09/20/20 00:00 IMPRESSION: Esophagogastric tube tip and side-hole are below the diaphragm likely in the stomach. Chest X-Ray 09/23/20 04:00 IMPRESSION: Slight improvement. No pneumothorax. All labs, radiographs, diagnostic studies and EKGs were personally reviewed: Yes In addition, reports of radiographic and diagnostic studies were read: Yes Assessment and Plan - Diagnosis (1) COVID-19 Is this a current diagnosis for this admission?: Yes Plan: This is the cause of her pulmonary problems and arrest. She is requiring 100% and is not extubatable for this and her MS. Her CXR is not consistent with the degree of hypoxia as seen in many Covid patients. (2) Interstitial lung disease Is this a current diagnosis for this admission?: Yes Plan: This no doubt making her Covid lung damage worse. (3) PILAR (acute kidney injury) Is this a current diagnosis for this admission?: Yes Plan: Her renal number of BUN/Cr are slightly worse. GFR 7. However, her urine output so far has been good. No HD today. (4) Cardiac arrest Is this a current diagnosis for this admission?: Yes Plan: She is still not waking up. This is quite a bad prognostic sign. (5) ARDS (adult respiratory distress syndrome) Is this a current diagnosis for this admission?: Yes Plan: She does not have the characteristic fluffy infiltrates by CXR but her PaO2/FiO2 ratio is 75 indicating definite ARDS of a fairly severe nature. Low volume ventilation as tolerated. Plan Summary: Plan to hold HD. However with her MS and ARDS her prognosis is not good. Critical Time Critical Time (minutes): 40 Level of Care: ICU Anticipated discharge: Other Anticipated DC Timeframe: Other -: 1. The care of a critical patient is a dynamic process. This note is a leasing representative synopsis but static in nature. The timeframe for treatments given in order is not necessarily the actual time these treatments may have been done. 2. This patient requires critical care secondary to ongoing requirements for therapy not offered or safe outside the critical care environment. Transfer to a lower level of care will result in altered life or limb morbidity and mortality. 3. Multidisciplinary rounds completed. 4. ABCDE bundle addressed.
[2020-09-23] MEDS ORDERED: NORMAL SALINE 1000 ML 500 ML IV PRN (13:22)
[2020-09-23 13:50] LABS: HEMATOCRIT 20.4 % (36.0-47.0); MEAN CORPUSCULAR HEMOGLOBIN 29.2 pg (27.0-33.4); MEAN CORPUSCULAR HGB CONC 33.9 g/dL (32.0-36.0); MEAN CORPUSCULAR VOLUME 86 fl (80-97); RED BLOOD COUNT 2.37 10^6/uL (3.72-5.28); RED CELL DISTRIBUTION WIDTH 16.3 % (11.5-14.0); WHITE BLOOD COUNT 17.9 10^3/uL (4.0-10.5)
[2020-09-23 13:55] LABS: ANION GAP 11 (5-19); CALCIUM 8.7 mg/dL (8.4-10.2); CARBON DIOXIDE 23 mmol/L (22-30); CHLORIDE 97 mmol/L (98-107); GLUCOSE 101 mg/dL (75-110); POTASSIUM 4.2 mmol/L (3.6-5.0)
[2020-09-23 14:11] LABS: ABSOLUTE LYMPHOCYTES# (MANUAL) 1.3 10^3/uL (0.5-4.7); ABSOLUTE MONOCYTES # (MANUAL) 0.4 10^3/uL (0.1-1.4); BAND NEUTROPHILS % (MANUAL) 1 % (3-5); BASOPHILS % (MANUAL) 0 % (0-2); EOSINOPHILS % (MANUAL) 1 % (0-6); LYMPHOCYTES % (MANUAL) 5 % (13-45); MONOCYTES % (MANUAL) 2 % (3-13); SEGMENTED NEUTROPHILS % (MAN) 89 % (42-78); TOTAL CELLS COUNTED 100
[2020-09-23 14:12] LABS: ANISOCYTOSIS 1+; PLATELET COMMENT DECREASED; POLYCHROMASIA 1+
[2020-09-23 14:17] LABS: BLOOD UREA NITROGEN 140 mg/dL (7-20)
[2020-09-23 14:26] LABS: BURR CELLS SLIGHT; OVALOCYTES 1+; POIKILOCYTOSIS 1+; TARGET CELLS 1+; TEAR DROP CELLS SLIGHT
[2020-09-23 14:27] LABS: PLATELET COUNT 80 10^3/uL (150-450)
[2020-09-23 14:31] LABS: HEMOGLOBIN 6.9 g/dL (12.0-15.5)
[2020-09-23] MEDS ORDERED: NORMAL SALINE 250 ML IV PRN ×2 (14:34)
[2020-09-23] MEDS ORDERED: ETOMIDATE INJ/PF 20 MG/10 ML SDV IV ONE (17:21)
[2020-09-23] MEDS: PHARMACY COMMUNICATION ORDER MC SCH (18:35)
[2020-09-23] MEDS: DEXTROSE 5%-WATER 250 ML with NOREPINEPHRINE BITARTRATE 4 MG IV PRN ×4 (18:58→20:02)
[2020-09-23] MEDS: NORMAL SALINE 250 ML with ARGATROBAN 250 MG IV PRN ×2 (19:00)
[2020-09-23] MEDS: TRAZODONE HCL 50 MG TABLET PO SCH (21:46)
[2020-09-23] MEDS: MONTELUKAST SODIUM 10 MG TABLET PO SCH (21:46)
[2020-09-23] MEDS: LEVOFLOXACIN 250 MG/D5W RTU 250 MG/50 ML RTUPB IV SCH (21:57)
[2020-09-24] MEDS: INSULIN REG, HUMAN 100 UNIT/ML 3 ML VIAL (PYX) SUBCUT SCH ×4 (01:15→17:50)
[2020-09-24 01:29] LABS: HEMATOCRIT 31.9 % (36.0-47.0); MEAN CORPUSCULAR HEMOGLOBIN 30.2 pg (27.0-33.4); MEAN CORPUSCULAR HGB CONC 35.2 g/dL (32.0-36.0); MEAN CORPUSCULAR VOLUME 86 fl (80-97); RED BLOOD COUNT 3.72 10^6/uL (3.72-5.28); RED CELL DISTRIBUTION WIDTH 17.6 % (11.5-14.0); WHITE BLOOD COUNT 17.2 10^3/uL (4.0-10.5)
[2020-09-24] MEDS: LEVALBUTEROL HCL NEB 0.63 MG/3 ML AMPUL NEB SCH ×6 (01:43→20:31)
[2020-09-24 01:49] LABS: HEMOGLOBIN 11.2 g/dL (12.0-15.5); PLATELET COUNT 56 10^3/uL (150-450)
[2020-09-24 04:04] LABS: HEMOGLOBIN 10.4 g/dL (12.0-15.5); MEAN CORPUSCULAR HEMOGLOBIN 30.6 pg (27.0-33.4); MEAN CORPUSCULAR HGB CONC 35.7 g/dL (32.0-36.0); MEAN CORPUSCULAR VOLUME 86 fl (80-97); RED BLOOD COUNT 3.39 10^6/uL (3.72-5.28); RED CELL DISTRIBUTION WIDTH 17.3 % (11.5-14.0); WHITE BLOOD COUNT 15.8 10^3/uL (4.0-10.5)
[2020-09-24 04:07] LABS: ARTERIAL BLOOD BASE EXCESS -2.8 mmol/L; ARTERIAL BLOOD FIO2 95%; ARTERIAL BLOOD H2CO3 1.07 mmol/L (1.05-1.35); ARTERIAL BLOOD HCO3 21.4 mmol/L (20-24); ARTERIAL BLOOD O2 SATURATION 92.3 % (94-98); ARTERIAL BLOOD PCO2 35.6 mmHg (35-45); ARTERIAL BLOOD TOTAL CO2 22.5 mmol/L (21-25)
[2020-09-24 04:19] LABS: ALKALINE PHOSPHATASE 165 U/L (38-126); ANION GAP 12 (5-19); ASPARTATE AMINO TRANSFERASE 92 U/L (14-36); BILIRUBIN,DIRECT 1.4 mg/dL (0.0-0.4); BILIRUBIN,TOTAL 2.1 mg/dL (0.2-1.3); CALCIUM 8.6 mg/dL (8.4-10.2); CARBON DIOXIDE 24 mmol/L (22-30); CHLORIDE 97 mmol/L (98-107); GLUCOSE 112 mg/dL (75-110); POTASSIUM 4.1 mmol/L (3.6-5.0); TOTAL PROTEIN 4.4 g/dL (6.3-8.2)
[2020-09-24 04:32] LABS: PLATELET COUNT 54 10^3/uL (150-450)
[2020-09-24 04:41] LABS: BLOOD UREA NITROGEN 140 mg/dL (7-20)
[2020-09-24 04:47] LABS: ABSOLUTE LYMPHOCYTES# (MANUAL) 0.6 10^3/uL (0.5-4.7); BASOPHILS % (MANUAL) 0 % (0-2); EOSINOPHILS % (MANUAL) 0 % (0-6); LYMPHOCYTES % (MANUAL) 4 % (13-45); MONOCYTES % (MANUAL) 0 % (3-13); SEGMENTED NEUTROPHILS % (MAN) 96 % (42-78); TOTAL CELLS COUNTED 100
[2020-09-24 04:49] LABS: ANISOCYTOSIS 1+; POIKILOCYTOSIS SLIGHT; SCHISTOCYTES SLIGHT; TARGET CELLS SLIGHT; TOXIC GRANULATION SLIGHT
[2020-09-24 04:50] LABS: BURR CELLS SLIGHT; PLATELET COMMENT DECREASED
[2020-09-24] MEDS: DEXTROSE 5%-WATER 250 ML with NOREPINEPHRINE BITARTRATE 4 MG IV PRN ×4 (04:55→19:04)
[2020-09-24] MEDS: BUDESONIDE NEB 0.25 MG/2 ML AMPUL NEB SCH ×2 (09:07→20:31)
[2020-09-24] MEDS: ASPIRIN 81 MG TABLET, CHEWABLE PO SCH (09:15)
[2020-09-24] MEDS: METOPROLOL TARTRATE 25 MG TABLET NG SCH ×2 (09:15→22:38)
[2020-09-24] MEDS: FAMOTIDINE INJ/PF 20 MG/2 ML SDV IV SCH ×2 (09:17→22:38)
[2020-09-24] MEDS: ASCORBIC ACID 500 MG TABLET PO SCH ×3 (09:17→17:18)
[2020-09-24] MEDS: DEXAMETHASONE SOD PHOS INJ 10 MG/1 ML VIAL IV SCH (09:17)
[2020-09-24] MEDS: LEVETIRACETAM ORAL SOLN 500 MG/5 ML UDCUP NG SCH ×2 (09:18→22:38)
[2020-09-24] MEDS: CHOLECALCIFEROL (D3) 1,000 UNIT (25 MCG) TABLET PO SCH (09:19)
--- NOTE | 2020-09-24 11:33 | PDOC CRITICAL CARE PROG REPORT ---
General Date:: 09/24/20 ICU Day:: 7 Ventilator Day:: 7 Hospital Day:: 10 Resuscitation Status: Full Code Events in the past 12 to 24 Hours:: This 69-year-old female smoker presented to [facility] emergency department on 09/14/2020 with complaints of increased dyspnea. She reports a history of interstitial lung disease but denies COPD or emphysema. In the emergency department, she was found to be hypoxic and was placed on supplemental oxygen. Due to failure to improve oxygenation, she was placed on BiPAP support with an FiO2 of 100%. This was titrated at the bedside to CPAP 8. Her primary care physician (Dr. Joiner) requested ICU admission for acute hypoxemic respiratory failure. In the emergency department, her troponin was elevated (7.09) and proBNP 16,400. Chest x-ray was consistent with pulmonary edema. 09/15: She remains in the emergency department (lack of available beds). She is stable on CPAP 6, FiO2 100%. In fact, the nurse called earlier this morning to report that the patient was wandering around in the hallway. Denies chest pain. She states that her shortness of breath is improved with noninvasive positive pressure ventilatory support. Minimal cough. No sputum production. 2D echo pending. Patient discussed with Dr. Joiner. 09/18: Transferred to the ICU and reintubated. Currently stable 09/19: Renal function worsening, heading toward HD. Stop versed and assess neuro status. 09/20: Still not very awake. Renal function worse, LFTs better after arrest. 09/21: Still not responsive on no sedation. Renal function worse. Heading toward dialysis. Dr. Kathleen consulted. 09/22: Still making urine. Not needing HD now. Still not awake. Cant extubate. 09/23: Making more urine. No HD today. Covid ARDS by the numbers. Not responsive. 09/24: Coming off levophed. Agitated but not awake or extubatable. Review of systems relevant to events:: Neurological, renal, pulmonary. Reason for ICU Addmission:: s/p cardiac arrest. Intubated. - Medications: Medications reviewed and adjusted accordingly: Yes Vasopressors:: Levophed Sedation:: None Physical Exam Vital Signs: Temp Pulse Resp BP Pulse Ox 99.9 F 101 H 25 H 110/59 L 90 L 09/24/20 09:55 09/24/20 10:00 09/24/20 11:00 09/24/20 11:00 09/24/20 11:00 Intake & Output 09/23/20 09/24/20 09/25/20 06:59 06:59 06:59 Intake Total 1014 1652 99 Output Total 2635 2135 485 Balance -1621 -483 -386 Weight 87 kg 86.5 kg Weight/Height Weight 86.5 kg Height 5 ft 2 in General appearance: PRESENT: no acute distress Head exam: PRESENT: atraumatic, normocephalic Eye exam: PRESENT: conjunctiva pink, PERRLA, other - At times disconjugate.. ABSENT: scleral icterus Ear exam: PRESENT: normal external ear exam Mouth exam: PRESENT: moist, tongue midline Respiratory exam: PRESENT: clear to auscultation yung. ABSENT: rales, rhonchi, wheezes Cardiovascular exam: PRESENT: RRR. ABSENT: diastolic murmur, rubs, systolic murmur GI/Abdominal exam: PRESENT: normal bowel sounds, soft. ABSENT: distended, guarding, mass, organolmegaly, rebound, tenderness Rectal exam: PRESENT: deferred Gentrourinary exam: PRESENT: indwelling catheter Extremities exam: PRESENT: full ROM. ABSENT: calf tenderness, clubbing, pedal edema Musculoskeletal exam: PRESENT: normal inspection Neurological exam: PRESENT: other - Agitated at times, no command following Skin exam: PRESENT: dry, intact, warm. ABSENT: cyanosis, rash Tubes/Lines: PRESENT: Endotracheal Tube, Nasogastic Tube Laboratory/Radiographs Laboratory Results: 09/24/20 03:27 09/24/20 03:27 09/23/20 09/23/20 09/23/20 13:15 13:15 14:00 WBC 17.9 H RBC 2.37 L Hgb 6.9 L Hct 20.4 L MCV 86 MCH 29.2 MCHC 33.9 RDW 16.3 H Plt Count 80 L Seg Neutrophils % Not Reportable Carbonic Acid HCO3/H2CO3 Ratio ABG pH ABG pCO2 ABG pO2 ABG HCO3 ABG O2 Saturation ABG Base Excess FiO2 Sodium 131.3 L Potassium 4.2 Chloride 97 L Carbon Dioxide 23 Anion Gap 11 BUN 140 H Creatinine 5.81 H Est GFR ( Amer) 9 L Glucose 101 Calcium 8.7 Magnesium Total Bilirubin AST Alkaline Phosphatase C-Reactive Protein 142.2 H Total Protein Albumin Blood Type Antibody Screen 09/23/20 09/24/20 09/24/20 15:15 01:05 03:27 WBC 17.2 H RBC 3.72 Hgb 11.2 L D Hct 31.9 L MCV 86 MCH 30.2 MCHC 35.2 RDW 17.6 H Plt Count 56 L Seg Neutrophils % Carbonic Acid HCO3/H2CO3 Ratio ABG pH ABG pCO2 ABG pO2 ABG HCO3 ABG O2 Saturation ABG Base Excess FiO2 Sodium 133.3 L Potassium 4.1 Chloride 97 L Carbon Dioxide 24 Anion Gap 12 BUN 140 H Creatinine 5.49 H Est GFR ( Amer) 9 L Glucose 112 H Calcium 8.6 Magnesium 1.9 Total Bilirubin 2.1 H AST 92 H Alkaline Phosphatase 165 H C-Reactive Protein Total Protein 4.4 L Albumin 2.0 L Blood Type O POSITIVE Antibody Screen NEGATIVE 09/24/20 09/24/20 03:27 03:27 WBC 15.8 H RBC 3.39 L Hgb 10.4 L Hct 29.0 L MCV 86 MCH 30.6 MCHC 35.7 RDW 17.3 H Plt Count 54 L Seg Neutrophils % Not Reportable Carbonic Acid 1.07 HCO3/H2CO3 Ratio 20:1 ABG pH 7.40 ABG pCO2 35.6 ABG pO2 63.0 L ABG HCO3 21.4 ABG O2 Saturation 92.3 L ABG Base Excess -2.8 FiO2 95% Sodium Potassium Chloride Carbon Dioxide Anion Gap BUN Creatinine Est GFR ( Amer) Glucose Calcium Magnesium Total Bilirubin AST Alkaline Phosphatase C-Reactive Protein Total Protein Albumin Blood Type Antibody Screen 09/14/20 09/14/20 09/14/20 13:15 13:15 20:11 CK-MB (CK-2) 7.78 H Troponin I 7.090 6.940 NT-Pro-B Natriuret Pep 92590 H 09/15/20 09/15/20 09/17/20 02:02 05:47 09:56 CK-MB (CK-2) Troponin I 7.440 6.180 4.440 NT-Pro-B Natriuret Pep 09/18/20 09/19/20 09/20/20 13:55 03:16 04:22 CK-MB (CK-2) Troponin I 6.100 3.560 1.510 NT-Pro-B Natriuret Pep Impressions: KUB X-Ray 09/20/20 00:00 IMPRESSION: Esophagogastric tube tip and side-hole are below the diaphragm likely in the stomach. Chest X-Ray 09/23/20 04:00 IMPRESSION: Slight improvement. No pneumothorax. All labs, radiographs, diagnostic studies and EKGs were personally reviewed: Yes In addition, reports of radiographic and diagnostic studies were read: Yes Assessment and Plan - Diagnosis (1) COVID-19 Is this a current diagnosis for this admission?: Yes Plan: Plan is to continue to support respiratory status as best we can. Not extubatable. (2) Interstitial lung disease Is this a current diagnosis for this admission?: Yes Plan: This is likely contributing to at some of her respiratory difficulties. (3) PILAR (acute kidney injury) Is this a current diagnosis for this admission?: Yes Plan: Kidney function about the same. No need for HD today. (4) Cardiac arrest Is this a current diagnosis for this admission?: Yes Plan: This is likely the reason for her mental status. She may recover but age the age of 69 with COVID the chances are not good. (5) ARDS (adult respiratory distress syndrome) Is this a current diagnosis for this admission?: Yes Plan: Still in Covid ARDS. Not extubatable with an FIO2 of 95% and her mental status. Plan Summary: Continue to support CV and respiratory systems for now. Prognosis not good. No decision maker as yet. Critical Time Critical Time (minutes): 35 Level of Care: ICU Anticipated discharge: Other Anticipated DC Timeframe: Other -: 1. The care of a critical patient is a dynamic process. This note is a re presentative synopsis but static in nature. The timeframe for treatments given in order is not necessarily the actual time these treatments may have been done. 2. This patient requires critical care secondary to ongoing requirements for therapy not offered or safe outside the critical care environment. Transfer to a lower level of care will result in altered life or limb morbidity and mortalit y. 3. Multidisciplinary rounds completed. 4. ABCDE bundle addressed.
--- NOTE | 2020-09-24 12:43 | PDOC PROGRESS REPORT ---
Subjective Date:: 09/24/20 Reason For Visit: Patient seen in the ICU today. Remains intubated and sedated. Continues to make good urine output. Physical Exam Vital Signs: Temp Pulse Resp BP Pulse Ox 99.9 F 97 25 H 110/59 L 90 L 09/24/20 09:55 09/24/20 10:00 09/24/20 11:00 09/24/20 11:00 09/24/20 11:00 Intake & Output 09/23/20 09/24/20 09/25/20 06:59 06:59 06:59 Intake Total 1014 1652 103 Output Total 2635 2135 485 Balance -1621 -483 -382 Weight 87 kg 86.5 kg Exam: Intubated and sedated. Respiratory exam: PRESENT: clear to auscultation yung. ABSENT: crackles Cardiovascular exam: PRESENT: +S1, +S2 GI/Abdominal exam: PRESENT: normal bowel sounds, soft. ABSENT: organomegaly, tenderness Results Laboratory Results: 09/24/20 03:27 09/24/20 03:27 09/23/20 09/23/20 09/23/20 13:15 13:15 14:00 WBC 17.9 H RBC 2.37 L Hgb 6.9 L Hct 20.4 L MCV 86 MCH 29.2 MCHC 33.9 RDW 16.3 H Plt Count 80 L Seg Neutrophils % Not Reportable Carbonic Acid HCO3/H2CO3 Ratio ABG pH ABG pCO2 ABG pO2 ABG HCO3 ABG O2 Saturation ABG Base Excess FiO2 Sodium 131.3 L Potassium 4.2 Chloride 97 L Carbon Dioxide 23 Anion Gap 11 BUN 140 H Creatinine 5.81 H Est GFR ( Amer) 9 L Glucose 101 Calcium 8.7 Magnesium Total Bilirubin AST Alkaline Phosphatase C-Reactive Protein 142.2 H Total Protein Albumin Blood Type Antibody Screen 09/23/20 09/24/20 09/24/20 15:15 01:05 03:27 WBC 17.2 H RBC 3.72 Hgb 11.2 L D Hct 31.9 L MCV 86 MCH 30.2 MCHC 35.2 RDW 17.6 H Plt Count 56 L Seg Neutrophils % Carbonic Acid HCO3/H2CO3 Ratio ABG pH ABG pCO2 ABG pO2 ABG HCO3 ABG O2 Saturation ABG Base Excess FiO2 Sodium 133.3 L Potassium 4.1 Chloride 97 L Carbon Dioxide 24 Anion Gap 12 BUN 140 H Creatinine 5.49 H Est GFR ( Amer) 9 L Glucose 112 H Calcium 8.6 Magnesium 1.9 Total Bilirubin 2.1 H AST 92 H Alkaline Phosphatase 165 H C-Reactive Protein Total Protein 4.4 L Albumin 2.0 L Blood Type O POSITIVE Antibody Screen NEGATIVE 09/24/20 09/24/20 03:27 03:27 WBC 15.8 H RBC 3.39 L Hgb 10.4 L Hct 29.0 L MCV 86 MCH 30.6 MCHC 35.7 RDW 17.3 H Plt Count 54 L Seg Neutrophils % Not Reportable Carbonic Acid 1.07 HCO3/H2CO3 Ratio 20:1 ABG pH 7.40 ABG pCO2 35.6 ABG pO2 63.0 L ABG HCO3 21.4 ABG O2 Saturation 92.3 L ABG Base Excess -2.8 FiO2 95% Sodium Potassium Chloride Carbon Dioxide Anion Gap BUN Creatinine Est GFR ( Amer) Glucose Calcium Magnesium Total Bilirubin AST Alkaline Phosphatase C-Reactive Protein Total Protein Albumin Blood Type Antibody Screen 09/14/20 09/14/20 09/14/20 13:15 13:15 20:11 CK-MB (CK-2) 7.78 H Troponin I 7.090 6.940 NT-Pro-B Natriuret Pep 99972 H 09/15/20 09/15/20 09/17/20 02:02 05:47 09:56 CK-MB (CK-2) Troponin I 7.440 6.180 4.440 NT-Pro-B Natriuret Pep 09/18/20 09/19/20 09/20/20 13:55 03:16 04:22 CK-MB (CK-2) Troponin I 6.100 3.560 1.510 NT-Pro-B Natriuret Pep Impressions: KUB X-Ray 09/20/20 00:00 IMPRESSION: Esophagogastric tube tip and side-hole are below the diaphragm li sandie in the stomach. Chest X-Ray 09/23/20 04:00 IMPRESSION: Slight improvement. No pneumothorax. Assessment & Plan - Diagnosis (1) PILAR (acute kidney injury) Is this a current diagnosis for this admission?: Yes Plan: Came in with abnormal renal functions predominantly PILAR in the setting of Covid pneumonia and sepsis. Currently intubated and sedated. However she seems to be responding to Lasix. Her renal numbers are stable. We will continue the same. No acute indications for renal replacements for today. We will watch closely and look for any indications to initiate renal replacements over the next few days. Discussed with seasonal customer service associate. (2) Acute hypoxemic respiratory failure Is this a current diagnosis for this admission?: Yes Plan: In the face of Covid pneumonia. Currently intubated and sedated. (3) COVID-19 Is this a current diagnosis for this admission?: Yes Plan: With Covid pneumonia. Leukocytosis and very high D-dimers. Being managed by seasonal customer service associate. (4) NSTEMI (non-ST elevated myocardial infarction) Is this a current diagnosis for this admission?: Yes Plan: As per cardiology. (5) Pneumonia due to COVID-19 virus Is this a current diagnosis for this admission?: Yes Plan: Being managed by seasonal customer service associate. (6) Chronic obstructive pulmonary disease with (acute) exacerbation Plan: Status quo. On top of that she has Covid pneumonia. (7) Hypotension Plan: Currently weaned off pressors. Monitor. I would keep her systolic at least in the upper 90s or low 100 and if she drops below that would recommend starting her on a low-dose of Levophed.
[2020-09-24] MEDS: PHARMACY COMMUNICATION ORDER MC SCH (17:19)
[2020-09-24] MEDS: NORMAL SALINE 250 ML with ARGATROBAN 250 MG IV PRN ×2 (17:19)
--- NOTE | 2020-09-24 18:16 | Progress Note ---
Provider Note Provider Note: CARDIOLOGY PROGRESS NOTE by Dr. Jacqueline Roberson on 09/24/2020. SUBJECTIVE: The patient earlier this morning had a 5 beat run of nonsustained ventricular tachycardia. The patient is on Levophed again due to hypotension. There is no recurrence of the ventricular arrhythmia after this short episode this morning. There is no atrial arrhythmias seen. The nurse try to wean the Levophed down but then the blood pressure dropped to 70. Will discuss with on awake counselor about starting the patient on vasopressin. PHYSICAL EXAMINATION: The patient is intubated and sedated and appears to be in no acute distress. Selected Entries 09/24/20 09/24/20 17:15 18:00 Core 100.4 F Temperature Heart Rate ( 104 Monitors) Respiratory 25 H Rate Positive End 10 Expiratory Pressure O2 Sat by Pulse 94 Oximetry Oxygen Delivery Mechanical Method ( Ventilator includes room air) Fraction of 100 Inspired Oxygen (FIO2) Arterial Blood 116 Pressure- Systolic Aterial Blood 64 Pressure- Diastolic Arterial Blood 83 Pressure- Mean Premature 0 Ventricular Counted Beats HEAD: Is atraumatic normocephalic. EYES: Pupils are equal round regular reactive to light. ENT is negative. NECK:. Carotids are equal there is no bruits. Neck is supple. There is no JVD there is no lymphadenopathy. There is no goiter. There is no accessory muscle respiration use. Trachea is central. LUNGS: There is diminished air entry prolonged expiration with scattered rhonchi and few dry crackles bilaterally. There is no rales of CHF. HEART: S1-S2 is heard. S1 is of normal intensity. There is no S3 gallop. There is an S4 gallop. There is systolic murmur left sternal border and the apex without radiation. There is no rub. ABDOMEN: Is soft. There is no hepatosplenomegaly. Bowel sounds are heard. EXTREMITIES: Femorals are deep. There is no femoral bruits. There is no pedal edema. There is no cyanosis or clubbing. There is no DVT or cellulitis. 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 Patient's 24-hour intake is 1652 mL. Output is 2135 mL. Labs- All tests 24 hr 09/23/20 09/24/20 09/24/20 15:15 00:15 01:05 WBC 17.2 H RBC 3.72 Hgb 11.2 L D Hct 31.9 L MCV 86 MCH 30.2 MCHC 35.2 RDW 17.6 H Plt Count 56 L Lymph % (Auto) Mcmullen % (Auto) Eos % (Auto) Baso % (Auto) Absolute Neuts (auto) Absolute Lymphs (auto) Absolute Monos (auto) Absolute Eos (auto) Absolute Basos (auto) Total Counted Seg Neutrophils % Seg Neuts % (Manual) Lymphocytes % (Manual) Monocytes % (Manual) Eosinophils % (Manual) Basophils % (Manual) Abs Neuts (Manual) Abs Lymphs (Manual) Abs Monocytes (Manual) Absolute Eos (Manual) Abs Basophils (Manual) Toxic Granulation Platelet Comment Poikilocytosis Anisocytosis Target Cells Dewitt Cells Schistocytes APTT Carbonic Acid HCO3/H2CO3 Ratio ABG pH ABG pCO2 ABG pO2 ABG HCO3 ABG Total CO2 ABG O2 Saturation ABG Base Excess FiO2 Sodium Potassium Chloride Carbon Dioxide Anion Gap BUN Creatinine Est GFR ( Amer) Est GFR (MDRD) Non-Af Glucose POC Glucose 156 H Calcium Magnesium Total Bilirubin Direct Bilirubin Neonat Total Bilirubin Neonat Direct Bilirubin Neonat Indirect Bili AST ALT Alkaline Phosphatase Total Protein Albumin Crossmatch See Detail 09/24/20 09/24/20 09/24/20 03:27 03:27 03:27 WBC 15.8 H RBC 3.39 L Hgb 10.4 L Hct 29.0 L MCV 86 MCH 30.6 MCHC 35.7 RDW 17.3 H Plt Count 54 L Lymph % (Auto) Not Reportable Mcmullen % (Auto) Not Reportable Eos % (Auto) Not Reportable Baso % (Auto) Not Reportable Absolute Neuts (auto) Not Reportable Absolute Lymphs (auto) Not Reportable Absolute Monos (auto) Not Reportable Absolute Eos (auto) Not Reportable Absolute Basos (auto) Not Reportable Total Counted 100 Seg Neutrophils % Not Reportable Seg Neuts % (Manual) 96 H Lymphocytes % (Manual) 4 L Monocytes % (Manual) 0 L Eosinophils % (Manual) 0 Basophils % (Manual) 0 Abs Neuts (Manual) 15.2 H Abs Lymphs (Manual) 0.6 Abs Monocytes (Manual) 0.0 L Absolute Eos (Manual) 0.0 Abs Basophils (Manual) 0.0 Toxic Granulation SLIGHT Platelet Comment DECREASED Poikilocytosis SLIGHT Anisocytosis 1+ Target Cells SLIGHT Clayton Cells SLIGHT Schistocytes SLIGHT APTT 47.2 H Carbonic Acid HCO3/H2CO3 Ratio ABG pH ABG pCO2 ABG pO2 ABG HCO3 ABG Total CO2 ABG O2 Saturation ABG Base Excess FiO2 Sodium 133.3 L Potassium 4.1 Chloride 97 L Carbon Dioxide 24 Anion Gap 12 BUN 140 H Creatinine 5.49 H Est GFR ( Amer) 9 L Est GFR (MDRD) Non-Af 8 L Glucose 112 H POC Glucose Calcium 8.6 Magnesium 1.9 Total Bilirubin 2.1 H Direct Bilirubin 1.4 H Neonat Total Bilirubin Not Reportable Neonat Direct Bilirubin Not Reportable Neonat Indirect Bili Not Reportable AST 92 H ALT 157 H Alkaline Phosphatase 165 H Total Protein 4.4 L Albumin 2.0 L Crossmatch 09/24/20 09/24/20 09/24/20 03:27 04:57 11:30 WBC RBC Hgb Hct MCV MCH MCHC RDW Plt Count Lymph % (Auto) Mcmullen % (Auto) Eos % (Auto) Baso % (Auto) Absolute Neuts (auto) Absolute Lymphs (auto) Absolute Monos (auto) Absolute Eos (auto) Absolute Basos (auto) Total Counted Seg Neutrophils % Seg Neuts % (Manual) Lymphocytes % (Manual) Monocytes % (Manual) Eosinophils % (Manual) Basophils % (Manual) Abs Neuts (Manual) Abs Lymphs (Manual) Abs Monocytes (Manual) Absolute Eos (Manual) Abs Basophils (Manual) Toxic Granulation Platelet Comment Poikilocytosis Anisocytosis Target Cells Clayton Cells Schistocytes APTT Carbonic Acid 1.07 HCO3/H2CO3 Ratio 20:1 ABG pH 7.40 ABG pCO2 35.6 ABG pO2 63.0 L ABG HCO3 21.4 ABG Total CO2 22.5 ABG O2 Saturation 92.3 L ABG Base Excess -2.8 FiO2 95% Sodium Potassium Chloride Carbon Dioxide Anion Gap BUN Creatinine Est GFR ( Amer) Est GFR (MDRD) Non-Af Glucose POC Glucose 120 H 130 H Calcium Magnesium Total Bilirubin Direct Bilirubin Neonat Total Bilirubin Neonat Direct Bilirubin Neonat Indirect Bili AST ALT Alkaline Phosphatase Total Protein Albumin Crossmatch IMPRESSION/RECOMMENDATION: 1.S/p cardiopulmonary arrest: With spontaneous return of circulation after CPR. Most likely this is a respiratory scarring causing cardiac arrest. Patient s/p intubation. 2. Covid related pneumonia. 3. Non-ST elevation AL: Especially with the new EKG inversion in the inferior leads. The troponin is trending down. I agree with the echo got about. Later once the blood pressure is stable we will start the patient on beta-trae and aspirin and nitrates. Will follow serial EKGs and troponin levels. His troponin is elevated back to 6.10. The EKG shows no progression or regression of the T wave changes in the inferior leads. We will start the patient on small dose of beta-trae and increase as tolerated. Continue argatroban. Continue aspirin. Due to blood pressure being low her Lopressor is being held. 4. Hypotension: Has recurred. Patient back on Levophed. The nurses he states that if she tries to wean down the Levophed the patient's blood pressure drops to 70s. In view of the patient's sepsis with renal function would likely starting the patient on vasopressin infusion. Hypotension/shock secondary to the patient's Covidpneumonia and sepsis. 5. Acute on chronic kidney disease: Avoid nephrotoxic drugs. Note that the patient's renal function was normal in 2016. Her GFR is reduced to 22 mL/min in September 2020. At present may need dialysis since the patient is oliguric. Nephrology consult appreciated. Note that the patient's urine output is good but the patient's renal parameters i.e. BUN/creatinine are worsening. 6. History of hypertension: At present blood pressure stable off pressors note patient was hypotensive most likely secondary to sepsis and respiratory problems. 7. History of COPD: At present no evidence of acute exacerbation although the patient has pneumonia. 8. Anemia: S/p transfusion: Would recommend GI work-up later: Continue prolonged proton pump inhibitors. Again the patient's hemoglobin is dropped to 7.6. This may partly be due to hemodilution. But will check stool occult blood. 9. History of sleep apnea: 10. History of interstitial fibrosis:? Etiology. Medications reviewed. Medication management and medical regimen discussed with on awake counselor. Medical decision making is of high complexity. 40 minutes spent as patient more than 50% time spent in direct patient care. Will follow. All labs and imaging and EKGs and echocardiogram have been reviewed by me.
[2020-09-24] MEDS: MONTELUKAST SODIUM 10 MG TABLET PO SCH (22:38)
[2020-09-24] MEDS: TRAZODONE HCL 50 MG TABLET PO SCH (22:38)
[2020-09-24] MEDS: DEXTROSE 5%-WATER 250 ML with VASOPRESSIN 100 UNIT IV PRN ×2 (22:43)
[2020-09-25] MEDS: LEVALBUTEROL HCL NEB 0.63 MG/3 ML AMPUL NEB SCH ×6 (00:46→20:58)
[2020-09-25] MEDS: INSULIN REG, HUMAN 100 UNIT/ML 3 ML VIAL (PYX) SUBCUT SCH ×4 (01:09→18:15)
[2020-09-25 04:31] LABS: HEMATOCRIT 28.6 % (36.0-47.0); HEMOGLOBIN 9.9 g/dL (12.0-15.5); MEAN CORPUSCULAR HEMOGLOBIN 29.8 pg (27.0-33.4); MEAN CORPUSCULAR HGB CONC 34.5 g/dL (32.0-36.0); MEAN CORPUSCULAR VOLUME 86 fl (80-97); RED BLOOD COUNT 3.31 10^6/uL (3.72-5.28); RED CELL DISTRIBUTION WIDTH 18.2 % (11.5-14.0); WHITE BLOOD COUNT 14.3 10^3/uL (4.0-10.5)
[2020-09-25 05:13] LABS: PLATELET COUNT 51 10^3/uL (150-450)
[2020-09-25 05:38] LABS: PARTIAL THROMBOPLASTIN TIME 46.6 SEC (23.5-35.8)
[2020-09-25 05:49] LABS: ANION GAP 9 (5-19); CALCIUM 8.8 mg/dL (8.4-10.2); CARBON DIOXIDE 27 mmol/L (22-30); CHLORIDE 96 mmol/L (98-107); GLUCOSE 114 mg/dL (75-110); POTASSIUM 4.1 mmol/L (3.6-5.0)
[2020-09-25 06:38] LABS: D-DIMER > 20.00 ug/mL (0.00-0.50)
[2020-09-25 06:47] LABS: BLOOD UREA NITROGEN 145 mg/dL (7-20); C-REACTIVE PROTEIN 248.1 mg/L (<10.0)
[2020-09-25] MEDS ORDERED: PROPOFOL 1,000 MG/100 ML INFUS..BTL IV ONE (07:20)
[2020-09-25] MEDS: BUDESONIDE NEB 0.25 MG/2 ML AMPUL NEB SCH ×2 (08:32→20:58)
[2020-09-25] MEDS: ASPIRIN 81 MG TABLET, CHEWABLE PO SCH (09:18)
[2020-09-25] MEDS: ASCORBIC ACID 500 MG TABLET PO SCH ×3 (09:18→18:07)
[2020-09-25] MEDS: CHOLECALCIFEROL (D3) 1,000 UNIT (25 MCG) TABLET PO SCH (09:19)
[2020-09-25] MEDS: DEXAMETHASONE SOD PHOS INJ 10 MG/1 ML VIAL IV SCH (09:19)
[2020-09-25] MEDS: FAMOTIDINE INJ/PF 20 MG/2 ML SDV IV SCH ×2 (09:19→22:06)
[2020-09-25] MEDS: LEVETIRACETAM ORAL SOLN 500 MG/5 ML UDCUP NG SCH ×2 (09:24→22:23)
[2020-09-25] MEDS: METOPROLOL TARTRATE 25 MG TABLET NG SCH ×2 (09:38→22:22)
[2020-09-25] MEDS: NORMAL SALINE 250 ML with ARGATROBAN 250 MG IV PRN ×2 (18:07)
[2020-09-25] MEDS: PHARMACY COMMUNICATION ORDER MC SCH (18:08)
--- NOTE | 2020-09-25 19:28 | EKG REPORT ---
SEVERITY:- BORDERLINE ECG - SINUS RHYTHM BORDERLINE T ABNORMALITIES, INFERIOR LEADS : Confirmed by: Jacqueline Roberson MD 25-Sep-2020 19:27:27
--- NOTE | 2020-09-25 20:20 | Progress Note ---
Provider Note Provider Note: CARDIOLOGY PROGRESS NOTE by Dr. Jacqueline Roberson on 09/25/2020. SUBJECTIVE: There is no further episodes of nonsustained ventricular tachycardia. The patient is off the Levophed and is on the vasopressin. This had to be increased to 0.04units/min. There is no atrial or ventricular arrhythmias seen. The patient's urine output is reasonable, but the patient's renal function still are the same and have not improved. PHYSICAL EXAMINATION: The patient is mildly obese. She is intubated and sedated. Selected Entries 09/25/20 09/25/20 09/25/20 11:35 12:00 13:00 Core 98.8 F Temperature Heart Rate ( 77 Monitors) Respiratory 21 H 21 H Rate Respiratory Mechanically Effort Ventilated Positive End 10 Expiratory Pressure O2 Sat by Pulse 90 L 91 L Oximetry Fraction of 100 Inspired Oxygen (FIO2) Arterial Blood 89 107 Pressure- Systolic Aterial Blood 49 55 Pressure- Diastolic Arterial Blood 63 73 Pressure- Mean Premature 0 Ventricular Counted Beats Arrhythmia Irre Rhythm Status HEAD: Is atraumatic normocephalic. EYES: Pupils are equal round regular reactive to light. ENT is negative. NECK:. Carotids are equal there is no bruits. Neck is supple. There is no JVD there is no lymphadenopathy. There is no goiter. There is no accessory muscle respiration use. Trachea is central. LUNGS: There is diminished air entry prolonged expiration with scattered rhonchi and few dry crackles bilaterally. There is no rales of CHF. HEART: S1-S2 is heard. S1 is of normal intensity. There is no S3 gallop. There is an S4 gallop. There is systolic murmur left sternal border and the apex without radiation. There is no rub. ABDOMEN: Is soft. There is no hepatosplenomegaly. Bowel sounds are heard. EXTREMITIES: Femorals are deep. There is no femoral bruits. There is no pedal edema. There is no cyanosis or clubbing. There is no DVT or cellulitis. 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 Patient's 24-hour intake is 302 mL. Output is 2765 mL. Labs- All tests 24 hr 09/24/20 09/25/20 09/25/20 17:22 01:07 04:10 WBC RBC Hgb Hct MCV MCH MCHC RDW Plt Count APTT D-Dimer Sodium Cancelled Potassium Cancelled Chloride Cancelled Carbon Dioxide Cancelled Anion Gap Cancelled BUN Cancelled Creatinine Cancelled Est GFR ( Amer) Cancelled Est GFR (Non-Af Amer) Cancelled Est GFR (MDRD) Non-Af Cancelled Glucose Cancelled POC Glucose 146 H 135 H Calcium Cancelled Troponin I C-Reactive Protein Cancelled EGFR Cancelled 09/25/20 09/25/20 09/25/20 04:10 04:10 04:10 WBC 14.3 H RBC 3.31 L Hgb 9.9 L Hct 28.6 L MCV 86 MCH 29.8 MCHC 34.5 RDW 18.2 H Plt Count 51 L APTT Cancelled D-Dimer Cancelled Sodium Potassium Chloride Carbon Dioxide Anion Gap BUN Creatinine Est GFR ( Amer) Est GFR (Non-Af Amer) Est GFR (MDRD) Non-Af Glucose POC Glucose Calcium Troponin I 0.374 C-Reactive Protein EGFR 09/25/20 09/25/20 09/25/20 05:00 05:00 06:42 WBC RBC Hgb Hct MCV MCH MCHC RDW Plt Count APTT 46.6 H D-Dimer > 20.00 H* Sodium 132.2 L Potassium 4.1 Chloride 96 L Carbon Dioxide 27 Anion Gap 9 BUN 145 H Creatinine 6.00 H Est GFR ( Amer) 8 L Est GFR (Non-Af Amer) Est GFR (MDRD) Non-Af 7 L Glucose 114 H POC Glucose 144 H Calcium 8.8 Troponin I C-Reactive Protein 248.1 H EGFR Chest X-Ray 09/14/20 13:09 IMPRESSION: Patchy bilateral airspace disease most likely representing viral pneumonitis. Chest X-Ray 09/15/20 06:00 IMPRESSION: NO SIGNIFICANT INTERVAL CHANGE. Chest X-Ray 09/16/20 00:00 IMPRESSION: 1. Intubated, with endotracheal tube tip within 1 cm of the mateusz. 2. Persistent pulmonary infiltrates 3. Enteric tube extends into the stomach Chest X-Ray 09/16/20 06:00 IMPRESSION: Stable radiographic appearance of the chest demonstrating diffuse airspace opacities. Chest X-Ray 09/17/20 06:00 IMPRESSION: STABLE APPEARANCE OF THE CHEST. SUPPORT DEVICES UNCHANGED. Chest X-Ray 09/18/20 00:00 IMPRESSION: 1. Increased interstitial edema since yesterday KUB X-Ray 09/20/20 00:00 IMPRESSION: Esophagogastric tube tip and side-hole are below the diaphragm likely in the stomach. Chest X-Ray 09/23/20 04:00 IMPRESSION: Slight improvement. No pneumothorax. IMPRESSION/RECOMMENDATION: 1.S/p cardiopulmonary arrest: With spontaneous return of circulation after CPR. Most likely this is a respiratory scarring causing cardiac arrest. Patient s/p intubation. 2. Covid related pneumonia. 3. Non-ST elevation MT: Especially with the new EKG inversion in the inferior leads. The troponin is trending down. I agree with the echo got about. Later once the blood pressure is stable we will start the patient on beta-trae and aspirin and nitrates. Will follow serial EKGs and troponin levels. His troponin is elevated back to 6.10. The EKG shows no progression or regression of the T wave changes in the inferior leads. We will start the patient on small dose of beta-trae and increase as tolerated. Continue argatroban. Continue aspirin. Due to blood pressure being low her Lopressor is being held. 4. Hypotension: Has recurred. Patient is on vasopressin which has now been dialed up to 0.04 units /min. The patient is off the Levophed. Earlier blood pressure was in the 90s rate of 0.03 units/min of vasopressin. This has been increased. Her blood pressure now is in the 100s. 5. Acute on chronic kidney disease: Avoid nephrotoxic drugs. Note that the patient's renal function was normal in 2016. Her GFR is reduced to 22 mL/min in September 2020. At present may need dialysis since the patient is oliguric. Nephrology consult appreciated. Note that the patient's urine output is good but the patient's renal parameters i.e. BUN/creatinine are worsening. 6. History of hypertension: At present blood pressure stable off pressors note patient was hypotensive most likely secondary to sepsis and respiratory problems. 7. History of COPD: At present no evidence of acute exacerbation although the patient has pneumonia. 8. Anemia: S/p transfusion: Would recommend GI work-up later: Continue prolonged proton pump inhibitors. Again the patient's hemoglobin is dropped to 7.6. This may partly be due to hemodilution. But will check stool occult blood. 9. History of sleep apnea: 10. History of interstitial fibrosis:? Etiology. Medications reviewed. Medication management and medical regimen discussed with hot roll inspector. Medical decision making is of high complexity. 40 minutes spent as patient more than 50% time spent in direct patient care. Will follow. All labs and imaging and EKGs and echocardiogram have been reviewed by me.
--- NOTE | 2020-09-25 20:34 | PDOC CRITICAL CARE PROG REPORT ---
General Date:: 09/25/20 Resuscitation Status: Full Code Events in the past 12 to 24 Hours:: This 69-year-old female smoker presented to [facility] emergency department on 09/14/2020 with complaints of increased dyspnea. She reports a history of interstitial lung disease but denies COPD or emphysema. In the emergency department, she was found to be hypoxic and was placed on supplemental oxygen. Due to failure to improve oxygenation, she was placed on BiPAP support with an FiO2 of 100%. This was titrated at the bedside to CPAP 8. Her primary care physician (Dr. Joiner) requested ICU admission for acute hypoxemic respiratory failure. In the emergency department, her troponin was elevated (7.09) and proBNP 16,400. Chest x-ray was consistent with pulmonary e ahsan. 09/15: She remains in the emergency department (lack of available beds). She is stable on CPAP 6, FiO2 100%. In fact, the nurse called earlier this morning to report that the patient was wandering around in the hallway. Denies chest pain. She states that her shortness of breath is improved with noninvasive positive pressure ventilatory support. Minimal cough. No sputum production. 2D echo pending. Patient discussed with Dr. Joiner. 09/18: Transferred to the ICU and reintubated. Currently stable 09/19: Renal function worsening, heading toward HD. Stop versed and assess neuro status. 09/20: Still not very awake. Renal function worse, LFTs better after arrest. 09/21: Still not responsive on no sedation. Renal function worse. Heading toward dialysis. Dr. Kathleen consulted. 09/22: Still making urine. Not needing HD now. Still not awake. Cant extubate. 09/23: Making more urine. No HD today. Covid ARDS by the numbers. Not responsive. 09/24: Coming off levophed. Agitated but not awake or extubatable. 09/25: Now on vasopressin instead of norepinephrine (per Dr. Zuniga). Still on argatroban gtt. Remains intubated. On propofol for sedation. On PRVC 15/450/100/10. RR 21. Review of systems relevant to events:: Neurological, renal, pulmonary. Reason for ICU Addmission:: s/p cardiac arrest. Intubated. - Medications: Medications reviewed and adjusted accordingly: Yes Vasopressors:: Levophed Physical Exam Vital Signs: Temp Pulse Resp BP Pulse Ox 98.6 F 76 21 H 106/54 L 90 L 09/25/20 10:00 09/25/20 11:35 09/25/20 12:00 09/25/20 08:00 09/25/20 12:00 Intake & Output 09/24/20 09/25/20 09/26/20 06:59 06:59 06:59 Intake Total 1652 302 72 Output Total 2135 2765 150 Balance -431 -2463 -78 Weight 86.5 kg 81.9 kg Weight/Height Weight 81.9 kg Height 1.57 m General appearance: PRESENT: no acute distress, well-developed, well-nourished Head exam: PRESENT: atraumatic, normocephalic Eye exam: PRESENT: conjunctiva pink, EOMI, PERRLA. ABSENT: scleral icterus Neck exam: ABSENT: carotid bruit, JVD, lymphadenopathy, thyromegaly Respiratory exam: PRESENT: clear to auscultation yung, symmetrical. ABSENT: rales, rhonchi, wheezes Cardiovascular exam: PRESENT: RRR. ABSENT: diastolic murmur, rubs, systolic murmur Pulses: PRESENT: normal dorsalis pedis pul GI/Abdominal exam: PRESENT: diminished bowel sounds, soft. ABSENT: distended, guarding, mass, organolmegaly, rebound, tenderness Gentrourinary exam: PRESENT: indwelling catheter Extremities exam: PRESENT: full ROM. ABSENT: calf tenderness, clubbing, pedal edema Musculoskeletal exam: PRESENT: normal inspection. ABSENT: deformity Neurological exam: PRESENT: altered, reflexes normal, CN II-XII grossly intact. ABSENT: motor sensory deficit Psychiatric exam: ABSENT: agitated Skin exam: PRESENT: dry, intact, warm. ABSENT: cyanosis, rash Tubes/Lines: PRESENT: Endotracheal Tube, Central Line - L IJ, Arterial Catheter - R femoral, Nasogastic Tube Laboratory/Radiographs Laboratory Results: 09/25/20 04:10 09/25/20 05:00 09/25/20 09/25/20 09/25/20 04:10 04:10 05:00 WBC 14.3 H RBC 3.31 L Hgb 9.9 L Hct 28.6 L MCV 86 MCH 29.8 MCHC 34.5 RDW 18.2 H Plt Count 51 L Sodium Cancelled 132.2 L Potassium Cancelled 4.1 Chloride Cancelled 96 L Carbon Dioxide Cancelled 27 Anion Gap Cancelled 9 BUN Cancelled 145 H Creatinine Cancelled 6.00 H Est GFR ( Amer) Cancelled 8 L Est GFR (Non-Af Amer) Cancelled Glucose Cancelled 114 H Calcium Cancelled 8.8 C-Reactive Protein Cancelled 248.1 H 09/14/20 09/14/20 09/14/20 13:15 13:15 20:11 CK-MB (CK-2) 7.78 H Troponin I 7.090 6.940 NT-Pro-B Natriuret Pep 56306 H 09/15/20 09/15/20 09/17/20 02:02 05:47 09:56 CK-MB (CK-2) Troponin I 7.440 6.180 4.440 NT-Pro-B Natriuret Pep 09/18/20 09/19/20 09/20/20 13:55 03:16 04:22 CK-MB (CK-2) Troponin I 6.100 3.560 1.510 NT-Pro-B Natriuret Pep 09/25/20 04:10 CK-MB (CK-2) Troponin I 0.374 NT-Pro-B Natriuret Pep Impressions: KUB X-Ray 09/20/20 00:00 IMPRESSION: Esophagogastric tube tip and side-hole are below the diaphragm likely in the stomach. Chest X-Ray 09/23/20 04:00 IMPRESSION: Slight improvement. No pneumothorax. All labs, radiographs, diagnostic studies and EKGs were personally reviewed: Yes In addition, reports of radiographic and diagnostic studies were read: Yes Assessment and Plan - Diagnosis (1) Acute hypoxemic respiratory failure Is this a current diagnosis for this admission?: Yes Plan: * Titrate vent settings based on ABG results. Still on FiO2 100%, PEEP 10. * Trial of propofol for sedation. (2) PILAR (acute kidney injury) Is this a current diagnosis for this admission?: Yes Plan: * Case discussed with Dr. Schneider. * Neurology help appreciated. * Will change Pepcid to Protonix. (3) Pneumonia due to COVID-19 virus Is this a current diagnosis for this admission?: Yes (4) NSTEMI (non-ST elevated myocardial infarction) Is this a current diagnosis for this admission?: Yes (5) Elevated brain natriuretic peptide (BNP) level Is this a current diagnosis for this admission?: Yes (6) Chronic interstitial lung disease Is this a current diagnosis for this admission?: Yes Critical Time Critical Time (minutes): 45 Level of Care: ICU -: 1. The care of a critical patient is a dynamic process. This note is a personal financial representative synopsis but static in nature. The timeframe for treatments given in order is not necessarily the actual time these treatments may have been done. 2. This patient requires critical care secondary to ongoing requirements for therapy not offered or safe outside the critical care environment. Transfer to a lower level of care will result in altered life or limb morbidity and mortality. 3. Multidisciplinary rounds completed. 4. ABCDE bundle addressed.
[2020-09-25] MEDS ORDERED: MORPHINE SULFATE 10 MG/ML INJ IV PRN (20:53)
[2020-09-25] MEDS: TRAZODONE HCL 50 MG TABLET PO SCH (22:06)
[2020-09-25] MEDS: MONTELUKAST SODIUM 10 MG TABLET PO SCH (22:07)
[2020-09-25] MEDS: LEVOFLOXACIN 250 MG/D5W RTU 250 MG/50 ML RTUPB IV SCH (22:08)
--- NOTE | 2020-09-25 22:12 | PDOC PROGRESS REPORT ---
Subjective Date:: 09/25/20 Subjective:: Chart reviewed. Patient initially admitted on 09/14/2020 with Covid pneumonia progressing to acute respiratory failure requiring intubation. Patient had cardiac arrest. Also noted to have non-STEMI sort of nonsustained V. tach. Patient still intubated but still becomes hypoxic with O2 saturation of 82 despite FiO2 of 100%. She is on vasopressin and propofol. Her urine output she has made 1965 mL urine for the past 24 hours. Reason For Visit: PNEUOMONIA DUE TO COVID19, ACUTE RENAL FAILURE, Physical Exam Vital Signs: Temp Pulse Resp BP Pulse Ox 98.8 F 80 26 H 106/54 L 84 L 09/25/20 08:00 09/25/20 08:00 09/25/20 08:00 09/25/20 08:00 09/25/20 08:00 Intake & Output 09/24/20 09/25/20 09/26/20 06:59 06:59 06:59 Intake Total 1652 302 Output Total 2135 2765 100 Balance -483 -2463 -100 Weight 86.5 kg 81.9 kg Exam: Limited exam due to Covid. General appearance: PRESENT: Intubated and sedated Head exam: PRESENT: atraumatic, normocephalic Eye exam: PRESENT: Eyes closed Neck exam: ABSENT: JVD Respiratory exam: PRESENT: Coarse breath sounds as reported by her nurse. ABSENT: crackles, rales, rhonchi, unlabored, wheezes Cardiovascular exam: PRESENT: Regular rate rhythm -+S1, +S2. ABSENT: diastolic murmur, systolic murmur GI/Abdominal exam: PRESENT: normal bowel sounds, soft. ABSENT: guarding, mass, tenderness Extremities exam: ABSENT: No edema Neurological exam: PRESENT: Sedated. Skin exam: PRESENT: dry, warm, Cardiovascular exam: PRESENT: +S1, +S2 GI/Abdominal exam: PRESENT: normal bowel sounds, soft. ABSENT: organomegaly, tenderness Results Laboratory Results: 09/25/20 04:10 09/25/20 05:00 09/25/20 09/25/20 09/25/20 04:10 04:10 05:00 WBC 14.3 H RBC 3.31 L Hgb 9.9 L Hct 28.6 L MCV 86 MCH 29.8 MCHC 34.5 RDW 18.2 H Plt Count 51 L Sodium Cancelled 132.2 L Potassium Cancelled 4.1 Chloride Cancelled 96 L Carbon Dioxide Cancelled 27 Anion Gap Cancelled 9 BUN Cancelled 145 H Creatinine Cancelled 6.00 H Est GFR ( Amer) Cancelled 8 L Est GFR (Non-Af Amer) Cancelled Glucose Cancelled 114 H Calcium Cancelled 8.8 C-Reactive Protein Cancelled 248.1 H 09/14/20 09/14/20 09/14/20 13:15 13:15 20:11 CK-MB (CK-2) 7.78 H Troponin I 7.090 6.940 NT-Pro-B Natriuret Pep 46928 H 09/15/20 09/15/20 09/17/20 02:02 05:47 09:56 CK-MB (CK-2) Troponin I 7.440 6.180 4.440 NT-Pro-B Natriuret Pep 09/18/20 09/19/20 09/20/20 13:55 03:16 04:22 CK-MB (CK-2) Troponin I 6.100 3.560 1.510 NT-Pro-B Natriuret Pep 09/25/20 04:10 CK-MB (CK-2) Troponin I 0.374 NT-Pro-B Natriuret Pep Impressions: KUB X-Ray 09/20/20 00:00 IMPRESSION: Esophagogastric tube tip and side-hole are below the diaphragm likely in the stomach. Chest X-Ray 09/23/20 04:00 IMPRESSION: Slight improvement. No pneumothorax. Assessment & Plan - Diagnosis (1) PILAR (acute kidney injury) Is this a current diagnosis for this admission?: Yes Plan: Secondary to ATN with hypotension, that is post cardiac arrest COVID-19 infection. Currently nonoliguric good urine output. Baseline creatinine of 0.6-0.8. Currently with continuous elevation of BUN and creatinine. However no absolute indication for renal replacement therapy. However if the patient's BUN and creatinine continues to go up for the next 72 hours, the patient may require renal replacement therapy. We will continue to monitor. (2) Acute hypoxemic respiratory failure Is this a current diagnosis for this admission?: Yes Plan: On mechanical ventilation per charge aide management. (3) Hypotension Is this a current diagnosis for this admission?: Yes Plan: Currently on vasopressin cardiology recommendation. (4) Anemia Is this a current diagnosis for this admission?: Yes (5) Hyponatremia Is this a current diagnosis for this admission?: Yes Plan: Mild. Monitor. (6) Cardiac arrest Is this a current diagnosis for this admission?: Yes (7) NSTEMI (non-ST elevated myocardial infarction) Is this a current diagnosis for this admission?: Yes Plan: Telephone Sex Worker, Dr. Roberson following the patient. (8) Pneumonia due to COVID-19 virus Is this a current diagnosis for this admission?: Yes Plan: On Decadron. (9) Chronic interstitial lung disease Is this a current diagnosis for this admission?: Yes
[2020-09-26] MEDS: PROPOFOL 1,000 MG/100 ML INFUS..BTL IV PRN ×4 (00:02→20:15)
[2020-09-26] MEDS: INSULIN REG, HUMAN 100 UNIT/ML 3 ML VIAL (PYX) SUBCUT SCH ×5 (00:30→23:13)
[2020-09-26] MEDS: LEVALBUTEROL HCL NEB 0.63 MG/3 ML AMPUL NEB SCH ×6 (00:31→20:47)
[2020-09-26 05:19] LABS: ARTERIAL BLOOD BASE EXCESS -4.8 mmol/L; ARTERIAL BLOOD H2CO3 1.13 mmol/L (1.05-1.35); ARTERIAL BLOOD HCO3 20.3 mmol/L (20-24); ARTERIAL BLOOD O2 SATURATION 91.2 % (94-98); ARTERIAL BLOOD PCO2 37.6 mmHg (35-45); ARTERIAL BLOOD PH 7.35 (7.35-7.45); ARTERIAL BLOOD PO2 62.9 mmHg (80-100); ARTERIAL BLOOD TOTAL CO2 21.5 mmol/L (21-25)
[2020-09-26 05:23] LABS: ARTERIAL BLOOD FIO2 100%; HEMATOCRIT 25.5 % (36.0-47.0); HEMOGLOBIN 8.8 g/dL (12.0-15.5); MEAN CORPUSCULAR HEMOGLOBIN 29.9 pg (27.0-33.4); MEAN CORPUSCULAR HGB CONC 34.6 g/dL (32.0-36.0); MEAN CORPUSCULAR VOLUME 86 fl (80-97); RED BLOOD COUNT 2.96 10^6/uL (3.72-5.28); RED CELL DISTRIBUTION WIDTH 18.1 % (11.5-14.0)
[2020-09-26] MEDS ORDERED: NORMAL SALINE 500 ML IV ONE ×2 (05:45→10:00)
[2020-09-26 06:20] LABS: PLATELET COUNT 48 10^3/uL (150-450)
[2020-09-26 06:23] LABS: ABSOLUTE MONOCYTES # (MANUAL) 0.1 10^3/uL (0.1-1.4); ANISOCYTOSIS 1+; BASOPHILS % (MANUAL) 0 % (0-2); EOSINOPHILS % (MANUAL) 0 % (0-6); LYMPHOCYTES % (MANUAL) 0 % (13-45); MONOCYTES % (MANUAL) 1 % (3-13); OVALOCYTES 1+; PLATELET COMMENT DECREASED; POIKILOCYTOSIS 1+; SCHISTOCYTES SLIGHT; SEGMENTED NEUTROPHILS % (MAN) 99 % (42-78); TARGET CELLS SLIGHT; TEAR DROP CELLS SLIGHT; TOTAL CELLS COUNTED 100; TOXIC GRANULATION 1+; TOXIC VACUOLATION PRESENT
[2020-09-26] MEDS: BUDESONIDE NEB 0.25 MG/2 ML AMPUL NEB SCH ×2 (08:00→20:47)
[2020-09-26] MEDS: LEVETIRACETAM ORAL SOLN 500 MG/5 ML UDCUP NG SCH ×2 (10:43→21:16)
[2020-09-26] MEDS: PANTOPRAZOLE SODIUM 40 MG VIAL IV SCH (10:43)
[2020-09-26] MEDS: DEXAMETHASONE SOD PHOS INJ 10 MG/1 ML VIAL IV SCH (10:43)
[2020-09-26] MEDS: ASPIRIN 81 MG TABLET, CHEWABLE PO SCH ×2 (10:43→11:05)
[2020-09-26] MEDS: ASCORBIC ACID 500 MG TABLET PO SCH ×3 (10:45→17:37)
[2020-09-26] MEDS: METOPROLOL TARTRATE 25 MG TABLET NG SCH ×2 (10:45→22:07)
[2020-09-26] MEDS: CHOLECALCIFEROL (D3) 1,000 UNIT (25 MCG) TABLET PO SCH (10:46)
--- NOTE | 2020-09-26 10:47 | RADIOLOGY REPORT (SQ) ---
EXAM DESCRIPTION: CHEST SINGLE VIEW IMAGES COMPLETED DATE/TIME: 09/26/2020 5:27 am REASON FOR STUDY: vent COMPARISON: 09/23/2020, 09/18/2020, 09/17/2020 chest films EXAM PARAMETERS: NUMBER OF VIEWS: One view. TECHNIQUE: Single frontal radiographic view of the chest acquired. RADIATION DOSE: NA LIMITATIONS: None. FINDINGS: LUNGS AND PLEURA: No change in diffuse bilateral alveolar and interstitial infiltrates. No pleural effusion. No pneumothorax. MEDIASTINUM AND HILAR STRUCTURES: No masses. Contour normal. HEART AND VASCULAR STRUCTURES: Stable mild cardiomegaly. Loop recorder. BONES: No acute findings. HARDWARE: Endotracheal tube tip 3 cm above the mateusz. Nasogastric tube tip and side port in the sto mach. Left jugular central line tip right atrium. OTHER: No other significant finding. IMPRESSION: No change from 09/23/2020 TECHNICAL DOCUMENTATION: JOB ID: [id number] 2010 [employer]- All Rights Reserved Reading location - IP/workstation name: [id number]
[2020-09-26 12:29] LABS: ANION GAP 7 (5-19); CALCIUM 8.4 mg/dL (8.4-10.2); CARBON DIOXIDE 26 mmol/L (22-30); CHLORIDE 99 mmol/L (98-107); GLUCOSE 118 mg/dL (75-110); POTASSIUM 3.5 mmol/L (3.6-5.0); TRIGLYCERIDES 254 mg/dL (<150)
[2020-09-26] MEDS: DEXTROSE 5%-WATER 250 ML with VASOPRESSIN 100 UNIT IV PRN ×2 (12:30)
[2020-09-26 12:42] LABS: BLOOD UREA NITROGEN 152 mg/dL (7-20)
[2020-09-26] MEDS ORDERED: NOREPINEPHRINE BITARTRATE INJ/PF 4 MG/4 ML SDV IV ONE (15:58)
--- NOTE | 2020-09-26 16:28 | Progress Note ---
Provider Note Provider Note: CARDIOLOGY PROGRESS NOTE by Dr. Jacqueline Roberson on 09/26/2020. SUBJECTIVE: There is no further episodes of nonsustained ventricular tachycardia. The patient is on vasopressin at 0.04units/min. But there is systolic blood pressure came down to 85. In view of the patient's renal status would recommend that the patient have a high blood pressure. Hence we will start the patient on Levophed at 1 mcg/min. There is no atrial or ventricular arrhythmias seen. The patient's urine output is reasonable, but the patient's renal function still are the same and have not improved. PHYSICAL EXAMINATION: The patient is mildly obese. She is intubated and sedated. Selected Entries 09/26/20 09/26/20 09/26/20 13:00 16:00 16:03 Temperature 97.0 F Temperature Core Source Pulse Rate 81 Respiratory 29 H Rate Positive End 10 Expiratory Pressure O2 Sat by Pulse 94 Oximetry Fraction of 100 Inspired Oxygen (FIO2) Arterial Blood 100 85 Pressure- Systolic Aterial Blood 54 Pressure- 45 Diastolic Arterial Blood 71 62 Pressure- Mean HEAD: Is atraumatic normocephalic. EYES: Pupils are equal round regular reactive to light. ENT is negative. NECK:. Carotids are equal there is no bruits. Neck is supple. There is no JVD there is no lymphadenopathy. There is no goiter. There is no accessory muscle respiration use. Trachea is central. LUNGS: There is diminished air entry prolonged expiration with scattered rhonchi and few dry crackles bilaterally. There is no rales of CHF. HEART: S1-S2 is heard. S1 is of normal intensity. There is no S3 gallop. There is an S4 gallop. There is systolic murmur left sternal border and the apex without radiation. There is no rub. ABDOMEN: Is soft. There is no hepatosplenomegaly. Bowel sounds are heard. EXTREMITIES: Femorals are deep. There is no femoral bruits. There is no pedal edema. There is no cyanosis or clubbing. There is no DVT or cellulitis. GAMBLING FLOOR SUPERVISOR and psychiatric not examined due to the patient being intubated and sedated. The patient's 24-hour total intake is 587 mL. 24-hour total output is 2170 mL Labs- All tests 24 hr 09/26/20 09/26/20 09/26/20 05:10 05:10 05:10 WBC 13.0 H RBC 2.96 L Hgb 8.8 L Hct 25.5 L MCV 86 MCH 29.9 MCHC 34.6 RDW 18.1 H Plt Count 48 L Lymph % (Auto) Not Reportable [place] % (Auto) Not Reportable Eos % (Auto) Not Reportable Baso % (Auto) Not Reportable Absolute Neuts (auto) Not Reportable Absolute Lymphs (auto) Not Reportable Absolute Monos (auto) Not Reportable Absolute Eos (auto) Not Reportable Absolute Basos (auto) Not Reportable Total Counted 100 Seg Neutrophils % Not Reportable Seg Neuts % (Manual) 99 H Lymphocytes % (Manual) 0 L Monocytes % (Manual) 1 L Eosinophils % (Manual) 0 Basophils % (Manual) 0 Abs Neuts (Manual) 12.9 H Abs Lymphs (Manual) 0.0 L Abs Monocytes (Manual) 0.1 Absolute Eos (Manual) 0.0 Abs Basophils (Manual) 0.0 Toxic Granulation 1+ Toxic Vacuolation PRESENT Platelet Comment DECREASED Poikilocytosis 1+ Anisocytosis 1+ Target Cells SLIGHT Tear Drop Cells SLIGHT Ovalocytes 1+ Schistocytes SLIGHT APTT Carbonic Acid 1.13 HCO3/H2CO3 Ratio 17:1 ABG pH 7.35 ABG pCO2 37.6 ABG pO2 62.9 L ABG HCO3 20.3 ABG Total CO2 21.5 ABG O2 Saturation 91.2 L ABG Base Excess -4.8 FiO2 100% Sodium Potassium Chloride Carbon Dioxide Anion Gap BUN Creatinine Est GFR ( Amer) Est GFR (MDRD) Non-Af Glucose Calcium Phosphorus 6.0 H Magnesium 2.0 Triglycerides 09/26/20 09/26/20 05:10 11:55 WBC RBC Hgb Hct MCV MCH MCHC RDW Plt Count Lymph % (Auto) [place] % (Auto) Eos % (Auto) Baso % (Auto) Absolute Neuts (auto) Absolute Lymphs (auto) Absolute Monos (auto) Absolute Eos (auto) Absolute Basos (auto) Total Counted Seg Neutrophils % Seg Neuts % (Manual) Lymphocytes % (Manual) Monocytes % (Manual) Eosinophils % (Manual) Basophils % (Manual) Abs Neuts (Manual) Abs Lymphs (Manual) Abs Monocytes (Manual) Absolute Eos (Manual) Abs Basophils (Manual) Toxic Granulation Toxic Vacuolation Platelet Comment Poikilocytosis Anisocytosis Target Cells Tear Drop Cells Ovalocytes Schistocytes APTT 45.1 H Carbonic Acid HCO3/H2CO3 Ratio ABG pH ABG pCO2 ABG pO2 ABG HCO3 ABG Total CO2 ABG O2 Saturation ABG Base Excess FiO2 Sodium 132.3 L Potassium 3.5 L Chloride 99 Carbon Dioxide 26 Anion Gap 7 BUN 152 H Creatinine 5.50 H Est GFR ( Amer) 9 L Est GFR (MDRD) Non-Af 8 L Glucose 118 H Calcium 8.4 Phosphorus Magnesium Triglycerides 254 H Chest X-Ray 09/14/20 13:09 IMPRESSION: Patchy bilateral airspace disease most likely representing viral pneumonitis. Chest X-Ray 09/15/20 06:00 IMPRESSION: NO SIGNIFICANT INTERVAL CHANGE. Chest X-Ray 09/16/20 00:00 IMPRESSION: 1. Intubated, with endotracheal tube tip within 1 cm of the mateusz. 2. Persistent pulmonary infiltrates 3. Enteric tube extends into the stomach Chest X-Ray 09/16/20 06:00 IMPRESSION: Stable radiographic appearance of the chest demonstrating diffuse airspace opacities. Chest X-Ray 09/17/20 06:00 IMPRESSION: STABLE APPEARANCE OF THE CHEST. SUPPORT DEVICES UNCHANGED. Chest X-Ray 09/18/20 00:00 IMPRESSION: 1. Increased interstitial edema since yesterday KUB X-Ray 09/20/20 00:00 IMPRESSION: Esophagogastric tube tip and side-hole are below the diaphragm likely in the stomach. Chest X-Ray 09/23/20 04:00 IMPRESSION: Slight improvement. No pneumothorax. Chest X-Ray 09/26/20 04:00 IMPRESSION: No change from 09/23/2020 IMPRESSION/RECOMMENDATION: 1.S/p cardiopulmonary arrest: With spontaneous return of circulation after CPR. Most likely this is a respiratory scarring causing cardiac arrest. Patient s/p intubation. 2. Covid related pneumonia. 3. Non-ST elevation [place]: Especially with the new EKG inversion in the inferior leads. The troponin is trending down. I agree with the echo got about. Later once the blood pressure is stable we will start the patient on beta-trae and aspirin and nitrates. Will follow serial EKGs and troponin levels. His troponin is elevated back to 6.10. The EKG shows no progression or regression of the T wave changes in the inferior leads. We will start the patient on small dose of beta-trae and increase as tolerated. Continue argatroban. Continue aspirin. Due to blood pressure being low her Lopressor is being held. 4. Hypotension: Has recurred. Patient is on vasopressin which has now been dialed up to 0.04 units /min. The patient is off the Levophed. Earlier blood pressure was in the 90s rate of 0.03 units/min of vasopressin. This has been increased. Her blood pressure now is in the 100s. 5. Acute on chronic kidney disease: Avoid nephrotoxic drugs. Note that the patient's renal function was normal in 2016. Her GFR is reduced to 22 mL/min in September 2020. At present may need dialysis since the patient is oliguric. Nephrology consult appreciated. Note that the patient's urine output is good but the patient's renal parameters i.e. BUN/creatinine are worsening. 6. History of hypertension: At present blood pressure stable off pressors note patient was hypotensive most likely secondary to sepsis and respiratory problems. 7. History of COPD: At present no evidence of acute exacerbation although the patient has pneumonia. 8. Anemia: S/p transfusion: Would recommend GI work-up later: Continue prolonged proton pump inhibitors. Again the patient's hemoglobin is dropped to 7.6. This may partly be due to hemodilution. But will check stool occult blood. 9. History of sleep apnea: 10. History of interstitial fibrosis:? Etiology. Medications reviewed. New medication Levophed infusion started medication management and medical regimen discussed with community relations advisor. Medical decision making is of high complexity. 40 minutes spent as patient more than 50% time spent in direct patient care. Will follow. All labs and imaging and EKGs and echocardiogram have been reviewed by me. Discussed in detail with the community relations advisor.
[2020-09-26] MEDS: DEXTROSE 5%-WATER 250 ML with NOREPINEPHRINE BITARTRATE 4 MG IV PRN ×2 (16:30)
--- NOTE | 2020-09-26 16:58 | PDOC CRITICAL CARE PROG REPORT ---
General Date:: 09/26/20 ICU Day:: 9 Ventilator Day:: 9 Hospital Day:: 12 Resuscitation Status: Full Code Events in the past 12 to 24 Hours:: This 69-year-old female smoker presented to [facility] emergency department on 09/14/2020 with complaints of increased dyspnea. She reports a history of interstitial lung disease but denies COPD or emphysema. In the emergency department, she was found to be hypoxic and was placed on supplemental oxygen. Due to failure to improve oxygenation, she was placed on BiPAP support with an FiO2 of 100%. This was titrated at the bedside to CPAP 8. Her primary care physician (Dr. Joiner) requested ICU admission for acute hypoxemic respiratory failure. In the emergency department, her troponin was elevated (7.09) and proBNP 16,400. Chest x-ray was consistent with pulmonary edema. 09/15: She remains in the emergency department (lack of available beds). She is stable on CPAP 6, FiO2 100%. In fact, the nurse called earlier this morning to report that the patient was wandering around in the hallway. Denies chest pain. She states that her shortness of breath is improved with noninvasive positive pressure ventilatory support. Minimal cough. No sputum production. 2D echo pending. Patient discussed with Dr. Joiner. 09/18: Transferred to the ICU and reintubated. Currently stable 09/19: Renal function worsening, heading toward HD. Stop versed and assess neuro status. 09/20: Still not very awake. Renal function worse, LFTs better after arrest. 09/21: Still not responsive on no sedation. Renal function worse. Heading toward dialysis. Dr. Kathleen consulted. 09/22: Still making urine. Not needing HD now. Still not awake. Cant extubate. 09/23: Making more urine. No HD today. Covid ARDS by the numbers. Not responsive. 09/24: Coming off levophed. Agitated but not awake or extubatable. 09/25: Now on vasopressin instead of norepinephrine (per Dr. Zuniga). Still on argatroban gtt. Remains intubated. On propofol for sedation. On PRVC 24/12 50/100/10. RR 21. 09/26: On vasopresin @ 0.04. MAP 72. Afebrile, in fact, hypothermic (96.3 F). Still on argatroban gtt. But, platelets 48 today. Remains intubated. RASS -4, on propofol for sedation, which was apparently increased overnight due to concerns about oxygen desaturation being related to work of breathing. Currently, getting NS 500 mL IV bolus for mild hypotension (MAP 62) this a.m. On PRVC 15/450/100/10. RR 16. ABG this a.m.: 7.35/38/63. BUN 145, Cr 6 but nonoliguric. Review of systems relevant to events:: Neurological, renal, pulmonary. Reason for ICU Addmission:: s/p cardiac arrest. Intubated. - Medications: Medications reviewed and adjusted accordingly: Yes Vasopressors:: Levophed Physical Exam Vital Signs: Temp Pulse Resp BP Pulse Ox 96.3 F L 64 16 106/54 L 95 09/26/20 08:00 09/26/20 08:00 09/26/20 08:00 09/25/20 08:00 09/26/20 08:00 Intake & Output 09/25/20 09/26/20 09/27/20 06:59 06:59 06:59 Intake Total 302 587 554 Output Total 2765 2170 125 Balance -2463 -1583 429 Weight 81.9 kg 86.5 kg Weight/Height Weight 86.5 kg Height 1.57 m General appearance: PRESENT: no acute distress, well-developed, well-nourished Head exam: PRESENT: atraumatic, normocephalic Eye exam: PRESENT: conjunctiva pink, EOMI, PERRLA. ABSENT: scleral icterus Mouth exam: PRESENT: moist, tongue midline Neck exam: ABSENT: carotid bruit, JVD, lymphadenopathy, thyromegaly Respiratory exam: PRESENT: crackles, rales. ABSENT: rhonchi, wheezes Cardiovascular exam: PRESENT: RRR. ABSENT: diastolic murmur, rubs, systolic murmur Pulses: PRESENT: normal dorsalis pedis pul GI/Abdominal exam: PRESENT: normal bowel sounds, soft. ABSENT: distended, guarding, mass, organolmegaly, rebound, tenderness Gentrourinary exam: PRESENT: indwelling catheter Extremities exam: PRESENT: full ROM. ABSENT: calf tenderness, clubbing, pedal edema Neurological exam: PRESENT: altered, CN II-XII grossly intact, motor sensory deficit. ABSENT: reflexes normal - diminished DTRs x 4 extremitites. No Babinski. Psychiatric exam: ABSENT: agitated, anxious Skin exam: PRESENT: dry, intact, warm. ABSENT: cyanosis, rash Tubes/Lines: PRESENT: Endotracheal Tube, Central Line - L IJ, Arterial Catheter - R femoral Laboratory/Radiographs Laboratory Results: 09/26/20 05:10 09/25/20 05:00 09/26/20 09/26/20 09/26/20 05:10 05:10 05:10 WBC 13.0 H RBC 2.96 L Hgb 8.8 L Hct 25.5 L MCV 86 MCH 29.9 MCHC 34.6 RDW 18.1 H Plt Count 48 L Seg Neutrophils % Not Reportable Carbonic Acid 1.13 HCO3/H2CO3 Ratio 17:1 ABG pH 7.35 ABG pCO2 37.6 ABG pO2 62.9 L ABG HCO3 20.3 ABG O2 Saturation 91.2 L ABG Base Excess -4.8 FiO2 100% Phosphorus 6.0 H Magnesium 2.0 09/14/20 09/14/20 09/14/20 13:15 13:15 20:11 CK-MB (CK-2) 7.78 H Troponin I 7.090 6.940 NT-Pro-B Natriuret Pep 83040 H 09/15/20 09/15/20 09/17/20 02:02 05:47 09:56 CK-MB (CK-2) Troponin I 7.440 6.180 4.440 NT-Pro-B Natriuret Pep 09/18/20 09/19/20 09/20/20 13:55 03:16 04:22 CK-MB (CK-2) Troponin I 6.100 3.560 1.510 NT-Pro-B Natriuret Pep 09/25/20 04:10 CK-MB (CK-2) Troponin I 0.374 NT-Pro-B Natriuret Pep Impressions: KUB X-Ray 09/20/20 00:00 IMPRESSION: Esophagogastric tube tip and side-hole are below the diaphragm likely in the stomach. All labs, radiographs, diagnostic studies and EKGs were personally reviewed: Yes In addition, reports of radiographic and diagnostic studies were read: Yes Assessment and Plan - Diagnosis (1) Acute hypoxemic respiratory failure Is this a current diagnosis for this admission?: Yes Plan: * Titrate vent settings based on ABG results. Still on FiO2 100%, PEEP 10. * Decrease VT to 420 to keep Pplat < 30. * Titrate sedation for RASS -2. * Decrease propofol. May need to add fentanyl. (2) PILAR (acute kidney injury) Is this a current diagnosis for this admission?: Yes Plan: * Case discussed with Dr. Schneider. * Nephrology (previously misspelled as neurology) help appreciated. * Uremia will likely cloud the patient's neurologic assessment. * With dependent crackles becoming appreciable on exam, will need to avoid volume overload. (3) Thrombocytopenia Is this a current diagnosis for this admission?: Yes Plan: * Pepcid changed to Protonix. * Currently, on argatroban (due to previous concern for possible heparin-induced thrombocytopenia). Of note, heparin-induced antiplatelet antibodies testing was not done. * Culture blood, urine and tracheal aspirate. * Check LDH, haptoglobin. (4) Pneumonia due to COVID-19 virus Is this a current diagnosis for this admission?: Yes Plan: * Completed remdesivir. * Decrease Decadron to 4 mg IV every 12 hours. * Continue vitamin C, vitamin D3, zinc sulfate. * Continue budesonide. (5) NSTEMI (non-ST elevated myocardial infarction) Is this a current diagnosis for this admission?: Yes Plan: * On argatroban infusion. * On aspirin 81 mg p.o. daily. * Beta-blockade contraindicated due to hypotension. * Cardiology help appreciated. (6) Elevated brain natriuretic peptide (BNP) level Is this a current diagnosis for this admission?: Yes (7) Chronic interstitial lung disease Is this a current diagnosis for this admission?: Yes Critical Time Critical Time (minutes): 60 Level of Care: ICU -: 1. The care of a critical patient is a dynamic process. This note is a traveling sales representative synopsis but static in nature. The timeframe for treatments given in order is not necessarily the actual time these treatments may have been done. 2. This patient requires critical care secondary to ongoing requirements for therapy not offered or safe outside the critical care environment. Transfer to a lower level of care will result in altered life or limb morbidity and mort ality. 3. Multidisciplinary rounds completed. 4. ABCDE bundle addressed.
[2020-09-26] MEDS: FENTANYL CITRATE/PF 600 MCG/60 ML BAG IV PRN ×2 (17:14→21:00)
[2020-09-26] MEDS: PHARMACY COMMUNICATION ORDER MC SCH (17:38)
[2020-09-26] MEDS: DEXAMETHASONE SOD PHOSPHATE INJ 4 MG/1 ML VIAL IV SCH (21:16)
[2020-09-26] MEDS: MONTELUKAST SODIUM 10 MG TABLET PO SCH (21:16)
[2020-09-26] MEDS: METOCLOPRAMIDE HCL INJ/PF 10 MG/2 ML SDV IV SCH (23:04)
[2020-09-26] MEDS: TRAZODONE HCL 50 MG TABLET PO SCH (23:04)
[2020-09-27] MEDS: LEVALBUTEROL HCL NEB 0.63 MG/3 ML AMPUL NEB SCH ×6 (00:49→20:17)
[2020-09-27] MEDS: FENTANYL CITRATE/PF 600 MCG/60 ML BAG IV PRN ×4 (02:59→20:05)
[2020-09-27] MEDS: PROPOFOL 1,000 MG/100 ML INFUS..BTL IV PRN ×3 (03:57→22:22)
[2020-09-27 04:26] LABS: HEMATOCRIT 26.2 % (36.0-47.0); HEMOGLOBIN 8.9 g/dL (12.0-15.5); MEAN CORPUSCULAR HEMOGLOBIN 29.9 pg (27.0-33.4); MEAN CORPUSCULAR HGB CONC 34.1 g/dL (32.0-36.0); MEAN CORPUSCULAR VOLUME 88 fl (80-97); RED BLOOD COUNT 2.99 10^6/uL (3.72-5.28); RED CELL DISTRIBUTION WIDTH 17.7 % (11.5-14.0); WHITE BLOOD COUNT 15.5 10^3/uL (4.0-10.5)
[2020-09-27 04:30] LABS: ARTERIAL BLOOD BASE EXCESS -6.1 mmol/L; ARTERIAL BLOOD FIO2 100%; ARTERIAL BLOOD H2CO3 1.31 mmol/L (1.05-1.35); ARTERIAL BLOOD HCO3 20.2 mmol/L (20-24); ARTERIAL BLOOD O2 SATURATION 89.2 % (94-98); ARTERIAL BLOOD PCO2 43.4 mmHg (35-45); ARTERIAL BLOOD PH 7.29 (7.35-7.45); ARTERIAL BLOOD PO2 62.4 mmHg (80-100); ARTERIAL BLOOD TOTAL CO2 21.5 mmol/L (21-25)
[2020-09-27 04:48] LABS: ANION GAP 11 (5-19); CALCIUM 8.5 mg/dL (8.4-10.2); CARBON DIOXIDE 22 mmol/L (22-30); CHLORIDE 98 mmol/L (98-107); GLUCOSE 125 mg/dL (75-110); PHOSPHORUS 7.5 mg/dL (2.5-4.5); POTASSIUM 4.4 mmol/L (3.6-5.0)
[2020-09-27 04:49] LABS: PARTIAL THROMBOPLASTIN TIME 41.3 SEC (23.5-35.8)
[2020-09-27 04:50] LABS: PLATELET COUNT 59 10^3/uL (150-450)
[2020-09-27 04:53] LABS: ABSOLUTE MONOCYTES # (MANUAL) 0.5 10^3/uL (0.1-1.4); BAND NEUTROPHILS % (MANUAL) 1 % (3-5); BASOPHILS % (MANUAL) 0 % (0-2); EOSINOPHILS % (MANUAL) 0 % (0-6); HYPERSEGMENTED NEUTROPHILS PRESENT; LYMPHOCYTES % (MANUAL) 0 % (13-45); MONOCYTES % (MANUAL) 3 % (3-13); SEGMENTED NEUTROPHILS % (MAN) 96 % (42-78); TOTAL CELLS COUNTED 100
[2020-09-27 04:54] LABS: ANISOCYTOSIS 1+; PLATELET COMMENT DECREASED; ROULEAUX SLIGHT
[2020-09-27 04:55] LABS: BLOOD UREA NITROGEN 154 mg/dL (7-20)
[2020-09-27 05:01] LABS: D-DIMER 13.54 ug/mL (0.00-0.50)
[2020-09-27 05:04] LABS: C-REACTIVE PROTEIN 132.3 mg/L (<10.0)
[2020-09-27] MEDS: INSULIN REG, HUMAN 100 UNIT/ML 3 ML VIAL (PYX) SUBCUT SCH ×3 (05:41→17:56)
[2020-09-27] MEDS: METOCLOPRAMIDE HCL INJ/PF 10 MG/2 ML SDV IV SCH ×3 (05:41→17:56)
[2020-09-27] MEDS ORDERED: MAGNESIUM SULFATE/D5W 1 GM/100 ML RTUPB IV ONE (07:27)
[2020-09-27 07:37] LABS: HEPATITS B SURFACE ANTIGEN Negative (Negative)
[2020-09-27] MEDS: BUDESONIDE NEB 0.25 MG/2 ML AMPUL NEB SCH ×2 (08:56→20:17)
[2020-09-27] MEDS: ARGATROBAN 250 MG/NS 250 ML (NON-ESRD) IV PRN ×4 (10:00→17:58)
[2020-09-27] MEDS: ASPIRIN 81 MG TABLET, CHEWABLE PO SCH (10:49)
[2020-09-27] MEDS: CHOLECALCIFEROL (D3) 1,000 UNIT (25 MCG) TABLET PO SCH (10:49)
[2020-09-27] MEDS: DEXAMETHASONE SOD PHOSPHATE INJ 4 MG/1 ML VIAL IV SCH ×2 (10:50→21:54)
[2020-09-27] MEDS: METOPROLOL TARTRATE 25 MG TABLET NG SCH ×3 (10:50→21:59)
[2020-09-27] MEDS: LEVETIRACETAM ORAL SOLN 500 MG/5 ML UDCUP NG SCH ×2 (10:50→21:54)
[2020-09-27] MEDS: PANTOPRAZOLE SODIUM 40 MG VIAL IV SCH (10:50)
[2020-09-27] MEDS: ASCORBIC ACID 500 MG TABLET PO SCH ×3 (10:50→17:56)
[2020-09-27] MEDS: PANTOPRAZOLE SODIUM 40 MG PACKET.DR NG SCH (12:05)
[2020-09-27 12:37] LABS: ARTERIAL BLOOD BASE EXCESS -5.9 mmol/L; ARTERIAL BLOOD HCO3 19.8 mmol/L (20-24); ARTERIAL BLOOD O2 SATURATION 88.7 % (94-98); ARTERIAL BLOOD PH 7.31 (7.35-7.45); ARTERIAL BLOOD PO2 59.5 mmHg (80-100); ARTERIAL BLOOD TOTAL CO2 21.1 mmol/L (21-25)
[2020-09-27 12:40] LABS: ARTERIAL BLOOD FIO2 100%
[2020-09-27 13:00] LABS: HEPATITIS B CORE AB TOT Negative (Negative)
--- NOTE | 2020-09-27 13:07 | Progress Note ---
Provider Note Provider Note: CARDIOLOGY PROGRESS NOTE by Dr. Jacqueline Roberson on 09/27/2020. SUBJECTIVE: There is no further episodes of nonsustained ventricular tachycardia . There is no atrial arrhythmias. The patient's blood pressure stable on Levophed at 1 mcg/min. His urine output is slightly lower than before. Awaiting nephrology input. PHYSICAL EXAMINATION: The patient is mildly obese. She is intubated and sedated. Selected Entries 09/27/20 09/27/20 12:00 12:10 Temperature 96.8 F L Temperature Core Source Pulse Rate 70 Respiratory 24 H Rate Positive End 10 Expiratory Pressure Blood Pressure 96/49 L [Femoral Artery ] Blood Pressure 64 Mean [Femoral Artery] Blood Pressure Supine Position [ Femoral Artery] O2 Sat by Pulse 91 L Oximetry Oxygen Delivery Mechanical Method ( Ventilator includes room air) Fraction of 100 100 Inspired Oxygen (FIO2) Percent of 100 Oxygen HEAD: Is atraumatic normocephalic. EYES: Pupils are equal round regular reactive to light. ENT is negative. NECK:. Carotids are equal there is no bruits. Neck is supple. There is no JVD there is no lymphadenopathy. There is no goiter. There is no accessory muscle respiration use. Trachea is central. LUNGS: There is diminished air entry prolonged expiration with scattered rhonchi and few dry crackles bilaterally. There is no rales of CHF. HEART: S1-S2 is heard. S1 is of normal intensity. There is no S3 gallop. There is an S4 gallop. There is systolic murmur left sternal border and the apex without radiation. There is no rub. ABDOMEN: Is soft. There is no hepatosplenomegaly. Bowel sounds are heard. EXTREMITIES: Femorals are deep. There is no femoral bruits. There is no pedal edema. There is no cyanosis or clubbing. There is no DVT or cellulitis. 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 The patient's 24-hour total intake is 1042 mL. 24-hour total output is 1420 mL Labs- All tests 24 hr 09/26/20 09/26/20 09/27/20 05:10 18:30 04:10 WBC 15.5 H RBC 2.99 L Hgb 8.9 L Hct 26.2 L MCV 88 MCH 29.9 MCHC 34.1 RDW 17.7 H Plt Count 59 L Lymph % (Auto) Not Reportable [place] % (Auto) Not Reportable Eos % (Auto) Not Reportable Baso % (Auto) Not Reportable Absolute Neuts (auto) Not Reportable Absolute Lymphs (auto) Not Reportable Absolute Monos (auto) Not Reportable Absolute Eos (auto) Not Reportable Absolute Basos (auto) Not Reportable Total Counted 100 Seg Neutrophils % Not Reportable Seg Neuts % (Manual) 96 H Band Neutrophils % 1 L Lymphocytes % (Manual) 0 L Monocytes % (Manual) 3 Eosinophils % (Manual) 0 Basophils % (Manual) 0 Abs Neuts (Manual) 15.0 H Abs Lymphs (Manual) 0.0 L Abs Monocytes (Manual) 0.5 Absolute Eos (Manual) 0.0 Abs Basophils (Manual) 0.0 Hypersegmented Neuts PRESENT Platelet Comment DECREASED Anisocytosis 1+ Rouleaux SLIGHT APTT D-Dimer Carbonic Acid HCO3/H2CO3 Ratio ABG pH ABG pCO2 ABG pO2 ABG HCO3 ABG Total CO2 ABG O2 Saturation ABG Base Excess FiO2 Sodium Potassium Chloride Carbon Dioxide Anion Gap BUN Creatinine Est GFR ( Amer) Est GFR (MDRD) Non-Af Glucose Calcium Phosphorus Magnesium Lactate Dehydrogenase 1448 H C-Reactive Protein Hep Bs Antigen Negative Hep Bs Antibody, Quant <3.1 L Hep B Core Total Ab Negative 09/27/20 09/27/20 09/27/20 04:10 04:10 04:10 WBC RBC Hgb Hct MCV MCH MCHC RDW Plt Count Lymph % (Auto) [place] % (Auto) Eos % (Auto) Baso % (Auto) Absolute Neuts (auto) Absolute Lymphs (auto) Absolute Monos (auto) Absolute Eos (auto) Absolute Basos (auto) Total Counted Seg Neutrophils % Seg Neuts % (Manual) Band Neutrophils % Lymphocytes % (Manual) Monocytes % (Manual) Eosinophils % (Manual) Basophils % (Manual) Abs Neuts (Manual) Abs Lymphs (Manual) Abs Monocytes (Manual) Absolute Eos (Manual) Abs Basophils (Manual) Hypersegmented Neuts Platelet Comment Anisocytosis Rouleaux APTT 41.3 H D-Dimer 13.54 H Carbonic Acid HCO3/H2CO3 Ratio ABG pH ABG pCO2 ABG pO2 ABG HCO3 ABG Total CO2 ABG O2 Saturation ABG Base Excess FiO2 Sodium 131.2 L Potassium 4.4 Chloride 98 Carbon Dioxide 22 Anion Gap 11 BUN 154 H Creatinine 5.42 H Est GFR ( Amer) 9 L Est GFR (MDRD) Non-Af 8 L Glucose 125 H Calcium 8.5 Phosphorus 7.5 H Cancelled Magnesium 1.9 Lactate Dehydrogenase C-Reactive Protein 132.3 H Hep Bs Antigen Hep Bs Antibody, Quant Hep B Core Total Ab 09/27/20 09/27/20 09/27/20 04:10 12:00 12:00 WBC RBC Hgb Hct MCV MCH MCHC RDW Plt Count Lymph % (Auto) [place] % (Auto) Eos % (Auto) Baso % (Auto) Absolute Neuts (auto) Absolute Lymphs (auto) Absolute Monos (auto) Absolute Eos (auto) Absolute Basos (auto) Total Counted Seg Neutrophils % Seg Neuts % (Manual) Band Neutrophils % Lymphocytes % (Manual) Monocytes % (Manual) Eosinophils % (Manual) Basophils % (Manual) Abs Neuts (Manual) Abs Lymphs (Manual) Abs Monocytes (Manual) Absolute Eos (Manual) Abs Basophils (Manual) Hypersegmented Neuts Platelet Comment Anisocytosis Rouleaux APTT 45.8 H D-Dimer Carbonic Acid 1.31 1.20 HCO3/H2CO3 Ratio 15:1 16:1 ABG pH 7.29 L 7.31 L ABG pCO2 43.4 40.0 ABG pO2 62.4 L 59.5 L ABG HCO3 20.2 19.8 L ABG Total CO2 21.5 21.1 ABG O2 Saturation 89.2 L 88.7 L ABG Base Excess -6.1 -5.9 FiO2 100% 100% Sodium Potassium Chloride Carbon Dioxide Anion Gap BUN Creatinine Est GFR ( Amer) Est GFR (MDRD) Non-Af Glucose Calcium Phosphorus Magnesium Lactate Dehydrogenase C-Reactive Protein Hep Bs Antigen Hep Bs Antibody, Quant Hep B Core Total Ab Chest X-Ray 09/14/20 13:09 IMPRESSION: Patchy bilateral airspace disease most likely representing viral pneumonitis. Chest X-Ray 09/15/20 06:00 IMPRESSION: NO SIGNIFICANT INTERVAL CHANGE. Chest X-Ray 09/16/20 00:00 IMPRESSION: 1. Intubated, with endotracheal tube tip within 1 cm of the mateusz. 2. Persistent pulmonary infiltrates 3. Enteric tube extends into the stomach Chest X-Ray 09/16/20 06:00 IMPRESSION: Stable radiographic appearance of the chest demonstrating diffuse airspace opacities. Chest X-Ray 09/17/20 06:00 IMPRESSION: STABLE APPEARANCE OF THE CHEST. SUPPORT DEVICES UNCHANGED. Chest X-Ray 09/18/20 00:00 IMPRESSION: 1. Increased interstitial edema since yesterday KUB X-Ray 09/20/20 00:00 IMPRESSION: Esophagogastric tube tip and side-hole are below the diaphragm likely in the stomach. Chest X-Ray 09/23/20 04:00 IMPRESSION: Slight improvement. No pneumothorax. Chest X-Ray 09/26/20 04:00 IMPRESSION: No change from 09/23/2020 IMPRESSION/RECOMMENDATION: 1.S/p cardiopulmonary arrest: With spontaneous return of circulation after CPR. Most likely this is a respiratory scarring causing cardiac arrest. Patient s/p intubation. 2. Covid related pneumonia. 3. Non-ST elevation GA: Especially with the new EKG inversion in the inferior leads. The troponin is trending down. I agree with the echo got about. Later once the blood pressure is stable we will start the patient on beta-trae and aspirin and nitrates. Will follow serial EKGs and troponin levels. His troponin is elevated back to 6.10. The EKG shows no progression or regression of the T wave changes in the inferior leads. We will start the patient on small dose of beta-trae and increase as tolerated. Continue argatroban. Continue aspirin. Due to blood pressure being low her Lopressor is being held. 4. Hypotension: Has recurred. Patient is on vasopressin which has now been dialed up to 0.04 units /min. The patient is off the Levophed. Earlier blood pressure was in the 90s rate of 0.03 units/min of vasopressin. This has been increased. Her blood pressure now is in the 100s. 5. Acute on chronic kidney disease: Avoid nephrotoxic drugs. Note that the patient's renal function was normal in 2016. Her GFR is reduced to 22 mL/min in September 2020. At present may need dialysis since the patient is oliguric. Nephrology consult appreciated. Note that the patient's urine output is good but the patient's renal parameters i.e. BUN/creatinine are worsening. 6. History of hypertension: At present blood pressure stable off pressors note patient was hypotensive most likely secondary to sepsis and respiratory problems. 7. History of COPD: At present no evidence of acute exacerbation although the patient has pneumonia. 8. Anemia: S/p transfusion: Would recommend GI work-up later: Continue prolonged proton pump inhibitors. Again the patient's hemoglobin is dropped to 7.6. This may partly be due to hemodilution. But will check stool occult blood. 9. History of sleep apnea: 10. History of interstitial fibrosis:? Etiology. Medications reviewed. Medication management and medical regimen discussed with kiln cleaner. Medical decision making is of high complexity. 40 minutes spent as patient more than 50% time spent in direct patient care. Will follow. All labs and imaging and EKGs and echocardiogram have been reviewed by me. Discussed in detail with the kiln cleaner.
[2020-09-27] MEDS ORDERED: MEROPENEM 500 MG in NORMAL SALINE 50 ML IV SCH (14:00)
[2020-09-27] MEDS: MEROPENEM 500 MG in NORMAL SALINE 50 ML IV SCH (17:57)
[2020-09-27] MEDS: DEXTROSE 5%-WATER 250 ML with VASOPRESSIN 100 UNIT IV PRN ×2 (17:59)
[2020-09-27] MEDS: DEXTROSE 5%-WATER 250 ML with NOREPINEPHRINE BITARTRATE 4 MG IV PRN ×2 (17:59)
--- NOTE | 2020-09-27 18:41 | PDOC CRITICAL CARE PROG REPORT ---
General Date:: 09/27/20 ICU Day:: 10 Ventilator Day:: 10 Hospital Day:: 13 Resuscitation Status: Full Code Events in the past 12 to 24 Hours:: This 69-year-old female smoker presented to [facility] emergency department on 09/14/2020 with complaints of increased dyspnea. She reports a history of interstitial lung disease but denies COPD or emphysema. In the emergency department, she was found to be hypoxic and was placed on supplemental oxygen. Due to failure to improve oxygenation, she was placed on BiPAP support with an FiO2 of 100%. This was titrated at the bedside to CPAP 8. Her primary care physician (Dr. Joiner) requested ICU admission for acute hypoxemic respiratory failure. In the emergency department, her troponin was elevated (7.09) and proBNP 16,400. Chest x-ray was consistent with pulmonary edema. 09/15: She remains in the emergency department (lack of available beds). She is stable on CPAP 6, FiO2 100%. In fact, the nurse called earlier this morning to report that the patient was wandering around in the hallway. Denies chest pain. She states that her shortness of breath is improved with noninvasive positive pressure ventilatory support. Minimal cough. No sputum production. 2D echo pending. Patient discussed with Dr. Joiner. 09/18: Transferred to the ICU and reintubated. Currently stable 09/19: Renal function worsening, heading toward HD. Stop versed and assess neuro status. 09/20: Still not very awake. Renal function worse, LFTs better after arrest. 09/21: Still not responsive on no sedation. Renal function worse. Heading toward dialysis. Dr. Kathleen consulted. 09/22: Still making urine. Not needing HD now. Still not awake. Cant extubate. 09/23: Making more urine. No HD today. Covid ARDS by the numbers. Not responsive. 09/24: Coming off levophed. Agitated but not awake or extubatable. 09/25: Now on vasopressin instead of norepinephrine (per Dr. Zuniga). Still on argatroban gtt. Remains intubated. On propofol for sedation. On PRVC 15 /450/100/10. RR 21. 09/26: On vasopresin @ 0.04. MAP 72. Afebrile, in fact, hypothermic (96.3 F). Still on argatroban gtt. But, platelets 48 today. Remains intubated. RASS -4, on propofol for sedation, which was apparently increased overnight due to concerns about oxygen desaturation being related to work of breathing. Currently, getting NS 500 mL IV bolus for mild hypotension (MAP 62) this a.m. On PRVC 15/450/100/10. RR 16. ABG this a.m.: 7.35/38/63. BUN 145, Cr 6 but nonoliguric. 09/27: On norepinephrine (2) and vasopressin (0.04). Afebrile. No longer hypothermic. Platelets 59 today (perhaps, after changing Pepcid to Protonix). On argatroban. On propofol/fentanyl for sedation. PRVC 22/450/100/10. RR 22. ABG this a.m.: 7.29/43/62. BUN 154. Creatinine 5.4. Decadron decreased to 4 mg IV q 12 hr. Has been on Levaquin since 09/23 but urine (09/26) is isolating GNR. Review of systems relevant to events:: Neurological, renal, pulmonary. Reason for ICU Addmission:: s/p cardiac arrest. Intubated. - Medications: Medications reviewed and adjusted accordingly: Yes Vasopressors:: Norepinephrine, vasopressin Physical Exam Vital Signs: Temp Pulse Resp BP Pulse Ox 98.2 F 65 22 H 106/54 L 94 09/27/20 05:44 09/27/20 00:50 09/27/20 06:00 09/25/20 08:00 09/27/20 06:00 Intake & Output 09/26/20 09/27/20 09/28/20 06:59 06:59 06:59 Intake Total 587 1042 Output Total 2170 1420 Balance -1583 -378 Weight 86.5 kg 84.3 kg Weight/Height Weight 84.3 kg Height 1.57 m General appearance: PRESENT: no acute distress, well-developed, well-nourished Head exam: PRESENT: atraumatic, normocephalic Eye exam: PRESENT: conjunctiva pink, EOMI, PERRLA. ABSENT: scleral icterus Mouth exam: PRESENT: moist, tongue midline Neck exam: ABSENT: carotid bruit, JVD, lymphadenopathy, thyromegaly Respiratory exam: PRESENT: clear to auscultation yung, symmetrical. ABSENT: rales, rhonchi, wheezes Cardiovascular exam: PRESENT: RRR. ABSENT: diastolic murmur, rubs, systolic murmur Pulses: PRESENT: normal dorsalis pedis pul GI/Abdominal exam: PRESENT: normal bowel sounds, soft. ABSENT: distended, guarding, mass, organolmegaly, rebound, tenderness Gentrourinary exam: PRESENT: indwelling catheter Extremities exam: PRESENT: full ROM, pedal edema, +1 edema. ABSENT: calf tender ness, clubbing Musculoskeletal exam: PRESENT: normal inspection. ABSENT: deformity Neurological exam: PRESENT: altered, reflexes normal, CN II-XII grossly intact. ABSENT: motor sensory deficit Psychiatric exam: ABSENT: agitated, anxious Skin exam: PRESENT: dry, intact, warm. ABSENT: cyanosis, rash Tubes/Lines: PRESENT: Endotracheal Tube, Central Line - L IJ, Arterial Catheter - R femoral, Nasogastic Tube Laboratory/Radiographs Laboratory Results: 09/27/20 04:10 09/27/20 04:10 09/26/20 09/27/20 09/27/20 11:55 04:10 04:10 WBC 15.5 H RBC 2.99 L Hgb 8.9 L Hct 26.2 L MCV 88 MCH 29.9 MCHC 34.1 RDW 17.7 H Plt Count 59 L Seg Neutrophils % Not Reportable Carbonic Acid HCO3/H2CO3 Ratio ABG pH ABG pCO2 ABG pO2 ABG HCO3 ABG O2 Saturation ABG Base Excess FiO2 Sodium 132.3 L 131.2 L Potassium 3.5 L 4.4 Chloride 99 98 Carbon Dioxide 26 22 Anion Gap 7 11 BUN 152 H 154 H Creatinine 5.50 H 5.42 H Est GFR ( Amer) 9 L 9 L Glucose 118 H 125 H Calcium 8.4 8.5 Phosphorus 7.5 H Magnesium 1.9 C-Reactive Protein 132.3 H Triglycerides 254 H 09/27/20 09/27/20 04:10 04:10 WBC RBC Hgb Hct MCV MCH MCHC RDW Plt Count Seg Neutrophils % Carbonic Acid 1.31 HCO3/H2CO3 Ratio 15:1 ABG pH 7.29 L ABG pCO2 43.4 ABG pO2 62.4 L ABG HCO3 20.2 ABG O2 Saturation 89.2 L ABG Base Excess -6.1 FiO2 100% Sodium Potassium Chloride Carbon Dioxide Anion Gap BUN Creatinine Est GFR ( Amer) Glucose Calcium Phosphorus Cancelled Magnesium C-Reactive Protein Triglycerides 09/14/20 09/14/20 09/14/20 13:15 13:15 20:11 CK-MB (CK-2) 7.78 H Troponin I 7.090 6.940 NT-Pro-B Natriuret Pep 19412 H 09/15/20 09/15/20 09/17/20 02:02 05:47 09:56 CK-MB (CK-2) Troponin I 7.440 6.180 4.440 NT-Pro-B Natriuret Pep 09/18/20 09/19/20 09/20/20 13:55 03:16 04:22 CK-MB (CK-2) Troponin I 6.100 3.560 1.510 NT-Pro-B Natriuret Pep 09/25/20 04:10 CK-MB (CK-2) Troponin I 0.374 NT-Pro-B Natriuret Pep Impressions: KUB X-Ray 09/20/20 00:00 IMPRESSION: Esophagogastric tube tip and side-hole are below the diaphragm li sandie in the stomach. Chest X-Ray 09/26/20 04:00 IMPRESSION: No change from 09/23/2020 All labs, radiographs, diagnostic studies and EKGs were personally reviewed: Yes In addition, reports of radiographic and diagnostic studies were read: Yes Assessment and Plan - Diagnosis (1) Acute hypoxemic respiratory failure Is this a current diagnosis for this admission?: Yes Plan: * Titrate vent settings based on ABG results. Still on FiO2 100%, PEEP 10. * Decrease VT to 420 to keep Pplat < 30. * Titrate sedation for RASS -2. (2) Sepsis due to gram-negative urinary tract infection Is this a current diagnosis for this admission?: Yes Plan: * With rising WBC count and GNR in urine despite Levaquin, change to meropenem. (3) PILAR (acute kidney injury) Is this a current diagnosis for this admission?: Yes Plan: * Creatinine 6>5.4. * Uremia will likely cloud the patient's neurologic assessment. (4) Thrombocytopenia Is this a current diagnosis for this admission?: Yes Plan: * Slight improvement today after Pepcid changed to Protonix. * Currently, on argatroban (due to previous concern for possible heparin-induced thrombocytopenia). Heparin-induced antiplatelet antibodies PENDING. * Culture blood, urine and tracheal aspirate. * LDH 1448, haptoglobin PENDING. (5) Pneumonia due to COVID-19 virus Is this a current diagnosis for this admission?: Yes Plan: * Completed remdesivir. * Decadron was decreased to 4 mg IV every 12 hours (09/26/2020). * Continue vitamin C, vitamin D3, zinc sulfate. * Continue budesonide. (6) NSTEMI (non-ST elevated myocardial infarction) Is this a current diagnosis for this admission?: Yes Plan: * On argatroban infusion. * On aspirin 81 mg p.o. daily. * On metoprolol. * Cardiology help appreciated. (7) Elevated brain natriuretic peptide (BNP) level Is this a current diagnosis for this admission?: Yes (8) Chronic interstitial lung disease Is this a current diagnosis for this admission?: Yes Critical Time Critical Time (minutes): 60 Level of Care: ICU -: 1. The care of a critical patient is a dynamic process. This note is a employer relations representative synopsis but static in nature. The timeframe for treatments given in order is not necessarily the actual time these treatments may have been done. 2. This patient requires critical care secondary to ongoing requirements for therapy not offered or safe outside the critical care environment. Transfer to a lower level of care will result in altered life or limb morbidity and mortality. 3. Multidisciplinary rounds completed. 4. ABCDE bundle addressed.
[2020-09-27] MEDS: MONTELUKAST SODIUM 10 MG TABLET PO SCH (21:54)
[2020-09-27] MEDS: TRAZODONE HCL 50 MG TABLET PO SCH (21:54)
[2020-09-27] MEDS: PHARMACY COMMUNICATION ORDER MC SCH (22:51)
[2020-09-28] MEDS: METOCLOPRAMIDE HCL INJ/PF 10 MG/2 ML SDV IV SCH ×5 (00:04→23:24)
[2020-09-28] MEDS: INSULIN REG, HUMAN 100 UNIT/ML 3 ML VIAL (PYX) SUBCUT SCH ×5 (00:04→23:22)
[2020-09-28] MEDS: LEVALBUTEROL HCL NEB 0.63 MG/3 ML AMPUL NEB SCH ×6 (00:47→20:08)
[2020-09-28] MEDS: FENTANYL CITRATE/PF 600 MCG/60 ML BAG IV PRN ×5 (01:00→23:00)
[2020-09-28] MEDS: PROPOFOL 1,000 MG/100 ML INFUS..BTL IV PRN ×5 (02:46→21:23)
[2020-09-28 04:58] LABS: ARTERIAL BLOOD H2CO3 1.24 mmol/L (1.05-1.35); ARTERIAL BLOOD HCO3 19.2 mmol/L (20-24); ARTERIAL BLOOD O2 SATURATION 90.1 % (94-98); ARTERIAL BLOOD PCO2 41.2 mmHg (35-45); ARTERIAL BLOOD PH 7.29 (7.35-7.45); ARTERIAL BLOOD PO2 64.3 mmHg (80-100); ARTERIAL BLOOD TOTAL CO2 20.5 mmol/L (21-25)
[2020-09-28 05:05] LABS: ARTERIAL BLOOD FIO2 100%
[2020-09-28] MEDS: MEROPENEM 500 MG in NORMAL SALINE 50 ML IV SCH (05:17)
[2020-09-28] MEDS: PANTOPRAZOLE SODIUM 40 MG PACKET.DR NG SCH (05:18)
[2020-09-28 05:32] LABS: ALBUMIN 2.3 g/dL (3.5-5.0); ALKALINE PHOSPHATASE 120 U/L (38-126); ANION GAP 12 (5-19); ASPARTATE AMINO TRANSFERASE 32 U/L (14-36); BILIRUBIN,DIRECT 1.1 mg/dL (0.0-0.4); BILIRUBIN,TOTAL 1.3 mg/dL (0.2-1.3); CALCIUM 8.5 mg/dL (8.4-10.2); CARBON DIOXIDE 21 mmol/L (22-30); CHLORIDE 98 mmol/L (98-107); GLUCOSE 130 mg/dL (75-110); PHOSPHORUS 7.1 mg/dL (2.5-4.5); POTASSIUM 4.2 mmol/L (3.6-5.0); TOTAL PROTEIN 4.6 g/dL (6.3-8.2)
[2020-09-28 05:40] LABS: PREALBUMIN 16.9 mg/dL (17.6-36.0)
[2020-09-28 05:42] LABS: BLOOD UREA NITROGEN 152 mg/dL (7-20)
[2020-09-28 06:30] LABS: HEMATOCRIT 26.1 % (36.0-47.0); MEAN CORPUSCULAR HEMOGLOBIN 30.2 pg (27.0-33.4); MEAN CORPUSCULAR HGB CONC 34.5 g/dL (32.0-36.0); MEAN CORPUSCULAR VOLUME 87 fl (80-97); RED BLOOD COUNT 2.98 10^6/uL (3.72-5.28); RED CELL DISTRIBUTION WIDTH 17.5 % (11.5-14.0); WHITE BLOOD COUNT 19.6 10^3/uL (4.0-10.5)
[2020-09-28 06:39] LABS: PLATELET COUNT 59 10^3/uL (150-450)
[2020-09-28 06:47] LABS: ABSOLUTE MONOCYTES # (MANUAL) 0.4 10^3/uL (0.1-1.4); BASOPHILS % (MANUAL) 0 % (0-2); EOSINOPHILS % (MANUAL) 0 % (0-6); LYMPHOCYTES % (MANUAL) 0 % (13-45); MONOCYTES % (MANUAL) 2 % (3-13); SEGMENTED NEUTROPHILS % (MAN) 98 % (42-78); TOTAL CELLS COUNTED 100
[2020-09-28 06:48] LABS: ANISOCYTOSIS 1+; OVALOCYTES SLIGHT; PLATELET COMMENT DECREASED; POLYCHROMASIA SLIGHT; TOXIC GRANULATION SLIGHT
[2020-09-28] MEDS: BUDESONIDE NEB 0.25 MG/2 ML AMPUL NEB SCH ×2 (08:07→20:08)
[2020-09-28] MEDS: CHOLECALCIFEROL (D3) 1,000 UNIT (25 MCG) TABLET PO SCH (09:14)
[2020-09-28] MEDS: LEVETIRACETAM ORAL SOLN 500 MG/5 ML UDCUP NG SCH ×2 (09:14→22:59)
[2020-09-28] MEDS: ASPIRIN 81 MG TABLET, CHEWABLE PO SCH (09:14)
[2020-09-28] MEDS: ASCORBIC ACID 500 MG TABLET PO SCH ×3 (09:15→18:04)
[2020-09-28] MEDS: DEXAMETHASONE SOD PHOSPHATE INJ 4 MG/1 ML VIAL IV SCH ×2 (09:15→23:00)
[2020-09-28] MEDS ORDERED: EPOETIN ALFA-EPBX 10,000 UNIT in SYRINGE, DISPOSABLE, 1 EACH IV PRN (09:21)
[2020-09-28] MEDS ORDERED: NORMAL SALINE 1000 ML 1,000 ML IV PRN (09:21)
[2020-09-28] MEDS ORDERED: HEPARIN SOD (PORCINE) 1,000 UNIT/ML 10 ML VIAL IV PRN (09:21)
[2020-09-28] MEDS: METOPROLOL TARTRATE 25 MG TABLET NG SCH ×2 (09:24→22:26)
[2020-09-28] MEDS: DEXTROSE 5%-WATER 250 ML with NOREPINEPHRINE BITARTRATE 4 MG IV PRN ×2 (13:20)
[2020-09-28] MEDS ORDERED: VANCOMYCIN HCL 0 MG in DEXTROSE 5%-WATER 250 ML IV NR (14:30)
--- NOTE | 2020-09-28 14:53 | RADIOLOGY REPORT (SQ) ---
EXAM DESCRIPTION: CHEST SINGLE VIEW IMAGES COMPLETED DATE/TIME: 09/28/2020 2:42 pm REASON FOR STUDY: new line placement COMPARISON: None. NUMBER OF VIEWS: One view. TECHNIQUE: Single frontal radiographic image of the chest acquired. LIMITATIONS: None. FINDINGS: LUNGS AND PLEURA: Stable appearance. MEDIASTINUM AND HILAR STRUCTURES: Stable heart size and mediastinal structures. HEART AND VASCULAR STRUCTURES: Stable appearance. SUPPORT DEVICES: Endotracheal tube and NG tube remain in satisfactory position There has been a right -sided central line placed. Catheter tip overlies the SVC right atrial junction. No pneumothorax. The left-sided central line appears to been exchanged. The tip of this catheter overlies the right u pper chest probably within the subclavian vein or distal right jugular vein. BONES: No acute findings. OTHER: No other significant finding. IMPRESSION: 1. Stable diffuse bilateral airspace disease. 2. Endotracheal tube and NG tube have been placed as described. 3. There appear to be in interval placement of a new right-sided central line in the left-sided line appears to been exchanged. Right-sided line in overlies the tip of the SVC. The new left-sided stanford e overlies the right upper chest most likely the tip lies in the subclavian vein or distal right inte rnal jugular vein. TECHNICAL DOCUMENTATION: JOB ID: [id number] 2010 [employer]- All Rights Reserved Reading location - IP/workstation name: [email or web address]
[2020-09-28] MEDS ORDERED: CEFTRIAXONE 1 GM/D5W RTU 1 GM/50 ML RTUPB IV SCH (15:00)
[2020-09-28] MEDS ORDERED: NORMAL SALINE INJ/PF 0.9% 10 ML SDV IV PRN (15:11)
--- NOTE | 2020-09-28 15:14 | Operative Report ---
Bedside Procedure - History of Present Illness Indication for Procedure: Dialysis Date: 09/16/20 Provider: ILEANA MEEHAN - Central Line Left Internal jugular Time completed: 13:30 Consent obtained: Yes Central line pre-insertion: Sterile PPE donned, Chloraprep applied, Sterile drapes applied Central line lumen type: Other - dialysis cath Ultrasound guided: Yes Line secured with sutures: Yes Central line post-insertion: Blood return from lumens, Biopatch applied, Sutured, Sterile dressing applied, Position confirmed w/ CXR Complications: No
--- NOTE | 2020-09-28 15:15 | Operative Report ---
Bedside Procedure - History of Present Illness Indication for Procedure: venous access Date: 09/16/20 Provider: ILEANA MEEHAN - Central Line Right Internal jugular Time completed: 01:10 Consent obtained: Yes Central line pre-insertion: Sterile PPE donned, Chloraprep applied, Sterile drapes applied Central line lumen type: Triple Anesthetic type: 1% Lidocaine mL's of anesthesia: 3 Ultrasound guided: Yes Line secured with sutures: Yes Central line post-insertion: Blood return from lumens, Biopatch applied, Sutured, Position confirmed w/ CXR Number of attempts: 1 Complications: No
[2020-09-28 15:36] LABS: HEPATITIS C QUANTITATION HCV Not Detected IU/mL (.)
--- NOTE | 2020-09-28 16:16 | RADIOLOGY REPORT (SQ) ---
EXAM DESCRIPTION: CHEST SINGLE VIEW IMAGES COMPLETED DATE/TIME: 09/28/2020 3:12 pm REASON FOR STUDY: line placement after readjustment COMPARISON: Earlier the same day NUMBER OF VIEWS: One view. TECHNIQUE: Single frontal radiographic image of the chest acquired. LIMITATIONS: None. FINDINGS: LUNGS AND PLEURA: Stable appearance. MEDIASTINUM AND HILAR STRUCTURES: Stable heart size and mediastinal structures. HEART AND VASCULAR STRUCTURES: Stable appearance. SUPPORT DEVICES: Left-sided central line has been adjusted now overlies the SVC right atrial junction . Support lines and tubes are otherwise stable in appearance. BONES: No acute findings. OTHER: No other significant finding. IMPRESSION: Interval adjustment of the left IJ line. No other interval change. TECHNICAL DOCUMENTATION: JOB ID: [id number] 2010 [employer] All Rights Reserved Reading location - IP/workstation name: [email or web address]
--- NOTE | 2020-09-28 17:29 | PDOC PROGRESS REPORT ---
Subjective Date:: 09/28/20 Subjective:: Patient remains to be intubated and sedated. She is making urine, at least 1 L plus every day. However her BUN and creatinine continues to be elevated without any change. I discussed with Dr. Vizcaino, radiation control worker. There is a concern if uremia is affecting her mental status. So I plan to do dialysis. The radiation control worker inserted the dialysis catheter successfully. I am now seeing the patient during her first dialysis treatment. Her blood pressure has been going down to systolic blood pressure of the 80s so I asked that we increase her Levoped. We are going to do gentle first dialysis treatment today for for solute control. Reason For Visit: PNEUOMONIA DUE TO COVID19, ACUTE RENAL FAILURE, Physical Exam Vital Signs: Temp Pulse Resp BP Pulse Ox 98.2 F 71 28 H 104/54 L 95 09/28/20 16:00 09/28/20 16:00 09/28/20 16:00 09/28/20 16:00 09/28/20 16:00 Intake & Output 09/27/20 09/28/20 09/29/20 06:59 06:59 06:59 Intake Total 1042 999 372 Output Total 1420 1040 327 Balance -378 -41 45 Weight 84.3 kg 88.1 kg Vitals during dialysis: Blood pressure 92/51, heart rate of 73, respiration of 28, oxygen saturation 95% with FiO2 of 100% on mechanical ventilation. Her current blood flow rate of 250 mL/min and dialysate flow rate of 600 mL/min. Exam: Limited examination due to Covid isolation. General appearance: PRESENT: Intubated and sedated Head exam: PRESENT: atraumatic, normocephalic Eye exam: PRESENT: Eyes closed Neck exam: ABSENT: JVD Respiratory exam: PRESENT: Reportedly diminished per nurse Cardiovascular exam: PRESENT: Regular rate rhythm -+S1, +S2. ABSENT: diastolic murmur, systolic murmur GI/Abdominal exam: PRESENT: normal bowel sounds, soft. ABSENT: guarding, mass, tenderness Extremities exam: Reported no edema Neurological exam: PRESENT: Sedated. Skin exam: PRESENT: dry, warm, Cardiovascular exam: PRESENT: +S1, +S2 GI/Abdominal exam: PRESENT: normal bowel sounds, soft. ABSENT: organomegaly, tenderness Results Laboratory Results: 09/28/20 04:20 09/28/20 04:20 09/27/20 09/28/20 09/28/20 04:10 04:20 04:20 WBC 19.6 H RBC 2.98 L Hgb 9.0 L Hct 26.1 L MCV 87 MCH 30.2 MCHC 34.5 RDW 17.5 H Plt Count 59 L Seg Neutrophils % Not Reportable Carbonic Acid HCO3/H2CO3 Ratio ABG pH ABG pCO2 ABG pO2 ABG HCO3 ABG O2 Saturation ABG Base Excess FiO2 Sodium 131.1 L Potassium 4.2 Chloride 98 Carbon Dioxide 21 L Anion Gap 12 BUN 152 H Creatinine 5.43 H Est GFR ( Amer) 9 L Glucose 130 H Calcium 8.5 Phosphorus 7.1 H Magnesium 2.0 Total Bilirubin 1.3 AST 32 Alkaline Phosphatase 120 Total Protein 4.6 L Albumin 2.3 L Prealbumin 16.9 L Triglycerides 194 H 09/28/20 09/28/20 04:20 04:20 WBC Cancelled RBC Cancelled Hgb Cancelled Hct Cancelled MCV Cancelled MCH Cancelled MCHC Cancelled RDW Cancelled Plt Count Cancelled Seg Neutrophils % Carbonic Acid 1.24 HCO3/H2CO3 Ratio 15:1 ABG pH 7.29 L ABG pCO2 41.2 ABG pO2 64.3 L ABG HCO3 19.2 L ABG O2 Saturation 90.1 L ABG Base Excess -7.0 FiO2 100% Sodium Potassium Chloride Carbon Dioxide Anion Gap BUN Creatinine Est GFR ( Amer) Glucose Calcium Phosphorus Magnesium Total Bilirubin AST Alkaline Phosphatase Total Protein Albumin Prealbumin Triglycerides 09/26/20 10:45 Gauthier Catheter Urine Culture - Final Escherichia Coli 09/26/20 10:45 Tracheal Aspirate Gram Stain - Final 09/14/20 09/14/20 09/14/20 13:15 13:15 20:11 CK-MB (CK-2) 7.78 H Troponin I 7.090 6.940 NT-Pro-B Natriuret Pep 06525 H 09/15/20 09/15/20 09/17/20 02:02 05:47 09:56 CK-MB (CK-2) Troponin I 7.440 6.180 4.440 NT-Pro-B Natriuret Pep 09/18/20 09/19/20 09/20/20 13:55 03:16 04:22 CK-MB (CK-2) Troponin I 6.100 3.560 1.510 NT-Pro-B Natriuret Pep 09/25/20 04:10 CK-MB (CK-2) Troponin I 0.374 NT-Pro-B Natriuret Pep Impressions: KUB X-Ray 09/20/20 00:00 IMPRESSION: Esophagogastric tube tip and side-hole are below the diaphragm likely in the stomach. Chest X-Ray 09/28/20 13:33 IMPRESSION: 1. Stable diffuse bilateral airspace disease. 2. Endotracheal tube and NG tube have been placed as described. 3. There appear to be in interval placement of a new right-sided central line in the left-sided line appears to been exchanged. Right-sided line in overlies the tip of the SVC. The new left-sided line overlies the right upper chest most likely the tip lies in the subclavian vein or distal right internal jugular vein. Assessment & Plan - Diagnosis (1) PILAR (acute kidney injury) Is this a current diagnosis for this admission?: Yes Plan: Secondary to ATN with hypotension, that is post cardiac arrest in the background of COVID-19 infection. Currently nonoliguric good urine output. Baseline creatinine of 0.6-0.8. Currently with continuous elevation of BUN and creatinine. As per discussion above we are going to do renal replacement therapy today. We will do dialysis today for 2.5 hours, using the patient's dialysis catheter, with 3 potassium bath, blood flow rate of 250 mL per minute, dialysate flow rate of 6 mL per minute, ultrafiltration 0- 1 L as tolerated, no heparin and Procrit with 10,000 units during dialysis intravenously. Patient is currently being monitored during her first dialysis treatment. (2) Acute hypoxemic respiratory failure Is this a current diagnosis for this admission?: Yes Plan: On mechanical ventilation per radiation control worker management. (3) Hypotension Is this a current diagnosis for this admission?: Yes Plan: Currently on vasopressin and Levophed . (4) Anemia Is this a current diagnosis for this admission?: Yes Plan: Retacrit on dialysis. (5) Hyponatremia Is this a current diagnosis for this admission?: Yes Plan: Unchanged. (6) Cardiac arrest Is this a current diagnosis for this admission?: Yes (7) NSTEMI (non-ST elevated myocardial infarction) Is this a current diagnosis for this admission?: Yes Plan: Door Clamp Operator, Dr. Roberson following the patient. (8) Pneumonia due to COVID-19 virus Is this a current diagnosis for this admission?: Yes Plan: On Decadron. (9) Chronic interstitial lung disease Is this a current diagnosis for this admission?: Yes
[2020-09-28] MEDS ORDERED: VANCOMYCIN HCL 1,500 MG in DEXTROSE 5%-WATER 250 ML IV SCH (18:00)
--- NOTE | 2020-09-28 18:44 | PDOC CRITICAL CARE PROG REPORT ---
General Date:: 09/28/20 ICU Day:: 11 Ventilator Day:: 11 Hospital Day:: 14 Resuscitation Status: Full Code Events in the past 12 to 24 Hours:: This 69-year-old female smoker presented to [facility] emergency department on 09/14/2020 with complaints of increased dyspnea. She reports a history of interstitial lung disease but denies COPD or emphysema. In the emergency department, she was found to be hypoxic and was placed on supplemental oxygen. Due to failure to improve oxygenation, she was placed on BiPAP support with an FiO2 of 100%. This was titrated at the bedside to CPAP 8. Her primary care physician (Dr. Joiner) requested ICU admission for acute hypoxemic respiratory failure. In the emergency department, her troponin was elevated (7.09) and proBNP 16,400. Chest x-ray was consistent with pulmonary edema. 09/15: She remains in the emergency department (lack of available beds). She is stable on CPAP 6, FiO2 100%. In fact, the nurse called earlier this morning to report that the patient was wandering around in the hallway. Denies chest pain. She states that her shortness of breath is improved with noninvasive positive pressure ventilatory support. Minimal cough. No sputum production. 2D echo pending. Patient discussed with Dr. Joiner. 09/18: Transferred to the ICU and reintubated. Currently stable 09/19: Renal function worsening, heading toward HD. Stop versed and assess neuro status. 09/20: Still not very awake. Renal function worse, LFTs better after arrest. 09/21: Still not responsive on no sedation. Renal function worse. Heading toward dialysis. Dr. Kathleen consulted. 09/22: Still making urine. Not needing HD now. Still not awake. Cant extubate. 09/23: Making more urine. No HD today. Covid ARDS by the numbers. Not responsive. 09/24: Coming off levophed. Agitated but not awake or extubatable. 09/25: Now on vasopressin instead of norepinephrine (per Dr. Zuniga). Still on argatroban gtt. Remains intubated. On propofol for sedation. On PRVC 15 /450/100/10. RR 21. 09/26: On vasopresin @ 0.04. MAP 72. Afebrile, in fact, hypothermic (96.3 F). Still on argatroban gtt. But, platelets 48 today. Remains intubated. RASS -4, on propofol for sedation, which was apparently increased overnight due to concerns about oxygen desaturation being related to work of breathing. Currently, getting NS 500 mL IV bolus for mild hypotension (MAP 62) this a.m. On PRVC 15/450/100/10. RR 16. ABG this a.m.: 7.35/38/63. BUN 145, Cr 6 but nonoliguric. 09/27: On norepinephrine (2) and vasopressin (0.04). Afebrile. No longer hypothermic. Platelets 59 today (perhaps, after changing Pepcid to Protonix). On argatroban. On propofol/fentanyl for sedation. PRVC 22/450/100/10. RR 22. ABG this a.m.: 7.29/43/62. BUN 154. Creatinine 5.4. Decadron decreased to 4 mg IV q 12 hr. Has been on Levaquin since 09/23 but urine (09/26) is isolating GNR. 09/28: On neorepinephrine (3) and vasopressin (0.04). Platelets 59 again today. On argatroban. On propofol/fentanyl for sedation. Unarousable to noxious stimuli. PRVC 28/380/100/12. RR 28. ABG this a.m.: 7.29/41/64. Review of systems relevant to events:: Neurological, renal, pulmonary. Reason for ICU Addmission:: s/p cardiac arrest. Intubated. - Medications: Medications reviewed and adjusted accordingly: Yes Vasopressors:: Norepinephrine, vasopressin Physical Exam Vital Signs: Temp Pulse Resp BP Pulse Ox 96.4 F L 65 28 H 118/60 85 L 09/28/20 08:00 09/28/20 08:00 09/28/20 08:00 09/28/20 08:00 09/28/20 08:00 Intake & Output 09/27/20 09/28/20 09/29/20 06:59 06:59 06:59 Intake Total 1042 999 87 Output Total 1420 1040 30 Balance -378 -41 57 Weight 84.3 kg 88.1 kg Weight/Height Weight 88.1 kg Height 1.57 m General appearance: PRESENT: no acute distress, obese, well-developed, well- nourished Head exam: PRESENT: atraumatic, normocephalic Eye exam: PRESENT: conjunctiva pink, EOMI, PERRLA. ABSENT: scleral icterus Neck exam: ABSENT: carotid bruit, JVD, lymphadenopathy, thyromegaly Respiratory exam: PRESENT: crackles. ABSENT: rales, rhonchi, wheezes Cardiovascular exam: PRESENT: RRR. ABSENT: diastolic murmur, rubs, systolic murmur Pulses: PRESENT: normal dorsalis pedis pul GI/Abdominal exam: PRESENT: normal bowel sounds, soft. ABSENT: distended, guarding, mass, organolmegaly, rebound, tenderness Gentrourinary exam: PRESENT: indwelling catheter Extremities exam: PRESENT: full ROM. ABSENT: calf tenderness, clubbing, pedal edema Musculoskeletal exam: PRESENT: normal inspection. ABSENT: deformity Neurological exam: PRESENT: altered, motor sensory deficit. ABSENT: reflexes normal - delayed DTRs Psychiatric exam: ABSENT: agitated, anxious Skin exam: PRESENT: dry, intact, warm. ABSENT: cyanosis, rash Laboratory/Radiographs Laboratory Results: 09/28/20 04:20 09/28/20 04:20 09/27/20 09/27/20 09/28/20 04:10 12:00 04:20 WBC 19.6 H RBC 2.98 L Hgb 9.0 L Hct 26.1 L MCV 87 MCH 30.2 MCHC 34.5 RDW 17.5 H Plt Count 59 L Seg Neutrophils % Not Reportable Carbonic Acid 1.20 HCO3/H2CO3 Ratio 16:1 ABG pH 7.31 L ABG pCO2 40.0 ABG pO2 59.5 L ABG HCO3 19.8 L ABG O2 Saturation 88.7 L ABG Base Excess -5.9 FiO2 100% Sodium Potassium Chloride Carbon Dioxide Anion Gap BUN Creatinine Est GFR ( Amer) Glucose Calcium Phosphorus Magnesium Total Bilirubin AST Alkaline Phosphatase Total Protein Albumin Prealbumin Triglycerides 194 H 09/28/20 09/28/20 09/28/20 04:20 04:20 04:20 WBC Cancelled RBC Cancelled Hgb Cancelled Hct Cancelled MCV Cancelled MCH Cancelled MCHC Cancelled RDW Cancelled Plt Count Cancelled Seg Neutrophils % Carbonic Acid 1.24 HCO3/H2CO3 Ratio 15:1 ABG pH 7.29 L ABG pCO2 41.2 ABG pO2 64.3 L ABG HCO3 19.2 L ABG O2 Saturation 90.1 L ABG Base Excess -7.0 FiO2 100% Sodium 131.1 L Potassium 4.2 Chloride 98 Carbon Dioxide 21 L Anion Gap 12 BUN 152 H Creatinine 5.43 H Est GFR ( Amer) 9 L Glucose 130 H Calcium 8.5 Phosphorus 7.1 H Magnesium 2.0 Total Bilirubin 1.3 AST 32 Alkaline Phosphatase 120 Total Protein 4.6 L Albumin 2.3 L Prealbumin 16.9 L Triglycerides 09/26/20 10:45 Tracheal Aspirate Gram Stain - Final 09/14/20 09/14/20 09/14/20 13:15 13:15 20:11 CK-MB (CK-2) 7.78 H Troponin I 7.090 6.940 NT-Pro-B Natriuret Pep 06579 H 09/15/20 09/15/20 09/17/20 02:02 05:47 09:56 CK-MB (CK-2) Troponin I 7.440 6.180 4.440 NT-Pro-B Natriuret Pep 09/18/20 09/19/20 09/20/20 13:55 03:16 04:22 CK-MB (CK-2) Troponin I 6.100 3.560 1.510 NT-Pro-B Natriuret Pep 09/25/20 04:10 CK-MB (CK-2) Troponin I 0.374 NT-Pro-B Natriuret Pep Impressions: KUB X-Ray 09/20/20 00:00 IMPRESSION: Esophagogastric tube tip and side-hole are below the diaphragm likely in the stomach. Chest X-Ray 09/26/20 04:00 IMPRESSION: No change from 09/23/2020 All labs, radiographs, diagnostic studies and EKGs were personally reviewed: Yes In addition, reports of radiographic and diagnostic studies were read: Yes Assessment and Plan - Diagnosis (1) Acute hypoxemic respiratory failure Is this a current diagnosis for this admission?: Yes Plan: * Titrate vent settings based on ABG results. Still on FiO2 100%, PEEP 10. * VT down to 380 to keep P plat < 30. * Oversedated today. Titrate sedation for RASS -2. (2) Sepsis due to gram-negative urinary tract infection Is this a current diagnosis for this admission?: Yes Plan: * Urine isolated E. coli. Currently on meropenem. Will change to Rocephin. * Trach aspirate is isolating gram-positive cocci in clusters. Start vancomycin. (3) PILAR (acute kidney injury) Is this a current diagnosis for this admission?: Yes Plan: * BUN 152. Creatinine 5.4, oliguric. Needs HD. Will discuss with Dr. Schneider. * Uremia clouding neurologic assessment. * I suspect her increase in PEEP requirement and worsening lung compliance are related to volume overload. * Hold argatroban infusion for placement of HD catheter, (4) Pneumonia due to COVID-19 virus Is this a current diagnosis for this admission?: Yes Plan: * Completed remdesivir. * Decadron was decreased to 4 mg IV every 12 hours (09/26/2020). * Continue vitamin C, vitamin D3, zinc sulfate. * Continue budesonide. * Tracheal aspirate (09/26) isolating gram-positive cocci. Empirically, will start vancomycin. (5) Thrombocytopenia Is this a current diagnosis for this admission?: Yes (6) NSTEMI (non-ST elevated myocardial infarction) Is this a current diagnosis for this admission?: Yes (7) Elevated brain natriuretic peptide (BNP) level Is this a current diagnosis for this admission?: Yes (8) Chronic interstitial lung disease Is this a current diagnosis for this admission?: Yes Critical Time Critical Time (minutes): 60 Level of Care: ICU -: 1. The care of a critical patient is a dynamic process. This note is a b2b outside sales representative synopsis but static in nature. The timeframe for treatments given in order is not necessarily the actual time these treatments may have been done. 2. This patient requires critical care secondary to ongoing requirements for therapy not offered or safe outside the critical care environment. Transfer to a lower level of care will result in altered life or limb morbidity and mortality. 3. Multidisciplinary rounds completed. 4. ABCDE bundle addressed.
[2020-09-28] MEDS: PHARMACY COMMUNICATION ORDER MC SCH (18:48)
--- NOTE | 2020-09-28 19:44 | Progress Note ---
Provider Note Provider Note: CARDIOLOGY PROGRESS NOTE by Dr. Jacqueline Roberson on 09/28/2020. SUBJECTIVE: There is no further episodes of nonsustained ventricular tachycardia . There is no atrial arrhythmias. The patient's blood pressure is stable and with the Levophed decreased to 8 mcg/min since the patient is on dialysis. At tempts will be made to wean this down back after dialysis.. His urine output is slightly lower than before. She is hypoxemic on now PEEP 100% FiO2 hemodialysis has been started by nephrology.. PHYSICAL EXAMINATION: The patient is mildly obese. She is intubated and sedated. Selected Entries 09/28/20 18:00 Core 98.1 F Temperature Pulse Rate 73 Respiratory 24 H Rate Positive End 12 Expiratory Pressure Blood Pressure 91/54 L [Femoral Artery ] Blood Pressure 66 Mean [Femoral Artery] O2 Sat by Pulse 88 L Oximetry Oxygen Delivery Mechanical Method ( Ventilator includes room air) Fraction of 100 Inspired Oxygen (FIO2) HEAD: Is atraumatic normocephalic. EYES: Pupils are equal round regular reactive to light. ENT is negative. NECK:. Carotids are equal there is no bruits. Neck is supple. There is no JVD there is no lymphadenopathy. There is no goiter. There is no accessory muscle respiration use. Trachea is central. LUNGS: There is diminished air entry prolonged expiration with scattered rhonchi and few dry crackles bilaterally. There is no rales of CHF. HEART: S1-S2 is heard. S1 is of normal intensity. There is no S3 gallop. There is an S4 gallop. There is systolic murmur left sternal border and the apex without radiation. There is no rub. ABDOMEN: Is soft. There is no hepatosplenomegaly. Bowel sounds are heard. EXTREMITIES: Femorals are deep. There is no femoral bruits. There is no pedal edema. There is no cyanosis or clubbing. There is no DVT or cellulitis. DIRECTOR [employer] and psychiatric not examined due to the patient being intubated and sedated. The patient's 24-hour total intake is 999 mL. 24-hour total output is 1040 mL. Labs- All tests 24 hr 09/25/20 09/25/20 09/25/20 11:57 18:02 23:53 WBC RBC Hgb Hct MCV MCH MCHC RDW Plt Count Lymph % (Auto) [place] % (Auto) Eos % (Auto) Baso % (Auto) Absolute Neuts (auto) Absolute Lymphs (auto) Absolute Monos (auto) Absolute Eos (auto) Absolute Basos (auto) Total Counted Seg Neutrophils % Seg Neuts % (Manual) Lymphocytes % (Manual) Monocytes % (Manual) Eosinophils % (Manual) Basophils % (Manual) Abs Neuts (Manual) Abs Lymphs (Manual) Abs Monocytes (Manual) Absolute Eos (Manual) Abs Basophils (Manual) Toxic Granulation Platelet Estimate Platelet Comment Polychromasia Anisocytosis Ovalocytes Haptoglobin APTT Carbonic Acid HCO3/H2CO3 Ratio ABG pH ABG pCO2 ABG pO2 ABG HCO3 ABG Total CO2 ABG O2 Saturation ABG Base Excess FiO2 Sodium Potassium Chloride Carbon Dioxide Anion Gap BUN Creatinine Est GFR ( Amer) Est GFR (MDRD) Non-Af Glucose POC Glucose 157 H 235 H 156 H Calcium Phosphorus Magnesium Total Bilirubin Direct Bilirubin Neonat Total Bilirubin Neonat Direct Bilirubin Neonat Indirect Bili AST ALT Alkaline Phosphatase Total Protein Albumin Prealbumin Heparin-induced Plt Ab HCV Quantitation HCV RNA PCR Test Info Slides for Path Review 09/26/20 09/26/20 09/26/20 05:10 08:07 11:34 WBC RBC Hgb Hct MCV MCH MCHC RDW Plt Count Lymph % (Auto) [place] % (Auto) Eos % (Auto) Baso % (Auto) Absolute Neuts (auto) Absolute Lymphs (auto) Absolute Monos (auto) Absolute Eos (auto) Absolute Basos (auto) Total Counted Seg Neutrophils % Seg Neuts % (Manual) Lymphocytes % (Manual) Monocytes % (Manual) Eosinophils % (Manual) Basophils % (Manual) Abs Neuts (Manual) Abs Lymphs (Manual) Abs Monocytes (Manual) Absolute Eos (Manual) Abs Basophils (Manual) Toxic Granulation Platelet Estimate Platelet Comment Polychromasia Anisocytosis Ovalocytes Haptoglobin APTT Carbonic Acid HCO3/H2CO3 Ratio ABG pH ABG pCO2 ABG pO2 ABG HCO3 ABG Total CO2 ABG O2 Saturation ABG Base Excess FiO2 Sodium Potassium Chloride Carbon Dioxide Anion Gap BUN Creatinine Est GFR ( Amer) Est GFR (MDRD) Non-Af Glucose POC Glucose 136 H 156 H Calcium Phosphorus Magnesium Total Bilirubin Direct Bilirubin Neonat Total Bilirubin Neonat Direct Bilirubin Neonat Indirect Bili AST ALT Alkaline Phosphatase Total Protein Albumin Prealbumin Heparin-induced Plt Ab HCV Quantitation HCV Not Detected HCV RNA PCR Test Info Comment Slides for Path Review 09/26/20 09/26/20 09/26/20 17:12 18:30 18:30 WBC RBC Hgb Hct MCV MCH MCHC RDW Plt Count Lymph % (Auto) [place] % (Auto) Eos % (Auto) Baso % (Auto) Absolute Neuts (auto) Absolute Lymphs (auto) Absolute Monos (auto) Absolute Eos (auto) Absolute Basos (auto) Total Counted Seg Neutrophils % Seg Neuts % (Manual) Lymphocytes % (Manual) Monocytes % (Manual) Eosinophils % (Manual) Basophils % (Manual) Abs Neuts (Manual) Abs Lymphs (Manual) Abs Monocytes (Manual) Absolute Eos (Manual) Abs Basophils (Manual) Toxic Granulation Platelet Estimate Platelet Comment Polychromasia Anisocytosis Ovalocytes Haptoglobin <10 L APTT Carbonic Acid HCO3/H2CO3 Ratio ABG pH ABG pCO2 ABG pO2 ABG HCO3 ABG Total CO2 ABG O2 Saturation ABG Base Excess FiO2 Sodium Potassium Chloride Carbon Dioxide Anion Gap BUN Creatinine Est GFR ( Amer) Est GFR (MDRD) Non-Af Glucose POC Glucose 187 H Calcium Phosphorus Magnesium Total Bilirubin Direct Bilirubin Neonat Total Bilirubin Neonat Direct Bilirubin Neonat Indirect Bili AST ALT Alkaline Phosphatase Total Protein Albumin Prealbumin Heparin-induced Plt Ab 2.161 H HCV Quantitation HCV RNA PCR Test Info Slides for Path Review 09/26/20 09/27/20 09/27/20 23:03 05:39 11:03 WBC RBC Hgb Hct MCV MCH MCHC RDW Plt Count Lymph % (Auto) [place] % (Auto) Eos % (Auto) Baso % (Auto) Absolute Neuts (auto) Absolute Lymphs (auto) Absolute Monos (auto) Absolute Eos (auto) Absolute Basos (auto) Total Counted Seg Neutrophils % Seg Neuts % (Manual) Lymphocytes % (Manual) Monocytes % (Manual) Eosinophils % (Manual) Basophils % (Manual) Abs Neuts (Manual) Abs Lymphs (Manual) Abs Monocytes (Manual) Absolute Eos (Manual) Abs Basophils (Manual) Toxic Granulation Platelet Estimate Platelet Comment Polychromasia Anisocytosis Ovalocytes Haptoglobin APTT Carbonic Acid HCO3/H2CO3 Ratio ABG pH ABG pCO2 ABG pO2 ABG HCO3 ABG Total CO2 ABG O2 Saturation ABG Base Excess FiO2 Sodium Potassium Chloride Carbon Dioxide Anion Gap BUN Creatinine Est GFR ( Amer) Est GFR (MDRD) Non-Af Glucose POC Glucose 158 H 149 H 139 H Calcium Phosphorus Magnesium Total Bilirubin Direct Bilirubin Neonat Total Bilirubin Neonat Direct Bilirubin Neonat Indirect Bili AST ALT Alkaline Phosphatase Total Protein Albumin Prealbumin Heparin-induced Plt Ab HCV Quantitation HCV RNA PCR Test Info Slides for Path Review 09/27/20 09/28/20 09/28/20 17:16 00:01 04:20 WBC 19.6 H RBC 2.98 L Hgb 9.0 L Hct 26.1 L MCV 87 MCH 30.2 MCHC 34.5 RDW 17.5 H Plt Count 59 L Lymph % (Auto) Not Reportable [place] % (Auto) Not Reportable Eos % (Auto) Not Reportable Baso % (Auto) Not Reportable Absolute Neuts (auto) Not Reportable Absolute Lymphs (auto) Not Reportable Absolute Monos (auto) Not Reportable Absolute Eos (auto) Not Reportable Absolute Basos (auto) Not Reportable Total Counted 100 Seg Neutrophils % Not Reportable Seg Neuts % (Manual) 98 H Lymphocytes % (Manual) 0 L Monocytes % (Manual) 2 L Eosinophils % (Manual) 0 Basophils % (Manual) 0 Abs Neuts (Manual) 19.2 H Abs Lymphs (Manual) 0.0 L Abs Monocytes (Manual) 0.4 Absolute Eos (Manual) 0.0 Abs Basophils (Manual) 0.0 Toxic Granulation SLIGHT Platelet Estimate Platelet Comment DECREASED Polychromasia SLIGHT Anisocytosis 1+ Ovalocytes SLIGHT Haptoglobin APTT Carbonic Acid HCO3/H2CO3 Ratio ABG pH ABG pCO2 ABG pO2 ABG HCO3 ABG Total CO2 ABG O2 Saturation ABG Base Excess FiO2 Sodium Potassium Chloride Carbon Dioxide Anion Gap BUN Creatinine Est GFR ( Amer) Est GFR (MDRD) Non-Af Glucose POC Glucose 181 H 123 H Calcium Phosphorus Magnesium Total Bilirubin Direct Bilirubin Neonat Total Bilirubin Neonat Direct Bilirubin Neonat Indirect Bili AST ALT Alkaline Phosphatase Total Protein Albumin Prealbumin Heparin-induced Plt Ab HCV Quantitation HCV RNA PCR Test Info Slides for Path Review 09/28/20 09/28/20 09/28/20 04:20 04:20 04:20 WBC Cancelled RBC Cancelled Hgb Cancelled Hct Cancelled MCV Cancelled MCH Cancelled MCHC Cancelled RDW Cancelled Plt Count Cancelled Lymph % (Auto) [place] % (Auto) Eos % (Auto) Baso % (Auto) Absolute Neuts (auto) Absolute Lymphs (auto) Absolute Monos (auto) Absolute Eos (auto) Absolute Basos (auto) Total Counted Seg Neutrophils % Seg Neuts % (Manual) Lymphocytes % (Manual) Monocytes % (Manual) Eosinophils % (Manual) Basophils % (Manual) Abs Neuts (Manual) Abs Lymphs (Manual) Abs Monocytes (Manual) Absolute Eos (Manual) Abs Basophils (Manual) Toxic Granulation Platelet Estimate Cancelled Platelet Comment Polychromasia Anisocytosis Ovalocytes Haptoglobin APTT Carbonic Acid 1.24 HCO3/H2CO3 Ratio 15:1 ABG pH 7.29 L ABG pCO2 41.2 ABG pO2 64.3 L ABG HCO3 19.2 L ABG Total CO2 20.5 L ABG O2 Saturation 90.1 L ABG Base Excess -7.0 FiO2 100% Sodium 131.1 L Potassium 4.2 Chloride 98 Carbon Dioxide 21 L Anion Gap 12 BUN 152 H Creatinine 5.43 H Est GFR ( Amer) 9 L Est GFR (MDRD) Non-Af 8 L Glucose 130 H POC Glucose Calcium 8.5 Phosphorus 7.1 H Magnesium 2.0 Total Bilirubin 1.3 Direct Bilirubin 1.1 H Neonat Total Bilirubin Not Reportable Neonat Direct Bilirubin Not Reportable Neonat Indirect Bili Not Reportable AST 32 ALT 69 H Alkaline Phosphatase 120 Total Protein 4.6 L Albumin 2.3 L Prealbumin 16.9 L Heparin-induced Plt Ab HCV Quantitation HCV RNA PCR Test Info Slides for Path Review Cancelled 09/28/20 07:20 WBC RBC Hgb Hct MCV MCH MCHC RDW Plt Count Lymph % (Auto) [place] % (Auto) Eos % (Auto) Baso % (Auto) Absolute Neuts (auto) Absolute Lymphs (auto) Absolute Monos (auto) Absolute Eos (auto) Absolute Basos (auto) Total Counted Seg Neutrophils % Seg Neuts % (Manual) Lymphocytes % (Manual) Monocytes % (Manual) Eosinophils % (Manual) Basophils % (Manual) Abs Neuts (Manual) Abs Lymphs (Manual) Abs Monocytes (Manual) Absolute Eos (Manual) Abs Basophils (Manual) Toxic Granulation Platelet Estimate Platelet Comment Polychromasia Anisocytosis Ovalocytes Haptoglobin APTT 51.5 H Carbonic Acid HCO3/H2CO3 Ratio ABG pH ABG pCO2 ABG pO2 ABG HCO3 ABG Total CO2 ABG O2 Saturation ABG Base Excess FiO2 Sodium Potassium Chloride Carbon Dioxide Anion Gap BUN Creatinine Est GFR ( Amer) Est GFR (MDRD) Non-Af Glucose POC Glucose Calcium Phosphorus Magnesium Total Bilirubin Direct Bilirubin Neonat Total Bilirubin Neonat Direct Bilirubin Neonat Indirect Bili AST ALT Alkaline Phosphatase Total Protein Albumin Prealbumin Heparin-induced Plt Ab HCV Quantitation HCV RNA PCR Test Info Slides for Path Review Chest X-Ray 09/14/20 13:09 IMPRESSION: Patchy bilateral airspace disease most likely representing viral pneumonitis. Chest X-Ray 09/15/20 06:00 IMPRESSION: NO SIGNIFICANT INTERVAL CHANGE. Chest X-Ray 09/16/20 00:00 IMPRESSION: 1. Intubated, with endotracheal tube tip within 1 cm of the mateusz. 2. Persistent pulmonary infiltrates 3. Enteric tube extends into the stomach Chest X-Ray 09/16/20 06:00 IMPRESSION: Stable radiographic appearance of the chest demonstrating diffuse airspace opacities. Chest X-Ray 09/17/20 06:00 IMPRESSION: STABLE APPEARANCE OF THE CHEST. SUPPORT DEVICES UNCHANGED. Chest X-Ray 09/18/20 00:00 IMPRESSION: 1. Increased interstitial edema since yesterday KUB X-Ray 09/20/20 00:00 IMPRESSION: Esophagogastric tube tip and side-hole are below the diaphragm likely in the stomach. Chest X-Ray 09/23/20 04:00 IMPRESSION: Slight improvement. No pneumothorax. Chest X-Ray 09/26/20 04:00 IMPRESSION: No change from 09/23/2020 Chest X-Ray 09/28/20 00:00 IMPRESSION: Interval adjustment of the left IJ line. No other interval change. Chest X-Ray 09/28/20 13:33 IMPRESSION: 1. Stable diffuse bilateral airspace disease. 2. Endotracheal tube and NG tube have been placed as described. 3. There appear to be in interval placement of a new right-sided central line in the left-sided line appears to been exchanged. Right-sided line in overlies the tip of the SVC. The new left-sided line overlies the right upper chest most likely the tip lies in the subclavian vein or distal right internal jugular vein. IMPRESSION/RECOMMENDATION: 1.S/p cardiopulmonary arrest: With spontaneous return of circulation after CPR. Most likely this is a respiratory scarring causing cardiac arrest. Patient s/p intubation. 2. Covid related pneumonia. 3. Non-ST elevation SC: Especially with the new EKG inversion in the inferior leads. The troponin is trending down. I agree with the echo got about. Later once the blood pressure is stable we will start the patient on beta-trae and aspirin and nitrates. Will follow serial EKGs and troponin levels. His troponin is elevated back to 6.10. The EKG shows no progression or regression of the T wave changes in the inferior leads. We will start the patient on small dose of beta-trae and increase as tolerated. Continue argatroban. Continue aspirin. Due to blood pressure being low her Lopressor is being held. 4. Hypotension: Has recurred. Patient is on vasopressin which has now been dialed up to 0.04 units /min. The patient is off the Levophed. Earlier blood pressure was in the 90s rate of 0.03 units/min of vasopressin. This has been increased. Her blood pressure now is in the 100s. 5. Acute on chronic kidney disease: Avoid nephrotoxic drugs. Note that the patient's renal function was normal in 2016. Her GFR is reduced to 22 mL/min in September 2020. At present may need dialysis since the patient is oliguric. Nephrology consult appreciated. Note that the patient's urine output is good but the patient's renal parameters i.e. BUN/creatinine are worsening. 6. History of hypertension: At present blood pressure stable off pressors note patient was hypotensive most likely secondary to sepsis and respiratory problems. 7. History of COPD: At present no evidence of acute exacerbation although the patient has pneumonia. 8. Anemia: S/p transfusion: Would recommend GI work-up later: Continue prolonged proton pump inhibitors. Again the patient's hemoglobin is dropped to 7.6. This may partly be due to hemodilution. But will check stool occult blood. 9. History of sleep apnea: 10. History of interstitial fibrosis:? Etiology. Medications reviewed. Medication management and medical regimen discussed with fiber optic assembly worker. Medical decision making is of high complexity. 40 minutes spent as patient more than 50% time spent in direct patient care. Will follow. All labs and imaging and EKGs and echocardiogram have been reviewed by me. Discussed in detail with the fiber optic assembly worker.
[2020-09-28] MEDS ORDERED: VECURONIUM BROMIDE INJ 10 MG VIAL IV ONE ×2 (20:33→20:36)
[2020-09-28 21:17] LABS: ARTERIAL BLOOD FIO2 100%; ARTERIAL BLOOD H2CO3 1.54 mmol/L (1.05-1.35); ARTERIAL BLOOD O2 SATURATION 87.8 % (94-98); ARTERIAL BLOOD PCO2 51.3 mmHg (35-45); ARTERIAL BLOOD PH 7.29 (7.35-7.45); ARTERIAL BLOOD TOTAL CO2 25.6 mmol/L (21-25)
[2020-09-28] MEDS: TRAZODONE HCL 50 MG TABLET PO SCH (23:00)
[2020-09-28] MEDS: MONTELUKAST SODIUM 10 MG TABLET PO SCH (23:00)
[2020-09-28] MEDS: CEFTRIAXONE SODIUM 1,000 MG in DEXTROSE 5%-WATER 50 ML IV SCH (23:03)
[2020-09-28] MEDS: NORMAL SALINE 500 ML with ROCURONIUM BROMIDE 500 MG IV PRN ×4 (23:21→23:28)
[2020-09-29] MEDS: LEVALBUTEROL HCL NEB 0.63 MG/3 ML AMPUL NEB SCH ×7 (00:50→23:27)
[2020-09-29] MEDS: DEXTROSE 5%-WATER 250 ML with VASOPRESSIN 100 UNIT IV PRN ×2 (00:50)
[2020-09-29] MEDS: DEXTROSE 5%-WATER 250 ML with NOREPINEPHRINE BITARTRATE 4 MG IV PRN ×2 (00:52)
[2020-09-29] MEDS: PROPOFOL 1,000 MG/100 ML INFUS..BTL IV PRN ×6 (02:21→20:35)
[2020-09-29] MEDS: FENTANYL CITRATE/PF 600 MCG/60 ML BAG IV PRN ×4 (04:39→22:26)
[2020-09-29 04:55] LABS: ARTERIAL BLOOD BASE EXCESS -6.5 mmol/L; ARTERIAL BLOOD FIO2 100%; ARTERIAL BLOOD H2CO3 1.19 mmol/L (1.05-1.35); ARTERIAL BLOOD HCO3 19.3 mmol/L (20-24); ARTERIAL BLOOD O2 SATURATION 94.7 % (94-98); ARTERIAL BLOOD PCO2 39.6 mmHg (35-45); ARTERIAL BLOOD PH 7.31 (7.35-7.45); ARTERIAL BLOOD PO2 79.6 mmHg (80-100); ARTERIAL BLOOD TOTAL CO2 20.5 mmol/L (21-25)
[2020-09-29 05:03] LABS: PARTIAL THROMBOPLASTIN TIME 29.6 SEC (23.5-35.8)
[2020-09-29 05:17] LABS: ALBUMIN 2.2 g/dL (3.5-5.0); ALKALINE PHOSPHATASE 103 U/L (38-126); ANION GAP 13 (5-19); ASPARTATE AMINO TRANSFERASE 27 U/L (14-36); BILIRUBIN,DIRECT 0.9 mg/dL (0.0-0.4); BILIRUBIN,TOTAL 0.9 mg/dL (0.2-1.3); BLOOD UREA NITROGEN 87 mg/dL (7-20); CALCIUM 7.9 mg/dL (8.4-10.2); CARBON DIOXIDE 23 mmol/L (22-30); CHLORIDE 95 mmol/L (98-107); GLUCOSE 135 mg/dL (75-110); POTASSIUM 3.9 mmol/L (3.6-5.0); TOTAL PROTEIN 4.5 g/dL (6.3-8.2)
[2020-09-29 05:20] LABS: D-DIMER 13.19 ug/mL (0.00-0.50)
[2020-09-29] MEDS: METOCLOPRAMIDE HCL INJ/PF 10 MG/2 ML SDV IV SCH ×3 (05:36→16:59)
[2020-09-29] MEDS: PANTOPRAZOLE SODIUM 40 MG PACKET.DR NG SCH (05:36)
[2020-09-29] MEDS: INSULIN REG, HUMAN 100 UNIT/ML 3 ML VIAL (PYX) SUBCUT SCH ×3 (05:42→17:00)
[2020-09-29 06:12] LABS: C-REACTIVE PROTEIN 138.5 mg/L (<10.0)
[2020-09-29] MEDS: BUDESONIDE NEB 0.25 MG/2 ML AMPUL NEB SCH ×2 (08:04→20:16)
[2020-09-29] MEDS: ASCORBIC ACID 500 MG TABLET PO SCH ×3 (09:01→16:59)
[2020-09-29] MEDS: ASPIRIN 81 MG TABLET, CHEWABLE PO SCH (09:01)
[2020-09-29] MEDS: CHOLECALCIFEROL (D3) 1,000 UNIT (25 MCG) TABLET PO SCH (09:01)
[2020-09-29] MEDS: DEXAMETHASONE SOD PHOSPHATE INJ 4 MG/1 ML VIAL IV SCH ×2 (09:01→22:01)
[2020-09-29] MEDS: MAGNESIUM SULFATE/D5W 1 GM/100 ML RTUPB IV SCH ×2 (09:02→10:15)
[2020-09-29] MEDS: METOPROLOL TARTRATE 25 MG TABLET NG SCH ×2 (09:03→22:03)
[2020-09-29 09:37] LABS: HEMATOCRIT 24.3 % (36.0-47.0); HEMOGLOBIN 8.2 g/dL (12.0-15.5); MEAN CORPUSCULAR HEMOGLOBIN 29.8 pg (27.0-33.4); MEAN CORPUSCULAR HGB CONC 33.8 g/dL (32.0-36.0); MEAN CORPUSCULAR VOLUME 88 fl (80-97); RED BLOOD COUNT 2.75 10^6/uL (3.72-5.28); RED CELL DISTRIBUTION WIDTH 17.4 % (11.5-14.0); WHITE BLOOD COUNT 13.9 10^3/uL (4.0-10.5)
[2020-09-29 09:53] LABS: ANION GAP 8 (5-19); BLOOD UREA NITROGEN 89 mg/dL (7-20); CALCIUM 7.8 mg/dL (8.4-10.2); CARBON DIOXIDE 24 mmol/L (22-30); CHLORIDE 96 mmol/L (98-107); GLUCOSE 119 mg/dL (75-110); POTASSIUM 3.7 mmol/L (3.6-5.0)
[2020-09-29 09:58] LABS: ABSOLUTE LYMPHOCYTES# (MANUAL) 0.3 10^3/uL (0.5-4.7); ABSOLUTE MONOCYTES # (MANUAL) 0.4 10^3/uL (0.1-1.4); BASOPHILS % (MANUAL) 0 % (0-2); EOSINOPHILS % (MANUAL) 0 % (0-6); LYMPHOCYTES % (MANUAL) 2 % (13-45); MONOCYTES % (MANUAL) 3 % (3-13); SEGMENTED NEUTROPHILS % (MAN) 95 % (42-78); TOTAL CELLS COUNTED 100; TOXIC GRANULATION 2+
[2020-09-29 09:59] LABS: PLATELET COMMENT DECREASED
[2020-09-29] MEDS ORDERED: MEROPENEM 500 MG in NORMAL SALINE 50 ML IV SCH (10:00)
[2020-09-29 10:03] LABS: ANISOCYTOSIS 1+
[2020-09-29 10:04] LABS: OVALOCYTES SLIGHT; POIKILOCYTOSIS SLIGHT
[2020-09-29 10:05] LABS: PLATELET COUNT 48 10^3/uL (150-450)
[2020-09-29] MEDS: LEVETIRACETAM ORAL SOLN 500 MG/5 ML UDCUP NG SCH ×2 (11:56→22:01)
[2020-09-29] MEDS: NORMAL SALINE 500 ML with ROCURONIUM BROMIDE 500 MG IV PRN ×4 (12:02→23:28)
--- NOTE | 2020-09-29 15:44 | PDOC CRITICAL CARE PROG REPORT ---
General Date:: 09/29/20 ICU Day:: 12 Ventilator Day:: 12 Hospital Day:: 15 Resuscitation Status: Full Code Events in the past 12 to 24 Hours:: This 69-year-old female smoker [facility] with complaints of increased dyspnea. She reports a history of interstitial lung disease but denies COPD or emphysema. In the emergency department, she was found to be hypoxic and was placed on supplemental oxygen. Due to failure to improve oxygenation, she was placed on BiPAP support with an FiO2 of 100%. This was titrated at the bedside to CPAP 8. Her primary care physician (Dr. Joiner) requested ICU admission for acute hypoxemic respiratory failure. In the emergency department, her troponin was elevated (7.09) and proBNP 16,400. Chest x-ray was consistent with pulmonary edema. 09/15: She remains in the emergency department (lack of available beds). She is stable on CPAP 6, FiO2 100%. In fact, the nurse called earlier this morning to report that the patient was wandering around in the hallway. Denies chest pain. She states that her shortness of breath is improved with noninvasive positive pressure ventilatory support. Minimal cough. No sputum production. 2D echo pending. Patient discussed with Dr. Joiner. 09/18: Transferred to the ICU and reintubated. Currently stable 09/19: Renal function worsening, heading toward HD. Stop versed and assess neuro status. 09/20: Still not very awake. Renal function worse, LFTs better after arrest. 09/21: Still not responsive on no sedation. Renal function worse. Heading toward dialysis. Dr. Kathleen consulted. 09/22: Still making urine. Not needing HD now. Still not awake. Cant extubate. 09/23: Making more urine. No HD today. Covid ARDS by the numbers. Not responsive. 09/24: Coming off levophed. Agitated but not awake or extubatable. 09/25: Now on vasopressin instead of norepinephrine (per Dr. Zuniga). Still on argatroban gtt. Remains intubated. On propofol for sedation. On PRVC 15 /450/100/10. RR 21. 09/26: On vasopresin @ 0.04. MAP 72. Afebrile, in fact, hypothermic (96.3 F). Still on argatroban gtt. But, platelets 48 today. Remains intubated. RASS -4, on propofol for sedation, which was apparently increased overnight due to concerns about oxygen desaturation being related to work of breathing. Currently, getting NS 500 mL IV bolus for mild hypotension (MAP 62) this a.m. On PRVC 15/450/100/10. RR 16. ABG this a.m.: 7.35/38/63. BUN 145, Cr 6 but nonoliguric. 09/27: On norepinephrine (2) and vasopressin (0.04). Afebrile. No longer hypothermic. Platelets 59 today (perhaps, after changing Pepcid to Protonix). On argatroban. On propofol/fentanyl for sedation. PRVC 22/450/100/10. RR 22. ABG this a.m.: 7.29/43/62. BUN 154. Creatinine 5.4. Decadron decreased to 4 mg IV q 12 hr. Has been on Levaquin since 09/23 but urine (09/26) is isolating GNR. 09/28: On neorepinephrine (3) and vasopressin (0.04). Platelets 59 again today. On argatroban. On propofol/fentanyl for sedation. Unarousable to noxious stimuli. PRVC 28/380/100/12. RR 28. ABG this a.m.: 7.29/41/64. 09/29: Got hemodialysis yesterday. On norepinephrine (2) and vasopressin (0.04). Started on rocuronium infusion overnight due to ventilator dyssynchrony. Synchronous with On propofol/fentanyl for sedation. ABG this a.m.: 7.31/40/80. Sodium 131. BUN 87, creatinine 3.7. Calcium 7.9. Albumin 2.2. Blood culture (09/26) isolating gram-positive roni in 1 of 2 bottles. Trach aspirate (09/26) isolating MRSA. On Rocephin/vancomycin. On Nepro and Reglan. Of note, the healthcare team was informed yesterday that the patient does have more family members then we were originally led to believe. At this time, it appears that the patient's brother (who apparently lives in [place]) is the surrogate decision maker for this patient. Review of systems relevant to events:: Neurological, renal, pulmonary. Reason for ICU Addmission:: s/p cardiac arrest. Intubated. - Medications: Medications reviewed and adjusted accordingly: Yes Vasopressors:: Norepinephrine, vasopressin Sedation:: rocuronium, propofol, fentanyl Physical Exam Vital Signs: Temp Pulse Resp BP Pulse Ox 97.0 F 76 28 H 91/54 L 93 09/29/20 05:58 09/29/20 00:50 09/29/20 06:00 09/28/20 18:00 09/29/20 06:00 Intake & Output 09/28/20 09/29/20 09/30/20 06:59 06:59 06:59 Intake Total 999 1380 Output Total 1040 2772 Balance -41 -1392 Weight 88.1 kg 84.3 kg Weight/Height Weight 84.3 kg Height 1.57 m General appearance: PRESENT: no acute distress, well-developed, well-nourished Head exam: PRESENT: atraumatic, normocephalic Eye exam: PRESENT: conjunctiva pink, EOMI, PERRLA. ABSENT: scleral icterus Mouth exam: PRESENT: moist, tongue midline Neck exam: ABSENT: carotid bruit, JVD, lymphadenopathy, thyromegaly Respiratory exam: PRESENT: rales, rhonchi, symmetrical. ABSENT: wheezes Cardiovascular exam: PRESENT: RRR. ABSENT: diastolic murmur, rubs, systolic mu rmur Pulses: PRESENT: normal dorsalis pedis pul GI/Abdominal exam: PRESENT: normal bowel sounds, soft. ABSENT: distended, guarding, mass, organolmegaly, rebound, tenderness Gentrourinary exam: PRESENT: indwelling catheter Extremities exam: PRESENT: full ROM, pedal edema, +2 edema. ABSENT: calf ten derness, clubbing Musculoskeletal exam: PRESENT: normal inspection. ABSENT: deformity Neurological exam: PRESENT: other - sedated and paralyzed Psychiatric exam: ABSENT: agitated, anxious Skin exam: PRESENT: dry, intact, warm. ABSENT: cyanosis, rash Tubes/Lines: PRESENT: Endotracheal Tube, Central Line - R IJ, Arterial Catheter - R femoral, Dialysis catheter - L IJ, Nasogastic Tube Laboratory/Radiographs Laboratory Results: 09/28/20 04:20 09/29/20 04:38 09/28/20 09/29/20 09/29/20 20:59 04:38 04:38 Carbonic Acid 1.54 H 1.19 HCO3/H2CO3 Ratio 15:1 16:1 ABG pH 7.29 L 7.31 L ABG pCO2 51.3 H 39.6 ABG pO2 60.0 L 79.6 L ABG HCO3 24.0 19.3 L ABG O2 Saturation 87.8 L 94.7 ABG Base Excess -3.0 -6.5 FiO2 100% 100% Sodium 131.0 L Potassium 3.9 Chloride 95 L Carbon Dioxide 23 Anion Gap 13 BUN 87 H Creatinine 3.70 H Est GFR ( Amer) 15 L Glucose 135 H Calcium 7.9 L Magnesium 1.7 Total Bilirubin 0.9 AST 27 Alkaline Phosphatase 103 C-Reactive Protein 138.5 H Total Protein 4.5 L Albumin 2.2 L 09/26/20 10:45 Gauthier Catheter Urine Culture - Final Escherichia Coli 09/26/20 10:45 Tracheal Aspirate Gram Stain - Final 09/14/20 09/14/20 09/14/20 13:15 13:15 20:11 CK-MB (CK-2) 7.78 H Troponin I 7.090 6.940 NT-Pro-B Natriuret Pep 97870 H 09/15/20 09/15/20 09/17/20 02:02 05:47 09:56 CK-MB (CK-2) Troponin I 7.440 6.180 4.440 NT-Pro-B Natriuret Pep 09/18/20 09/19/20 09/20/20 13:55 03:16 04:22 CK-MB (CK-2) Troponin I 6.100 3.560 1.510 NT-Pro-B Natriuret Pep 09/25/20 04:10 CK-MB (CK-2) Troponin I 0.374 NT-Pro-B Natriuret Pep Impressions: KUB X-Ray 09/20/20 00:00 IMPRESSION: Esophagogastric tube tip and side-hole are below the diaphragm likely in the stomach. Chest X-Ray 09/28/20 13:33 IMPRESSION: 1. Stable diffuse bilateral airspace disease. 2. Endotracheal tube and NG tube have been placed as described. 3. There appear to be in interval placement of a new right-sided central line in the left-sided line appears to been exchanged. Right-sided line in overlies the tip of the SVC. The new left-sided line overlies the right upper chest most likely the tip lies in the subclavian vein or distal right internal jugular vein. All labs, radiographs, diagnostic studies and EKGs were personally reviewed: Yes In addition, reports of radiographic and diagnostic studies were read: Yes Assessment and Plan - Diagnosis (1) Acute hypoxemic respiratory failure Is this a current diagnosis for this admission?: Yes Plan: * Titrate vent settings based on ABG results. Still on FiO2 100%, PEEP 10. * Maintain current sedation while on rocuronium. * Rocuronium titrated for ventilator synchrony. (2) MRSA pneumonia Qualifiers: Laterality: unspecified laterality Lung location: unspecified part of lung Qualified Code(s): J15.212 - Pneumonia due to Methicillin resistant Staphylococcus aureus Is this a current diagnosis for this admission?: Yes Plan: * Continue vancomycin (10-day course) (3) Sepsis due to gram-negative urinary tract infection Is this a current diagnosis for this admission?: Yes Plan: * Urine isolated E. coli. Currently on Rocephin. * Trach aspirate is isolating gram-positive cocci in clusters. Start vancomycin. (4) Pneumonia due to COVID-19 virus Is this a current diagnosis for this admission?: Yes Plan: * Completed remdesivir. * Decadron was decreased to 4 mg IV every 12 hours (09/26/2020). * Continue vitamin C, vitamin D3, zinc sulfate. * Continue budesonide. * Tracheal aspirate (09/26) isolating gram-positive cocci. Empirically, will start vancomycin. (5) PILAR (acute kidney injury) Is this a current diagnosis for this admission?: Yes Plan: * Nephrology help appreciated. HD per nephrology. * Uremia clouding neurologic assessment. (6) Thrombocytopenia Is this a current diagnosis for this admission?: Yes Plan: * Likely, thrombocytopenia sepsis. * Hold argatroban until platelet count rises to 100. Heparin-induced antiplatelet antibodies PENDING. * LDH 1448, haptoglobin <10. (7) NSTEMI (non-ST elevated myocardial infarction) Is this a current diagnosis for this admission?: Yes (8) Elevated brain natriuretic peptide (BNP) level Is this a current diagnosis for this admission?: Yes (9) Chronic interstitial lung disease Is this a current diagnosis for this admission?: Yes Critical Time Critical Time (minutes): 45 Level of Care: ICU -: 1. The care of a critical patient is a dynamic process. This note is a represe ntative synopsis but static in nature. The timeframe for treatments given in order is not necessarily the actual time these treatments may have been done. 2. This patient requires critical care secondary to ongoing requirements for therapy not offered or safe outside the critical care environment. Transfer to a lower level of care will result in altered life or limb morbidity and mortality. 3. Multidisciplinary rounds completed. 4. ABCDE bundle addressed.
[2020-09-29] MEDS ORDERED: CALCIUM GLUC IN NACL, ISO-OSM 1 GM/50 ML RTUPB IV ONE (16:00)
[2020-09-29] MEDS: MINERAL OIL/PETROLATUM,WHITE OPH OINT 3.5 GM OU SCH (17:07)
[2020-09-29] MEDS: PHARMACY COMMUNICATION ORDER MC SCH (17:08)
--- NOTE | 2020-09-29 18:51 | Progress Note ---
Provider Note Provider Note: CARDIOLOGY PROGRESS NOTE by Dr. Jacqueline Roberson on 09/29/2020. SUBJECTIVE: There is no further episodes of nonsustained ventricular tachycardia . There is no atrial arrhythmias. The patient's blood pressure is stable and with the Levophed decreased to 8 mcg/min since the patient is on dialysis. At tempts will be made to wean this down back after dialysis.. His urine output is slightly lower than before. She is hypoxemic on now PEEP 100% FiO2 hemodialysis has been started by nephrology.. 2 L of fluid removed by hemodialysis yesterday. She will have hemodialysis again tomorrow. PHYSICAL EXAMINATION: The patient is mildly obese. She is intubated and sedated. Selected Entries 09/29/20 09/29/20 17:00 18:00 Core 99.0 F Temperature Heart Rate ( 72 Monitors) Respiratory 32 H 18 Rate Positive End 10 Expiratory Pressure O2 Sat by Pulse 92 Oximetry Fraction of 100 Inspired Oxygen (FIO2) Arterial Blood 104 Pressure- Systolic Aterial Blood 55 Pressure- Diastolic Arterial Blood 72 Pressure- Mean HEAD: Is atraumatic normocephalic. EYES: Pupils are equal round regular reactive to light. ENT is negative. NECK:. Carotids are equal there is no bruits. Neck is supple. There is no JVD there is no lymphadenopathy. There is no goiter. There is no accessory muscle respiration use. Trachea is central. LUNGS: There is diminished air entry prolonged expiration with scattered rhonchi and few dry crackles bilaterally. There is no rales of CHF. HEART: S1-S2 is heard. S1 is of normal intensity. There is no S3 gallop. There is an S4 gallop. There is systolic murmur left sternal border and the apex without radiation. There is no rub. ABDOMEN: Is soft. There is no hepatosplenomegaly. Bowel sounds are heard. EXTREMITIES: Femorals are deep. There is no femoral bruits. There is no pedal edema. There is no cyanosis or clubbing. There is no DVT or cellulitis. SURPLUS PROPERTY DISPOSAL AGENT and psychiatric not examined due to the patient being intubated and sedated. The patient's 24-hour total intake is 1380 mL. 24-hour total output is 2772 mL. Labs- All tests 24 hr 09/28/20 09/28/20 09/28/20 11:28 17:06 20:59 WBC RBC Hgb Hct MCV MCH MCHC RDW Plt Count Lymph % (Auto) [place] % (Auto) Eos % (Auto) Baso % (Auto) Absolute Neuts (auto) Absolute Lymphs (auto) Absolute Monos (auto) Absolute Eos (auto) Absolute Basos (auto) Total Counted Seg Neutrophils % Seg Neuts % (Manual) Lymphocytes % (Manual) Monocytes % (Manual) Eosinophils % (Manual) Basophils % (Manual) Abs Neuts (Manual) Abs Lymphs (Manual) Abs Monocytes (Manual) Absolute Eos (Manual) Abs Basophils (Manual) Toxic Granulation Platelet Comment Poikilocytosis Anisocytosis Ovalocytes APTT D-Dimer Carbonic Acid 1.54 H HCO3/H2CO3 Ratio 15:1 ABG pH 7.29 L ABG pCO2 51.3 H ABG pO2 60.0 L ABG HCO3 24.0 ABG Total CO2 25.6 H ABG O2 Saturation 87.8 L ABG Base Excess -3.0 FiO2 100% Sodium Potassium Chloride Carbon Dioxide Anion Gap BUN Creatinine Est GFR ( Amer) Est GFR (MDRD) Non-Af Glucose POC Glucose 163 H 129 H Calcium Ionized Calcium Alondra Magnesium Total Bilirubin Direct Bilirubin Neonat Total Bilirubin Neonat Direct Bilirubin Neonat Indirect Bili AST ALT Alkaline Phosphatase C-Reactive Protein Total Protein Albumin 09/28/20 09/29/20 09/29/20 23:10 04:38 04:38 WBC RBC Hgb Hct MCV MCH MCHC RDW Plt Count Lymph % (Auto) [place] % (Auto) Eos % (Auto) Baso % (Auto) Absolute Neuts (auto) Absolute Lymphs (auto) Absolute Monos (auto) Absolute Eos (auto) Absolute Basos (auto) Total Counted Seg Neutrophils % Seg Neuts % (Manual) Lymphocytes % (Manual) Monocytes % (Manual) Eosinophils % (Manual) Basophils % (Manual) Abs Neuts (Manual) Abs Lymphs (Manual) Abs Monocytes (Manual) Absolute Eos (Manual) Abs Basophils (Manual) Toxic Granulation Platelet Comment Poikilocytosis Anisocytosis Ovalocytes APTT 29.6 D-Dimer 13.19 H Carbonic Acid HCO3/H2CO3 Ratio ABG pH ABG pCO2 ABG pO2 ABG HCO3 ABG Total CO2 ABG O2 Saturation ABG Base Excess FiO2 Sodium 131.0 L Potassium 3.9 Chloride 95 L Carbon Dioxide 23 Anion Gap 13 BUN 87 H Creatinine 3.70 H Est GFR ( Amer) 15 L Est GFR (MDRD) Non-Af 12 L Glucose 135 H POC Glucose 115 H Calcium 7.9 L Ionized Calcium Alondra Magnesium 1.7 Total Bilirubin 0.9 Direct Bilirubin 0.9 H Neonat Total Bilirubin Not Reportable Neonat Direct Bilirubin Not Reportable Neonat Indirect Bili Not Reportable AST 27 ALT 54 H Alkaline Phosphatase 103 C-Reactive Protein 138.5 H Total Protein 4.5 L Albumin 2.2 L 09/29/20 09/29/20 09/29/20 04:38 05:33 09:17 WBC RBC Hgb Hct MCV MCH MCHC RDW Plt Count Lymph % (Auto) [place] % (Auto) Eos % (Auto) Baso % (Auto) Absolute Neuts (auto) Absolute Lymphs (auto) Absolute Monos (auto) Absolute Eos (auto) Absolute Basos (auto) Total Counted Seg Neutrophils % Seg Neuts % (Manual) Lymphocytes % (Manual) Monocytes % (Manual) Eosinophils % (Manual) Basophils % (Manual) Abs Neuts (Manual) Abs Lymphs (Manual) Abs Monocytes (Manual) Absolute Eos (Manual) Abs Basophils (Manual) Toxic Granulation Platelet Comment Poikilocytosis Anisocytosis Ovalocytes APTT 28.4 D-Dimer Carbonic Acid 1.19 HCO3/H2CO3 Ratio 16:1 ABG pH 7.31 L ABG pCO2 39.6 ABG pO2 79.6 L ABG HCO3 19.3 L ABG Total CO2 20.5 L ABG O2 Saturation 94.7 ABG Base Excess -6.5 FiO2 100% Sodium Potassium Chloride Carbon Dioxide Anion Gap BUN Creatinine Est GFR ( Amer) Est GFR (MDRD) Non-Af Glucose POC Glucose 159 H Calcium Ionized Calcium Alondra Magnesium Total Bilirubin Direct Bilirubin Neonat Total Bilirubin Neonat Direct Bilirubin Neonat Indirect Bili AST ALT Alkaline Phosphatase C-Reactive Protein Total Protein Albumin 09/29/20 09/29/20 09/29/20 09:17 09:17 09:17 WBC 13.9 H RBC 2.75 L Hgb 8.2 L Hct 24.3 L MCV 88 MCH 29.8 MCHC 33.8 RDW 17.4 H Plt Count 48 L Lymph % (Auto) Not Reportable [place] % (Auto) Not Reportable Eos % (Auto) Not Reportable Baso % (Auto) Not Reportable Absolute Neuts (auto) Not Reportable Absolute Lymphs (auto) Not Reportable Absolute Monos (auto) Not Reportable Absolute Eos (auto) Not Reportable Absolute Basos (auto) Not Reportable Total Counted 100 Seg Neutrophils % Not Reportable Seg Neuts % (Manual) 95 H Lymphocytes % (Manual) 2 L Monocytes % (Manual) 3 Eosinophils % (Manual) 0 Basophils % (Manual) 0 Abs Neuts (Manual) 13.2 H Abs Lymphs (Manual) 0.3 L Abs Monocytes (Manual) 0.4 Absolute Eos (Manual) 0.0 Abs Basophils (Manual) 0.0 Toxic Granulation 2+ Platelet Comment DECREASED Poikilocytosis SLIGHT Anisocytosis 1+ Ovalocytes SLIGHT APTT D-Dimer Carbonic Acid HCO3/H2CO3 Ratio ABG pH ABG pCO2 ABG pO2 ABG HCO3 ABG Total CO2 ABG O2 Saturation ABG Base Excess FiO2 Sodium 128.2 L Potassium 3.7 Chloride 96 L Carbon Dioxide 24 Anion Gap 8 BUN 89 H Creatinine 3.82 H Est GFR ( Amer) 14 L Est GFR (MDRD) Non-Af 12 L Glucose 119 H POC Glucose Calcium 7.8 L Ionized Calcium Alondra 1.08 L Magnesium Total Bilirubin Direct Bilirubin Neonat Total Bilirubin Neonat Direct Bilirubin Neonat Indirect Bili AST ALT Alkaline Phosphatase C-Reactive Protein Total Protein Albumin 09/29/20 09/29/20 09/29/20 11:27 16:03 16:55 WBC RBC Hgb Hct MCV MCH MCHC RDW Plt Count Lymph % (Auto) [place] % (Auto) Eos % (Auto) Baso % (Auto) Absolute Neuts (auto) Absolute Lymphs (auto) Absolute Monos (auto) Absolute Eos (auto) Absolute Basos (auto) Total Counted Seg Neutrophils % Seg Neuts % (Manual) Lymphocytes % (Manual) Monocytes % (Manual) Eosinophils % (Manual) Basophils % (Manual) Abs Neuts (Manual) Abs Lymphs (Manual) Abs Monocytes (Manual) Absolute Eos (Manual) Abs Basophils (Manual) Toxic Granulation Platelet Comment Poikilocytosis Anisocytosis Ovalocytes APTT D-Dimer Carbonic Acid HCO3/H2CO3 Ratio ABG pH ABG pCO2 ABG pO2 ABG HCO3 ABG Total CO2 ABG O2 Saturation ABG Base Excess FiO2 Sodium Potassium Chloride Carbon Dioxide Anion Gap BUN Creatinine Est GFR ( Amer) Est GFR (MDRD) Non-Af Glucose POC Glucose 156 H 128 H Calcium Ionized Calcium Alondra Magnesium 2.4 H Total Bilirubin Direct Bilirubin Neonat Total Bilirubin Neonat Direct Bilirubin Neonat Indirect Bili AST ALT Alkaline Phosphatase C-Reactive Protein Total Protein Albumin Chest X-Ray 09/14/20 13:09 IMPRESSION: Patchy bilateral airspace disease most likely representing viral pneumonitis. Chest X-Ray 09/15/20 06:00 IMPRESSION: NO SIGNIFICANT INTERVAL CHANGE. Chest X-Ray 09/16/20 00:00 IMPRESSION: 1. Intubated, with endotracheal tube tip within 1 cm of the mateusz. 2. Persistent pulmonary infiltrates 3. Enteric tube extends into the stomach Chest X-Ray 09/16/20 06:00 IMPRESSION: Stable radiographic appearance of the chest demonstrating diffuse airspace opacities. Chest X-Ray 09/17/20 06:00 IMPRESSION: STABLE APPEARANCE OF THE CHEST. SUPPORT DEVICES UNCHANGED. Chest X-Ray 09/18/20 00:00 IMPRESSION: 1. Increased interstitial edema since yesterday KUB X-Ray 09/20/20 00:00 IMPRESSION: Esophagogastric tube tip and side-hole are below the diaphragm likely in the stomach. Chest X-Ray 09/23/20 04:00 IMPRESSION: Slight improvement. No pneumothorax. Chest X-Ray 09/26/20 04:00 IMPRESSION: No change from 09/23/2020 Chest X-Ray 09/28/20 00:00 IMPRESSION: Interval adjustment of the left IJ line. No other interval change. Chest X-Ray 09/28/20 13:33 IMPRESSION: 1. Stable diffuse bilateral airspace disease. 2. Endotracheal tube and NG tube have been placed as described. 3. There appear to be in interval placement of a new right-sided central line in the left-sided line appears to been exchanged. Right-sided line in overlies the tip of the SVC. The new left-sided line overlies the right upper chest most likely the tip lies in the subclavian vein or distal right internal jugular vein. IMPRESSION/RECOMMENDATION: 1.S/p cardiopulmonary arrest: With spontaneous return of circulation after CPR. Most likely this is a respiratory scarring causing cardiac arrest. Patient s/p intubation. 2. Covid related pneumonia. 3. Non-ST elevation RI: Especially with the new EKG inversion in the inferior leads. The troponin is trending down. I agree with the echo got about. Later once the blood pressure is stable we will start the patient on beta-trae and aspirin and nitrates. Will follow serial EKGs and troponin levels. His troponin is elevated back to 6.10. The EKG shows no progression or regression of the T wave changes in the inferior leads. We will start the patient on small dose of beta-trae and increase as tolerated. Continue argatroban. Continue aspirin. Due to blood pressure being low her Lopressor is being held. 4. Hypotension: Has recurred. Patient is on vasopressin which has now been dialed up to 0.04 units /min. The patient is off the Levophed. Earlier blood pressure was in the 90s rate of 0.03 units/min of vasopressin. This has been increased. Her blood pressure now is in the 100s. 5. Acute on chronic kidney disease: Avoid nephrotoxic drugs. Note that the patient's renal function was normal in 2016. Her GFR is reduced to 22 mL/min in September 2020. At present may need dialysis since the patient is oliguric. Nephrology consult appreciated. Note that the patient's urine output is good but the patient's renal parameters i.e. BUN/creatinine are worsening. 6. History of hypertension: At present blood pressure stable off pressors note patient was hypotensive most likely secondary to sepsis and respiratory problems. 7. History of COPD: At present no evidence of acute exacerbation although the patient has pneumonia. 8. Anemia: S/p transfusion: Would recommend GI work-up later: Continue prolo nged proton pump inhibitors. Again the patient's hemoglobin is dropped to 7.6. This may partly be due to hemodilution. But will check stool occult blood. 9. History of sleep apnea: 10. History of interstitial fibrosis:? Etiology. Medications reviewed. Medication management and medical regimen discussed with middle school band teacher. Medical decision making is of high complexity. 40 minutes spent a s patient more than 50% time spent in direct patient care. Will follow. All labs and imaging and EKGs and echocardiogram have been reviewed by me. Discussed in detail with the middle school band teacher.
[2020-09-29] MEDS: TRAZODONE HCL 50 MG TABLET PO SCH (22:01)
[2020-09-29] MEDS: MONTELUKAST SODIUM 10 MG TABLET PO SCH (22:01)
[2020-09-29] MEDS: CEFTRIAXONE SODIUM 1,000 MG in DEXTROSE 5%-WATER 50 ML IV SCH (22:02)
[2020-09-29] MEDS ORDERED: EPOETIN ALFA-EPBX 20,000 UNIT in SYRINGE, DISPOSABLE, 1 EACH IV PRN (22:54)
--- NOTE | 2020-09-29 22:54 | PDOC PROGRESS REPORT ---
Subjective Date:: 09/29/20 Subjective:: Patient remains intubated and sedated. Still requiring FiO2 of 100%. Still with vasopressors with vasopressin and Levophed. Patient's urine output has declined significantly and adjust made 447 mL of urine output for the past 24 hours. Reason For Visit: PNEUOMONIA DUE TO COVID19, ACUTE RENAL FAILURE, Physical Exam Vital Signs: Temp Pulse Resp BP Pulse Ox 96.4 F L 62 28 H 109/52 L 95 09/29/20 08:00 09/29/20 08:00 09/29/20 08:00 09/29/20 08:00 09/29/20 08:00 Intake & Output 09/28/20 09/29/20 09/30/20 06:59 06:59 06:59 Intake Total 999 1380 Output Total 1040 2772 20 Balance -41 -1392 -20 Weight 88.1 kg 84.3 kg Exam: Limited exam due to Covid. General appearance: PRESENT: Intubated Head exam: PRESENT: atraumatic, normocephalic Eye exam: PRESENT: Eyes closed Respiratory exam: Exam not performed] Cardiovascular exam: Exam not performed GI/Abdominal exam: Exam not performed] Extremities exam: Exam not performed] Neurological exam: PRESENT: Sedated Skin exam: PRESENT: Pale, Cardiovascular exam: PRESENT: +S1, +S2 GI/Abdominal exam: PRESENT: normal bowel sounds, soft. ABSENT: organomegaly, tenderness Results Laboratory Results: 09/28/20 04:20 09/29/20 04:38 09/28/20 09/29/20 09/29/20 20:59 04:38 04:38 Carbonic Acid 1.54 H 1.19 HCO3/H2CO3 Ratio 15:1 16:1 ABG pH 7.29 L 7.31 L ABG pCO2 51.3 H 39.6 ABG pO2 60.0 L 79.6 L ABG HCO3 24.0 19.3 L ABG O2 Saturation 87.8 L 94.7 ABG Base Excess -3.0 -6.5 FiO2 100% 100% Sodium 131.0 L Potassium 3.9 Chloride 95 L Carbon Dioxide 23 Anion Gap 13 BUN 87 H Creatinine 3.70 H Est GFR ( Amer) 15 L Glucose 135 H Calcium 7.9 L Magnesium 1.7 Total Bilirubin 0.9 AST 27 Alkaline Phosphatase 103 C-Reactive Protein 138.5 H Total Protein 4.5 L Albumin 2.2 L 09/26/20 15:15 Blood Blood Culture (PCR) - Final 09/26/20 10:45 Gauthier Catheter Urine Culture - Final Escherichia Coli 09/26/20 10:45 Tracheal Aspirate Gram Stain - Final 09/14/20 09/14/20 09/14/20 13:15 13:15 20:11 CK-MB (CK-2) 7.78 H Troponin I 7.090 6.940 NT-Pro-B Natriuret Pep 83250 H 09/15/20 09/15/20 09/17/20 02:02 05:47 09:56 CK-MB (CK-2) Troponin I 7.440 6.180 4.440 NT-Pro-B Natriuret Pep 09/18/20 09/19/20 09/20/20 13:55 03:16 04:22 CK-MB (CK-2) Troponin I 6.100 3.560 1.510 NT-Pro-B Natriuret Pep 09/25/20 04:10 CK-MB (CK-2) Troponin I 0.374 NT-Pro-B Natriuret Pep Impressions: KUB X-Ray 09/20/20 00:00 IMPRESSION: Esophagogastric tube tip and side-hole are below the diaphragm li sandie in the stomach. Chest X-Ray 09/28/20 13:33 IMPRESSION: 1. Stable diffuse bilateral airspace disease. 2. Endotracheal tube and NG tube have been placed as described. 3. There appear to be in interval placement of a new right-sided central line in the left-sided line appears to been exchanged. Right-sided line in overlies the tip of the SVC. The new left-sided line overlies the right upper chest most likely the tip lies in the subclavian vein or distal right internal jugular vein. Assessment & Plan - Diagnosis (1) PILAR (acute kidney injury) Is this a current diagnosis for this admission?: Yes Plan: Secondary to ATN with hypotension, that is post cardiac arrest in the background of COVID-19 infection. Baseline creatinine of 0.6-0.8. Nonoliguric. Plan for hemodialysis tomorrow. 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 (3) Hypotension Is this a current diagnosis for this admission?: Yes Plan: Currently on vasopressin and Levophed . (4) Anemia Is this a current diagnosis for this admission?: Yes Plan: Retacrit on dialysis. (5) Hyponatremia Is this a current diagnosis for this admission?: Yes Plan: Unchanged. (6) Cardiac arrest Is this a current diagnosis for this admission?: Yes (7) NSTEMI (non-ST elevated myocardial infarction) Is this a current diagnosis for this admission?: Yes Plan: [facility], Dr. Roberson following the patient. (8) Pneumonia due to COVID-19 virus Is this a current diagnosis for this admission?: Yes Plan: On Decadron. (9) E. coli UTI Is this a current diagnosis for this admission?: Yes Plan: On ceftriaxone. (10) MRSA pneumonia Qualifiers: Laterality: unspecified laterality Lung location: unspecified part of lung Qualified Code(s): J15.212 - Pneumonia due to Methicillin resistant Staphylococcus aureus Is this a current diagnosis for this admission?: Yes Plan: On vancomycin (11) Thrombocytopenia Is this a current diagnosis for this admission?: Yes Plan: Positive heparin-induced platelet antibody. (12) Chronic interstitial lung disease Is this a current diagnosis for this admission?: Yes
--- NOTE | 2020-09-29 23:35 | RADIOLOGY REPORT (SQ) ---
EXAM DESCRIPTION: XR CHEST 1 VIEW COMPLETED DATE/TME: 09/29/2020 23:20 CLINICAL HISTORY: 69 years, Female, ET tube placement COMPARISON: 09/28/2020 chest NUMBER OF VIEWS: 1 TECHNIQUE: Portable chest LIMITATIONS: None. FINDINGS: Heart size is stable. Grossly stable indwelling tubes/lines/catheters. Loop recorder device again noted. Interstitial and airspace opacities bilaterally, unchanged. Osteopenia. No pneumothorax IMPRESSION: Little interval change copyright 2011 [employer]- All Rights Reserved
[2020-09-30] MEDS: INSULIN REG, HUMAN 100 UNIT/ML 3 ML VIAL (PYX) SUBCUT SCH ×4 (00:40→20:42)
[2020-09-30] MEDS: METOCLOPRAMIDE HCL INJ/PF 10 MG/2 ML SDV IV SCH ×5 (00:43→23:55)
[2020-09-30] MEDS: PROPOFOL 1,000 MG/100 ML INFUS..BTL IV PRN ×6 (00:43→21:42)
[2020-09-30] MEDS: DEXTROSE 5%-WATER 250 ML with NOREPINEPHRINE BITARTRATE 4 MG IV PRN ×2 (02:20)
[2020-09-30] MEDS: FENTANYL CITRATE/PF 600 MCG/60 ML BAG IV PRN ×2 (04:00→11:15)
[2020-09-30] MEDS: MINERAL OIL/PETROLATUM,WHITE OPH OINT 3.5 GM OU SCH ×3 (04:18→17:33)
[2020-09-30 04:57] LABS: ARTERIAL BLOOD BASE EXCESS -8.5 mmol/L; ARTERIAL BLOOD H2CO3 1.02 mmol/L (1.05-1.35); ARTERIAL BLOOD HCO3 16.8 mmol/L (20-24); ARTERIAL BLOOD O2 SATURATION 94.2 % (94-98); ARTERIAL BLOOD PCO2 33.9 mmHg (35-45); ARTERIAL BLOOD PH 7.31 (7.35-7.45); ARTERIAL BLOOD PO2 75.8 mmHg (80-100); ARTERIAL BLOOD TOTAL CO2 17.9 mmol/L (21-25)
[2020-09-30] MEDS: LEVALBUTEROL HCL NEB 0.63 MG/3 ML AMPUL NEB SCH ×5 (04:57→20:38)
[2020-09-30] MEDS ORDERED: HEPARIN SOD (PORCINE) 1,000 UNIT/ML 10 ML VIAL IV PRN (05:00)
[2020-09-30] MEDS ORDERED: NORMAL SALINE 1000 ML 1,000 ML IV PRN (05:00)
[2020-09-30 05:01] LABS: ARTERIAL BLOOD FIO2 100%
[2020-09-30 05:03] LABS: HEMATOCRIT 24.8 % (36.0-47.0); HEMOGLOBIN 8.3 g/dL (12.0-15.5); MEAN CORPUSCULAR HEMOGLOBIN 29.7 pg (27.0-33.4); MEAN CORPUSCULAR HGB CONC 33.3 g/dL (32.0-36.0); MEAN CORPUSCULAR VOLUME 89 fl (80-97); RED BLOOD COUNT 2.78 10^6/uL (3.72-5.28); RED CELL DISTRIBUTION WIDTH 17.6 % (11.5-14.0); WHITE BLOOD COUNT 19.6 10^3/uL (4.0-10.5)
[2020-09-30 05:33] LABS: PLATELET COUNT 61 10^3/uL (150-450)
[2020-09-30] MEDS: PANTOPRAZOLE SODIUM 40 MG PACKET.DR NG SCH (05:35)
[2020-09-30 08:28] LABS: ALBUMIN 2.2 g/dL (3.5-5.0); ALKALINE PHOSPHATASE 96 U/L (38-126); ANION GAP 12 (5-19); ASPARTATE AMINO TRANSFERASE 22 U/L (14-36); BILIRUBIN,DIRECT 0.6 mg/dL (0.0-0.4); BILIRUBIN,TOTAL 0.7 mg/dL (0.2-1.3); BLOOD UREA NITROGEN 92 mg/dL (7-20); CALCIUM 8.1 mg/dL (8.4-10.2); CARBON DIOXIDE 20 mmol/L (22-30); CHLORIDE 94 mmol/L (98-107); GLUCOSE 116 mg/dL (75-110); POTASSIUM 4.3 mmol/L (3.6-5.0); TOTAL PROTEIN 4.6 g/dL (6.3-8.2)
[2020-09-30] MEDS: BUDESONIDE NEB 0.25 MG/2 ML AMPUL NEB SCH ×2 (08:54→20:38)
--- NOTE | 2020-09-30 09:05 | PDOC CRITICAL CARE PROG REPORT ---
General Date:: 09/30/20 ICU Day:: 13 Ventilator Day:: 13 Hospital Day:: 16 Resuscitation Status: Full Code Events in the past 12 to 24 Hours:: This 69-year-old female smoker presented to [facility] emergency department on 09/14/2020 with complaints of increased dyspnea. She reports a history of interstitial lung disease but denies COPD or emphysema. In the emergency department, she was found to be hypoxic and was placed on supplemental oxygen. Due to failure to improve oxygenation, she was placed on BiPAP support with an FiO2 of 100%. This was titrated at the bedside to CPAP 8. Her primary care physician (Dr. Joiner) requested ICU admission for acute hypoxemic respiratory failure. In the emergency department, her troponin was elevated (7.09) and proBNP 16,400. Chest x-ray was consistent with pulmonary edema. 09/15: She remains in the emergency department (lack of available beds). She is stable on CPAP 6, FiO2 100%. In fact, the nurse called earlier this morning to report that the patient was wandering around in the hallway. Denies chest pain. She states that her shortness of breath is improved with noninvasive positive pressure ventilatory support. Minimal cough. No sputum production. 2D echo pending. Patient discussed with Dr. Joiner. 09/18: Transferred to the ICU and reintubated. Currently stable 09/19: Renal function worsening, heading toward HD. Stop versed and assess neuro status. 09/20: Still not very awake. Renal function worse, LFTs better after arrest. 09/21: Still not responsive on no sedation. Renal function worse. Heading toward dialysis. Dr. Kathleen consulted. 09/22: Still making urine. Not needing HD now. Still not awake. Cant extubate. 09/23: Making more urine. No HD today. Covid ARDS by the numbers. Not responsive. 09/24: Coming off levophed. Agitated but not awake or extubatable. 09/25: Now on vasopressin instead of norepinephrine (per Dr. Zuniga). Still on argatroban gtt. Remains intubated. On propofol for sedation. On PRVC 15 /450/100/10. RR 21. 09/26: On vasopresin @ 0.04. MAP 72. Afebrile, in fact, hypothermic (96.3 F). Still on argatroban gtt. But, platelets 48 today. Remains intubated. RASS -4, on propofol for sedation, which was apparently increased overnight due to concerns about oxygen desaturation being related to work of breathing. Currently, getting NS 500 mL IV bolus for mild hypotension (MAP 62) this a.m. On PRVC 15/450/100/10. RR 16. ABG this a.m.: 7.35/38/63. BUN 145, Cr 6 but nonoliguric. 09/27: On norepinephrine (2) and vasopressin (0.04). Afebrile. No longer hypothermic. Platelets 59 today (perhaps, after changing Pepcid to Protonix). On argatroban. On propofol/fentanyl for sedation. PRVC 22/450/100/10. RR 22. ABG this a.m.: 7.29/43/62. BUN 154. Creatinine 5.4. Decadron decreased to 4 mg IV q 12 hr. Has been on Levaquin since 09/23 but urine (09/26) is isolating GNR. 09/28: On neorepinephrine (3) and vasopressin (0.04). Platelets 59 again today. On argatroban. On propofol/fentanyl for sedation. Unarousable to noxious stimuli. PRVC 28/380/100/12. RR 28. ABG this a.m.: 7.29/41/64. 09/29: Got hemodialysis yesterday. On norepinephrine (2) and vasopressin (0.04). Started on rocuronium infusion overnight due to ventilator dyssynchrony. Synchronous with On propofol/fentanyl for sedation. ABG this a.m.: 7.31/40/80. Sodium 131. BUN 87, creatinine 3.7. Calcium 7.9. Albumin 2.2. Blood culture (09/26) isolating gram-positive roni in 1 of 2 bottles. Trach aspirate (09/26) isolating MRSA. On Rocephin/vancomycin. On Nepro and Reglan. Of note, the healthcare team was informed yesterday that the patient does have more family members then we were originally led to believe. At this time, it appears that the patient's brother (who apparently lives in [place]) is the surrogate decision maker for this patient 09/30: Still on rocuronium. On vasopressin and levophed. Review of systems relevant to events:: Pulmonary. Neurological. Reason for ICU Addmission:: s/p cardiac arrest. Intubated. - Medications: Medications reviewed and adjusted accordingly: Yes Vasopressors:: Vasopressin, levophed. Sedation:: Fentanyl, Diprivan. Physical Exam Vital Signs: Temp Pulse Resp BP Pulse Ox 97.5 F 70 34 H 96/49 L 96 09/30/20 08:00 09/30/20 04:57 09/30/20 06:00 09/29/20 16:00 09/30/20 06:00 Intake & Output 09/29/20 09/30/20 10/01/20 06:59 06:59 06:59 Intake Total 1380 1874 126 Output Total 2772 226 20 Balance -1392 1648 106 Weight 84.3 kg 92.3 kg Weight/Height Weight 92.3 kg Height 5 ft 2 in General appearance: PRESENT: no acute distress Head exam: PRESENT: atraumatic, normocephalic Eye exam: PRESENT: conjunctiva pink, EOMI, PERRLA. ABSENT: scleral icterus Ear exam: PRESENT: normal external ear exam Mouth exam: PRESENT: moist, tongue midline Respiratory exam: PRESENT: clear to auscultation yung. ABSENT: rales, rhonchi, wheezes Cardiovascular exam: PRESENT: RRR. ABSENT: diastolic murmur, rubs, systolic murmur GI/Abdominal exam: PRESENT: normal bowel sounds, soft. ABSENT: distended, guarding, mass, organolmegaly, rebound, tenderness Rectal exam: PRESENT: deferred Gentrourinary exam: PRESENT: indwelling catheter Extremities exam: PRESENT: full ROM, +1 edema. ABSENT: calf tenderness, clubbing, pedal edema Neurological exam: PRESENT: other - Sedated Skin exam: PRESENT: dry, intact, warm. ABSENT: cyanosis, rash Tubes/Lines: PRESENT: Endotracheal Tube, Nasogastic Tube Laboratory/Radiographs Laboratory Results: 09/30/20 04:30 09/30/20 04:30 09/29/20 09/29/20 09/29/20 09:17 09:17 09:17 WBC 13.9 H RBC 2.75 L Hgb 8.2 L Hct 24.3 L MCV 88 MCH 29.8 MCHC 33.8 RDW 17.4 H Plt Count 48 L Seg Neutrophils % Not Reportable Carbonic Acid HCO3/H2CO3 Ratio ABG pH ABG pCO2 ABG pO2 ABG HCO3 ABG O2 Saturation ABG Base Excess FiO2 Sodium 128.2 L Potassium 3.7 Chloride 96 L Carbon Dioxide 24 Anion Gap 8 BUN 89 H Creatinine 3.82 H Est GFR ( Amer) 14 L Est GFR (Non-Af Amer) Glucose 119 H Calcium 7.8 L Ionized Calcium Alondra 1.08 L Magnesium Triglycerides 09/29/20 09/30/20 09/30/20 16:03 04:30 04:30 WBC 19.6 H RBC 2.78 L Hgb 8.3 L Hct 24.8 L MCV 89 MCH 29.7 MCHC 33.3 RDW 17.6 H Plt Count 61 L Seg Neutrophils % Carbonic Acid HCO3/H2CO3 Ratio ABG pH ABG pCO2 ABG pO2 ABG HCO3 ABG O2 Saturation ABG Base Excess FiO2 Sodium Cancelled Potassium Cancelled Chloride Cancelled Carbon Dioxide Cancelled Anion Gap Cancelled BUN Cancelled Creatinine Cancelled Est GFR ( Amer) Cancelled Est GFR (Non-Af Amer) Cancelled Glucose Cancelled Calcium Cancelled Ionized Calcium Alondra Magnesium 2.4 H Triglycerides 161 H 09/30/20 09/30/20 09/30/20 04:30 04:30 04:30 WBC RBC Hgb Hct MCV MCH MCHC RDW Plt Count Seg Neutrophils % Carbonic Acid 1.02 L HCO3/H2CO3 Ratio 16:1 ABG pH 7.31 L ABG pCO2 33.9 L ABG pO2 75.8 L ABG HCO3 16.8 L ABG O2 Saturation 94.2 ABG Base Excess -8.5 FiO2 100% Sodium Potassium Chloride Carbon Dioxide Anion Gap BUN Creatinine Est GFR ( Amer) Est GFR (Non-Af Amer) Glucose Calcium Ionized Calcium Alondra 1.09 L Magnesium 2.3 Triglycerides 09/26/20 10:45 Tracheal Aspirate Gram Stain - Final 09/26/20 10:45 Tracheal Aspirate Sputum Culture - Final Mrsa (Meth Resis Staph Aureus) Normal Anaid Absent 09/26/20 15:15 Blood Blood Culture (PCR) - Final 09/14/20 09/14/20 09/14/20 13:15 13:15 20:11 CK-MB (CK-2) 7.78 H Troponin I 7.090 6.940 NT-Pro-B Natriuret Pep 07776 H 09/15/20 09/15/20 09/17/20 02:02 05:47 09:56 CK-MB (CK-2) Troponin I 7.440 6.180 4.440 NT-Pro-B Natriuret Pep 09/18/20 09/19/20 09/20/20 13:55 03:16 04:22 CK-MB (CK-2) Troponin I 6.100 3.560 1.510 NT-Pro-B Natriuret Pep 09/25/20 04:10 CK-MB (CK-2) Troponin I 0.374 NT-Pro-B Natriuret Pep Impressions: KUB X-Ray 09/20/20 00:00 IMPRESSION: Esophagogastric tube tip and side-hole are below the diaphragm likely in the stomach. Chest X-Ray 09/29/20 22:57 IMPRESSION: Little interval change copyright 2011 [employer]- All Rights Reserved All labs, radiographs, diagnostic studies and EKGs were personally reviewed: Yes In addition, reports of radiographic and diagnostic studies were read: Yes Assessment and Plan - Diagnosis (1) COVID-19 Is this a current diagnosis for this admission?: Yes Plan: She has tested positive recently. She still exhibits a low PaO2/FIO2 ratio. Unweanable now. (2) Interstitial lung disease Is this a current diagnosis for this admission?: Yes (3) PILAR (acute kidney injury) Is this a current diagnosis for this admission?: Yes Plan: Still uremic. Cr 4.2, GFR 10. (4) Cardiac arrest Is this a current diagnosis for this admission?: Yes Plan: Her neuro status is at least partially related to this. (5) ARDS (adult respiratory distress syndrome) Is this a current diagnosis for this admission?: Yes Plan: By the numbers still positive for Covid ARDS. PaO2/ FIO2 is only 75. Plan Summary: Unweanable today. Critical Time Critical Time (minutes): 35 Level of Care: ICU Anticipated discharge: Other Anticipated DC Timeframe: Other -: 1. The care of a critical patient is a dynamic process. This note is a repr esentative synopsis but static in nature. The timeframe for treatments given in order is not necessarily the actual time these treatments may have been done. 2. This patient requires critical care secondary to ongoing requirements for therapy not offered or safe outside the critical care environment. Transfer to a lower level of care will result in altered life or limb morbidity and mortality. 3. Multidisciplinary rounds completed. 4. ABCDE bundle addressed.
[2020-09-30] MEDS: ASCORBIC ACID 500 MG TABLET PO SCH ×2 (09:10→20:28)
[2020-09-30] MEDS: CHOLECALCIFEROL (D3) 1,000 UNIT (25 MCG) TABLET PO SCH (09:10)
[2020-09-30] MEDS: DEXAMETHASONE SOD PHOSPHATE INJ 4 MG/1 ML VIAL IV SCH ×2 (09:10→22:18)
[2020-09-30] MEDS: ASPIRIN 81 MG TABLET, CHEWABLE PO SCH (09:11)
[2020-09-30 13:19] LABS: ARTERIAL BLOOD H2CO3 1.03 mmol/L (1.05-1.35); ARTERIAL BLOOD HCO3 16.5 mmol/L (20-24); ARTERIAL BLOOD O2 SATURATION 91.2 % (94-98); ARTERIAL BLOOD PCO2 34.1 mmHg (35-45); ARTERIAL BLOOD PO2 65.4 mmHg (80-100); ARTERIAL BLOOD TOTAL CO2 17.5 mmol/L (21-25)
[2020-09-30 13:20] LABS: ARTERIAL BLOOD FIO2 85%
[2020-09-30] MEDS ORDERED: VANCOMYCIN HCL 750 MG in DEXTROSE 5%-WATER 250 ML IV SCH (18:00)
[2020-09-30] MEDS: LEVETIRACETAM ORAL SOLN 500 MG/5 ML UDCUP NG SCH ×2 (20:27→22:18)
[2020-09-30] MEDS: METOPROLOL TARTRATE 25 MG TABLET NG SCH ×2 (20:27→22:19)
[2020-09-30] MEDS: PHARMACY COMMUNICATION ORDER MC SCH (20:29)
--- NOTE | 2020-09-30 20:50 | Progress Note ---
Provider Note Provider Note: CARDIOLOGY PROGRESS NOTE by Dr. Jacqueline Roberson on 09/30/2020. SUBJECTIVE: There is no further episodes of nonsustained ventricular tachycardia . There is no atrial arrhythmias. The patient's blood pressure is stable and with the Levophed decreased to 8 mcg/min since the patient is on dialysis. At tempts will be made to wean this down back after dialysis.. His urine output is slightly lower than before. She is, at times hypoxemic on now PEEP 90 % FiO2. She is having dialysis and hence a Levophed drip has been increased to 6 mcg/min. In spite of her dialysis the patient's renal function is worsened and the urine output has declined. PHYSICAL EXAMINATION: The patient is mildly obese. Is intubated and sedated. Selected Entries 09/30/20 09/30/20 09/30/20 08:55 09:00 10:00 Core 97.3 F Temperature Heart Rate ( 68 Monitors) Respiratory 34 H Rate O2 Sat by Pulse 93 89 L Oximetry Oxygen Delivery Mechanical Method ( Ventilator includes room air) Fraction of 90 Inspired Oxygen (FIO2) Arterial Blood Pressure- Systolic Aterial Blood Pressure- Diastolic Arterial Blood Pressure- Mean 09/30/20 09/30/20 11:00 12:00 Core Temperature Heart Rate ( Monitors) Respiratory Rate O2 Sat by Pulse Oximetry Oxygen Delivery Mechanical Method ( Ventilator includes room air) Fraction of Inspired Oxygen (FIO2) Arterial Blood 112 Pressure- Systolic Aterial Blood 50 Pressure- Diastolic Arterial Blood 70 Pressure- Mean HEAD: Is atraumatic normocephalic. EYES: Pupils are equal round regular gerardo ctive to light. ENT is negative. NECK:. Carotids are equal there is no bruits. Neck is supple. There is no JVD there is no lymphadenopathy. There is no goiter. There is no accessory muscle respiration use. Trachea is central. LUNGS: There is diminished air entry prolonged expiration with scattered rhonchi and few dry crackles bilaterally. There is no rales of CHF. HEART: S1-S2 is heard. S1 is of normal intensity. There is no S3 gallop. There is an S4 gallop. There is systolic murmur left sternal border and the apex without radiation. There is no rub. ABDOMEN: Is soft. There is no hepatosplenomegaly. Bowel sounds are heard. EXTREMITIES: Femorals are deep. There is no femoral bruits. There is no pedal edema. There is no cyanosis or clubbing. There is no DVT or cellulitis. RESEARCH AND DEVELOPMENT TESTER and psychiatric not examined due to the patient being intubated and sedated. The patient's 24-hour total intake is 1874 mL. 24-hour total output is 226 mL. To wait to see how much fluid is removed by dialysis. Labs- All tests 24 hr 09/30/20 09/30/20 09/30/20 00:36 04:30 04:30 WBC 19.6 H RBC 2.78 L Hgb 8.3 L Hct 24.8 L MCV 89 MCH 29.7 MCHC 33.3 RDW 17.6 H Plt Count 61 L Carbonic Acid HCO3/H2CO3 Ratio ABG pH ABG pCO2 ABG pO2 ABG HCO3 ABG Total CO2 ABG O2 Saturation ABG Base Excess FiO2 Sodium Cancelled Potassium Cancelled Chloride Cancelled Carbon Dioxide Cancelled Anion Gap Cancelled BUN Cancelled Creatinine Cancelled Est GFR ( Amer) Cancelled Est GFR (Non-Af Amer) Cancelled Est GFR (MDRD) Non-Af Cancelled Glucose Cancelled POC Glucose 121 H Calcium Cancelled Ionized Calcium Alondra Magnesium Total Bilirubin Direct Bilirubin Neonat Total Bilirubin Neonat Direct Bilirubin Neonat Indirect Bili AST ALT Alkaline Phosphatase Total Protein Albumin Triglycerides 161 H EGFR Cancelled 09/30/20 09/30/20 09/30/20 04:30 04:30 04:30 WBC RBC Hgb Hct MCV MCH MCHC RDW Plt Count Carbonic Acid 1.02 L HCO3/H2CO3 Ratio 16:1 ABG pH 7.31 L ABG pCO2 33.9 L ABG pO2 75.8 L ABG HCO3 16.8 L ABG Total CO2 17.9 L ABG O2 Saturation 94.2 ABG Base Excess -8.5 FiO2 100% Sodium Potassium Chloride Carbon Dioxide Anion Gap BUN Creatinine Est GFR ( Amer) Est GFR (Non-Af Amer) Est GFR (MDRD) Non-Af Glucose POC Glucose Calcium Ionized Calcium Alondra 1.09 L Magnesium 2.3 Total Bilirubin Direct Bilirubin Neonat Total Bilirubin Neonat Direct Bilirubin Neonat Indirect Bili AST ALT Alkaline Phosphatase Total Protein Albumin Triglycerides EGFR 09/30/20 09/30/20 09/30/20 04:30 05:41 13:04 WBC RBC Hgb Hct MCV MCH MCHC RDW Plt Count Carbonic Acid 1.03 L HCO3/H2CO3 Ratio 16:1 ABG pH 7.30 L ABG pCO2 34.1 L ABG pO2 65.4 L ABG HCO3 16.5 L ABG Total CO2 17.5 L ABG O2 Saturation 91.2 L ABG Base Excess -9.0 FiO2 85% Sodium 126.3 L Potassium 4.3 Chloride 94 L Carbon Dioxide 20 L Anion Gap 12 BUN 92 H Creatinine 4.19 H Est GFR ( Amer) 13 L Est GFR (Non-Af Amer) Est GFR (MDRD) Non-Af 10 L Glucose 116 H POC Glucose 143 H Calcium 8.1 L Ionized Calcium Alondra Magnesium Total Bilirubin 0.7 Direct Bilirubin 0.6 H Neonat Total Bilirubin Not Reportable Neonat Direct Bilirubin Not Reportable Neonat Indirect Bili Not Reportable AST 22 ALT 43 H Alkaline Phosphatase 96 Total Protein 4.6 L Albumin 2.2 L Triglycerides EGFR Chest X-Ray 09/14/20 13:09 IMPRESSION: Patchy bilateral airspace disease most likely representing viral pneumonitis. Chest X-Ray 09/15/20 06:00 IMPRESSION: NO SIGNIFICANT INTERVAL CHANGE. Chest X-Ray 09/16/20 00:00 IMPRESSION: 1. Intubated, with endotracheal tube tip within 1 cm of the mateusz. 2. Persistent pulmonary infiltrates 3. Enteric tube extends into the stomach Chest X-Ray 09/16/20 06:00 IMPRESSION: Stable radiographic appearance of the chest demonstrating diffuse airspace opacities. Chest X-Ray 09/17/20 06:00 IMPRESSION: STABLE APPEARANCE OF THE CHEST. SUPPORT DEVICES UNCHANGED. Chest X-Ray 09/18/20 00:00 IMPRESSION: 1. Increased interstitial edema since yesterday KUB X-Ray 09/20/20 00:00 IMPRESSION: Esophagogastric tube tip and side-hole are below the diaphragm likely in the stomach. Chest X-Ray 09/23/20 04:00 IMPRESSION: Slight improvement. No pneumothorax. Chest X-Ray 09/26/20 04:00 IMPRESSION: No change from 09/23/2020 Chest X-Ray 09/28/20 00:00 IMPRESSION: Interval adjustment of the left IJ line. No other interval change. Chest X-Ray 09/28/20 13:33 IMPRESSION: 1. Stable diffuse bilateral airspace disease. 2. Endotracheal tube and NG tube have been placed as described. 3. There appear to be in interval placement of a new right-sided central line in the left-sided line appears to been exchanged. Right-sided line in overlies the tip of the SVC. The new left-sided line overlies the right upper chest most likely the tip lies in the subclavian vein or distal right internal jugular vein. Chest X-Ray 09/29/20 22:57 IMPRESSION: Little interval change copyright 2010 [employer]- All Rights Reserved IMPRESSION/RECOMMENDATION: 1.S/p cardiopulmonary arrest: With spontaneous return of circulation after CPR. Most likely this is a respiratory scarring causing cardiac arrest. Patient s/p intubation. 2. Covid related pneumonia. 3. Non-ST elevation CA: Especially with the new EKG inversion in the inferior leads. The troponin is trending down. I agree with the echo got about. Later once the blood pressure is stable we will start the patient on beta-trae and aspirin and nitrates. Will follow serial EKGs and troponin levels. His troponin is elevated back to 6.10. The EKG shows no progression or regression of the T wave changes in the inferior leads. We will start the patient on small dose of beta-trae and increase as tolerated. Continue argatroban. Continue aspirin. Due to blood pressure being low her Lopressor is being held. 4. Hypotension: Has recurred. Patient is on vasopressin which has now been dialed up to 0.04 units /min. The patient is off the Levophed. Earlier blood pressure was in the 90s rate of 0.03 units/min of vasopressin. This has been increased. Her blood pressure now is in the 100s. 5. Acute on chronic kidney disease: Avoid nephrotoxic drugs. Note that the patient's renal function was normal in 2016. Her GFR is reduced to 22 mL/min in September 2020. At present may need dialysis since the patient is oliguric. Nephrology consult appreciated. Note that the patient's urine output is good but the patient's renal parameters i.e. BUN/creatinine are worsening. 6. History of hypertension: At present blood pressure stable off pressors note patient was hypotensive most likely secondary to sepsis and respiratory problems. 7. History of COPD: At present no evidence of acute exacerbation although the patient has pneumonia. 8. Anemia: S/p transfusion: Would recommend GI work-up later: Continue prolonged proton pump inhibitors. Again the patient's hemoglobin is dropped to 7.6. This may partly be due to hemodilution. But will check stool occult blood. 9. History of sleep apnea: 10. History of interstitial fibrosis:? Etiology. Medications reviewed. Medication management and medical regimen discussed with mixing machine attendant. Medical decision making is of high complexity. 40 minutes spent as patient more than 50% time spent in direct patient care. Will follow. All labs and imaging and EKGs and echocardiogram have been reviewed by me. Discussed in detail with the mixing machine attendant.
[2020-09-30] MEDS: CEFTRIAXONE SODIUM 1,000 MG in DEXTROSE 5%-WATER 50 ML IV SCH (22:17)
[2020-09-30] MEDS: MONTELUKAST SODIUM 10 MG TABLET PO SCH (22:18)
[2020-09-30] MEDS: TRAZODONE HCL 50 MG TABLET PO SCH (22:18)
--- NOTE | 2020-09-30 23:06 | PDOC PROGRESS REPORT ---
Subjective Date:: 09/30/20 Subjective:: Patient seen currently on dialysis. She remains to be intubated. She is still on vasopressin and Levophed to maintain acceptable blood pressure. She has high oxygen requirement and despite that the oxygen saturation is only at 88% at this time. Blood pressure still relatively low despite the pressures. She has become more oliguric for the last 48 hours. Urine output was only 226 mL for the last 24 hours. Reason For Visit: PNEUOMONIA DUE TO COVID19, ACUTE RENAL FAILURE, Physical Exam Vital Signs: Temp Pulse Resp BP Pulse Ox 97.5 F 95 34 H 120/72 92 09/30/20 09:18 09/30/20 14:00 09/30/20 14:00 09/30/20 14:00 09/30/20 14:00 Intake & Output 09/29/20 09/30/20 10/01/20 06:59 06:59 06:59 Intake Total 1380 1874 299 Output Total 2772 226 89 Balance -1392 1648 210 Weight 84.3 kg 92.3 kg Vitals during dialysis: Blood pressure 101/46, heart rate of 78, respiration of 34, saturation of 88% on mechanical ventilation, blood flow rate of 250 mL/min and dialysate flow rate of 600 mL/min. Exam: General appearance: PRESENT: Intubated Head exam: PRESENT: atraumatic, normocephalic Eye exam: PRESENT: Eyes closed Neck exam: ABSENT: JVD Respiratory exam: PRESENT: Diminished breath sounds. ABSENT: crackles, rales, r honchi, unlabored, wheezes Cardiovascular exam: PRESENT: Regular rate rhythm -+S1, +S2. ABSENT: diastolic murmur, systolic murmur GI/Abdominal exam: PRESENT: normal bowel sounds, soft. ABSENT: guarding, mass, tenderness Extremities exam: Positive for left lower significant upper extremity and grade 1 bilateral lower extremity pitting edema Neurological exam: PRESENT: Sedated. Skin exam: PRESENT: dry, warm, Cardiovascular exam: PRESENT: +S1, +S2 GI/Abdominal exam: PRESENT: normal bowel sounds, soft. ABSENT: organomegaly, tenderness Results Laboratory Results: 09/30/20 04:30 09/30/20 04:30 09/29/20 09/30/20 09/30/20 16:03 04:30 04:30 WBC 19.6 H RBC 2.78 L Hgb 8.3 L Hct 24.8 L MCV 89 MCH 29.7 MCHC 33.3 RDW 17.6 H Plt Count 61 L Carbonic Acid HCO3/H2CO3 Ratio ABG pH ABG pCO2 ABG pO2 ABG HCO3 ABG O2 Saturation ABG Base Excess FiO2 Sodium Cancelled Potassium Cancelled Chloride Cancelled Carbon Dioxide Cancelled Anion Gap Cancelled BUN Cancelled Creatinine Cancelled Est GFR ( Amer) Cancelled Est GFR (Non-Af Amer) Cancelled Glucose Cancelled Calcium Cancelled Ionized Calcium Alondra Magnesium 2.4 H Total Bilirubin AST Alkaline Phosphatase Total Protein Albumin Triglycerides 161 H 09/30/20 09/30/20 09/30/20 04:30 04:30 04:30 WBC RBC Hgb Hct MCV MCH MCHC RDW Plt Count Carbonic Acid 1.02 L HCO3/H2CO3 Ratio 16:1 ABG pH 7.31 L ABG pCO2 33.9 L ABG pO2 75.8 L ABG HCO3 16.8 L ABG O2 Saturation 94.2 ABG Base Excess -8.5 FiO2 100% Sodium Potassium Chloride Carbon Dioxide Anion Gap BUN Creatinine Est GFR ( Amer) Est GFR (Non-Af Amer) Glucose Calcium Ionized Calcium Alondra 1.09 L Magnesium 2.3 Total Bilirubin AST Alkaline Phosphatase Total Protein Albumin Triglycerides 09/30/20 09/30/20 04:30 13:04 WBC RBC Hgb Hct MCV MCH MCHC RDW Plt Count Carbonic Acid 1.03 L HCO3/H2CO3 Ratio 16:1 ABG pH 7.30 L ABG pCO2 34.1 L ABG pO2 65.4 L ABG HCO3 16.5 L ABG O2 Saturation 91.2 L ABG Base Excess -9.0 FiO2 85% Sodium 126.3 L Potassium 4.3 Chloride 94 L Carbon Dioxide 20 L Anion Gap 12 BUN 92 H Creatinine 4.19 H Est GFR ( Amer) 13 L Est GFR (Non-Af Amer) Glucose 116 H Calcium 8.1 L Ionized Calcium Alondra Magnesium Total Bilirubin 0.7 AST 22 Alkaline Phosphatase 96 Total Protein 4.6 L Albumin 2.2 L Triglycerides 09/26/20 15:15 Blood Blood Culture (PCR) - Final 09/26/20 15:15 Blood Blood Culture - Final Corynebacterium Species 09/14/20 09/14/20 09/14/20 13:15 13:15 20:11 CK-MB (CK-2) 7.78 H Troponin I 7.090 6.940 NT-Pro-B Natriuret Pep 30189 H 09/15/20 09/15/20 09/17/20 02:02 05:47 09:56 CK-MB (CK-2) Troponin I 7.440 6.180 4.440 NT-Pro-B Natriuret Pep 09/18/20 09/19/20 09/20/20 13:55 03:16 04:22 CK-MB (CK-2) Troponin I 6.100 3.560 1.510 NT-Pro-B Natriuret Pep 09/25/20 04:10 CK-MB (CK-2) Troponin I 0.374 NT-Pro-B Natriuret Pep Impressions: KUB X-Ray 09/20/20 00:00 IMPRESSION: Esophagogastric tube tip and side-hole are below the diaphragm likely in the stomach. Chest X-Ray 09/29/20 22:57 IMPRESSION: Little interval change copyright 2011 [employer]- All Rights Reserved Assessment & Plan - Diagnosis (1) PILAR (acute kidney injury) Is this a current diagnosis for this admission?: Yes Plan: Secondary to ATN with hypotension, that is post cardiac arrest in the background of COVID-19 infection. Baseline creatinine of 0.6-0.8. More oliguric. We will do dialysis today for 2.5 hours, using the patient's trialysis catheter, with 3 potassium bath, blood flow rate of 250 mL per minute, dialysate flow rate of 600 mL per minute, ultrafiltration 2 L as tolerated, no heparin and Procrit with 20,000 units during dialysis intravenously. Currently being monitored closely by her dialysis nurse. (2) Acute hypoxemic respiratory failure Is this a current diagnosis for this admission?: Yes Plan: On mechanical ventilation per tape stringer management. (3) Hypotension Is this a current diagnosis for this admission?: Yes Plan: Currently on vasopressin and Levophed . (4) Anemia Is this a current diagnosis for this admission?: Yes Plan: Retacrit on dialysis. (5) Hyponatremia Is this a current diagnosis for this admission?: Yes Plan: Versus she becomes more oliguric and more fluid overloaded. (6) Cardiac arrest Is this a current diagnosis for this admission?: Yes (7) NSTEMI (non-ST elevated myocardial infarction) Is this a current diagnosis for this admission?: Yes Plan: Branch Maker, Dr. Roberson following the patient. (8) Pneumonia due to COVID-19 virus Is this a current diagnosis for this admission?: Yes Plan: On Decadron. (9) E. coli UTI Is this a current diagnosis for this admission?: Yes Plan: On ceftriaxone. (10) MRSA pneumonia Qualifiers: Laterality: unspecified laterality Lung location: unspecified part of lung Qualified Code(s): J15.212 - Pneumonia due to Methicillin resistant Staphylococcus aureus Is this a current diagnosis for this admission?: Yes Plan: On vancomycin (11) Thrombocytopenia Is this a current diagnosis for this admission?: Yes Plan: Positive heparin-induced platelet antibody. We will use Tego for catheters. (12) Chronic interstitial lung disease Is this a current diagnosis for this admission?: Yes
[2020-10-01] MEDS: LEVALBUTEROL HCL NEB 0.63 MG/3 ML AMPUL NEB SCH ×6 (00:08→21:00)
[2020-10-01] MEDS: INSULIN REG, HUMAN 100 UNIT/ML 3 ML VIAL (PYX) SUBCUT SCH ×5 (00:36→23:40)
[2020-10-01] MEDS: PROPOFOL 1,000 MG/100 ML INFUS..BTL IV PRN ×5 (02:36→23:04)
[2020-10-01] MEDS: MINERAL OIL/PETROLATUM,WHITE OPH OINT 3.5 GM OU SCH ×3 (02:37→17:19)
[2020-10-01] MEDS: NORMAL SALINE 500 ML with ROCURONIUM BROMIDE 500 MG IV PRN ×6 (04:05→23:38)
[2020-10-01] MEDS: METOCLOPRAMIDE HCL INJ/PF 10 MG/2 ML SDV IV SCH ×4 (05:11→23:36)
[2020-10-01] MEDS: PANTOPRAZOLE SODIUM 40 MG PACKET.DR NG SCH (05:11)
[2020-10-01 06:23] LABS: ARTERIAL BLOOD BASE EXCESS -4.2 mmol/L; ARTERIAL BLOOD H2CO3 1.34 mmol/L (1.05-1.35); ARTERIAL BLOOD HCO3 21.9 mmol/L (20-24); ARTERIAL BLOOD O2 SATURATION 85.3 % (94-98); ARTERIAL BLOOD PCO2 44.6 mmHg (35-45); ARTERIAL BLOOD PH 7.31 (7.35-7.45); ARTERIAL BLOOD PO2 54.4 mmHg (80-100); ARTERIAL BLOOD TOTAL CO2 23.3 mmol/L (21-25); HEMATOCRIT 24.7 % (36.0-47.0); HEMOGLOBIN 8.5 g/dL (12.0-15.5); MEAN CORPUSCULAR HEMOGLOBIN 30.5 pg (27.0-33.4); MEAN CORPUSCULAR HGB CONC 34.4 g/dL (32.0-36.0); MEAN CORPUSCULAR VOLUME 89 fl (80-97); RED BLOOD COUNT 2.78 10^6/uL (3.72-5.28); RED CELL DISTRIBUTION WIDTH 17.6 % (11.5-14.0); WHITE BLOOD COUNT 17.9 10^3/uL (4.0-10.5)
[2020-10-01 06:27] LABS: ARTERIAL BLOOD FIO2 100%
[2020-10-01 06:37] LABS: ALBUMIN 2.2 g/dL (3.5-5.0); ALKALINE PHOSPHATASE 133 U/L (38-126); ANION GAP 9 (5-19); ASPARTATE AMINO TRANSFERASE 27 U/L (14-36); BILIRUBIN,DIRECT 0.7 mg/dL (0.0-0.4); BILIRUBIN,TOTAL 0.7 mg/dL (0.2-1.3); BLOOD UREA NITROGEN 60 mg/dL (7-20); C-REACTIVE PROTEIN 88.2 mg/L (<10.0); CALCIUM 8.2 mg/dL (8.4-10.2); CARBON DIOXIDE 25 mmol/L (22-30); CHLORIDE 95 mmol/L (98-107); GLUCOSE 112 mg/dL (75-110); POTASSIUM 3.1 mmol/L (3.6-5.0); TOTAL PROTEIN 4.6 g/dL (6.3-8.2); TRIGLYCERIDES 207 mg/dL (<150)
[2020-10-01 07:07] LABS: ABSOLUTE LYMPHOCYTES# (MANUAL) 0.4 10^3/uL (0.5-4.7); ABSOLUTE MONOCYTES # (MANUAL) 0.7 10^3/uL (0.1-1.4); BASOPHILS % (MANUAL) 0 % (0-2); EOSINOPHILS % (MANUAL) 2 % (0-6); LYMPHOCYTES % (MANUAL) 2 % (13-45); MONOCYTES % (MANUAL) 4 % (3-13); SEGMENTED NEUTROPHILS % (MAN) 92 % (42-78); TOTAL CELLS COUNTED 100
[2020-10-01 07:08] LABS: ANISOCYTOSIS SLIGHT; BURR CELLS SLIGHT; OVALOCYTES SLIGHT; POIKILOCYTOSIS SLIGHT; SCHISTOCYTES SLIGHT; TEAR DROP CELLS SLIGHT; TOXIC GRANULATION 1+; TOXIC VACUOLATION PRESENT
[2020-10-01 07:09] LABS: PLATELET COMMENT DECREASED; PLATELET COUNT 59 10^3/uL (150-450)
[2020-10-01] MEDS: BUDESONIDE NEB 0.25 MG/2 ML AMPUL NEB SCH ×2 (08:35→21:00)
[2020-10-01] MEDS: DEXTROSE 5%-WATER 250 ML with NOREPINEPHRINE BITARTRATE 4 MG IV PRN ×4 (08:49→23:38)
--- NOTE | 2020-10-01 09:16 | PDOC CRITICAL CARE PROG REPORT ---
General Date:: 10/01/20 ICU Day:: 14 Ventilator Day:: 14 Hospital Day:: 17 Resuscitation Status: Full Code Events in the past 12 to 24 Hours:: This 69-year-old female smoker presented to [facility] emergency department on 09/14/2020 with complaints of increased dyspnea. She reports a history of interstitial lung disease but denies COPD or emphysema. In the emergency department, she was found to be hypoxic and was placed on supplemental oxygen. Due to failure to improve oxygenation, she was placed on BiPAP support with an FiO2 of 100%. This was titrated at the bedside to CPAP 8. Her primary care physician (Dr. Joiner) requested ICU admission for acute hypoxemic respiratory failure. In the emergency department, her troponin was elevated (7.09) and proBNP 16,400. Chest x-ray was consistent with pulmonary edema. 09/15: She remains in the emergency department (lack of available beds). She is stable on CPAP 6, FiO2 100%. In fact, the nurse called earlier this morning to report that the patient was wandering around in the hallway. Denies chest pain. She states that her shortness of breath is improved with noninvasive positive pressure ventilatory support. Minimal cough. No sputum production. 2D echo pending. Patient discussed with Dr. Joiner. 09/18: Transferred to the ICU and reintubated. Currently stable 09/19: Renal function worsening, heading toward HD. Stop versed and assess neuro status. 09/20: Still not very awake. Renal function worse, LFTs better after arrest. 09/21: Still not responsive on no sedation. Renal function worse. Heading toward dialysis. Dr. Kathleen consulted. 09/22: Still making urine. Not needing HD now. Still not awake. Cant extubate. 09/23: Making more urine. No HD today. Covid ARDS by the numbers. Not responsive. 09/24: Coming off levophed. Agitated but not awake or extubatable. 09/25: Now on vasopressin instead of norepinephrine (per Dr. Zuniga). Still on argatroban gtt. Remains intubated. On propofol for sedation. On PRVC 15 /450/100/10. RR 21. 09/26: On vasopresin @ 0.04. MAP 72. Afebrile, in fact, hypothermic (96.3 F). Still on argatroban gtt. But, platelets 48 today. Remains intubated. RASS -4, on propofol for sedation, which was apparently increased overnight due to concerns about oxygen desaturation being related to work of breathing. Currently, getting NS 500 mL IV bolus for mild hypotension (MAP 62) this a.m. On PRVC 15/450/100/10. RR 16. ABG this a.m.: 7.35/38/63. BUN 145, Cr 6 but nonoliguric. 09/27: On norepinephrine (2) and vasopressin (0.04). Afebrile. No longer hypothermic. Platelets 59 today (perhaps, after changing Pepcid to Protonix). On argatroban. On propofol/fentanyl for sedation. PRVC 22/450/100/10. RR 22. ABG this a.m.: 7.29/43/62. BUN 154. Creatinine 5.4. Decadron decreased to 4 mg IV q 12 hr. Has been on Levaquin since 09/23 but urine (09/26) is isolating GNR. 09/28: On neorepinephrine (3) and vasopressin (0.04). Platelets 59 again today. On argatroban. On propofol/fentanyl for sedation. Unarousable to noxious stimuli. PRVC 28/380/100/12. RR 28. ABG this a.m.: 7.29/41/64. 09/29: Got hemodialysis yesterday. On norepinephrine (2) and vasopressin (0.04). Started on rocuronium infusion overnight due to ventilator dyssynchrony. Synchronous with On propofol/fentanyl for sedation. ABG this a.m.: 7.31/40/80. Sodium 131. BUN 87, creatinine 3.7. Calcium 7.9. Albumin 2.2. Blood culture (09/26) isolating gram-positive roni in 1 of 2 bottles. Trach aspirate (09/26) isolating MRSA. On Rocephin/vancomycin. On Nepro and Reglan. Of note, the healthcare team was informed yesterday that the patient does have more family members then we were originally led to believe. At this time, it appears that the patient's brother (who apparently lives in [place]) is the surrogate decision maker for this patient 09/30: Still on rocuronium. On vasopressin and levophed. 10/01: On levophed. U/O less. Decreasing each day Review of systems relevant to events:: Neurological, pulmonary, renal. Reason for ICU Addmission:: s/p cardiac arrest. Intubated. - Medications: Medications reviewed and adjusted accordingly: Yes Vasopressors:: Levophed, vasopressin. Sedation:: Diprivan, fentanyl Physical Exam Vital Signs: Temp Pulse Resp BP Pulse Ox 97.3 F 91 26 H 112/75 84 L 10/01/20 06:00 10/01/20 08:36 10/01/20 08:36 09/30/20 18:00 10/01/20 08:36 Intake & Output 09/30/20 10/01/20 10/02/20 06:59 06:59 06:59 Intake Total 1874 1871 300 Output Total 226 2119 Balance 1648 -248 300 Weight 92.3 kg 91.1 kg Weight/Height Weight 91.1 kg Height 5 ft 2 in General appearance: PRESENT: no acute distress Head exam: PRESENT: atraumatic, normocephalic Eye exam: PRESENT: conjunctiva pink, EOMI, PERRLA. ABSENT: scleral icterus Ear exam: PRESENT: normal external ear exam Mouth exam: PRESENT: moist, tongue midline Respiratory exam: PRESENT: clear to auscultation yung, rhonchi. ABSENT: rales, wheezes Cardiovascular exam: PRESENT: RRR. ABSENT: diastolic murmur, rubs, systolic murmur GI/Abdominal exam: PRESENT: normal bowel sounds, soft. ABSENT: distended, guarding, mass, organolmegaly, rebound, tenderness Rectal exam: PRESENT: deferred Gentrourinary exam: PRESENT: indwelling catheter Extremities exam: PRESENT: +1 edema Musculoskeletal exam: PRESENT: normal inspection Neurological exam: PRESENT: other - Heqavily sedated and on rocurinium. Skin exam: PRESENT: dry, intact, warm. ABSENT: cyanosis, rash Tubes/Lines: PRESENT: Endotracheal Tube, Central Line, Nasogastic Tube Laboratory/Radiographs Laboratory Results: 10/01/20 05:25 10/01/20 05:25 09/30/20 10/01/20 10/01/20 13:04 05:25 05:25 WBC RBC Hgb Hct MCV MCH MCHC RDW Plt Count Seg Neutrophils % Carbonic Acid 1.03 L 1.34 HCO3/H2CO3 Ratio 16:1 16:1 ABG pH 7.30 L 7.31 L ABG pCO2 34.1 L 44.6 ABG pO2 65.4 L 54.4 L ABG HCO3 16.5 L 21.9 ABG O2 Saturation 91.2 L 85.3 L ABG Base Excess -9.0 -4.2 FiO2 85% 100% Sodium 129.3 L Potassium 3.1 L Chloride 95 L Carbon Dioxide 25 Anion Gap 9 BUN 60 H Creatinine 3.08 H Est GFR ( Amer) 18 L Glucose 112 H Calcium 8.2 L Magnesium 1.9 Total Bilirubin 0.7 AST 27 Alkaline Phosphatase 133 H C-Reactive Protein 88.2 H Total Protein 4.6 L Albumin 2.2 L Triglycerides 207 H 10/01/20 05:25 WBC 17.9 H RBC 2.78 L Hgb 8.5 L Hct 24.7 L MCV 89 MCH 30.5 MCHC 34.4 RDW 17.6 H Plt Count 59 L Seg Neutrophils % Not Reportable Carbonic Acid HCO3/H2CO3 Ratio ABG pH ABG pCO2 ABG pO2 ABG HCO3 ABG O2 Saturation ABG Base Excess FiO2 Sodium Potassium Chloride Carbon Dioxide Anion Gap BUN Creatinine Est GFR ( Amer) Glucose Calcium Magnesium Total Bilirubin AST Alkaline Phosphatase C-Reactive Protein Total Protein Albumin Triglycerides 09/26/20 15:15 Blood Blood Culture (PCR) - Final 09/26/20 15:15 Blood Blood Culture - Final Corynebacterium Species 09/14/20 09/14/20 09/14/20 13:15 13:15 20:11 CK-MB (CK-2) 7.78 H Troponin I 7.090 6.940 NT-Pro-B Natriuret Pep 39019 H 09/15/20 09/15/20 09/17/20 02:02 05:47 09:56 CK-MB (CK-2) Troponin I 7.440 6.180 4.440 NT-Pro-B Natriuret Pep 09/18/20 09/19/20 09/20/20 13:55 03:16 04:22 CK-MB (CK-2) Troponin I 6.100 3.560 1.510 NT-Pro-B Natriuret Pep 09/25/20 04:10 CK-MB (CK-2) Troponin I 0.374 NT-Pro-B Natriuret Pep Impressions: KUB X-Ray 09/20/20 00:00 IMPRESSION: Esophagogastric tube tip and side-hole are below the diaphragm likely in the stomach. Chest X-Ray 09/29/20 22:57 IMPRESSION: Little interval change copyright 2010 [employer]- All Rights Reserved All labs, radiographs, diagnostic studies and EKGs were personally reviewed: Yes In addition, reports of radiographic and diagnostic studies were read: Yes Assessment and Plan - Diagnosis (1) COVID-19 Is this a current diagnosis for this admission?: Yes Plan: This is the origin of her illnesses. Prognosis not good. (2) Interstitial lung disease Is this a current diagnosis for this admission?: Yes (3) PILAR (acute kidney injury) Is this a current diagnosis for this admission?: Yes Plan: She is on dialysis and has tolerated it thus far. (4) Cardiac arrest Is this a current diagnosis for this admission?: Yes (5) ARDS (adult respiratory distress syndrome) Is this a current diagnosis for this admission?: Yes Plan: PaO2/FiO2 is 54. Slightly worse today. Also not a good prognostic sign. Plan Summary: Overall no change except a slight backslide in terms of needing HD and worsening ARDS. Critical Time Critical Time (minutes): 35 Level of Care: ICU Anticipated discharge: Other Anticipated DC Timeframe: Other -: 1. The care of a critical patient is a dynamic process. This note is a indirect sales representative synopsis but static in nature. The timeframe for treatments given in order is not necessarily the actual time these treatments may have been done. 2. This patient requires critical care secondary to ongoing requirements for therapy not offered or safe outside the critical care environment. Transfer to a lower level of care will result in altered life or limb morbidity and mortality. 3. Multidisciplinary rounds completed. 4. ABCDE bundle addressed.
[2020-10-01] MEDS: LEVETIRACETAM ORAL SOLN 500 MG/5 ML UDCUP NG SCH ×2 (11:08→21:46)
[2020-10-01] MEDS: DEXAMETHASONE SOD PHOSPHATE INJ 4 MG/1 ML VIAL IV SCH ×2 (11:09→21:47)
[2020-10-01] MEDS: CHOLECALCIFEROL (D3) 1,000 UNIT (25 MCG) TABLET PO SCH (11:09)
[2020-10-01] MEDS: ASCORBIC ACID 500 MG TABLET PO SCH ×3 (11:09→17:17)
[2020-10-01] MEDS: METOPROLOL TARTRATE 25 MG TABLET NG SCH ×2 (11:10→21:47)
[2020-10-01] MEDS: ASPIRIN 81 MG TABLET, CHEWABLE PO SCH (11:10)
[2020-10-01] MEDS: FENTANYL CITRATE/PF 600 MCG/60 ML BAG IV PRN ×2 (11:12→21:46)
[2020-10-01] MEDS: POTASSI CL 20 MEQ/50 ML RIDER 20 MEQ/50 ML RTUPB IV SCH ×2 (11:24→14:11)
[2020-10-01] MEDS: AMINO AC/PROTEIN HYDR/WHEY PRO 11 GM/45 ML PKT NG SCH ×2 (13:00→17:18)
[2020-10-01] MEDS ORDERED: EPOETIN ALFA-EPBX 20,000 UNIT in SYRINGE, DISPOSABLE, 1 EACH IV PRN (16:51)
[2020-10-01] MEDS: MEROPENEM 1 GM in NORMAL SALINE 50 ML IV SCH ×2 (17:20→18:15)
[2020-10-01] MEDS: PHARMACY COMMUNICATION ORDER MC SCH (17:20)
[2020-10-01] MEDS: DEXTROSE 5%-WATER 250 ML with VASOPRESSIN 100 UNIT IV PRN ×2 (17:38)
[2020-10-01] MEDS: CEFTRIAXONE SODIUM 1,000 MG in DEXTROSE 5%-WATER 50 ML IV SCH (21:46)
[2020-10-01] MEDS: TRAZODONE HCL 50 MG TABLET PO SCH (21:47)
[2020-10-01] MEDS: MONTELUKAST SODIUM 10 MG TABLET PO SCH (21:47)
--- NOTE | 2020-10-01 23:25 | Progress Note ---
Provider Note Provider Note: CARDIOLOGY PROGRESS NOTE by Dr. Jacqueline Roberson on 10/01/2020. SUBJECTIVE: There is no further episodes of nonsustained ventricular tachycardia . There is no atrial arrhythmias. The patient's blood pressure is is in the high 90s to the low 100s on 6 mcg/min of Levophed. In spite of the supplemental oxygen and the PEEP the patient's saturations are 78%.. His urine output is slightly lower than before. She is, at times hypoxemic on now PEEP 90 % FiO2. She is having dialysis and hence a Levophed drip has been increased to 6 mcg/min. In spite of her dialysis the patient's renal function is worsened and the urine output has declined. The patient is not making any significant progress towards recovery. PHYSICAL EXAMINATION: The patient is moderately obese. Is intubated and sedated. Selected Entries 10/01/20 10/01/20 16:26 17:00 Pulse Rate 93 Respiratory 26 H Rate Respiratory Mechanically Effort Ventilated O2 Sat by Pulse 78 L Oximetry Fraction of 100 Inspired Oxygen (FIO2) Arterial Blood 103 Pressure- Systolic Aterial Blood 52 Pressure- Diastolic Arterial Blood 65 Pressure- Mean Premature 0 Ventricular Counted Beats HEAD: Is atraumatic normocephalic. EYES: Pupils are equal round regular reactive to light. ENT is negative. NECK:. Carotids are equal there is no bruits. Neck is supple. There is no JVD there is no lymphadenopathy. There is no goiter. There is no accessory muscle respiration use. Trachea is central. LUNGS: There is diminished air entry prolonged expiration with scattered rhonchi and few dry crackles bilaterally. There is no rales of CHF. HEART: S1-S2 is heard. S1 is of normal intensity. There is no S3 gallop. There is an S4 gallop. There is systolic murmur left sternal border and the apex without radiation. There is no rub. ABDOMEN: Is soft. There is no hepatosplenomegaly. Bowel sounds are heard. EXTREMITIES: Femorals are deep. There is no femoral bruits. There is no pedal edema. There is no cyanosis or clubbing. There is no DVT or cellulitis. MANAGER [employer] B[employer]AGE and psychiatric not examined due to the patient being intubated and sedated. The patient's 24-hour total intake is 2121 mL. 24-hour total output is 2119 mL. Labs- All tests 24 hr 09/30/20 09/30/20 09/30/20 13:00 17:39 23:29 WBC RBC Hgb Hct MCV MCH MCHC RDW Plt Count Lymph % (Auto) [place] % (Auto) Eos % (Auto) Baso % (Auto) Absolute Neuts (auto) Absolute Lymphs (auto) Absolute Monos (auto) Absolute Eos (auto) Absolute Basos (auto) Total Counted Seg Neutrophils % Seg Neuts % (Manual) Lymphocytes % (Manual) Monocytes % (Manual) Eosinophils % (Manual) Basophils % (Manual) Abs Neuts (Manual) Abs Lymphs (Manual) Abs Monocytes (Manual) Absolute Eos (Manual) Abs Basophils (Manual) Toxic Granulation Toxic Vacuolation Platelet Comment Poikilocytosis Anisocytosis Tear Drop Cells Ovalocytes Mound Cells Schistocytes D-Dimer Carbonic Acid HCO3/H2CO3 Ratio ABG pH ABG pCO2 ABG pO2 ABG HCO3 ABG Total CO2 ABG O2 Saturation ABG Base Excess FiO2 Sodium Potassium Chloride Carbon Dioxide Anion Gap BUN Creatinine Est GFR ( Amer) Est GFR (MDRD) Non-Af Glucose POC Glucose 147 H 124 H 132 H Calcium Magnesium Total Bilirubin Direct Bilirubin Neonat Total Bilirubin Neonat Direct Bilirubin Neonat Indirect Bili AST ALT Alkaline Phosphatase C-Reactive Protein Total Protein Albumin Triglycerides 10/01/20 10/01/20 10/01/20 05:23 05:25 05:25 WBC RBC Hgb Hct MCV MCH MCHC RDW Plt Count Lymph % (Auto) [place] % (Auto) Eos % (Auto) Baso % (Auto) Absolute Neuts (auto) Absolute Lymphs (auto) Absolute Monos (auto) Absolute Eos (auto) Absolute Basos (auto) Total Counted Seg Neutrophils % Seg Neuts % (Manual) Lymphocytes % (Manual) Monocytes % (Manual) Eosinophils % (Manual) Basophils % (Manual) Abs Neuts (Manual) Abs Lymphs (Manual) Abs Monocytes (Manual) Absolute Eos (Manual) Abs Basophils (Manual) Toxic Granulation Toxic Vacuolation Platelet Comment Poikilocytosis Anisocytosis Tear Drop Cells Ovalocytes Mound Cells Schistocytes D-Dimer 11.94 H Carbonic Acid HCO3/H2CO3 Ratio ABG pH ABG pCO2 ABG pO2 ABG HCO3 ABG Total CO2 ABG O2 Saturation ABG Base Excess FiO2 Sodium 129.3 L Potassium 3.1 L Chloride 95 L Carbon Dioxide 25 Anion Gap 9 BUN 60 H Creatinine 3.08 H Est GFR ( Amer) 18 L Est GFR (MDRD) Non-Af 15 L Glucose 112 H POC Glucose 122 H Calcium 8.2 L Magnesium 1.9 Total Bilirubin 0.7 Direct Bilirubin 0.7 H Neonat Total Bilirubin Not Reportable Neonat Direct Bilirubin Not Reportable Neonat Indirect Bili Not Reportable AST 27 ALT 39 H Alkaline Phosphatase 133 H C-Reactive Protein 88.2 H Total Protein 4.6 L Albumin 2.2 L Triglycerides 207 H 10/01/20 10/01/20 10/01/20 05:25 05:25 11:14 WBC 17.9 H RBC 2.78 L Hgb 8.5 L Hct 24.7 L MCV 89 MCH 30.5 MCHC 34.4 RDW 17.6 H Plt Count 59 L Lymph % (Auto) Not Reportable [place] % (Auto) Not Reportable Eos % (Auto) Not Reportable Baso % (Auto) Not Reportable Absolute Neuts (auto) Not Reportable Absolute Lymphs (auto) Not Reportable Absolute Monos (auto) Not Reportable Absolute Eos (auto) Not Reportable Absolute Basos (auto) Not Reportable Total Counted 100 Seg Neutrophils % Not Reportable Seg Neuts % (Manual) 92 H Lymphocytes % (Manual) 2 L Monocytes % (Manual) 4 Eosinophils % (Manual) 2 Basophils % (Manual) 0 Abs Neuts (Manual) 16.5 H Abs Lymphs (Manual) 0.4 L Abs Monocytes (Manual) 0.7 Absolute Eos (Manual) 0.4 Abs Basophils (Manual) 0.0 Toxic Granulation 1+ Toxic Vacuolation PRESENT Platelet Comment DECREASED Poikilocytosis SLIGHT Anisocytosis SLIGHT Tear Drop Cells SLIGHT Ovalocytes SLIGHT Mound Cells SLIGHT Schistocytes SLIGHT D-Dimer Carbonic Acid 1.34 HCO3/H2CO3 Ratio 16:1 ABG pH 7.31 L ABG pCO2 44.6 ABG pO2 54.4 L ABG HCO3 21.9 ABG Total CO2 23.3 ABG O2 Saturation 85.3 L ABG Base Excess -4.2 FiO2 100% Sodium Potassium Chloride Carbon Dioxide Anion Gap BUN Creatinine Est GFR ( Amer) Est GFR (MDRD) Non-Af Glucose POC Glucose 121 H Calcium Magnesium Total Bilirubin Direct Bilirubin Neonat Total Bilirubin Neonat Direct Bilirubin Neonat Indirect Bili AST ALT Alkaline Phosphatase C-Reactive Protein Total Protein Albumin Triglycerides 01/21/21 01/21/21 17:13 22:16 WBC RBC Hgb Hct MCV MCH MCHC RDW Plt Count Lymph % (Auto) [place] % (Auto) Eos % (Auto) Baso % (Auto) Absolute Neuts (auto) Absolute Lymphs (auto) Absolute Monos (auto) Absolute Eos (auto) Absolute Basos (auto) Total Counted Seg Neutrophils % Seg Neuts % (Manual) Lymphocytes % (Manual) Monocytes % (Manual) Eosinophils % (Manual) Basophils % (Manual) Abs Neuts (Manual) Abs Lymphs (Manual) Abs Monocytes (Manual) Absolute Eos (Manual) Abs Basophils (Manual) Toxic Granulation Toxic Vacuolation Platelet Comment Poikilocytosis Anisocytosis Tear Drop Cells Ovalocytes Mound Cells Schistocytes D-Dimer Carbonic Acid HCO3/H2CO3 Ratio ABG pH ABG pCO2 ABG pO2 ABG HCO3 ABG Total CO2 ABG O2 Saturation ABG Base Excess FiO2 Sodium Potassium Chloride Carbon Dioxide Anion Gap BUN Creatinine Est GFR ( Amer) Est GFR (MDRD) Non-Af Glucose POC Glucose 165 H 134 H Calcium Magnesium Total Bilirubin Direct Bilirubin Neonat Total Bilirubin Neonat Direct Bilirubin Neonat Indirect Bili AST ALT Alkaline Phosphatase C-Reactive Protein Total Protein Albumin Triglycerides Chest X-Ray 09/14/20 13:09 IMPRESSION: Patchy bilateral airspace disease most likely representing viral pneumonitis. Chest X-Ray 09/15/20 06:00 IMPRESSION: NO SIGNIFICANT INTERVAL CHANGE. Chest X-Ray 09/16/20 00:00 IMPRESSION: 1. Intubated, with endotracheal tube tip within 1 cm of the mateusz. 2. Persistent pulmonary infiltrates 3. Enteric tube extends into the stomach Chest X-Ray 09/16/20 06:00 IMPRESSION: Stable radiographic appearance of the chest demonstrating diffuse airspace opacities. Chest X-Ray 09/17/20 06:00 IMPRESSION: STABLE APPEARANCE OF THE CHEST. SUPPORT DEVICES UNCHANGED. Chest X-Ray 09/18/20 00:00 IMPRESSION: 1. Increased interstitial edema since yesterday KUB X-Ray 09/20/20 00:00 IMPRESSION: Esophagogastric tube tip and side-hole are below the diaphragm likely in the stomach. Chest X-Ray 09/23/20 04:00 IMPRESSION: Slight improvement. No pneumothorax. Chest X-Ray 09/26/20 04:00 IMPRESSION: No change from 09/23/2020 Chest X-Ray 09/28/20 00:00 IMPRESSION: Interval adjustment of the left IJ line. No other interval change. Chest X-Ray 09/28/20 13:33 IMPRESSION: 1. Stable diffuse bilateral airspace disease. 2. Endotracheal tube and NG tube have been placed as described. 3. There appear to be in interval placement of a new right-sided central line in the left-sided line appears to been exchanged. Right-sided line in overlies the tip of the SVC. The new left-sided line overlies the right upper chest most likely the tip lies in the subclavian vein or distal right internal jugular vein. Chest X-Ray 09/29/20 22:57 IMPRESSION: Little interval change copyright 2011 [employer]- All Rights Reserved IMPRESSION/RECOMMENDATION: 1.S/p cardiopulmonary arrest: With spontaneous return of circulation after CPR. Most likely this is a respiratory scarring causing cardiac arrest. Patient s/p intubation. 2. Covid related pneumonia. Seems to be worsening with hypoxia on good FiO2 and PEEP on the ventilator. 3. Non-ST elevation [place]: Especially with the new EKG inversion in the inferior leads. Cardiac status seems to be stable. The patient on argatroban. Unfortunately due to hypotension cannot start her on beta-blockers or nitrates. 4. Hypotension: Has recurred. Patient is on vasopressin which has now been dialed up to 0.04 units /min. The patient is off the Levophed. Earlier blood pressure was in the 90s rate of 0.03 units/min of vasopressin. This has been increased. Her blood pressure now is in the 100s. 5. Acute on chronic kidney disease: Avoid nephrotoxic drugs. Note that the patient's renal function was normal in 2016. Her GFR is reduced to 22 mL/min in September 2020. In spite of dialysis the patient's renal function is worsened and the urine output is declining. 6. History of hypertension: At present blood pressure stable off pressors note patient was hypotensive most likely secondary to sepsis and respiratory problems. 7. History of COPD: At present no evidence of acute exacerbation although the patient has pneumonia. 8. Anemia: S/p transfusion: Would recommend GI work-up later: Continue prolonged proton pump inhibitors. Again the patient's hemoglobin is dropped to 7.6. This may partly be due to hemodilution. But will check stool occult blood. 9. History of sleep apnea: 10. History of interstitial fibrosis:? Etiology. Medications reviewed. Medication management and medical regimen discussed with buttermilk drier operator. Medical decision making is of high complexity. 40 minutes spent as patient more than 50% time spent in direct patient care. Will follow. All labs and imaging and EKGs and echocardiogram have been reviewed by me. Discussed in detail with the buttermilk drier operator.
[2020-10-02] MEDS: LEVALBUTEROL HCL NEB 0.63 MG/3 ML AMPUL NEB SCH ×6 (00:30→19:46)
[2020-10-02] MEDS: MINERAL OIL/PETROLATUM,WHITE OPH OINT 3.5 GM OU SCH ×3 (01:46→18:11)
[2020-10-02] MEDS: PROPOFOL 1,000 MG/100 ML INFUS..BTL IV PRN ×7 (03:33→23:51)
[2020-10-02 03:51] LABS: HEMATOCRIT 27.5 % (36.0-47.0); HEMOGLOBIN 9.2 g/dL (12.0-15.5); MEAN CORPUSCULAR HEMOGLOBIN 30.1 pg (27.0-33.4); MEAN CORPUSCULAR HGB CONC 33.3 g/dL (32.0-36.0); MEAN CORPUSCULAR VOLUME 90 fl (80-97); RED BLOOD COUNT 3.05 10^6/uL (3.72-5.28); RED CELL DISTRIBUTION WIDTH 17.5 % (11.5-14.0); WHITE BLOOD COUNT 25.3 10^3/uL (4.0-10.5)
[2020-10-02 03:59] LABS: ALBUMIN 2.3 g/dL (3.5-5.0); ALKALINE PHOSPHATASE 148 U/L (38-126); ANION GAP 11 (5-19); ASPARTATE AMINO TRANSFERASE 32 U/L (14-36); BILIRUBIN,DIRECT 0.6 mg/dL (0.0-0.4); BILIRUBIN,TOTAL 0.6 mg/dL (0.2-1.3); BLOOD UREA NITROGEN 67 mg/dL (7-20); CALCIUM 8.5 mg/dL (8.4-10.2); CARBON DIOXIDE 21 mmol/L (22-30); CHLORIDE 94 mmol/L (98-107); GLUCOSE 124 mg/dL (75-110); TOTAL PROTEIN 4.8 g/dL (6.3-8.2); TRIGLYCERIDES 156 mg/dL (<150)
[2020-10-02 04:02] LABS: VANCOMYCIN,TROUGH 14.8 ug/mL (5.0-20.0)
[2020-10-02 04:08] LABS: PLATELET COUNT 71 10^3/uL (150-450)
[2020-10-02 04:22] LABS: POTASSIUM 4.5 mmol/L (3.6-5.0)
[2020-10-02] MEDS ORDERED: HEPARIN SOD (PORCINE) 1,000 UNIT/ML 10 ML VIAL IV PRN (05:00)
[2020-10-02] MEDS ORDERED: EPOETIN ALFA-EPBX 20,000 UNITS (ESRD) in SYRINGE IV PRN (05:00)
[2020-10-02] MEDS: METOCLOPRAMIDE HCL INJ/PF 10 MG/2 ML SDV IV SCH ×3 (05:36→18:11)
[2020-10-02] MEDS: PANTOPRAZOLE SODIUM 40 MG PACKET.DR NG SCH (05:36)
[2020-10-02] MEDS: INSULIN REG, HUMAN 100 UNIT/ML 3 ML VIAL (PYX) SUBCUT SCH ×4 (05:36→23:56)
[2020-10-02] MEDS: NORMAL SALINE 1000 ML 1,000 ML IV PRN (05:37)
[2020-10-02] MEDS: BUDESONIDE NEB 0.25 MG/2 ML AMPUL NEB SCH ×2 (08:30→19:46)
[2020-10-02] MEDS: DEXTROSE 5%-WATER 250 ML with NOREPINEPHRINE BITARTRATE 4 MG IV PRN ×4 (08:56→15:00)
[2020-10-02] MEDS: FENTANYL CITRATE/PF 600 MCG/60 ML BAG IV PRN ×3 (09:00→21:35)
[2020-10-02] MEDS: AMINO AC/PROTEIN HYDR/WHEY PRO 11 GM/45 ML PKT NG SCH ×2 (09:03→18:11)
[2020-10-02] MEDS: MEROPENEM 1 GM in NORMAL SALINE 50 ML IV SCH (09:03)
[2020-10-02] MEDS: CHOLECALCIFEROL (D3) 1,000 UNIT (25 MCG) TABLET PO SCH (09:04)
[2020-10-02] MEDS: ASPIRIN 81 MG TABLET, CHEWABLE PO SCH (09:04)
[2020-10-02] MEDS: DEXAMETHASONE SOD PHOSPHATE INJ 4 MG/1 ML VIAL IV SCH ×2 (09:04→21:56)
[2020-10-02] MEDS: ASCORBIC ACID 500 MG TABLET PO SCH ×3 (09:04→18:11)
[2020-10-02] MEDS: METOPROLOL TARTRATE 25 MG TABLET NG SCH ×2 (09:04→21:57)
[2020-10-02] MEDS: LEVETIRACETAM ORAL SOLN 500 MG/5 ML UDCUP NG SCH ×2 (10:02→21:56)
--- NOTE | 2020-10-02 11:41 | PDOC PROGRESS REPORT ---
Subjective Date:: 10/02/20 Reason For Visit: Patient seen on dialysis today. Undergoing dialysis without any issues. Urine output is still very dismal. Labs and medications were reviewed. Dialysis orders were reviewed with the treating dialysis nurse. Physical Exam Vital Signs: Temp Pulse Resp BP Pulse Ox 98.2 F 88 26 H 75/41 L 87 L 10/02/20 10:00 10/02/20 08:30 10/02/20 10:00 10/01/20 14:00 10/02/20 10:00 Intake & Output 10/01/20 10/02/20 10/03/20 06:59 06:59 06:59 Intake Total 2121 2556 988 Output Total 2119 663 4000 Balance 2 1893 -3012 Weight 91.1 kg 90.9 kg Exam: Remains intubated and sedated. Respiratory exam: PRESENT: clear to auscultation yung. ABSENT: crackles Cardiovascular exam: PRESENT: +S1, +S2 GI/Abdominal exam: PRESENT: normal bowel sounds, soft. ABSENT: organomegaly, tenderness Extremities exam: PRESENT: pedal edema Results Laboratory Results: 10/02/20 03:19 10/02/20 03:19 10/02/20 10/02/20 03:19 03:19 WBC 25.3 H RBC 3.05 L Hgb 9.2 L Hct 27.5 L MCV 90 MCH 30.1 MCHC 33.3 RDW 17.5 H Plt Count 71 L Sodium 126.4 L Potassium 4.5 D Chloride 94 L Carbon Dioxide 21 L Anion Gap 11 BUN 67 H Creatinine 3.48 H Est GFR ( Amer) 16 L Glucose 124 H Calcium 8.5 Total Bilirubin 0.6 AST 32 Alkaline Phosphatase 148 H Total Protein 4.8 L Albumin 2.3 L Triglycerides 156 H 09/26/20 10:45 Blood Blood Culture - Final Eubacterium Species No Aerobic Organisms 09/14/20 09/14/20 09/14/20 13:15 13:15 20:11 CK-MB (CK-2) 7.78 H Troponin I 7.090 6.940 NT-Pro-B Natriuret Pep 31461 H 09/15/20 09/15/20 09/17/20 02:02 05:47 09:56 CK-MB (CK-2) Troponin I 7.440 6.180 4.440 NT-Pro-B Natriuret Pep 09/18/20 09/19/20 09/20/20 13:55 03:16 04:22 CK-MB (CK-2) Troponin I 6.100 3.560 1.510 NT-Pro-B Natriuret Pep 09/25/20 04:10 CK-MB (CK-2) Troponin I 0.374 NT-Pro-B Natriuret Pep Impressions: KUB X-Ray 09/20/20 00:00 IMPRESSION: Esophagogastric tube tip and side-hole are below the diaphragm likely in the stomach. Chest X-Ray 09/29/20 22:57 IMPRESSION: Little interval change copyright 2011 [employer]- All Rights Reserved Assessment & Plan - Diagnosis (1) PILAR (acute kidney injury) Is this a current diagnosis for this admission?: Yes Plan: Came in with abnormal renal functions predominantly PILAR in the setting of Covid pneumonia and sepsis. Currently intubated and sedated. Patient on dialysis and we hope to remove at least 3 L of fluid as tolerated. Dialysis orders were reviewed with the treating dialysis nurse. (2) Acute hypoxemic respiratory failure Is this a current diagnosis for this admission?: Yes Plan: In the face of Covid pneumonia. Currently intubated and sedated. (3) COVID-19 Is this a current diagnosis for this admission?: Yes Plan: With Covid pneumonia. Being managed by electrical power station technician. (4) NSTEMI (non-ST elevated myocardial infarction) Is this a current diagnosis for this admission?: Yes Plan: As per cardiology. (5) Pneumonia due to COVID-19 virus Is this a current diagnosis for this admission?: Yes Plan: Being managed by electrical power station technician. (6) Chronic obstructive pulmonary disease with (acute) exacerbation Plan: Status quo. On top of that she has Covid pneumonia. (7) Hypotension Is this a current diagnosis for this admission?: Yes Plan: She still on double pressor agents. Overall unfortunately poor prognosis.
[2020-10-02] MEDS: NORMAL SALINE 500 ML with ROCURONIUM BROMIDE 500 MG IV PRN ×2 (13:40)
--- NOTE | 2020-10-02 13:41 | PDOC CRITICAL CARE PROG REPORT ---
General Date:: 10/02/20 ICU Day:: 15 Ventilator Day:: 15 Hospital Day:: 18 Resuscitation Status: Full Code Events in the past 12 to 24 Hours:: This 69-year-old female smoker presented to emergency department on 09/14/2020 with complaints of increased dyspnea. She reports a history of interstitial lung disease but denies COPD or emphysema. In the emergency department, she was found to be hypoxic and was placed on supplemental oxygen. Due to failure to improve oxygenation, she was placed on BiPAP support with an FiO2 of 100%. This was titrated at the bedside to CPAP 8. Her primary care physician (Dr. Joiner) requested ICU admission for acute hypoxemic respiratory failure. In the emergency department, her troponin was elevated (7.09) and proBNP 16,400. Chest x-ray was consistent with pulmonary edema. 09/15: She remains in the emergency department (lack of available beds). She is stable on CPAP 6, FiO2 100%. In fact, the nurse called earlier this morning to report that the patient was wandering around in the hallway. Denies chest pain. She states that her shortness of breath is improved with noninvasive positive pressure ventilatory support. Minimal cough. No sputum production. 2D echo pending. Patient discussed with Dr. Joiner. 09/18: Transferred to the ICU and reintubated. Currently stable 09/19: Renal function worsening, heading toward HD. Stop versed and assess neuro status. 09/20: Still not very awake. Renal function worse, LFTs better after arrest. 09/21: Still not responsive on no sedation. Renal function worse. Heading toward dialysis. Dr. Kathleen consulted. 09/22: Still making urine. Not needing HD now. Still not awake. Cant extubate. 09/23: Making more urine. No HD today. Covid ARDS by the numbers. Not responsive. 09/24: Coming off levophed. Agitated but not awake or extubatable. 09/25: Now on vasopressin instead of norepinephrine (per Dr. Zuniga). Still on argatroban gtt. Remains intubated. On propofol for sedation. On PRVC 15 /450/100/10. RR 21. 09/26: On vasopresin @ 0.04. MAP 72. Afebrile, in fact, hypothermic (96.3 F). Still on argatroban gtt. But, platelets 48 today. Remains intubated. RASS -4, on propofol for sedation, which was apparently increased overnight due to concerns about oxygen desaturation being related to work of breathing. Currently, getting NS 500 mL IV bolus for mild hypotension (MAP 62) this a.m. On PRVC 15/450/100/10. RR 16. ABG this a.m.: 7.35/38/63. BUN 145, Cr 6 but nonoliguric. 09/27: On norepinephrine (2) and vasopressin (0.04). Afebrile. No longer hypothermic. Platelets 59 today (perhaps, after changing Pepcid to Protonix). On argatroban. On propofol/fentanyl for sedation. PRVC 22/450/100/10. RR 22. ABG this a.m.: 7.29/43/62. BUN 154. Creatinine 5.4. Decadron decreased to 4 mg IV q 12 hr. Has been on Levaquin since 09/23 but urine (09/26) is isolating GNR. 09/28: On neorepinephrine (3) and vasopressin (0.04). Platelets 59 again today. On argatroban. On propofol/fentanyl for sedation. Unarousable to noxious stimuli. PRVC 28/380/100/12. RR 28. ABG this a.m.: 7.29/41/64. 09/29: Got hemodialysis yesterday. On norepinephrine (2) and vasopressin (0.04). Started on rocuronium infusion overnight due to ventilator dyssynchrony. Synchronous with On propofol/fentanyl for sedation. ABG this a.m.: 7.31/40/80. Sodium 131. BUN 87, creatinine 3.7. Calcium 7.9. Albumin 2.2. Blood culture (09/26) isolating gram-positive roni in 1 of 2 bottles. Trach aspirate (09/26) isolating MRSA. On Rocephin/vancomycin. On Nepro and Reglan. Of note, the healthcare team was informed yesterday that the patient does have more family members then we were originally led to believe. At this time, it appears that the patient's brother (who apparently lives in [place]) is the surrogate decision maker for this patient 09/30: Still on rocuronium. On vasopressin and levophed. 10/01: On levophed. U/O less. Decreasing each day 10/02: Still with refractory hypoxia. Renal numbers worse. Prognosis poor. Review of systems relevant to events:: Neurological, pulmonary, renal, CV. Reason for ICU Addmission:: s/p cardiac arrest. Intubated. - Medications: Medications reviewed and adjusted accordingly: Yes Vasopressors:: Levophed. Sedation:: Fentanyl, diprivan. Physical Exam Vital Signs: Temp Pulse Resp BP Pulse Ox 98.2 F 86 26 H 75/41 L 82 L 10/02/20 10:00 10/02/20 12:00 10/02/20 12:00 10/01/20 14:00 10/02/20 12:00 Intake & Output 10/01/20 10/02/20 10/03/20 06:59 06:59 06:59 Intake Total 2121 2556 1073 Output Total 2119 663 4000 Balance 2 5893 -0637 Weight 91.1 kg 90.9 kg Weight/Height Weight 90.9 kg Height 5 ft 2 in General appearance: PRESENT: no acute distress Head exam: PRESENT: atraumatic, normocephalic Eye exam: PRESENT: PERRLA Ear exam: PRESENT: normal external ear exam Mouth exam: PRESENT: moist, tongue midline Respiratory exam: PRESENT: clear to auscultation yung, rhonchi. ABSENT: rales, wheezes Cardiovascular exam: PRESENT: RRR. ABSENT: diastolic murmur, rubs, systolic murmur GI/Abdominal exam: PRESENT: ascites Rectal exam: PRESENT: deferred Gentrourinary exam: PRESENT: indwelling catheter Extremities exam: PRESENT: +1 edema Musculoskeletal exam: PRESENT: normal inspection Neurological exam: PRESENT: other - She gets somewhat agitated from time to time. Does nothing purposefully. Skin exam: PRESENT: dry, intact, warm. ABSENT: cyanosis, rash Tubes/Lines: PRESENT: Endotracheal Tube, Central Line, Nasogastic Tube Laboratory/Radiographs Laboratory Results: 10/02/20 03:19 10/02/20 03:19 10/02/20 10/02/20 03:19 03:19 WBC 25.3 H RBC 3.05 L Hgb 9.2 L Hct 27.5 L MCV 90 MCH 30.1 MCHC 33.3 RDW 17.5 H Plt Count 71 L Sodium 126.4 L Potassium 4.5 D Chloride 94 L Carbon Dioxide 21 L Anion Gap 11 BUN 67 H Creatinine 3.48 H Est GFR ( Amer) 16 L Glucose 124 H Calcium 8.5 Total Bilirubin 0.6 AST 32 Alkaline Phosphatase 148 H Total Protein 4.8 L Albumin 2.3 L Triglycerides 156 H 09/26/20 10:45 Blood Blood Culture - Final Eubacterium Species No Aerobic Organisms 09/14/20 09/14/20 09/14/20 13:15 13:15 20:11 CK-MB (CK-2) 7.78 H Troponin I 7.090 6.940 NT-Pro-B Natriuret Pep 64919 H 09/15/20 09/15/20 09/17/20 02:02 05:47 09:56 CK-MB (CK-2) Troponin I 7.440 6.180 4.440 NT-Pro-B Natriuret Pep 09/18/20 09/19/20 09/20/20 13:55 03:16 04:22 CK-MB (CK-2) Troponin I 6.100 3.560 1.510 NT-Pro-B Natriuret Pep 09/25/20 04:10 CK-MB (CK-2) Troponin I 0.374 NT-Pro-B Natriuret Pep Impressions: KUB X-Ray 09/20/20 00:00 IMPRESSION: Esophagogastric tube tip and side-hole are below the diaphragm likely in the stomach. Chest X-Ray 09/29/20 22:57 IMPRESSION: Little interval change copyright 2011 [employer]- All Rights Reserved All labs, radiographs, diagnostic studies and EKGs were personally reviewed: Yes In addition, reports of radiographic and diagnostic studies were read: Yes Assessment and Plan - Diagnosis (1) COVID-19 Is this a current diagnosis for this admission?: Yes Plan: This is the origin of her illness and its complications. (2) Interstitial lung disease Is this a current diagnosis for this admission?: Yes Plan: This is contributing to her pulmonary difficulties. (3) PILAR (acute kidney injury) Is this a current diagnosis for this admission?: Yes Plan: This is getting worse and she may be headed towards dialysis. (4) Cardiac arrest Is this a current diagnosis for this admission?: Yes Plan: This has been the major reason for her neuro status. Covid can induce a delirium or an obtundation as well. (5) ARDS (adult respiratory distress syndrome) Is this a current diagnosis for this admission?: Yes Plan: She is in a refractory hypoxia with a saturation of 85-90% even on 100%. Plan Summary: Maintain as is but the overall prognosis has been inexorably downward. Critical Time Critical Time (minutes): 35 Level of Care: ICU Anticipated discharge: Other Anticipated DC Timeframe: Other -: 1. The care of a critical patient is a dynamic process. This note is a inbound customer service representative synopsis but static in nature. The timeframe for treatments given in order is not necessarily the actual time these treatments may have been done. 2. This patient requires critical care secondary to ongoing requirements for therapy not offered or safe outside the critical care environment. Transfer to a lower level of care will result in altered life or limb morbidity and m ortality. 3. Multidisciplinary rounds completed. 4. ABCDE bundle addressed.
[2020-10-02] MEDS: PHARMACY COMMUNICATION ORDER MC SCH (18:11)
[2020-10-02] MEDS: CEFTRIAXONE SODIUM 1,000 MG in DEXTROSE 5%-WATER 50 ML IV SCH (21:56)
[2020-10-02] MEDS: MONTELUKAST SODIUM 10 MG TABLET PO SCH (21:56)
[2020-10-02] MEDS: DEXTROSE 5%-WATER 250 ML with VASOPRESSIN 100 UNIT IV PRN ×2 (21:56)
[2020-10-02] MEDS: TRAZODONE HCL 50 MG TABLET PO SCH (21:57)
--- NOTE | 2020-10-02 22:45 | Progress Note ---
Provider Note Provider Note: Patient is continued to deteriorate and becoming hypoxic in spite of heroic efforts by the coating machine helper. Still requires vasopressin and Levophed for her blood pressure stabilization. Otherwise cardiac status is not at present acute. Patient not examined. Chart was reviewed. Will not charge the patient for this with visit. Recommended making the patient comfort care.
[2020-10-03] MEDS ORDERED: NOREPINEPHRINE BITARTRATE INJ/PF 4 MG/4 ML SDV IV ONE ×3 (00:08→11:13)
[2020-10-03] MEDS: LEVALBUTEROL HCL NEB 0.63 MG/3 ML AMPUL NEB SCH ×5 (00:21→15:35)
[2020-10-03] MEDS: NORMAL SALINE 1000 ML 1,000 ML IV PRN (00:47)
[2020-10-03] MEDS: METOCLOPRAMIDE HCL INJ/PF 10 MG/2 ML SDV IV SCH ×3 (00:47→14:22)
[2020-10-03] MEDS: DEXTROSE 5%-WATER 250 ML with NOREPINEPHRINE BITARTRATE 4 MG IV PRN ×4 (00:50→11:13)
[2020-10-03] MEDS: MINERAL OIL/PETROLATUM,WHITE OPH OINT 3.5 GM OU SCH ×2 (01:58→10:03)
[2020-10-03] MEDS: PROPOFOL 1,000 MG/100 ML INFUS..BTL IV PRN ×4 (03:51→14:00)
[2020-10-03 05:20] LABS: HEMATOCRIT 26.2 % (36.0-47.0); HEMOGLOBIN 8.9 g/dL (12.0-15.5); MEAN CORPUSCULAR HEMOGLOBIN 30.6 pg (27.0-33.4); MEAN CORPUSCULAR VOLUME 90 fl (80-97); RED CELL DISTRIBUTION WIDTH 18.2 % (11.5-14.0); WHITE BLOOD COUNT 24.5 10^3/uL (4.0-10.5)
[2020-10-03] MEDS: PANTOPRAZOLE SODIUM 40 MG PACKET.DR NG SCH (05:27)
[2020-10-03] MEDS: INSULIN REG, HUMAN 100 UNIT/ML 3 ML VIAL (PYX) SUBCUT SCH ×2 (05:28→12:06)
[2020-10-03 05:39] LABS: ANION GAP 14 (5-19); BLOOD UREA NITROGEN 51 mg/dL (7-20); CALCIUM 8.4 mg/dL (8.4-10.2); CARBON DIOXIDE 21 mmol/L (22-30); CHLORIDE 92 mmol/L (98-107); GLUCOSE 118 mg/dL (75-110); POTASSIUM 3.9 mmol/L (3.6-5.0); TRIGLYCERIDES 209 mg/dL (<150)
[2020-10-03] MEDS: NORMAL SALINE 500 ML with ROCURONIUM BROMIDE 500 MG IV PRN ×2 (05:41)
[2020-10-03 05:58] LABS: PLATELET COUNT 81 10^3/uL (150-450)
[2020-10-03 06:02] LABS: ABSOLUTE LYMPHOCYTES# (MANUAL) 0.2 10^3/uL (0.5-4.7); BASOPHILS % (MANUAL) 0 % (0-2); EOSINOPHILS % (MANUAL) 0 % (0-6); LYMPHOCYTES % (MANUAL) 1 % (13-45); METAMYELOCYTES % (MANUAL) 1 % (0-1); MONOCYTES % (MANUAL) 8 % (3-13); SEGMENTED NEUTROPHILS % (MAN) 90 % (42-78); TOTAL CELLS COUNTED 100
[2020-10-03 06:04] LABS: ANISOCYTOSIS 1+; OVALOCYTES SLIGHT; PLATELET COMMENT DECREASED; POIKILOCYTOSIS 1+; TEAR DROP CELLS SLIGHT; TOXIC GRANULATION 1+
[2020-10-03] MEDS: BUDESONIDE NEB 0.25 MG/2 ML AMPUL NEB SCH (08:01)
--- NOTE | 2020-10-03 09:22 | PDOC CRITICAL CARE PROG REPORT ---
General Date:: 10/03/20 ICU Day:: 16 Ventilator Day:: 16 Hospital Day:: 19 Resuscitation Status: Full Code Events in the past 12 to 24 Hours:: This 69-year-old female smoker presented to [facility] emergency department on 09/14/2020 with complaints of increased dyspnea. She reports a history of interstitial lung disease but denies COPD or emphysema. In the emergency department, she was found to be hypoxic and was placed on supplemental oxygen. Due to failure to improve oxygenation, she was placed on BiPAP support with an FiO2 of 100%. This was titrated at the bedside to CPAP 8. Her primary care physician (Dr. Joiner) requested ICU admission for acute hypoxemic respiratory failure. In the emergency department, her troponin was elevated (7.09) and proBNP 16,400. Chest x-ray was consistent with pulmonary edema. 09/15: She remains in the emergency department (lack of available beds). She is stable on CPAP 6, FiO2 100%. In fact, the nurse called earlier this morning to report that the patient was wandering around in the hallway. Denies chest pain. She states that her shortness of breath is improved with noninvasive positive pressure ventilatory support. Minimal cough. No sputum production. 2D echo pending. Patient discussed with Dr. Joiner. 09/18: Transferred to the ICU and reintubated. Currently stable 09/19: Renal function worsening, heading toward HD. Stop versed and assess neuro status. 09/20: Still not very awake. Renal function worse, LFTs better after arrest. 09/21: Still not responsive on no sedation. Renal function worse. Heading toward dialysis. Dr. Kathleen consulted. 09/22: Still making urine. Not needing HD now. Still not awake. Cant extubate. 09/23: Making more urine. No HD today. Covid ARDS by the numbers. Not responsive. 09/24: Coming off levophed. Agitated but not awake or extubatable. 09/25: Now on vasopressin instead of norepinephrine (per Dr. Zuniga). Still on argatroban gtt. Remains intubated. On propofol for sedation. On PRVC 15 /450/100/10. RR 21. 09/26: On vasopresin @ 0.04. MAP 72. Afebrile, in fact, hypothermic (96.3 F). Still on argatroban gtt. But, platelets 48 today. Remains intubated. RASS -4, on propofol for sedation, which was apparently increased overnight due to concerns about oxygen desaturation being related to work of breathing. Currently, getting NS 500 mL IV bolus for mild hypotension (MAP 62) this a.m. On PRVC 15/450/100/10. RR 16. ABG this a.m.: 7.35/38/63. BUN 145, Cr 6 but nonoliguric. 09/27: On norepinephrine (2) and vasopressin (0.04). Afebrile. No longer hypothermic. Platelets 59 today (perhaps, after changing Pepcid to Protonix). On argatroban. On propofol/fentanyl for sedation. PRVC 22/450/100/10. RR 22. ABG this a.m.: 7.29/43/62. BUN 154. Creatinine 5.4. Decadron decreased to 4 mg IV q 12 hr. Has been on Levaquin since 09/23 but urine (09/26) is isolating GNR. 09/28: On neorepinephrine (3) and vasopressin (0.04). Platelets 59 again today. On argatroban. On propofol/fentanyl for sedation. Unarousable to noxious stimuli. PRVC 28/380/100/12. RR 28. ABG this a.m.: 7.29/41/64. 09/29: Got hemodialysis yesterday. On norepinephrine (2) and vasopressin (0.04). Started on rocuronium infusion overnight due to ventilator dyssynchrony. Synchronous with On propofol/fentanyl for sedation. ABG this a.m.: 7.31/40/80. Sodium 131. BUN 87, creatinine 3.7. Calcium 7.9. Albumin 2.2. Blood culture (09/26) isolating gram-positive roni in 1 of 2 bottles. Trach aspirate (09/26) isolating MRSA. On Rocephin/vancomycin. On Nepro and Reglan. Of note, the healthcare team was informed yesterday that the patient does have more family members then we were originally led to believe. At this time, it appears that the patient's brother (who apparently lives in [place]) is the surrogate decision maker for this patient 09/30: Still on rocuronium. On vasopressin and levophed. 10/01: On levophed. U/O less. Decreasing each day 10/02: Still with refractory hypoxia. Renal numbers worse. Prognosis poor. 10/03: Still hypoxic to 85% on 100%. Renal numbers slightly better. Prognosis still poor. Review of systems relevant to events:: Pulmonary, neurological, renal. Reason for ICU Addmission:: s/p cardiac arrest. Intubated. - Medications: Medications reviewed and adjusted accordingly: Yes Vasopressors:: Levophed. Sedation:: Fentanyl, diprivan. Physical Exam Vital Signs: Temp Pulse Resp BP Pulse Ox 99.0 F 85 26 H 106/55 L 100 10/03/20 08:00 10/03/20 08:00 10/03/20 08:00 10/03/20 08:00 10/03/20 08:00 Intake & Output 10/02/20 10/03/20 10/04/20 06:59 06:59 06:59 Intake Total 2556 4159 70 Output Total 663 4033 0 Balance 1893 126 70 Weight 90.9 kg 90.9 kg Weight/Height Weight 90.9 kg Height 5 ft 2 in General appearance: PRESENT: no acute distress Head exam: PRESENT: atraumatic, normocephalic Eye exam: PRESENT: conjunctiva pink, EOMI, PERRLA. ABSENT: scleral icterus Ear exam: PRESENT: normal external ear exam Mouth exam: PRESENT: moist, tongue midline Respiratory exam: PRESENT: clear to auscultation yung, symmetrical, unlabored. ABSENT: rales, rhonchi, wheezes Cardiovascular exam: PRESENT: RRR. ABSENT: diastolic murmur, rubs, systolic murmur GI/Abdominal exam: PRESENT: normal bowel sounds, soft. ABSENT: distended, guarding, mass, organolmegaly, rebound, tenderness Rectal exam: PRESENT: deferred Extremities exam: PRESENT: +1 edema Musculoskeletal exam: PRESENT: normal inspection Neurological exam: PRESENT: other - Sedated on fentanyk and diprivan. Has rocuronium. Tubes/Lines: PRESENT: Endotracheal Tube, Nasogastic Tube Laboratory/Radiographs Laboratory Results: 10/03/20 03:46 10/03/20 03:46 10/03/20 10/03/20 03:46 03:46 WBC 24.5 H RBC 2.90 L Hgb 8.9 L Hct 26.2 L MCV 90 MCH 30.6 MCHC 34.0 RDW 18.2 H Plt Count 81 L Seg Neutrophils % Not Reportable Sodium 127.2 L Potassium 3.9 Chloride 92 L Carbon Dioxide 21 L Anion Gap 14 BUN 51 H Creatinine 2.99 H Est GFR ( Amer) 19 L Glucose 118 H Calcium 8.4 C-Reactive Protein 85.0 H Triglycerides 209 H 09/14/20 09/14/20 09/14/20 13:15 13:15 20:11 CK-MB (CK-2) 7.78 H Troponin I 7.090 6.940 NT-Pro-B Natriuret Pep 39816 H 09/15/20 09/15/20 09/17/20 02:02 05:47 09:56 CK-MB (CK-2) Troponin I 7.440 6.180 4.440 NT-Pro-B Natriuret Pep 09/18/20 09/19/20 09/20/20 13:55 03:16 04:22 CK-MB (CK-2) Troponin I 6.100 3.560 1.510 NT-Pro-B Natriuret Pep 09/25/20 04:10 CK-MB (CK-2) Troponin I 0.374 NT-Pro-B Natriuret Pep Impressions: KUB X-Ray 09/20/20 00:00 IMPRESSION: Esophagogastric tube tip and side-hole are below the diaphragm likely in the stomach. Chest X-Ray 09/29/20 22:57 IMPRESSION: Little interval change copyright 2011 [employer]- All Rights Reserved All labs, radiographs, diagnostic studies and EKGs were personally reviewed: Yes In addition, reports of radiographic and diagnostic studies were read: Yes Assessment and Plan - Diagnosis (1) COVID-19 Is this a current diagnosis for this admission?: Yes Plan: She not only has pulmonary dysfunction from Covid but her arrest makes her prognosis even worse. Cant assess neuro status on sedation and rocuronium but not brain . (2) Interstitial lung disease Is this a current diagnosis for this admission?: Yes Plan: Complicating her pulmonary issues. Again not sure by how much. (3) PILAR (acute kidney injury) Is this a current diagnosis for this admission?: Yes Plan: Her Cr somewhat better for today. (4) Cardiac arrest Is this a current diagnosis for this admission?: Yes Plan: No recurrence. (5) ARDS (adult respiratory distress syndrome) Is this a current diagnosis for this admission?: Yes Plan: Still present. O2 saturations under 90 mean a PO2 under 60. On 100% that is a PaO2/FIO2 ration under 60. Plan Summary: Prognosis quite poor. Critical Time Critical Time (minutes): 35 Level of Care: ICU Anticipated discharge: Other Anticipated DC Timeframe: Other -: 1. The care of a critical patient is a dynamic process. This note is a telemarketing sales representative synopsis but static in nature. The timeframe for treatments given in order is not necessarily the actual time these treatments may have been done. 2. This patient requires critical care secondary to ongoing requirements for therapy not offered or safe outside the critical care environment. Transfer to a lower level of care will result in altered life or limb morbidity and mortality. 3. Multidisciplinary rounds completed. 4. ABCDE bundle addressed.
[2020-10-03] MEDS: FENTANYL CITRATE/PF 600 MCG/60 ML BAG IV PRN (09:25)
[2020-10-03] MEDS: ASCORBIC ACID 500 MG TABLET PO SCH ×2 (10:02→14:21)
[2020-10-03] MEDS: CHOLECALCIFEROL (D3) 1,000 UNIT (25 MCG) TABLET PO SCH (10:02)
[2020-10-03] MEDS: ASPIRIN 81 MG TABLET, CHEWABLE PO SCH (10:02)
[2020-10-03] MEDS: AMINO AC/PROTEIN HYDR/WHEY PRO 11 GM/45 ML PKT NG SCH (10:02)
[2020-10-03] MEDS: LEVETIRACETAM ORAL SOLN 500 MG/5 ML UDCUP NG SCH (10:02)
[2020-10-03] MEDS: DEXAMETHASONE SOD PHOSPHATE INJ 4 MG/1 ML VIAL IV SCH (10:02)
[2020-10-03] MEDS: METOPROLOL TARTRATE 25 MG TABLET NG SCH (10:04)
[2020-10-03] MEDS: MEROPENEM 1 GM in NORMAL SALINE 50 ML IV SCH (12:45)
--- NOTE | 2020-10-03 13:57 | Progress Note ---
Provider Note Provider Note: Patient made comfort care. Hence will sign off.
--- NOTE | 2020-10-03 16:47 | Progress Note ---
Provider Note Provider Note: I've spoken to the daughter Freda. She is in agreement to make her mother DNR and withdraw care. Pt is off rocurinium and has 4 twitches. Nevertheless will not extubate for another hour. Daughter is aware she will.
[2020-10-03 16:55] VITALS: BP 115/62
--- NOTE | 2020-10-08 09:32 | Death Summary ---
Summary Date : 10/03/20 Time of :: 18:02 Autopsy: No Resuscitation Status: Comfort Measures Only - Final Diagnosis (1) COVID-19 Is this a current diagnosis for this admission?: Yes (2) Interstitial lung disease Is this a current diagnosis for this admission?: Yes (3) PILAR (acute kidney injury) Is this a current diagnosis for this admission?: Yes (4) Cardiac arrest Is this a current diagnosis for this admission?: Yes (5) ARDS (adult respiratory distress syndrome) Is this a current diagnosis for this admission?: Yes Hospital Course:: This patient was a 70 yo woman who passed after a flores with COVID PNA. She was hospitalized with this disease but had a largely progressive course. She had a brief cardiac arrest during her stay and remained agitated but never regained a good functional neurological status after this. She suffered ARF and came very close to needing dialysis. Her main problem throughout was hypoxia. She was maintained on 100% O2 and was unable to be weaned. Her duaghter expressed a desire to have her made comfort care and withdraw support. She had been maintained on heavy sedation and rocuronium. The sedation and rocuronium were stopped. She had 2/4 twitches but was maintained on the ventilator for another hour. She had four full twitches at the time of extubation with no post tetanic potentiation. Support was withdrawn and she quickly and peacefully at 18:02 PM on 10/03.
== END 2020-10-03 18:02 | disposition expired | DRG 207 ==
LOC: ER 13:00 → EH 17:41 → 3W 09-15 14:48 → ICU 09-16 19:42
PROVIDERS: ADMIT Anesthesiology; ATTEND Anesthesiology
PROC: XW033E5 Introduction of Remdesivir Anti-infective into Peripheral Vein, Percutaneous Approach, New Technology Group 5 (ICD-10-PCS; 2020-09-14)
PROC: 5A09357 Assistance with Respiratory Ventilation, Less than 24 Consecutive Hours, Continuous Positive Airway Pressure (ICD-10-PCS; 2020-09-14)
PROC: 5A1955Z Respiratory Ventilation, Greater than 96 Consecutive Hours (ICD-10-PCS; principal; 2020-09-16)
PROC: 0BH17EZ Insertion of Endotracheal Airway into Trachea, Via Natural or Artificial Opening (ICD-10-PCS; 2020-09-16)
PROC: 5A12012 Performance of Cardiac Output, Single, Manual (ICD-10-PCS; 2020-09-16)
PROC: 02HV33Z Insertion of Infusion Device into Superior Vena Cava, Percutaneous Approach (ICD-10-PCS; 2020-09-16)
PROC: 30233N1 Transfusion of Nonautologous Red Blood Cells into Peripheral Vein, Percutaneous Approach (ICD-10-PCS; 2020-09-17)
PROC: 30233N1 Transfusion of Nonautologous Red Blood Cells into Peripheral Vein, Percutaneous Approach (ICD-10-PCS; 2020-09-23)
PROC: 5A1D70Z Performance of Urinary Filtration, Intermittent, Less than 6 Hours Per Day (ICD-10-PCS; 2020-09-24)
PROC: 02HV33Z Insertion of Infusion Device into Superior Vena Cava, Percutaneous Approach (ICD-10-PCS; 2020-09-28)
DX: U07.1 COVID-19 (principal); J12.82 Pneumonia due to coronavirus disease 2019; I21.4 Non-ST elevation (NSTEMI) myocardial infarction; A41.9 Sepsis, unspecified organism; J96.01 Acute respiratory failure with hypoxia; N17.9 Acute kidney failure, unspecified; I50.30 Unspecified diastolic (congestive) heart failure; I13.0 Hypertensive heart and chronic kidney disease with heart failure and stage 1 through stage 4 chronic kidney disease, or unspecified chronic kidney disease; N18.4 Chronic kidney disease, stage 4 (severe); J44.0 Chronic obstructive pulmonary disease with (acute) lower respiratory infection; J44.1 Chronic obstructive pulmonary disease with (acute) exacerbation; N39.0 Urinary tract infection, site not specified; D69.6 Thrombocytopenia, unspecified; D63.1 Anemia in chronic kidney disease; I95.9 Hypotension, unspecified; Z51.5 Encounter for palliative care; E78.5 Hyperlipidemia, unspecified; G47.30 Sleep apnea, unspecified; M79.7 Fibromyalgia; F32.9 Major depressive disorder, single episode, unspecified; F17.200 Nicotine dependence, unspecified, uncomplicated; I46.9 Cardiac arrest, cause unspecified; B96.20 Unspecified Escherichia coli [E. coli] as the cause of diseases classified elsewhere; Z88.8 Allergy status to other drugs, medicaments and biological substances; Z88.6 Allergy status to analgesic agent; Z91.041 Radiographic dye allergy status
CPT/HCPCS: 31500; 36415; 36430; 36556; 36600; 36620; 51702; 71045; 74018; 80048; 80053; 80202; 81001; 82330; 82553; 82803; 82962; 83010; 83605; 83615; 83735; 83880; 84100; 84134; 84478; 84484; 85025; 85027; 85379; 85610; 85730; 86022; 86140; 86317; 86704; 86850; 86900; 86901; 86920; 87040; 87070; 87077; 87086; 87088; 87150; 87186; 87205; 87340; 87522; 92950; 93005; 93010; 93306; 94002; 94003; 94640; 94660; 96361; 96374; 99233; 99285; 99291; 99292; J0610; C9113; J0171; J0696; J0883; J1100; J1644; J1815; J1940; J1956; J2060; J2185; J2250; J2270; J2704; J2765; J3010; J3370; J3475; J3480; J3490; J7030; J7040; J7050; J7060; J7120; P9016; P9047; Q5105; S0028